=== PATIENT | female | born 1950 | race Caucasian/White ===

== ENCOUNTER → 2017-06-13 09:48 | Outpatient (CLI) | payer OTHER, SELFPAY ==
--- NOTE | 2017-06-13 10:12 | XR_ITS ---
XR foot RT min 3V HISTORY: Right foot pain ITS.REASON: R/O FOREIGN BODY ORDERING PHYSICIAN: Lucy Valero PATIENT AGE: 67 years COMPARISON: None FINDINGS: No fracture or dislocation. No lytic or blastic change. There is normal mineralization.. The joint spaces are well-preserved. No significant degenerative/arthritic changes. No erosive changes evident. There are hypertrophic changes of the distal aspect of the first metatarsal. No radio opaque foreign body apparent. IMPRESSION: No acute finding. Hypertrophic change distal aspect of first metatarsal
== END ==
PROVIDERS: PCP Nurse Practitioner Family; Visit Provider Nurse Practitioner Family
DX: M79.5 Residual foreign body in soft tissue (principal)
CPT/HCPCS: 73630

== ENCOUNTER → 2017-12-26 10:42 | Outpatient (CLI) | payer MEDICARE, OTHER, SELFPAY ==
--- NOTE | 2017-12-26 10:50 | MM_ITS ---
MM Dig screening mamm BI w/CAD CAD Screening COMPARISON: Digital mammograms with CAD 05/02/2016 and 05/01/2015 INDICATION: There is no personal or family history of breast cancer. There is been previous biopsy right breast for benign disease. TECHNIQUE: Standard CC and MLO images were obtained. R2 CAD reviewed. FINDINGS: Moderate diffuse fibroglandular densities are seen throughout both breasts. Again noted is a biopsy clip right breast. There are multiple benign-appearing macro and microcalcifications in each breast. There is no suspicious lesion and there are no suspicious microcalcifications. IMPRESSION: Stable exam no suspicious lesion seen BI-RADS Category: 2 Benign Finding(s) RECOMMENDED FOLLOW-UP: 1YR - 1 YEAR FOLLOW-UP (A letter has been sent to the patient regarding results of the study.)
== END ==
PROVIDERS: PCP Nurse Practitioner Family; Visit Provider Nurse Practitioner Family
DX: Z12.31 Encounter for screening mammogram for malignant neoplasm of breast (principal)
CPT/HCPCS: 77067

== ENCOUNTER → 2018-08-28 12:35 | Outpatient (POV) | payer MEDICARE, OTHER, SELFPAY | PROVIDERS: Visit Provider Internal Medicine | DX: Z00.00 Encounter for general adult medical examination without abnormal findings (principal) ==

== ENCOUNTER → 2018-10-19 08:36 | Outpatient (CLI) | payer MEDICARE, OTHER, SELFPAY ==
[2018-10-19 14:17] LABS: Alanine Aminotransferase 24 U/L (12-78); Albumin Level 3.6 gm/dL (3.4-5.0); Albumin/Globulin Ratio 1.1 (1.1-1.8); Alkaline Phosphatase 107 U/L (46-116); Anion Gap 13.6 mEq/L (5-15); Aspartate Amino Transferase 20 U/L (15-37); Bilirubin,Total 0.2 mg/dL (0.2-1.0); Blood Urea Nitrogen 19 mg/dL (7-18); Calcium 9.1 mg/dL (8.5-10.1); Carbamazepine (Tegretol) 8.6 ug/ml (4.0-12.0); Carbon Dioxide 29 mmol/L (21.0-32.0); Chloride 103 mmol/L (98-107); Cholesterol 161 mg/dL (140-200); Creatinine,Serum 0.87 mg/dL (0.55-1.02); Estimated Glomerular Filt Rate 65 ml/min (>60); GFR (African American) 79 ML/MIN (>60); Globulin 3.4 gm/dl (1.3-3.2); Glucose 147 mg/dL (74-106); HDL Cholesterol 53 mg/dL (29-89); LDL Cholesterol 82 mg/dL (0-130); Potassium 4.6 mmoL/L (3.5-5.1); Sodium 141 mmol/L (136-145); Triglycerides 130 mg/dL (30-200); VLDL Cholesterol 26 mg/dL (0-40)
[2018-10-19 14:47] LABS: Thyroid Stimulating Hormone 2.03 uIU/ml (0.358-3.740)
[2018-10-19 14:55] LABS: Basophils # 0.1 K/mm3 (0-0.2); Basophils % 0.7 % (0.1-2.0); Eosinophils # 0.2 K/mm3 (0.0-0.4); Eosinophils % 2.3 % (0.1-12.0); Hematocrit 37.7 % (37.0-47.0); Hemoglobin 12.5 g/dL (12.2-16.2); Lymphocytes # 2.6 K/mm3 (0.7-4.5); Lymphocytes % 35.8 % (10-50); Mean Platelet Volume 8.2 fl (7.4-10.4); Monocytes # 0.4 K/mm3 (0.1-1.0); Monocytes % 5.8 % (1.7-9.3); Neutrophils % 55.4 % (37.0-80.0); Platelet Count 302 K/mm3 (142-424); Red Blood Count 4.02 M/mm3 (4.20-5.40); Red Cell Distribution Width 12.6 % (11.5-17.5); White Blood Count 7.2 K/mm3 (4.8-10.8)
== END ==
PROVIDERS: PCP Nurse Practitioner Family; Visit Provider Psychiatry & Neurology Psychiatry
DX: F31.2 Bipolar disorder, current episode manic severe with psychotic features (principal); Z79.899 Other long term (current) drug therapy
CPT/HCPCS: 36415; 80053; 80061; 80156; 83036; 84443; 85025

== ENCOUNTER → 2019-01-11 10:38 | Outpatient (CLI) | payer MEDICARE, OTHER, SELFPAY ==
--- NOTE | 2019-01-11 10:42 | MM_ITS ---
PROCEDURE: MM DIG SCREENING MAMM BI W/CAD CLINICAL INDICATION: SCREENING There is no personal or family history of breast cancer. There has been a previous biopsy right breast for benign disease. COMPARISON: DMDBAV DIG MAMM-DX DAX W ADD VIEWS from 05/01/2015 DMS[facility] DIG MAMM-SCREEN DAX W/CAD from 05/02/2016 [facility] MM Dig screening mamm BI w/CAD from 12/26/2017 TECHNIQUE: Standard CC and MLO images were obtained. R2 CAD reviewed. FINDINGS: Scattered diffuse fibroglandular densities are seen throughout both breasts. There are scattered benign-appearing microcalcifications in each breast more numerous right than left. There is no new or suspicious lesion in either breast and no suspicious microcalcifications. IMPRESSION: Moderate diffuse breast density with no suspicious lesions seen BI-RAD Category: 2 Benign Finding(s) FOLLOW-UP: 1YR 1 Year Follow-up (A letter has been sent to the patient regarding results of the study.) Dictated by: Dr. Dario Godinez MD 01/13/2019 10:[address] Dario Godinez MD in [place] 01/13/2019 10:25
== END ==
PROVIDERS: PCP Nurse Practitioner Family; Visit Provider Nurse Practitioner Family
DX: Z12.31 Encounter for screening mammogram for malignant neoplasm of breast (principal)
CPT/HCPCS: 77067

== ENCOUNTER → 2020-01-13 10:09 | Outpatient (CLI) | payer MEDICARE, OTHER, SELFPAY ==
--- NOTE | 2020-01-13 10:46 | MM_ITS ---
PROCEDURE: MM DIG SCREENING MAMM BI W/CAD Digital Breast Tomosynthesis Included CLINICAL INDICATION: SCREENING There is no personal or family history of breast cancer. There has been a previous biopsy right breast for benign disease. COMPARISON: MG DMSB DIG MAMM-SCREEN DAX W/CAD from 05/02/2016 MG [facility] MM Dig screening mamm BI w/CAD from 12/26/2017 MG MM DIG SCREENING MAMM BI W/CAD from 01/11/2019 TECHNIQUE: Standard CC and MLO images and 3D Tomosynthesis was obtained. R2 CAD reviewed. FINDINGS: Glandular densities are seen throughout both breasts. There are multiple scattered benign-appearing micro and macrocalcifications in each breast. There is a biopsy clip right breast. However there has been interval change in the right breast with a collection of indeterminate microcalcifications and architectural distortion approximately 3.6 cm deep to the nipple. Dayne images reveal somewhat spiculated borders to the lesion. IMPRESSION: Suspicious lesion of architectural distortion and indeterminate microcalcifications BI-RAD Category: 5 Highly Suggestive Of Malignancy FOLLOW-UP: Recommend biopsy (A letter has been sent to the patient regarding results of the study.) Dictated by: Dr. Dario Godinez MD 01/19/2020 12:29 Dr. Dario Godinez MD in [place] 01/19/2020 12:29
== END ==
PROVIDERS: PCP Nurse Practitioner Family; Visit Provider Nurse Practitioner Family
DX: Z12.31 Encounter for screening mammogram for malignant neoplasm of breast (principal)
CPT/HCPCS: 77063; 77067

== ENCOUNTER → 2020-02-03 08:35 | Outpatient (CLI) | payer MEDICARE, OTHER, SELFPAY ==
[2020-02-03 13:37] LABS: Chloride 101 mmol/L (98-107); Sodium 137 mmol/L (136-145)
[2020-02-03 13:38] LABS: Potassium 5.1 mmoL/L (3.5-5.1)
[2020-02-03 13:40] LABS: Alanine Aminotransferase 17 U/L (12-78); Albumin Level 3.8 g/dl (3.5-5.0); Albumin/Globulin Ratio 1.2 (1.1-1.8); Alkaline Phosphatase 129 U/L (38-126); Anion Gap 10.1 mEq/L (5-15); Aspartate Amino Transferase 28 U/L (14-36); Basophils # 0.1 K/mm3 (0-0.2); Basophils % 1.2 % (0.1-2.0); Bilirubin,Total 0.3 mg/dl (0.2-1.3); Blood Urea Nitrogen 19 mg/dl (7-17); Carbon Dioxide 31 mmol/L (22.0-30.0); Eosinophils # 0.2 K/mm3 (0.0-0.4); Estimated Glomerular Filt Rate 62 ml/min (>60); GFR (African American) 76 ML/MIN (>60); Globulin 3.1 g/dL (1.3-3.2); Hemoglobin 12.8 g/dL (12.2-16.2); Lymphocytes # 2.5 K/mm3 (0.7-4.5); Lymphocytes % 38.9 % (10-50); Mean Corpuscular Hemoglobin 31.2 pg (27.0-31.2); Mean Corpuscular Volume 97.4 fl (81-99); Mean Platelet Volume 8.2 fl (7.4-10.4); Monocytes # 0.3 K/mm3 (0.1-1.0); Monocytes % 4.9 % (1.7-9.3); Neutrophils # 3.4 K/mm3 (1.8-7.8); Neutrophils % 52.1 % (37.0-80.0); Platelet Count 317 K/mm3 (142-424); Red Blood Count 4.11 M/mm3 (4.20-5.40); Total Protein,Serum 6.9 g/dl (6.3-8.2); White Blood Count 6.4 K/mm3 (4.8-10.8)
[2020-02-03 13:41] LABS: Calcium 9.3 mg/dl (8.4-10.2); Chol/HDL Ratio 2.7 (1-3.5); Cholesterol 166 mg/dl (140-200); Glucose 134 mg/dl (74-100); HDL Cholesterol 61 mg/dl (40-60); Triglycerides 97 mg/dl (30-150); VLDL Cholesterol 19 mg/dL (0-40)
[2020-02-03 13:52] LABS: Direct LDL Cholesterol 70.53 mg/dL (100-129)
[2020-02-03 14:11] LABS: Thyroid Stimulating Hormone 2.71 uIU/mL (0.465-4.68)
[2020-02-03 14:16] LABS: Hemoglobin A1C 6.9 % (4.0-6.0)
== END ==
PROVIDERS: Visit Provider Psychiatry & Neurology Psychiatry
DX: F31.9 Bipolar disorder, unspecified (principal); Z79.899 Other long term (current) drug therapy
CPT/HCPCS: 36415; 80053; 80061; 80156; 83036; 84443; 85025

== ENCOUNTER → 2020-02-05 08:58 | Outpatient (CLI) | payer MEDICARE, OTHER, SELFPAY ==
--- NOTE | 2020-02-05 09:05 | MM_ITS ---
PROCEDURE: MM STEREOTACTIC LOC RT CLINICAL INDICATION: UNSPECIFIED LUMP OF THE RT BREAST, UNSPECIFIED QUADRANT Calcifications right breast TECHNIQUE: Time-out procedure performed. Informed consent was also obtained. The patient was placed on the stereotactic table and the abnormality was localized in the most appropriate projection. The right breast was prepped in the routine manner, with sterile prep and the overlying skin anesthetized. A 3 to 4 mm skin incision was performed and the 9 gauge sorus vacuum-assisted core biopsy needle was advanced to the region of the calcification. Pre- and post fire images were obtained. After adequate positioning relative to the calcifications was ensured, multiple biopsies were obtained in the region of the calcifications specifically. The core biopsies obtained were sent for specimen mammography. After the calcifications were indeed identified on the specimen mammogram, the procedure was terminated. The patient tolerated the procedure well without complications. A tiny titanium nonferromagnetic MicroMark was positioned through the mammotome needle into the biopsy site. Pathology: Fat necrosis with associated microcalcifications. Negative for atypia or malignancy. IMPRESSION: 1. Successful stereotactic vacuum-assisted core biopsy of the breast calcifications. 2. Successful placement of a titanium metal MicroMark. 3. No noted complications. SPECIMEN RADIOGRAPH: The mammographically evident calcifications from the prior study are currently evident within the Lucas dish and within the specimens obtained during mammotome procedure. This is considered an adequate specimen and the procedure was terminated. IMPRESSION: Successful removal of described breast calcifications. BREAST MAMMOGRAM: Compared to the prior study, the previously noted calcification have been removed. A small MicroMark clip was inserted into the region of the calcifications. There is evidence of soft tissue changes in the region of the biopsy was soft tissue gas and edema. 4. Adequate placement of the MicroMark clip postbiopsy. 5. Postbiopsy changes within the breast. 6. Recommend six-month mammographic follow-up per routine protocol. Dictated by: Stefan Snyder MD 03/06/2020 16:00 Stefan Snyder MD in [place] 03/06/2020 16:00
== END ==
PROVIDERS: PCP Nurse Practitioner Family; Visit Provider Nurse Practitioner
DX: R92.0 Mammographic microcalcification found on diagnostic imaging of breast
CPT/HCPCS: 19081; 76098; 77065; 88305

== ENCOUNTER → 2020-08-18 13:14 | Outpatient (CLI) | payer MEDICARE, OTHER, SELFPAY ==
--- NOTE | 2020-08-18 13:18 | MM_ITS ---
PROCEDURE: MM DIG MAMM DX UNILAT RT CAD Digital Breast Tomosynthesis Included CLINICAL INDICATION: 6 mth f/u rt breast s/p bx COMPARISON: MG MM DIG SCREENING MAMM BI W/CAD from 01/13/2020 MG MM CLIP PLACEMENT RT from 02/05/2020 MG MM STEREOTACTIC LOC RT from 02/05/2020 MG MM SURGICAL SPECIMEN RT from 02/05/2020 TECHNIQUE: Standard CC and MLO images and 3D Tomosynthesis was obtained. R2 CAD reviewed. Spot compression Mag views also performed FINDINGS: Status post stereotactic biopsy of the calcifications in the retroareolar region of the right breast. A clip is present at this region similar to the previous exam. Calcifications are increasing however they do appear benign with similar morphology compared to the previous exam. These calcifications were biopsied on 02/05/2020 and demonstrated fat necrosis. The increasing calcification may be related to progression of fat necrosis. Continued six-month follow-up is suggested. Clips are also present in the upper outer right breast and lower inner right breast. IMPRESSION: S/p retroareolar biopsy with some increasing calcifications which may be related to increasing fat necrosis. Continued follow-up suggested BI-RAD Category: 3 Probably Benign Finding Short Term Follow-Up FOLLOW-UP: 6M 6 Month Follow-up (A letter has been sent to the patient regarding results of the study.) Dictated by: Stefan Snyder MD 08/27/2020 09:37 Stefan Snyder MD in [place] 08/27/2020 09:37
== END ==
PROVIDERS: PCP Nurse Practitioner Family; Visit Provider Nurse Practitioner Family
DX: R92.2 Inconclusive mammogram (principal)
CPT/HCPCS: 77061; 77065; G0279

== ENCOUNTER → 2021-02-18 13:12 | Outpatient (CLI) | payer MEDICARE, OTHER, SELFPAY ==
--- NOTE | 2021-02-18 13:16 | MM_ITS ---
PROCEDURE INFORMATION: Exam: MG Bilateral Diagnostic Mammography Exam date and time: 02/18/2021 1:16 PM Age: 70 years old Clinical indication: Status post stereotactic biopsy of right breast calcifications TECHNIQUE: Imaging protocol: Diagnostic mammography of the bilateral breasts including computer-aided detection (CAD) when performed. Bilateral exam. COMPARISON: 1. MG MM DIG MAMM DX UNILAT RT CAD 08/18/2020 1:26 PM 2. MG MM CLIP PLACEMENT RT 02/05/2020 10:58 AM FINDINGS: MAMMOGRAPHY: The breast tissue is composed of scattered areas of fibroglandular density. There is no stellate mass, architectural distortion or suspicious microcalcifications in either breast to suggest malignancy. Stable previously biopsied calcifications in the right central breast. No skin thickening or axillary adenopathy. IMPRESSION: No mammographic evidence of malignancy. Annual bilateral mammographic screening is recommended unless otherwise clinically indicated. ASSESSMENT: BI-RADS Category 2: Benign
== END ==
PROVIDERS: PCP Nurse Practitioner Family; Visit Provider Nurse Practitioner Family
DX: R92.2 Inconclusive mammogram (principal)
CPT/HCPCS: 77062; 77066; G0279

== ENCOUNTER → 2021-03-03 09:18 | Outpatient (CLI) | payer MEDICARE, OTHER, SELFPAY ==
--- NOTE | 2021-03-03 09:24 | XR_ITS ---
FINAL REPORT TECHNIQUE: Bone mineral density was calculated of the lumbar spine and hip. CLINICAL HISTORY: . FINDINGS: Using L1-4, the bone mineral density of the spine is 1.096 g/cm2, corresponding to T-score of 0.4. Using the left hip, the bone mineral density of the total femur is 0.768 g/cm2, corresponding to a T-score of -1.4. IMPRESSION: Normal bone mineral density of the lumbar spine with osteopenia of the proximal left femur. 8% risk of major osteoporotic fracture based on FRAX data. Reviewed, Interpreted and Dictated by Dirk Garcia III, MD Transcribed by Alfred Agudelo Authenticated by Dirk Garcia III, MD on 03/03/2021 10:34:39 AM [facility]
== END ==
PROVIDERS: PCP Nurse Practitioner Family; Visit Provider Nurse Practitioner Family
DX: Z13.820 Encounter for screening for osteoporosis (principal); Z78.0 Asymptomatic menopausal state
CPT/HCPCS: 77080

== ENCOUNTER → 2021-06-24 08:22 | Outpatient (CLI) | payer MEDICARE, OTHER, SELFPAY ==
[2021-06-24 14:11] LABS: Basophils # 0.1 K/mm3 (0-0.2); Basophils % 0.9 % (0.1-2.0); Eosinophils # 0.2 K/mm3 (0.0-0.4); Eosinophils % 3.8 % (0.1-12.0); Hematocrit 36.3 % (37.0-47.0); Hemoglobin 11.7 g/dL (12.2-16.2); Lymphocytes # 2.1 K/mm3 (0.7-4.5); Lymphocytes % 32.4 % (10-50); Mean Corpuscular HGB Conc 32.1 g/dL (31.8-35.4); Mean Corpuscular Hemoglobin 31.4 pg (27.0-31.2); Mean Corpuscular Volume 97.8 fl (81-99); Mean Platelet Volume 10.7 fl (7.4-10.4); Monocytes # 0.3 K/mm3 (0.1-1.0); Monocytes % 4.9 % (1.7-9.3); Neutrophils # 3.7 K/mm3 (1.8-7.8); Platelet Count 344 K/mm3 (142-424); Red Blood Count 3.71 M/mm3 (4.20-5.40); Red Cell Distribution Width 14.2 % (11.5-17.5); White Blood Count 6.4 K/mm3 (4.8-10.8)
[2021-06-24 14:20] LABS: Alanine Aminotransferase 17 U/L (12-78); Albumin Level 3.5 g/dl (3.5-5.0); Albumin/Globulin Ratio 1.3 (1.1-1.8); Alkaline Phosphatase 115 U/L (38-126); Anion Gap 9.4 mEq/L (5-15); Aspartate Amino Transferase 27 U/L (14-36); Bilirubin,Total 0.3 mg/dl (0.2-1.3); Blood Urea Nitrogen 16 mg/dl (7-17); Calcium 8.5 mg/dl (8.4-10.2); Carbamazepine (Tegretol) 7.1 ug/ml (4.0-12.0); Carbon Dioxide 31 mmol/L (22.0-30.0); Chloride 103 mmol/L (98-107); Chol/HDL Ratio 2.7 (1-3.5); Cholesterol 138 mg/dl (140-200); Estimated Glomerular Filt Rate 83 ml/min (>60); GFR (African American) 100 ML/MIN (>60); Globulin 2.8 g/dL (1.3-3.2); Glucose 112 mg/dl (74-100); HDL Cholesterol 52 mg/dl (40-60); Potassium 4.4 mmoL/L (3.5-5.1); Sodium 139 mmol/L (136-145); Total Protein,Serum 6.3 g/dl (6.3-8.2); Triglycerides 97 mg/dl (30-150); VLDL Cholesterol 19 mg/dL (0-40)
[2021-06-24 14:33] LABS: Hemoglobin A1C 6.3 % (4.0-6.0)
[2021-06-24 14:47] LABS: Thyroid Stimulating Hormone 2.03 uIU/mL (0.465-4.68)
== END ==
PROVIDERS: Visit Provider Psychiatry & Neurology Psychiatry
DX: F31.64 Bipolar disorder, current episode mixed, severe, with psychotic features (principal); Z79.899 Other long term (current) drug therapy
CPT/HCPCS: 36415; 80053; 80061; 80156; 83036; 84443; 85025

== ENCOUNTER 2021-07-15 16:06 | Emergency (ER) | payer MEDICARE, OTHER, SELFPAY ==
[2021-07-15 16:07] VITALS: BP 188/92; PULSE 75; RESP 18; TEMP 36.9; O2SAT 99; BMI 28.3
--- NOTE | 2021-07-15 16:24 | CT_ITS ---
PROCEDURE INFORMATION: Exam: CT Abdomen And Pelvis Without Contrast Exam date and time: 07/15/21 04:32 PM Age: 71 years old Clinical indication: Abdominal pain; Additional info: Right flank pain TECHNIQUE: Imaging protocol: Computed tomography of the abdomen and pelvis without contrast. Radiation optimization: All CT scans at this facility use at least one of these dose optimization techniques: automated exposure control; mA and/or kV adjustment per patient size (includes targeted exams where dose is matched to clinical indication); or iterative reconstruction. COMPARISON: No relevant prior studies available. FINDINGS: Tubes, catheters and devices: None noted. Lungs: Lung bases appear clear. Heart: No significant coronary calcifications. No cardiomegaly. No significant pericardial effusion. Liver: Normal. No mass. Gallbladder and bile ducts: Cholecystectomy. No ductal dilation. Pancreas: Normal. No ductal dilation. Spleen: Normal. No splenomegaly. Adrenal glands: Normal. No mass. Kidneys and ureters: Tiny distal right ureteral calculus 1-2 mm size. (series 3, image 100). No hydronephrosis. Stomach and bowel: Large amount of stool in the colon. Appendix: No evidence of appendicitis. Intraperitoneal space: Unremarkable. No free air. No significant fluid collection. Retroperitoneal space: No significant retroperitoneal inflammatory changes are noted. Vasculature: Unremarkable. No abdominal aortic aneurysm. Lymph nodes: Unremarkable. No enlarged lymph nodes. Urinary bladder: Unremarkable as visualized. Reproductive: Hysterectomy. Bones/joints: Disc space narrowing L2-L3. No acute fracture. Soft tissues: Unremarkable. Other findings: . No obstruction. No mucosal thickening. IMPRESSION: 1. Tiny distal right ureteral calculus 1-2 mm size without significant hydronephrosis or hydroureter. 2. Large amount of stool in the colon. 3. Hysterectomy. 4. Disc space narrowing L2-L3.
--- NOTE | 2021-07-15 16:30 | PC.NURSE ---
Mya Cobian, RN at
[2021-07-15 16:37] LABS: Microscopic, Urine URINE MICROSCOPIC (MICROSCOPIC)
--- NOTE | 2021-07-15 16:45 | HMH.EDGENADL ---
ED Disposition Clinical Impression: Ureteral calculus Disposition: Home, Self-Care Condition on Discharge: Good Instructions: DI for Kidney Stones Additional Instructions: Flomax as prescribed. [place] as needed for pain. Zofran as needed for nausea. Additional instructions for KIDNEY STONE (URETERAL CALCULUS): See your PCP as soon as possible for further evaluation. Drink plenty of fluids. Strain your urine and save any stones you catch. Return immediately if you develop a fever or have uncontrollable vomiting or uncontrollable pain. Prescriptions: Hydrocod/Acet 5/325 mg [[place] 5/325mg tablet] 1 tab PO Q6HP PRN #20 tab PRN Reason: Pain Transmission Status: Sent to [facility] Tamsulosin HCl [Flomax 0.4mg capsule] 0.4 mg PO HS #10 cap Transmission Status: Pending to [facility] Ondansetron [Zofran 4mg ODT] 4 mg PO TIDP PRN #10 tab PRN Reason: Nausea And Vomiting Transmission Status: Pending to [facility] Referrals: Tessy Goodman [Primary Care Provider] - - Critical Care Critical Care Time: No Attestation: On , the high probability of a clinically significant, sudden or life threatening deterioration of the following system(s) required my full and direct attention, intervention and personal management. The time I documented below is in addition to time spent performing reported procedures but includes the following listed in this critical care notation. Medical Decision Making - Jacoby Inquiry Pt receiving controlled substance: Yes Jacoby was queried for this patient: Yes Risks and benefits of using a controlled substance: were discussed with pt by me Vital Signs: 07/15/21 16:07 07/15/21 17:08 07/15/21 17:50 Temperature 98.5 F Temperature Source Oral Pulse Rate 77 70 Pulse Rate [Left Radial] 75 Respiratory Rate 18 Blood Pressure 167/76 H 166/89 H Blood Pressure [Right Arm] 188/92 H Blood Pressure Mean [Right Arm] 124 Blood Pressure Source Automatic Cuff Blood Pressure Source [Right Arm] Automatic Cuff Blood Pressure Position Sitting Sitting Blood Pressure Position [Right Arm] Sitting 02 Sat by Pulse Oximetry 99 96 97 Oxygen Delivery Method Room Air Room Air Room Air - Lab Data Lab Results 07/15/21 16:35: Urine Color Yellow, Urine Appearance Clear, Urine pH 6.0, Ur Specific [place] 1.020, Urine Protein Negative, Urine Glucose (UA) Negative, Urine Ketones Negative, Urine Blood Negative, Urine Nitrate Negative, Urine Bilirubin Negative, Urine Urobilinogen 0.2, Ur Leukocyte Esterase Trace 07/15/21 16:45: WBC 7.1, RBC 3.94 L, Hgb 12.3, Hct 39.1, MCV 99.3 H, MCH 31.1, MCHC 31.4 L, RDW 14.6, Plt Count 307, MPV 8.4, Neut % (Auto) 52.5, Lymph % (Auto) 36.3, [place] % (Auto) 6.4, Eos % (Auto) 2.6, Baso % (Auto) 2.2 H, Neut # (Auto) 3.7, Lymph # (Auto) 2.6, [place] # (Auto) 0.5, Eos # (Auto) 0.2, Baso # (Auto) 0.2 07/15/21 16:45: Sodium 135 L, Potassium 4.4, Chloride 98, Carbon Dioxide 30, Anion Gap 11.4, BUN 14, Creatinine 0.70, Estimated Creat Clear 69, Estimated GFR 83, Est GFR ( Amer) 100, Glucose 111 H, Calcium 9.0, Total Bilirubin < 0.1 L, AST 37 H, ALT 23, Alkaline Phosphatase 120, Total Protein 7.3, Albumin 4.0, Globulin 3.3 H, Albumin/Globulin Ratio 1.2 Result diagrams: 07/15/21 16:45 07/15/21 16:45 Orders (Tests/Meds): ED MEDICATIONS Generic Name Dose Route Start Last Admin Trade Name Freq PRN Reason Stop Dose Admin Sodium Chloride 10 ml 07/15/21 16:24 Sodium Chloride 0.9% 10ml Flush Syringe IV 08/14/21 16:23 NEEDED PRN Maintain IV Site Discontinued Medications Generic Name Dose Route Start Last Admin Trade Name Freq PRN Reason Stop Dose Admin Sodium Chloride 1,000 mls @ 999 mls/hr 07/15/21 16:30 07/15/21 16:48 Sod Chlor 0.9% 1000ml Bag IV 07/15/21 17:30 999 mls/hr .Q1H1M DONY Administration Ketorolac Tromethamine 30 mg 07/15/21 16:26 07/15/21 16:49 Ketorolac 30mg/Ml Vial IV
[2021-07-15 16:50] LABS: Appearance,Urine CLEAR (Clear); Bilirubin,Urine Negative (Negative); Blood, Urine Negative (Negative); Color,Urine YELLOW (Yellow); Glucose,Urine (UA) Negative (Negative); Ketones,Urine Negative (Negative); Leukocyte Esterase,Urine TRACE (Negative); Nitrate,Urine Negative (Negative); Protein,Urine Negative (Negative); Urobilinogen,Urine 0.2 EU/dl (0.2)
[2021-07-15 16:55] LABS: Basophils # 0.2 K/mm3 (0-0.2); Basophils % 2.2 % (0.1-2.0); Eosinophils # 0.2 K/mm3 (0.0-0.4); Eosinophils % 2.6 % (0.1-12.0); Hematocrit 39.1 % (37.0-47.0); Hemoglobin 12.3 g/dL (12.2-16.2); Lymphocytes # 2.6 K/mm3 (0.7-4.5); Lymphocytes % 36.3 % (10-50); Mean Corpuscular HGB Conc 31.4 g/dL (31.8-35.4); Mean Corpuscular Hemoglobin 31.1 pg (27.0-31.2); Mean Corpuscular Volume 99.3 fl (81-99); Mean Platelet Volume 8.4 fl (7.4-10.4); Monocytes # 0.5 K/mm3 (0.1-1.0); Monocytes % 6.4 % (1.7-9.3); Neutrophils # 3.7 K/mm3 (1.8-7.8); Neutrophils % 52.5 % (37.0-80.0); Platelet Count 307 K/mm3 (142-424); Red Blood Count 3.94 M/mm3 (4.20-5.40); Red Cell Distribution Width 14.6 % (11.5-17.5); White Blood Count 7.1 K/mm3 (4.8-10.8)
[2021-07-15 17:02] LABS: Alanine Aminotransferase 23 U/L (12-78); Albumin/Globulin Ratio 1.2 (1.1-1.8); Alkaline Phosphatase 120 U/L (38-126); Anion Gap 11.4 mEq/L (5-15); Aspartate Amino Transferase 37 U/L (14-36); Blood Urea Nitrogen 14 mg/dl (7-17); Carbon Dioxide 30 mmol/L (22.0-30.0); Chloride 98 mmol/L (98-107); Creatinine Clearance Estimated 69 mL/min (50-200); Estimated Glomerular Filt Rate 83 ml/min (>60); GFR (African American) 100 ML/MIN (>60); Globulin 3.3 g/dL (1.3-3.2); Glucose 111 mg/dl (74-100); Potassium 4.4 mmoL/L (3.5-5.1); Sodium 135 mmol/L (136-145); Total Protein,Serum 7.3 g/dl (6.3-8.2)
[2021-07-15 17:08] VITALS: BP 167/76; PULSE 77; O2SAT 96
--- NOTE | 2021-07-15 17:09 | PC.NURSE ---
patient hooked to monitor; gave her a warm blanket and call light is within reach; no other needs at this time Family at [facility]
[2021-07-15 17:18] LABS: Bilirubin,Total < 0.1 mg/dl (0.2-1.3)
[2021-07-15 17:50] VITALS: BP 166/89; PULSE 70; O2SAT 97
--- NOTE | 2021-07-15 18:03 | PC.NURSE ---
ED MD at speaking with patient regarding POC
--- NOTE | 2021-07-15 18:20 | PC.NURSE ---
patient wanting to finish fluids before being discharged
[2021-07-15 18:28] VITALS: BP 166/89; PULSE 70; RESP 20; TEMP 36.9; O2SAT 99
[2021-07-15 18:28] LABS: Bacteria,Urine 1+ /lpf
[2021-07-15 18:32] VITALS: BP 191/93; PULSE 72; O2SAT 98
== END 2021-07-15 18:42 | disposition home or self-care (01) ==
PROVIDERS: Emergency Provider Emergency Medicine; PCP Nurse Practitioner Family
DX: N13.2 Hydronephrosis with renal and ureteral calculous obstruction (principal); I31.3 Pericardial effusion (noninflammatory); M54.50 Low back pain, unspecified; Z88.0 Allergy status to penicillin; Z88.2 Allergy status to sulfonamides; Z88.5 Allergy status to narcotic agent; Z88.8 Allergy status to other drugs, medicaments and biological substances; Z91.040 Latex allergy status; Z87.891 Personal history of nicotine dependence
CPT/HCPCS: 74176; 80053; 81001; 85025; 96361; 96374; 96375; 99285; J2405

== ENCOUNTER 2021-07-17 18:00 | Emergency (ER) | payer MEDICARE, OTHER, SELFPAY ==
[2021-07-17 18:00] VITALS: BP 195/94; PULSE 77; RESP 18; TEMP 37.1; O2SAT 99; BMI 28.1
--- NOTE | 2021-07-17 18:06 | HMH.EDGENADL ---
ED Disposition Clinical Impression: Right ureteral calculus Disposition: Xfer Short-Term Hosp Condition on Discharge: Fair Referrals: Provider,Referral, [Referring] - - Critical Care Critical Care Time: No Attestation: On , the high probability of a clinically significant, sudden or life threatening deterioration of the following system(s) required my full and direct attention, intervention and personal management. The time I documented below is in addition to time spent performing reported procedures but includes the following listed in this critical care notation. Medical Decision Making - Jacoby Inquiry Pt receiving controlled substance: Yes Jacoby was queried for this patient: Yes Risks and benefits of using a controlled substance: were not discussed with pt by me Vital Signs: 07/17/21 18:00 07/17/21 18:28 07/17/21 18:30 Temperature 98.7 F Temperature Source Oral Pulse Rate 78 76 Pulse Rate [Left Radial] 77 Respiratory Rate 18 Blood Pressure 189/97 H 204/96 H Blood Pressure [Right Arm] 195/94 H Blood Pressure Mean 127 132 Blood Pressure Mean [Right Arm] 127 Blood Pressure Source Automatic Cuff Automatic Cuff Blood Pressure Position Sitting Sitting 02 Sat by Pulse Oximetry 99 95 98 Oxygen Delivery Method Room Air Room Air Room Air 07/17/21 18:31 Temperature Temperature Source Pulse Rate 81 Pulse Rate [Left Radial] Respiratory Rate Blood Pressure Blood Pressure [Right Arm] Blood Pressure Mean Blood Pressure Mean [Right Arm] Blood Pressure Source Blood Pressure Position 02 Sat by Pulse Oximetry 98 Oxygen Delivery Method - Lab Data Lab Results 07/17/21 18:23: WBC 6.9, RBC 3.64 L, Hgb 11.3 L, Hct 35.7 L, MCV 98.1, MCH 31.1, MCHC 31.7 L, RDW 14.5, Plt Count 279, MPV 7.9, Neut % (Auto) 52.8, Lymph % (Auto) 34.8, [place] % (Auto) 6.9, Eos % (Auto) 3.6, Baso % (Auto) 1.9, Neut # (Auto) 3.6, Lymph # (Auto) 2.4, [place] # (Auto) 0.5, Eos # (Auto) 0.3, Baso # (Auto) 0.1 07/17/21 18:23: Sodium 135 L, Potassium 5.2 H, Chloride 102, Carbon Dioxide 30, Anion Gap 8.2, BUN 14, Creatinine 0.70, Estimated Creat Clear 68, Estimated GFR 83, Est GFR ( Amer) 100, Glucose 81, Calcium 8.7, Total Bilirubin 0.3, AST 34, ALT 21, Alkaline Phosphatase 114, Total Protein 6.6, Albumin 3.7, Globulin 2.9, Albumin/Globulin Ratio 1.3 07/17/21 18:30: Urine Color Yellow, Urine Appearance Clear, Urine pH 6.0, Ur Specific [place] 1.010, Urine Protein Negative, Urine Glucose (UA) Negative, Urine Ketones Negative, Urine Blood Negative, Urine Nitrate Negative, Urine Bilirubin Negative, Urine Urobilinogen 0.2, Ur Leukocyte Esterase Negative, Urine RBC None, Urine WBC 3-5, Ur Squamous Epith Cells Occasional, Urine Bacteria None Result diagrams: 07/17/21 18:23 07/17/21 18:23 Orders (Tests/Meds): ED MEDICATIONS Discontinued Medications Generic Name Dose Route Start Last Admin Trade Name Freq PRN Reason Stop Dose Admin Hydromorphone HCl 1 mg 07/17/21 18:34 07/17/21 19:20 Hydromorphone 2mg/Ml Syringe IV 07/17/21 18:35 1 mg ONCE ONE Administration Ketorolac Tromethamine 15 mg 07/17/21 19:38 07/17/21 19:42 Ketorolac 30mg/Ml Vial IV 07/17/21 19:39 15 mg ONCE ONE Administration Ondansetron HCl 4 mg 07/17/21 18:35 07/17/21 19:20 Ondansetron 4mg/2ml Vial IV 07/17/21 18:36 4 mg ONCE ONE Administration ORDERS Category Date Time Status Rapid PCR Covid and Flu A/B Stat Lab 07/17/21 20:[address] result: PROCEDURE INFORMATION: Exam: CT Abdomen And Pelvis Without Contrast Exam date and time: 07/15/21 04:32 PM Age: 71 years old Clinical indication: Abdominal pain; Additional info: Right flank pain TECHNIQUE: Imaging protocol: Computed tomography of the abdomen and pelvis without contrast. Radiation optimization: All CT scans at this facility use at least one of these dose optimization techniques: automated exposure control; Loc flood
[2021-07-17 18:28] VITALS: BP 189/97; PULSE 78; O2SAT 95
[2021-07-17 18:30] VITALS: BP 204/96; PULSE 76; O2SAT 98
[2021-07-17 18:30] LABS: Basophils # 0.1 K/mm3 (0-0.2); Basophils % 1.9 % (0.1-2.0); Eosinophils # 0.3 K/mm3 (0.0-0.4); Eosinophils % 3.6 % (0.1-12.0); Hematocrit 35.7 % (37.0-47.0); Hemoglobin 11.3 g/dL (12.2-16.2); Lymphocytes # 2.4 K/mm3 (0.7-4.5); Lymphocytes % 34.8 % (10-50); Mean Corpuscular HGB Conc 31.7 g/dL (31.8-35.4); Mean Corpuscular Hemoglobin 31.1 pg (27.0-31.2); Mean Corpuscular Volume 98.1 fl (81-99); Mean Platelet Volume 7.9 fl (7.4-10.4); Monocytes # 0.5 K/mm3 (0.1-1.0); Monocytes % 6.9 % (1.7-9.3); Neutrophils # 3.6 K/mm3 (1.8-7.8); Neutrophils % 52.8 % (37.0-80.0); Platelet Count 279 K/mm3 (142-424); Red Blood Count 3.64 M/mm3 (4.20-5.40); Red Cell Distribution Width 14.5 % (11.5-17.5); White Blood Count 6.9 K/mm3 (4.8-10.8)
[2021-07-17 18:31] VITALS: PULSE 81; O2SAT 98
--- NOTE | 2021-07-17 18:31 | PC.NURSE ---
ED MD at speaking with patient
[2021-07-17 18:35] LABS: Chloride 102 mmol/L (98-107); Potassium 5.2 mmoL/L (3.5-5.1); Sodium 135 mmol/L (136-145)
[2021-07-17 18:37] LABS: Blood Urea Nitrogen 14 mg/dl (7-17); Creatinine Clearance Estimated 68 mL/min (50-200); Estimated Glomerular Filt Rate 83 ml/min (>60); GFR (African American) 100 ML/MIN (>60)
[2021-07-17 18:38] LABS: Alanine Aminotransferase 21 U/L (12-78); Albumin Level 3.7 g/dl (3.5-5.0); Albumin/Globulin Ratio 1.3 (1.1-1.8); Alkaline Phosphatase 114 U/L (38-126); Anion Gap 8.2 mEq/L (5-15); Aspartate Amino Transferase 34 U/L (14-36); Bilirubin,Total 0.3 mg/dl (0.2-1.3); Calcium 8.7 mg/dl (8.4-10.2); Carbon Dioxide 30 mmol/L (22.0-30.0); Globulin 2.9 g/dL (1.3-3.2); Glucose 81 mg/dl (74-100); Total Protein,Serum 6.6 g/dl (6.3-8.2)
[2021-07-17 18:48] LABS: Microscopic, Urine URINE MICROSCOPIC (MICROSCOPIC)
[2021-07-17 18:50] LABS: Appearance,Urine CLEAR (Clear); Bilirubin,Urine Negative (Negative); Blood, Urine Negative (Negative); Color,Urine YELLOW (Yellow); Glucose,Urine (UA) Negative (Negative); Ketones,Urine Negative (Negative); Leukocyte Esterase,Urine Negative (Negative); Nitrate,Urine Negative (Negative); Protein,Urine Negative (Negative); Urobilinogen,Urine 0.2 EU/dl (0.2)
[2021-07-17 19:13] LABS: Squamous Epithelial Cell,Urine Occasional #/hpf (0-5)
--- NOTE | 2021-07-17 19:15 | PC.NURSE ---
ED doctor on phone with Dr. Salmon
--- NOTE | 2021-07-17 19:44 | PC.NURSE ---
call to [facility] to call back
[2021-07-17 20:29] LABS: Coronavirus 19, PCR Not Detected (NotDetected); Influenza A, PCR Not Detected (NotDetected); Influenza B, PCR Not Detected (NotDetected)
--- NOTE | 2021-07-17 20:31 | PC.NURSE ---
[facility] accepted by hospitalist and urology, awaiting COVID results for room placement
[2021-07-17 21:27] VITALS: BP 182/91; PULSE 94; RESP 16; TEMP 37.1; O2SAT 97
== END 2021-07-17 22:01 | disposition short-term general hospital (02) ==
PROVIDERS: Emergency Provider Emergency Medicine; PCP Nurse Practitioner Family
DX: N20.1 Calculus of ureter (principal); I10 Essential (primary) hypertension; E11.9 Type 2 diabetes mellitus without complications; E78.5 Hyperlipidemia, unspecified; Z88.0 Allergy status to penicillin; Z79.899 Other long term (current) drug therapy
CPT/HCPCS: 80053; 81001; 85025; 96374; 96375; 99284; C9803; J2405; U0003; U0005

== ENCOUNTER 2021-07-27 11:13 | Emergency (ER) | payer MEDICARE, OTHER, SELFPAY ==
[2021-07-27 11:11] VITALS: BP 157/87; PULSE 89; RESP 18; TEMP 36.7; O2SAT 98; BMI 28.7
--- NOTE | 2021-07-27 11:17 | PC.NURSE ---
HENRIQUE ROSE at
--- NOTE | 2021-07-27 11:20 | HMH.EDGENADL ---
ED Disposition Clinical Impression: Left against medical advice, Dysuria, Urinary incontinence Disposition: Home, Self-Care Condition on Discharge: Good Instructions: DI for Urinary Tract Infection (UTI), DI for Urinary Tract Infection in Children Referrals: Tessy Goodman [Primary Care Provider] - - Critical Care Critical Care Time: No Attestation: On 07/27/21, the high probability of a clinically significant, sudden or life threatening deterioration of the following system(s) required my full and direct attention, intervention and personal management. The time I documented below is in addition to time spent performing reported procedures but includes the following listed in this critical care notation. Medical Decision Making - Medical Records Medical records reviewed: Yes: I reviewed the patient's medical records. - Jacoby Inquiry Pt receiving controlled substance: No Vital Signs: 07/27/21 11:11 07/27/21 11:29 Temperature 98.0 F 98.0 F Temperature Source Oral Pulse Rate 89 Pulse Rate [Right Radial] 89 Respiratory Rate 18 18 Blood Pressure 157/87 H Blood Pressure [Right Arm] 157/87 H Blood Pressure Mean [Right Arm] 110 Blood Pressure Source [Right Arm] Automatic Cuff Blood Pressure Position Sitting Blood Pressure Position [Right Arm] Sitting 02 Sat by Pulse Oximetry 98 Oxygen Delivery Method Room Air Room Air Orders (Tests/Meds): ORDERS Category Date Time Status Urinalysis-Acute [Urinalysis and Microscopic] Stat Lab 07/27/21 11:14 Ordered Medical Decision Narrative: pt frandy, said she was going to go to instead, did not stay for any further discussion, appeared well General Adult HPI - General Stated complaint: Uriniating too much Time Seen by Provider: 07/27/21 11:20 Source of Information: Patient Limitations: No Limitations - History of Present Illness HPI narrative: c/o urinary incontinence and dysuria,3-4 days, demanding we take her ureter stent out recent urinary stent for ureter stone Onset (ago): day(s) Radiation: non-radiation Severity: moderate Consistency: constant Relieving factors: none Exacerbating factors: none Associated symptoms: denies other symptoms - Related Data Home Medications Medication Instructions Recorded Confirmed alogliptin 25 mg tablet 25 mg PO QAM 07/24/17 08/15/17 atorvastatin 10 mg tablet 10 mg PO ONCE 07/24/17 08/15/17 carbamazepine 100 mg 200 mg PO Q12H 07/24/17 08/15/17 capsule,extended release [id number] carvedilol 12.5 mg tablet 12.5 mg PO BID 07/24/17 08/15/17 clonazepam 0.5 mg tablet 0.5 mg PO BID 07/24/17 08/15/17 ferrous sulfate 325 mg (65 mg 325 mg PO BID tab 07/24/17 08/15/17 iron) tablet gabapentin 600 mg tablet 600 mg PO BID 07/24/17 08/15/17 hydroxyzine pamoate 25 mg capsule 25 mg PO QID PRN 07/24/17 08/15/17 lisinopril 10 mg tablet 5 mg PO ONCE 07/24/17 08/15/17 montelukast 10 mg tablet 10 mg PO QPM 07/24/17 08/15/17 omeprazole 40 mg capsule,delayed 40 mg PO ONCE 07/24/17 08/15/17 release pioglitazone 30 mg tablet 30 mg PO ONCE 07/24/17 08/15/17 quetiapine 100 mg tablet 100 mg PO TID 07/24/17 08/15/17 venlafaxine 75 mg capsule,extended 75 mg PO QHS 07/24/17 08/15/17 release 24 hr [id number]/Sod Sulf,Bicarb,Cl/KCl 240 ml PO Q10M 08/11/17 08/15/17 [[id number] and Electrolytes Soln] Previous Rx's Medication Instructions Recorded Hydrocod/Acet 5/325 mg [[place] 1 tab PO Q6HP PRN #20 tab 07/15/21 5/325mg tablet] Ondansetron [Zofran 4mg ODT] 4 mg PO TIDP PRN #10 tab 07/15/21 Tamsulosin HCl [Flomax 0.4mg 0.4 mg PO HS #10 cap 07/15/21 capsule] Allergies Allergy/AdvReac Type Severity Reaction Status Date / Time latex Allergy Mild Verified 09/08/17 09:13 codeine [CODEINE] Allergy Unknown Verified 09/08/17 09:13 fexofenadine [From JANE] Allergy Unknown Verified 09/08/17 09:13 iopamidol [IOPAMIDOL] Allergy Unknown Verified 09/08/17 09:13 meperidine [MEPERIDINE] Allergy Unknown
--- NOTE | 2021-07-27 11:26 | PC.NURSE ---
pt came out of ER room at this time reporting she is leaving, states she is going to have someone take her to [place] and they will have to take this out . Pt then walked out of ER. ER MD at [facility], he heard pt state she was leaving.
[2021-07-27 11:29] VITALS: BP 157/87; PULSE 89; RESP 18; TEMP 36.7; O2SAT 98
== END 2021-07-27 11:29 | disposition home or self-care (01) ==
LOC: ER 11:14
PROVIDERS: Emergency Provider Emergency Medicine; PCP Nurse Practitioner Family
DX: Z53.21 Procedure and treatment not carried out due to patient leaving prior to being seen by health care provider (principal)

== ENCOUNTER 2021-07-28 20:00 | Emergency (ER) | payer MEDICARE, OTHER, SELFPAY ==
[2021-07-28 20:01] VITALS: RESP 0; O2SAT 0; BMI 30.7
--- NOTE | 2021-07-28 20:11 | PC.NURSE ---
Attempted to contact patient's next of kin and emergency contact with no answer. Left a message. Pt will not talk and keeps her eyes closed and arms across her chest.
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
--- NOTE | 2021-07-28 21:45 | PC.NURSE ---
pt remains laying in bed with her arms crossed and eyes closed. When I attempt to talk to her she only shakes her head no and refuses any procedures or v/s to be obtained. MD is aware this continues
--- NOTE | 2021-07-28 22:30 | PC.NURSE ---
Went in to speak with patient again, she was able to tell me her name, and where she was. She still refused at this time for me to obtain any v/s or perform any procedures/tests. Pt remained laying in bed with no other requests or needs.
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
--- NOTE | 2021-07-28 23:49 | PC.NURSE ---
Registration called and advised that daughter was outside waiting on patient. Donny and myself walked patient outside to daughter vehicle. PT got into the backseat and we had conversation with daughter about her refusing care and not allowing us to complete any testing. Daughter was understanding with us at this time.
[2021-07-28 23:50] VITALS: BP 0/0; PULSE 0; RESP 0; TEMP -17.7; TEMP 0; O2SAT 0
== END 2021-07-28 23:52 | disposition left against medical advice (07) ==
PROVIDERS: Emergency Provider Emergency Medicine
DX: R41.82 Altered mental status, unspecified (principal); F41.9 Anxiety disorder, unspecified; I10 Essential (primary) hypertension; E78.5 Hyperlipidemia, unspecified; E11.9 Type 2 diabetes mellitus without complications

== ENCOUNTER 2022-03-04 13:30 | Emergency (ER) | payer MEDICARE, OTHER, SELFPAY ==
[2022-03-04 13:35] VITALS: BP 196/95; PULSE 76; RESP 18; O2SAT 97; BMI 27.4
--- NOTE | 2022-03-04 13:35 | PC.NURSE ---
called for pt tray
--- NOTE | 2022-03-04 13:42 | HMH.EDGENADL ---
Discharge Plan Disposition Patient Disposition: Home, Self-Care Condition: Fair Prescriptions Prescriptions: No Action pioglitazone [Actos] 30 mg tablet 30 mg PO ONCE omeprazole 40 mg capsule,delayed release(DR/EC) 40 mg PO ONCE hydroxyzine pamoate [Vistaril] 25 mg capsule 25 mg PO QID PRN (Reason: Anxiety) alogliptin 25 mg tablet 25 mg PO QAM montelukast [Singulair] 10 mg tablet 10 mg PO QPM atorvastatin [Lipitor] 10 mg tablet 10 mg PO ONCE quetiapine [Seroquel] 100 mg tablet 100 mg PO TID venlafaxine [Effexor XR] 75 mg capsule,extended release 24hr 75 mg PO QHS carbamazepine 100 mg capsule, ER multiphase 12 hr 200 mg PO Q12H clonazepam [Klonopin] 0.5 mg tablet 0.5 mg PO BID gabapentin 600 mg tablet 600 mg PO BID ferrous sulfate 325 mg (65 mg iron) tablet 325 mg PO BID lisinopril 10 mg tablet 5 mg PO ONCE carvedilol 12.5 mg tablet 12.5 mg PO BID hydrocodone-acetaminophen 1 TAB tablet 1 tab PO Q6HP PRN (Reason: Pain) Qty: 20 0RF tamsulosin 0.4 MG capsule 0.4 mg PO HS Qty: 10 0RF ondansetron 4 MG tablet,disintegrating 4 mg PO TIDP PRN (Reason: Nausea And Vomiting) Qty: 10 0RF peg 3350-electrolytes 4,000 ML Soln.Recon 240 ml PO Q10M Rx Instructions: until fecal effluent is clear; do not exceed a total volume [id number] mL Activity Restrictions/Add. Instructions Additional Instructions/Restrictions: You have been diagnosed with cervical radiculopathy. I recommend following with PCP to talk about possible physical therapy. Please return with any new or worsening symptoms. Clinical Impressions Clinical Impression: Cervical radiculitis Instructions Patient Instructions: DI for Cervical Radiculopathy Discharge ED Provider: Blanco Ramsey General Adult HPI General Chief complaint: Dizziness Stated complaint: numbness Time Seen by Provider: 03/04/22 13:30 History of Present Illness HPI narrative: Patient is a 71-year-old female with a past medical history of diabetes, hypertension who presents with right arm numbness. She says that earlier today she had a fall in the bathtub. She says that she was reaching for the handle and slipped and fell. She does not know if she lost consciousness. She says that afterwards she has been having a lot of numbness all the way in her right arm. She does not take any blood thinners or antiplatelets. Denies any chest or abdominal pain. Denies any pain with deep inspiration. Denies any abdominal pain. She says that her right side of her neck also hurts as well. Related Data Home Medications Medication Instructions Recorded Confirmed alogliptin 25 mg tablet 25 mg PO QAM Diabetes 07/24/17 08/15/17 atorvastatin 10 mg tablet (Lipitor) 10 mg PO ONCE Cholesterol 07/24/17 08/15/17 carbamazepine 100 mg 200 mg PO Q12H mood 07/24/17 08/15/17 capsule,extended release [id number] carvedilol 12.5 mg tablet 12.5 mg PO BID blood pressure 07/24/17 08/15/17 clonazepam 0.5 mg tablet (Klonopin) 0.5 mg PO BID Anxiety 07/24/17 08/15/17 ferrous sulfate 325 mg (65 mg 325 mg PO BID Supplement 07/24/17 08/15/17 iron) tablet gabapentin 600 mg tablet 600 mg PO BID Pain 07/24/17 08/15/17 hydroxyzine pamoate 25 mg capsule 25 mg PO QID PRN Anxiety 07/24/17 08/15/17 (Vistaril) lisinopril 10 mg tablet 5 mg PO ONCE blood pressure 07/24/17 08/15/17 montelukast 10 mg tablet 10 mg PO QPM GERD 07/24/17 08/15/17 (Singulair) omeprazole 40 mg capsule,delayed 40 mg PO ONCE GERD 07/24/17 08/15/17 release pioglitazone 30 mg tablet (Actos) 30 mg PO ONCE Diabetes 07/24/17 08/15/17 quetiapine 100 mg tablet (Seroquel) 100 mg PO TID Depression 07/24/17 08/15/17 venlafaxine 75 mg capsule,extended 75 mg PO QHS mood 07/24/17 08/15/17 release 24 hr (Effexor XR) peg 3350-electrolytes 236 240 ml PO Q10M colon prep 08/11/17 08/15/17 gram-22.74 gram-6.74 gram-5.86 gram solution
--- NOTE | 2022-03-04 13:48 | CT_ITS ---
FINAL REPORT CLINICAL HISTORY: right arm numbness. fall FINDINGS: Axial CT images of the cervical spine were obtained without contrast. Sagittal and coronal reformatted images were also obtained. This study was performed with techniques to keep radiation doses as low as reasonably achievable (ALARA). Individualized dose reduction techniques using automated exposure control or adjustment of mA and/or kV according to the patient's size were employed. There is no evidence of fracture or dislocation. There are moderate to severe degenerative changes. There is mild anterolisthesis of C4 on 5. Multilevel neural foraminal narrowing is identified. There is mild central canal stenosis at C5-6 and C6-7. IMPRESSION: Multilevel degenerative disc disease without acute bony abnormality. Reviewed, Interpreted and Dictated by Dirk Garcia III, MD Transcribed by Kesha Jackson Authenticated and [facility]
--- NOTE | 2022-03-04 13:48 | CT_ITS ---
FINAL REPORT CLINICAL HISTORY: cerebral hemorrhage suspected. fall FINDINGS: Axial images of the head were obtained without contrast. Coronal reformatted images were also obtained. This study was performed with techniques to keep radiation doses as low as reasonably achievable (ALARA). Individualized dose reduction techniques using automated exposure control or adjustment of mA and/or kV according to the patient's size were employed. Metallic foreign bodies in the left frontal scalp causes streak artifact obscuring detail. There is generalized age appropriate atrophy. There is no evidence of intracranial hemorrhage or mass. The ventricular size is within normal limits. There is no evidence of shift of the midline structures. No skull abnormality is seen on the bone window images. IMPRESSION: No acute intracranial abnormality. Reviewed, Interpreted and Dictated by Dirk Garcia III, MD Transcribed by Kesha Jackson Authenticated and [facility]
--- NOTE | 2022-03-04 13:49 | XR_ITS ---
FINAL REPORT CLINICAL HISTORY: fall COMPARISON: 10/11/2016 FINDINGS: SINGLE-VIEW CHEST The heart size is normal. The mediastinum is normal. There are mild bibasilar opacities, favor atelectasis. There is no pneumothorax. IMPRESSION: Mild bibasilar atelectasis. Reviewed, Interpreted and Dictated by Dirk Garcia III, MD Transcribed by Kesha Jackson Authenticated and [facility]
--- NOTE | 2022-03-04 14:41 | PC.NURSE ---
Patient back from CT
--- NOTE | 2022-03-04 15:51 | PC.NURSE ---
rounded on patient she wanted saltine crackers; call light within reach
[2022-03-04 16:17] VITALS: BP 114/73; PULSE 85; RESP 19; TEMP 37; O2SAT 95
== END 2022-03-04 16:00 | disposition home or self-care (01) ==
PROVIDERS: Emergency Provider Student in an Organized Health Care Education/Training Program; PCP Nurse Practitioner Family
DX: M54.12 Radiculopathy, cervical region (principal); I10 Essential (primary) hypertension; E11.9 Type 2 diabetes mellitus without complications; W01.0XXA Fall on same level from slipping, tripping and stumbling without subsequent striking against object, initial encounter
CPT/HCPCS: 70450; 71045; 72125; 99285

== ENCOUNTER → 2022-03-23 09:55 | Outpatient (CLI) | payer MEDICARE, OTHER, SELFPAY ==
--- NOTE | 2022-03-23 10:37 | MM_ITS ---
PROCEDURE INFORMATION: Exam: MG Bilateral Screening 3D Mammography Exam date and time: 03/23/2022 10:35 AM Age: 71 years old Clinical indication: Screening mammogram TECHNIQUE: Imaging protocol: Bilateral Screening tomosynthesis and 2D mammography including computer-aided detection (CAD) when performed. COMPARISON: 1. MG MM DIG MAMM BI DX W/CAD 02/18/2021 1:17 PM 2. MG MM DIG MAMM DX UNILAT RT CAD 08/18/2020 1:26 PM 3. 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 Mass: None. Architectural distortion: No new or suspicious architectural distortion. Calcifications: Stable benign-appearing calcifications are present. No new or suspicious cluster of microcalcifications have developed. Asymmetric density: No new or suspicious asymmetric density is present Skin thickening: None. Axillary adenopathy: None. Other findings: Stable postoperative findings are present within the right breast. IMPRESSION: No mammographic evidence of malignancy. Recommend annual screening mammography unless otherwise clinically indicated. ASSESSMENT: BI-RADS category 2: Benign
== END ==
PROVIDERS: PCP Nurse Practitioner Family; Referring Provider Nurse Practitioner Family; Visit Provider Nurse Practitioner Family
DX: Z12.31 Encounter for screening mammogram for malignant neoplasm of breast (principal)
CPT/HCPCS: 77063; 77067

== ENCOUNTER 2022-04-11 10:52 | Emergency (ER) | payer MEDICARE, OTHER, SELFPAY ==
--- NOTE | 2022-04-11 10:49 | ECG_ITS ---
APPROVED REPORT Exam: Resting ECG HR:83 bpm ECG Measurements Heart Rate 83 AXES WI 152 P 68 QRSd 94 QRS 63 QT 342 T 79 QTc 382 Conclusion SINUS RHYTHM MODERATE ST DEPRESSION [0.05+ mV ST DEPRESSION] ABNORMAL ECG UNCONFIRMED REPORT Electronically signed by : Fredo Gomez MD 04/11/2022 18:51:13
--- NOTE | 2022-04-11 10:57 | XR_ITS ---
FINAL REPORT CLINICAL HISTORY: chest pain, copd COMPARISON: 03/04/2019 FINDINGS: A single portable view of the chest was obtained. The heart size and pulmonary vascularity are within normal limits. The mediastinum is within normal limits. No acute pulmonary abnormality is identified. The bony thorax is intact. IMPRESSION: No active cardiopulmonary disease. Reviewed, Interpreted and Dictated by Dirk Garcia III, MD Transcribed by Iram Moran Authenticated and [facility]
--- NOTE | 2022-04-11 10:57 | HMH.EDGENADL ---
Discharge Plan Disposition Patient Disposition: Home, Self-Care Prescriptions Prescriptions: No Action pioglitazone [Actos] 30 mg tablet 30 mg PO ONCE omeprazole 40 mg capsule,delayed release(DR/EC) 40 mg PO ONCE hydroxyzine pamoate [Vistaril] 25 mg capsule 25 mg PO QID PRN (Reason: Anxiety) alogliptin 25 mg tablet 25 mg PO QAM montelukast [Singulair] 10 mg tablet 10 mg PO QPM atorvastatin [Lipitor] 10 mg tablet 10 mg PO ONCE quetiapine [Seroquel] 100 mg tablet 100 mg PO TID venlafaxine [Effexor XR] 75 mg capsule,extended release 24hr 75 mg PO QHS carbamazepine 100 mg capsule, ER multiphase 12 hr 200 mg PO Q12H clonazepam [Klonopin] 0.5 mg tablet 0.5 mg PO BID gabapentin 600 mg tablet 600 mg PO BID ferrous sulfate 325 mg (65 mg iron) tablet 325 mg PO BID lisinopril 10 mg tablet 5 mg PO ONCE carvedilol 12.5 mg tablet 12.5 mg PO BID hydrocodone-acetaminophen 1 TAB tablet 1 tab PO Q6HP PRN (Reason: Pain) Qty: 20 0RF tamsulosin 0.4 MG capsule 0.4 mg PO HS Qty: 10 0RF ondansetron 4 MG tablet,disintegrating 4 mg PO TIDP PRN (Reason: Nausea And Vomiting) Qty: 10 0RF peg 3350-electrolytes 4,000 ML Soln.Recon 240 ml PO Q10M Rx Instructions: until fecal effluent is clear; do not exceed a total volume [id number] mL Activity Restrictions/Add. Instructions Additional Instructions/Restrictions: Follow-up with your primary care doctor this week return to the emergency department with any significant worsening chest pain or shortness of breath. Clinical Impressions Clinical Impression: Atypical chest pain Discharge ED Provider: Aime Burris Adult HPI General Chief complaint: Chest Pain Stated complaint: CHEST PAIN Time Seen by Provider: 04/11/22 10:57 History of Present Illness HPI narrative: Patient is a 71-year-old female presenting with chest pain. Patient has a history of hyperlipidemia hypertension from medication list but was unaware of what past medical problems she had. Does not have a history of acute coronary syndrome or SD has had a left heart cath but believes that was 8 to 10 years ago. Denies having had a recent stress test. Presents today with left-sided anterior chest wall pain. Denies any radiation associated with this, any dyspnea, any diaphoresis, or any exertional component. States that the symptoms are momentary at most lasting 1 to 2 minutes but are very short-lived and come and go spontaneously. She currently has no chest pain. No fevers chills cough. No extremity swelling no history of DVT or PE. She does take a daily aspirin but has not had anything today. Related Data Home Medications Medication Instructions Recorded Confirmed alogliptin 25 mg tablet 25 mg PO QAM Diabetes 07/24/17 08/15/17 atorvastatin 10 mg tablet (Lipitor) 10 mg PO ONCE Cholesterol 07/24/17 08/15/17 carbamazepine 100 mg 200 mg PO Q12H mood 07/24/17 08/15/17 capsule,extended release [id number] carvedilol 12.5 mg tablet 12.5 mg PO BID blood pressure 07/24/17 08/15/17 clonazepam 0.5 mg tablet (Klonopin) 0.5 mg PO BID Anxiety 07/24/17 08/15/17 ferrous sulfate 325 mg (65 mg 325 mg PO BID Supplement 07/24/17 08/15/17 iron) tablet gabapentin 600 mg tablet 600 mg PO BID Pain 07/24/17 08/15/17 hydroxyzine pamoate 25 mg capsule 25 mg PO QID PRN Anxiety 07/24/17 08/15/17 (Vistaril) lisinopril 10 mg tablet 5 mg PO ONCE blood pressure 07/24/17 08/15/17 montelukast 10 mg tablet 10 mg PO QPM GERD 07/24/17 08/15/17 (Singulair) omeprazole 40 mg capsule,delayed 40 mg PO ONCE GERD 07/24/17 08/15/17 release pioglitazone 30 mg tablet (Actos) 30 mg PO ONCE Diabetes 07/24/17 08/15/17 quetiapine 100 mg tablet (Seroquel) 100 mg PO TID Depression 07/24/17 08/15/17 venlafaxine 75 mg capsule,extended 75 mg PO QHS mood 07/24/17 08/15/17 release 24 hr (Effexor XR) peg 3350-electrolytes 236 240 ml PO Q10M colon
[2022-04-11 11:00] VITALS: BP 124/55; PULSE 76; RESP 18; O2SAT 98
[2022-04-11 11:10] VITALS: BP 124/55; PULSE 74; RESP 16; TEMP 37; O2SAT 96; BMI 26.9
[2022-04-11 11:28] LABS: Basophils # 0.1 K/mm3 (0-0.2); Basophils % 1.1 % (0.1-2.0); Eosinophils # 0.2 K/mm3 (0.0-0.4); Eosinophils % 3.3 % (0.1-12.0); Hematocrit 36.6 % (37.0-47.0); Hemoglobin 11.8 g/dL (12.2-16.2); Lymphocytes # 2.3 K/mm3 (0.7-4.5); Mean Corpuscular HGB Conc 32.1 g/dL (31.8-35.4); Mean Corpuscular Hemoglobin 30.3 pg (27.0-31.2); Mean Corpuscular Volume 94.3 fl (81-99); Mean Platelet Volume 8.3 fl (7.4-10.4); Monocytes # 0.4 K/mm3 (0.1-1.0); Monocytes % 5.1 % (1.7-9.3); Neutrophils # 4.1 K/mm3 (1.8-7.8); Neutrophils % 57.5 % (37.0-80.0); Platelet Count 323 K/mm3 (142-424); Red Blood Count 3.89 M/mm3 (4.20-5.40); Red Cell Distribution Width 13.2 % (11.5-17.5); White Blood Count 7.1 K/mm3 (4.8-10.8)
[2022-04-11 11:30] VITALS: BP 129/70; PULSE 76; RESP 18; O2SAT 98
[2022-04-11 11:30] LABS: Alanine Aminotransferase 24 U/L (12-78); Albumin/Globulin Ratio 1.3 (1.1-1.8); Alkaline Phosphatase 95 U/L (38-126); Anion Gap 8.9 mEq/L (5-15); Aspartate Amino Transferase 32 U/L (14-36); Bilirubin,Total 0.5 mg/dl (0.2-1.3); Blood Urea Nitrogen 21 mg/dl (7-17); Calcium 8.7 mg/dl (8.4-10.2); Carbon Dioxide 29 mmol/L (22.0-30.0); Chloride 106 mmol/L (98-107); Creatinine Clearance Estimated 65 mL/min (50-200); Estimated Glomerular Filt Rate 71 ml/min (>60); GFR (African American) 86 ML/MIN (>60); Globulin 3.2 g/dL (1.3-3.2); Glucose 182 mg/dl (74-100); Potassium 4.9 mmoL/L (3.5-5.1); Sodium 139 mmol/L (136-145); Total Protein,Serum 7.2 g/dl (6.3-8.2)
[2022-04-11 11:35] LABS: D-Dimer 0.72 ug/mL (0.0-0.5)
[2022-04-11 11:47] LABS: Troponin I < 0.01 ng/ml (0.00-0.034)
[2022-04-11 12:00] VITALS: BP 115/67; PULSE 76; RESP 18; O2SAT 97
[2022-04-11 12:30] VITALS: BP 118/64; PULSE 67; O2SAT 97
--- NOTE | 2022-04-11 12:49 | PC.NURSE ---
per MD clark, pt given at diet pop
[2022-04-11 14:30] LABS: Troponin I < 0.01 ng/ml (0.00-0.034)
[2022-04-11 15:00] VITALS: BP 125/53; PULSE 76; RESP 18; TEMP 36.8; O2SAT 99
== END 2022-04-11 15:00 | disposition home or self-care (01) ==
PROVIDERS: Emergency Provider Student in an Organized Health Care Education/Training Program; PCP Nurse Practitioner Family
DX: R07.89 Other chest pain (principal); E78.5 Hyperlipidemia, unspecified; I10 Essential (primary) hypertension
CPT/HCPCS: 36415; 71045; 80053; 84484; 85025; 85378; 93005; 99285

== ENCOUNTER 2022-11-09 14:00 | Outpatient (RCR) | payer MEDICARE, OTHER, SELFPAY | END 2022-12-20 10:22 | disposition home or self-care (01) | LOC: PT 14:00 | PROVIDERS: PCP Nurse Practitioner Family; Visit Provider Nurse Practitioner Family | DX: M54.31 Sciatica, right side (principal) | CPT/HCPCS: 97010; 97014; 97110; 97140; 97163; G0283 ==

== ENCOUNTER 2022-11-21 10:36 | Emergency (ER) | payer MEDICARE, OTHER, SELFPAY ==
[2022-11-21 10:37] VITALS: BP 142/78; PULSE 83; RESP 18; TEMP 37; O2SAT 99; BMI 27.1
--- NOTE | 2022-11-21 10:45 | PC.NURSE ---
DR KELLY AT BEDSIDE
[2022-11-21 11:00] VITALS: BP 150/78; PULSE 87; RESP 18; O2SAT 98
--- NOTE | 2022-11-21 11:02 | CA_ITS ---
FINAL REPORT TECHNIQUE: Color Doppler, duplex Doppler and compression sonography of the right lower extremity venous system was performed. CLINICAL HISTORY: RLE pain and swelling FINDINGS: There is no evidence of deep venous thrombosis from the level of the groin to the calf. The veins are patent and compressible. IMPRESSION: No evidence of deep venous thrombosis right lower extremity. Reviewed, Interpreted and Dictated by Dirk Garcia III, MD Transcribed by Kelly Hughes Authenticated and [facility]
--- NOTE | 2022-11-21 11:06 | HMH.EDGENADL ---
Discharge Plan Disposition Patient Disposition: Home, Self-Care Prescriptions Prescriptions: No Action pioglitazone [Actos] 30 mg tablet 30 mg PO ONCE omeprazole 40 mg capsule,delayed release(DR/EC) 40 mg PO ONCE hydroxyzine pamoate [Vistaril] 25 mg capsule 25 mg PO QID PRN (Reason: Anxiety) alogliptin 25 mg tablet 25 mg PO QAM montelukast [Singulair] 10 mg tablet 10 mg PO QPM atorvastatin [Lipitor] 10 mg tablet 10 mg PO ONCE quetiapine [Seroquel] 100 mg tablet 100 mg PO TID venlafaxine [Effexor XR] 75 mg capsule,extended release 24hr 75 mg PO QHS carbamazepine 100 mg capsule, ER multiphase 12 hr 200 mg PO Q12H clonazepam [Klonopin] 0.5 mg tablet 0.5 mg PO BID gabapentin 600 mg tablet 600 mg PO BID ferrous sulfate 325 mg (65 mg iron) tablet 325 mg PO BID lisinopril 10 mg tablet 5 mg PO ONCE carvedilol 12.5 mg tablet 12.5 mg PO BID hydrocodone-acetaminophen 1 TAB tablet 1 tab PO Q6HP PRN (Reason: Pain) Qty: 20 0RF tamsulosin 0.4 MG capsule 0.4 mg PO HS Qty: 10 0RF ondansetron 4 MG tablet,disintegrating 4 mg PO TIDP PRN (Reason: Nausea And Vomiting) Qty: 10 0RF peg 3350-electrolytes 4,000 ML Soln.Recon 240 ml PO Q10M Rx Instructions: until fecal effluent is clear; do not exceed a total volume [id number] mL Referrals Follow up/Referrals: Tessy Goodman [Primary Care Provider] - See instructions Activity Restrictions/Add. Instructions Additional Instructions/Restrictions: Call your family doctor to establish care for this visit to the emergency department and schedule follow-up within 48 hours to ensure improvement. If you have any worsening of your condition or any other concerning signs or symptoms, return to the emergency department or your primary care doctor for further evaluation. Take Tylenol 1000 mg every 6 hours (4 times daily) and ibuprofen 400 mg every 6 hours (4 times daily) as needed with food and water to prevent GI upset and kidney damage. Clinical Impressions Clinical Impression: Acute pain of right lower extremity Discharge ED Provider: Memo Lanier General Adult HPI General Chief complaint: Extremity Problem,Nontraumatic Stated complaint: knee pain Time Seen by Provider: 11/21/22 10:40 Mode of Arrival: EMS Source of Information: Patient and EMS Limitations: No Limitations Description of Symptoms (Recalled from ER Triage Doc. by RN): PT WITH ONGOING RIGHT KNEE AND ANKLE PAIN OVER 1 WEEK. PT HAS BEEN EVALUATED BY PCP AND [facility] WITHOUT RELIEF. NO KNOWN INJURY History of Present Illness HPI narrative: 72-year-old female history of hypertension, hyperlipidemia, bipolar disorder, sciatica presenting with right leg pain. Patient states that this started about 4 days prior to arrival. Saw family doctor, PCP at [place] ordered CT scan of right lower extremity. Pain continued to get worse, so patient came to the ER today. No numbness, weakness, or tingling.. Pain is severe, intermittent, starts anterior right knee, goes down to the top of her right foot. No calf involvement. States that she thinks it feels swollen, but does not look that way. No trauma to the area. Related Data Home Medications Medication Instructions Recorded Confirmed alogliptin 25 mg tablet 25 mg PO QAM Diabetes 07/24/17 08/15/17 atorvastatin 10 mg tablet (Lipitor) 10 mg PO ONCE Cholesterol 07/24/17 08/15/17 carbamazepine 100 mg 200 mg PO Q12H mood 07/24/17 08/15/17 capsule,extended release [id number] carvedilol 12.5 mg tablet 12.5 mg PO BID blood pressure 07/24/17 08/15/17 clonazepam 0.5 mg tablet (Klonopin) 0.5 mg PO BID Anxiety 07/24/17 08/15/17 ferrous sulfate 325 mg (65 mg 325 mg PO BID Supplement 07/24/17 08/15/17 iron) tablet gabapentin 600 mg tablet 600 mg PO BID Pain 07/24/17 08/15/17 hydroxyzine pamoate 25 mg capsule 25 mg PO QID PRN Anxiety 07/24/17 08/15/17 (Vistaril) lisinopril 10 mg t
--- NOTE | 2022-11-21 11:23 | PC.NURSE ---
[facility] AT BEDSIDE FOR LEG DOPPLER
[2022-11-21 11:31] VITALS: BP 137/81; PULSE 72; RESP 20; O2SAT 100
[2022-11-21 12:00] VITALS: BP 144/73; PULSE 71; O2SAT 98
--- NOTE | 2022-11-21 13:06 | PC.NURSE ---
PT GIVEN SANDWICH, CHIPS AND DRINK. CALL LIGHT WITHIN REACH
[2022-11-21 13:31] LABS: Basophils % 0.4 % (0.1-2.0); Eosinophils # 0.2 K/mm3 (0.0-0.4); Eosinophils % 2.6 % (0.1-12.0); Hematocrit 40.2 % (37.0-47.0); Hemoglobin 12.7 g/dL (12.2-16.2); Lymphocytes # 2.5 K/mm3 (0.7-4.5); Lymphocytes % 36.2 % (10-50); Mean Corpuscular HGB Conc 31.5 g/dL (31.8-35.4); Mean Corpuscular Hemoglobin 29.9 pg (27.0-31.2); Mean Corpuscular Volume 94.9 fl (81-99); Mean Platelet Volume 8.3 fl (7.4-10.4); Monocytes # 0.5 K/mm3 (0.1-1.0); Monocytes % 6.4 % (1.7-9.3); Neutrophils # 3.8 K/mm3 (1.8-7.8); Neutrophils % 54.4 % (37.0-80.0); Platelet Count 227 K/mm3 (142-424); Red Blood Count 4.24 M/mm3 (4.20-5.40); Red Cell Distribution Width 13.6 % (11.5-17.5); White Blood Count 6.9 K/mm3 (4.8-10.8)
[2022-11-21 13:44] LABS: Chloride 102 mmol/L (98-107); Sodium 134 mmol/L (136-145)
[2022-11-21 13:47] LABS: Alanine Aminotransferase 25 U/L (12-78); Albumin Level 3.6 g/dl (3.5-5.0); Albumin/Globulin Ratio 1.3 (1.1-1.8); Alkaline Phosphatase 100 U/L (38-126); Aspartate Amino Transferase 33 U/L (14-36); Bilirubin,Total 0.3 mg/dl (0.2-1.3); Blood Urea Nitrogen 19 mg/dl (7-17); Calcium 8.5 mg/dl (8.4-10.2); Carbon Dioxide 25 mmol/L (22.0-30.0); Creatinine Clearance Estimated 65 mL/min (50-200); Estimated Glomerular Filt Rate 71 ml/min (>60); GFR (African American) 86 ML/MIN (>60); Globulin 2.7 g/dL (1.3-3.2); Glucose 113 mg/dl (74-100); Total Protein,Serum 6.3 g/dl (6.3-8.2)
[2022-11-21 14:02] VITALS: BP 146/78; PULSE 75; RESP 18; TEMP 36.9; O2SAT 99
== END 2022-11-21 14:05 | disposition home or self-care (01) ==
PROVIDERS: Emergency Provider Emergency Medicine; PCP Nurse Practitioner Family
DX: M25.561 Pain in right knee (principal); M25.571 Pain in right ankle and joints of right foot; I10 Essential (primary) hypertension; E78.5 Hyperlipidemia, unspecified; F31.9 Bipolar disorder, unspecified; M54.30 Sciatica, unspecified side
CPT/HCPCS: 80053; 85025; 93971; 96361; 96374; 99284; J0131; J3475

== ENCOUNTER 2023-09-20 14:34 | Outpatient (CLI) | payer MEDICARE, OTHER, SELFPAY ==
--- NOTE | 2023-09-20 14:41 | XR_ITS ---
FINAL REPORT CLINICAL HISTORY: lt knee pain fall approx 1.5 weeks ago; initial xrays taken at [facility] COMPARISON: None FINDINGS: LEFT KNEE 3 views of the left knee were obtained. There is a lucency extending through the lateral patella consistent with a nondisplaced fracture. Visualized joint spaces are normally aligned. Soft tissues are unremarkable. Note is made of sharpening of the tibial spines. IMPRESSION: Lucency extending through the lateral patella consistent with a nondisplaced fracture. Reviewed, Interpreted and Dictated by Anam Hilton MD Transcribed by Deandra Borges Authenticated and . [facility]
== END 2023-09-20 23:59 | disposition home or self-care (01) ==
LOC: RAD 14:37
PROVIDERS: PCP Physician Assistant; Visit Provider Nurse Practitioner Family
DX: M25.562 Pain in left knee (principal)
CPT/HCPCS: 73562

== ENCOUNTER 2023-11-09 13:52 | Outpatient (CLI) | payer MEDICARE, OTHER, SELFPAY ==
--- NOTE | 2023-11-09 13:59 | XR_ITS ---
FINAL REPORT CLINICAL HISTORY: Left Knee Pain COMPARISON: 09/20/2023 FINDINGS: LEFT KNEE 3 views of the left knee were obtained. There is a mildly displaced fracture of the patella, with intra-articular extension to the lateral facet. This was also present on the prior exam of August. There is mild medial compartment narrowing present. Soft tissues are unremarkable. IMPRESSION: Mildly displaced fracture of the patella, stable when compared with the prior films of 09/20/2023. Mild medial compartment joint space narrowing. Reviewed, Interpreted and Dictated by Anam Hliton MD Transcribed by Deandra Borges Authenticated and [facility]
== END 2023-11-09 23:59 | disposition home or self-care (01) ==
LOC: RAD 13:54
PROVIDERS: PCP Nurse Practitioner Family; Visit Provider Orthopaedic Surgery
DX: M25.562 Pain in left knee (principal)
CPT/HCPCS: 73562

== ENCOUNTER 2024-02-25 10:29 | Emergency (ER) | payer MEDICARE, OTHER, SELFPAY ==
[2024-02-25] VITALS (8 sets, daily range): BP systolic 161–209; BP diastolic 80–96; PULSE 79–96; RESP 18; TEMP 36.7–36.8; O2SAT 96–99; BMI 25.8
--- NOTE | 2024-02-25 10:38 | HMH.EDGENADL ---
Discharge Plan Disposition Patient Disposition: Home, Self-Care Prescriptions Prescriptions: New nitrofurantoin monohyd/m-cryst [Macrobid] 100 mg capsule 100 mg PO BID 5 Days Qty: 10 0RF Rx Instructions: must administer with a meal/food No Action pioglitazone [Actos] 30 mg tablet 30 mg PO ONCE omeprazole 40 mg capsule,delayed release(DR/EC) 40 mg PO ONCE hydroxyzine pamoate [Vistaril] 25 mg capsule 25 mg PO QID PRN (Reason: Anxiety) alogliptin 25 mg tablet 25 mg PO QAM montelukast [Singulair] 10 mg tablet 10 mg PO QPM atorvastatin [Lipitor] 10 mg tablet 10 mg PO ONCE quetiapine [Seroquel] 100 mg tablet 100 mg PO TID venlafaxine [Effexor XR] 75 mg capsule,extended release 24hr 75 mg PO QHS carbamazepine 100 mg capsule, ER multiphase 12 hr 200 mg PO Q12H clonazepam [Klonopin] 0.5 mg tablet 0.5 mg PO BID gabapentin 600 mg tablet 600 mg PO BID ferrous sulfate 325 mg (65 mg iron) tablet 325 mg PO BID lisinopril 10 mg tablet 5 mg PO ONCE carvedilol 12.5 mg tablet 12.5 mg PO BID aspirin 81 mg Tablet 81 mg PO DAILY sodium,potassium,mag sulfates [Suprep Bowel Prep Kit] 17.5-3.13-1.6 gram recon soln See Rx Instructions PO .COMPLEX Qty: 354 0RF Rx Instructions: DILUTE; drink full amount early evening before AND next morning at least 2 hr before procedure; follow w 960 mL water PO hydrocodone-acetaminophen 1 TAB tablet 1 tab PO Q6HP PRN (Reason: Pain) Qty: 20 0RF tamsulosin 0.4 MG capsule 0.4 mg PO HS Qty: 10 0RF ondansetron 4 MG tablet,disintegrating 4 mg PO TIDP PRN (Reason: Nausea And Vomiting) Qty: 10 0RF peg 3350-electrolytes 4,000 ML recon soln 240 ml PO Q10M Rx Instructions: until fecal effluent is clear; do not exceed a total volume [id number] mL Referrals Follow up/Referrals: Stacey Merritt APRN [Nurse Practitioner] - See instructions Provider,Referral, [Primary Care Provider] - See instructions Magdy Mccain MD [Emergency Provider] - See instructions Activity Restrictions/Add. Instructions Additional Instructions/Restrictions: At this time it was felt you are safe to be discharged home. If new or worsening symptoms please do not hesitate to return the emergency department. Please follow-up with your family doctor in the next week as your sugar was elevated today but not dangerously high you may need medication adjustment. Please take antibiotics as prescribed. Please call and schedule appoint with Stacey Merritt for your behavioral health as soon as you are able as you will significantly benefit from this. Clinical Impressions Clinical Impression: Acute UTI, Hyperglycemia Instructions Patient Instructions: DI for Urinary Tract Infection (UTI), DI for Urinary Tract Infection in Children Print Language Print Language: [place] Zeal[place] Discharge ED Provider: Magdy Mccain General Adult HPI General Chief complaint: Urogenital-Female Stated complaint: confused Time Seen by Provider: 02/25/24 10:30 History of Present Illness HPI narrative: Patient is a 73-year-old female with multiple comorbidities who presents emergency department for evaluation of suspected urinary tract infection patient has had frequent urinary tract infections in the past over the last few days she has developed dysuria and suprapubic discomfort similar to her previous urinary tract infections. No vomiting. Normal stooling. No other acute complaints at this time. Please note that above description of symptoms, in this electronic medical record under categorization of recalled from ER triage doctor by RN are reflective of an initial nursing assessment, however, is not reflective of my full history and physical exam that was personally taken and clarified. Consequentially, this preceding description of symptoms, which may include the patient's categorized chief complaint in the EMR, do not reflect my personal clinical impression, and the ultimate description of history of present illness and patient stated complaints should be deferred to this section of the note. Unless stated otherwise or congruent with this section of the note, additional signs, symptoms, or incongruence should be interpreted as inaccurate with my clinical impression. Related Data Home Medications ?Medication ?Instructions ?Recorded ?Confirmed alogliptin 25 mg tablet 25 mg PO QAM Diabetes 07/24/17 11/09/23 atorvastatin 10 mg tablet (Lipitor) 10 mg PO ONCE Cholesterol 07/24/17 11/09/23 carbamazepine 100 mg 200 mg PO Q12H mood 07/24/17 11/09/23 capsule,extended release [id number] carvedilol 12.5 mg tablet 12.5 mg PO BID blood pressure 07/24/17 11/09/23 clonazepam 0.5 mg tablet (Klonopin) 0.5 mg PO BID Anxiety 07/24/17 11/09/23 ferrous sulfate 325 mg (65 mg 325 mg PO BID Supplement 07/24/17 11/09/23 iron) tablet gabapentin 600 mg tablet 600 mg PO BID Pain 07/24/17 11/09/23 hydroxyzine pamoate 25 mg capsule 25 mg PO QID PRN Anxiety 07/24/17 11/09/23 (Vistaril) lisinopril 10 mg tablet 5 mg PO ONCE blood pressure 07/24/17 11/09/23 montelukast 10 mg tablet 10 mg PO QPM GERD 07/24/17 11/09/23 (Singulair) omeprazole 40 mg capsule,delayed 40 mg PO ONCE GERD 07/24/17 11/09/23 release pioglitazone 30 mg tablet (Actos) 30 mg PO ONCE Diabetes 07/24/17 11/09/23 quetiapine 100 mg tablet (Seroquel) 100 mg PO TID Depression 07/24/17 11/09/23 venlafaxine 75 mg capsule,extended 75 mg PO QHS mood 07/24/17 11/09/23 release 24 hr (Effexor XR) peg 3350-electrolytes 236 240 ml PO Q10M colon prep 08/11/17 11/09/23 gram-22.74 gram-6.74 gram-5.86 gram solution aspirin 81 mg tablet 81 mg PO DAILY 12/28/23 Previous Rx's ?Medication ?Instructions ?Recorded hydrocodone 5 mg-acetaminophen 325 1 tab PO Q6HP PRN Pain #20 tabs 07/15/21 mg tablet ondansetron 4 mg disintegrating 4 mg PO TIDP PRN Nausea And 07/15/21 tablet Vomiting #10 tabs tamsulosin 0.4 mg capsule 0.4 mg PO HS #10 caps 07/15/21 sodium,potassium,mag sulfates 17.5 See Rx Instructions PO .COMPLEX 12/28/23 gram-3.13 gram-1.6 gram oral soln #354 mL (Suprep Bowel Prep Kit) nitrofurantoin 100 mg PO BID 5 days #10 caps 02/25/24 monohydrate/macrocrystals 100 mg capsule (Macrobid) Allergies Allergy/AdvReac Type Severity Reaction Status Date / Time latex Allergy Mild Verified 11/09/23 14:24 codeine (CODEINE) Allergy Unknown Verified 11/09/23 14:24 fexofenadine (From JANE) Allergy Unknown Verified 11/09/23 14:24 iopamidol (IOPAMIDOL) Allergy Unknown Verified 11/09/23 14:24 meperidine (MEPERIDINE) Allergy Unknown Verified 11/09/23 14:24 Penicillins (PENICILLINS) Allergy Unknown Verified 11/09/23 14:24 piroxicam (From FELDENE) Allergy Unknown Verified 11/09/23 14:24 sulfamethoxazole (From Allergy Unknown Verified 11/09/23 14:24 BACTRIM) trimethoprim (From BACTRIM) Allergy Unknown Verified 11/09/23 14:24 simvastatin (From Zocor) Allergy Verified 11/09/23 14:24 PFSH PFS Disclaimer: The information contained in this section may have been updated after the patient was seen, as this information can be updated by other users. Medical History (Updated 02/25/24 @ 12:41 by Magdy Mccain MD) History of hyperlipidemia History of hypertension History of depression History of diabetes mellitus History of bipolar disorder History of kidney stones Surgical History (Updated 12/28/23 @ 11:17 by Cassi Mujica RN) History of D&C History of cholecystectomy Family History (Updated 12/28/23 @ 11:17 by Cassi Mujica RN) Other No significant family history Social History (Updated 12/28/23 @ 11:19 by Cassi Mujica RN) Smoking Status: Never smoker alcohol intake: never counseling provided: none substance use type: denies use current occupational status: unemployed Travel in the last 8 weeks: None caffeine: No Have you lived/traveled outside [place] in past 30 days?: No Contact w/someone who lives/traveled outside US past 30 days?: No Exposure to someone with infectious disease in past 14 days?: No Do you have a fever (greater than 100.4 F or 38 C)?: No Have you tested positive for COVID-19: No Exposed to someone with COVID-19 in past 14 days?: No Do you have a sore throat?: No Do you have a cough?: No Do you have any weakness?: Yes Do you have any diarrhea?: No Are you experiencing any unusual bleeding?: No Do you have any muscle aches/pain?: No Do you have any abdominal pain?: No Are you experiencing loss of taste or smell?: No Other Medical History Have you received the Flu Vaccine for this season: No Have you received the Pneumonia Vaccine: Yes ROS Obtained: Yes Systems reviewed as appropriate & no additional complaints except as documented Physical Exam General General appearance: alert and in no apparent distress Head Head exam: atraumatic and normocephalic Eye Eye exam: Present PERRL ENT ENT exam: Present mucous membranes moist Neck Neck exam: Present normal inspection Chest Chest inspection: Present normal inspection and symmetric chest wall rise Respiratory Respiratory exam: Present normal lung sounds bilaterally; Absent respiratory distress Cardiovascular Cardiovascular exam: Present regular rate and normal rhythm Abdominal Exam Abdominal exam: Present soft and tenderness (Mild, suprapubic, remainder of quadrants nontender to palpation) Extremities Exam Extremities exam: Present normal inspection Neurological Exam Neurological exam: Present alert Psychiatric Psychiatric exam: Present normal affect Skin Skin exam: Present warm and dry Medical Decision Making Medical Records Screening: Per USPSTF and CDC recommendations, given the prevalence of disease in our region, it is our hospital?s policy to screen for HIV and viral Hepatitis for all patients aged 18 and over and those with ongoing risk factors. Jacoby Inquiry Pt receiving controlled substance: No Vital Signs: 02/25/24 10:30 02/25/24 10:34 02/25/24 11:00 Temperature 98.3 F Temperature Source Oral Pulse Rate 96 H 91 H Pulse Rate [Right] 90 Respiratory Rate 18 Blood Pressure 209/94 H 178/88 H Blood Pressure [Right Arm] 178/88 H Blood Pressure Mean [Right Arm] 118 02 Sat by Pulse Oximetry 98 97 96 Oxygen Delivery Method Room Air 02/25/24 11:30 02/25/24 12:00 Temperature Temperature Source Pulse Rate 87 79 Pulse Rate [Right] Respiratory Rate Blood Pressure 176/93 H 171/80 H Blood Pressure [Right Arm] Blood Pressure Mean [Right Arm] 02 Sat by Pulse Oximetry 96 98 Oxygen Delivery Method Room Air Room Air Lab Data Lab Results 02/25/24 10:35: Urine Color Yellow, Urine Appearance Clear, Urine pH 6.0, Ur Specific [place] 1.025, Urine Protein Negative, Urine Glucose (UA) 3+, Urine Ketones Negative, Urine Blood Trace-l, Urine Nitrate Negative, Urine Bilirubin Negative, Urine Urobilinogen 0.2, Ur Leukocyte Esterase 2+ A, Urine RBC Occasional, Urine WBC 10-20, Ur Squamous Epith Cells Occasional, Urine Bacteria 1+ 02/25/24 10:40: WBC 6.4, RBC 4.01 L, Hgb 12.0 L, Hct 36.2 L, MCV 90.3, MCH 29.9, MCHC 33.1, RDW 13.1, Plt Count 348, MPV 9.5, Neut % (Auto) 63.6, Lymph % (Auto) 28.3, [place] % (Auto) 5.5, Eos % (Auto) 1.4, Baso % (Auto) 0.6, Neut # (Auto) 4.1, Lymph # (Auto) 1.8, [place] # (Auto) 0.4, Eos # (Auto) 0.1, Baso # (Auto) 0.0, Sodium 138, Potassium 4.8, Chloride 102, Carbon Dioxide 24, Anion Gap 16.8 H, BUN 16, Creatinine 0.80, Estimated Creat Clear 59, Estimated GFR 71, Est GFR ( Amer) 86, Glucose 298 H, Calcium 8.8, Total Bilirubin 0.3, AST 39 H, ALT 25, Alkaline Phosphatase 139 H, Total Protein 6.9, Albumin 4.0, Globulin 2.9, Albumin/Globulin Ratio 1.4 02/25/24 10:40 02/25/24 10:40 Orders (Tests/Meds): ED MEDICATIONS Discontinued Medications Generic Name Dose Route Start Last Admin Trade Name Freq PRN Reason Stop Dose Admin Acetaminophen 1,000 mg 02/25/24 10:41 02/25/24 11:02 Acetaminophen 500mg Tab PO 02/25/24 10:42 1,000 mg ONCE ONE Administration Ketorolac Tromethamine 30 mg 02/25/24 10:41 02/25/24 11:03 Ketorolac 30mg/Ml Vial IV 02/25/24 10:42 30 mg ONCE ONE Administration ORDERS Category Date Time Status CBC w/Auto Diff [Complete Blood Count Auto Diff] Stat Lab 02/25/24 10:40 Completed CMP [Comprehensive Metabolic Panel] Stat Lab 02/25/24 10:40 Completed HIV Combo Stat Lab 02/25/24 10:40 Received Hep C Ab with Reflex to RNA Stat Lab 02/25/24 10:40 Received UA [Urinalysis and Microscopic] Stat Lab 02/25/24 10:35 Completed Urine Culture Stat Micro 02/25/24 10:35 Received Medical Decision Narrative: In summary patient is 73-year-old female past medical history described above who presents emergency department for evaluation of suprapubic discomfort and dysuria. Patient is hemodynamically stable nontoxic-appearing upon arrival, afebrile. Differential includes urinary tract infection, among others. Workup will be conducted with hematologic labs, urinalysis. Initial inventions include Toradol and Tylenol. Initial workup reviewed by me, hematologic labs are nonactionable no significant leukocytosis, no ANKIT or critical electrolyte abnormality. Patient is hyperglycemic and takes pioglitazone at home. Urinalysis interpreted by me and consistent with nitrate negative infection. There are no ketones in the urine so no concern for DKA at this time. Patient's daughter contacted nursing and states that she has psychiatric issues including estrella which is being poorly managed currently. On my evaluation patient has capacity, is alert and oriented and is not disorganized to the point where she is holdable. No acute psychiatric intervention is indicated. Patient has distractible exam with no tenderness on repeat exam alleviation and is requesting food at bedside which she was given a full meal tray and completed. Given this patient is appropriate for outpatient management and will be started on course of antibiotics which the first dose will be administered in the emergency department. Per chart review patient is allergic to penicillins and Bactrim given a urinary tract infection without proteinuria we will treat with Macrobid and patient was given return precautions. The patient will be referred to Stacey Merritt [facility] on an outpatient basis. Critical Care Critical Care Time Critical Care Time: No
[2024-02-25 10:40] LABS: Microscopic, Urine URINE MICROSCOPIC (MICROSCOPIC)
[2024-02-25 10:42] LABS: Appearance,Urine CLEAR (Clear); Bilirubin,Urine Negative (Negative); Blood, Urine TRACE-L (Negative); Color,Urine YELLOW (Yellow); Glucose,Urine (UA) 3+ (Negative); Ketones,Urine Negative (Negative); Leukocyte Esterase,Urine 2+ (Negative); Nitrate,Urine Negative (Negative); Protein,Urine Negative (Negative); Specific Gravity, Urine 1.025 (1.005-1.030); Urobilinogen,Urine 0.2 EU/dl (0.2)
[2024-02-25 10:56] LABS: Basophils % 0.6 % (0.1-2.0); Eosinophils # 0.1 K/mm3 (0.0-0.4); Eosinophils % 1.4 % (0.1-12.0); Hematocrit 36.2 % (37.0-47.0); Lymphocytes # 1.8 K/mm3 (0.7-4.5); Lymphocytes % 28.3 % (10-50); Mean Corpuscular HGB Conc 33.1 g/dL (31.8-35.4); Mean Corpuscular Hemoglobin 29.9 pg (27.0-31.2); Mean Corpuscular Volume 90.3 fl (81-99); Mean Platelet Volume 9.5 fl (7.4-10.4); Monocytes # 0.4 K/mm3 (0.1-1.0); Monocytes % 5.5 % (1.7-9.3); Neutrophils # 4.1 K/mm3 (1.8-7.8); Neutrophils % 63.6 % (37.0-80.0); Platelet Count 348 K/mm3 (142-424); Red Blood Count 4.01 M/mm3 (4.20-5.40); Red Cell Distribution Width 13.1 % (11.5-17.5); White Blood Count 6.4 K/mm3 (4.8-10.8)
[2024-02-25 11:02] LABS: Chloride 102 mmol/L (98-107)
[2024-02-25] MEDS: ACETAMINOPHEN 500MG TAB 1000 MG PO (11:02)
[2024-02-25 11:03] LABS: Potassium 4.8 mmoL/L (3.5-5.1); Sodium 138 mmol/L (136-145)
[2024-02-25] MEDS: KETOROLAC 30MG/ML VIAL 30 MG IV (11:03)
[2024-02-25 11:05] LABS: Alanine Aminotransferase 25 U/L (12-78); Anion Gap 16.8 mEq/L (5-15); Aspartate Amino Transferase 39 U/L (14-36); Blood Urea Nitrogen 16 mg/dl (7-17); Carbon Dioxide 24 mmol/L (22.0-30.0); Creatinine Clearance Estimated 59 mL/min (50-200); Estimated Glomerular Filt Rate 71 ml/min (>60); GFR (African American) 86 ML/MIN (>60)
[2024-02-25 11:06] LABS: Albumin/Globulin Ratio 1.4 (1.1-1.8); Alkaline Phosphatase 139 U/L (38-126); Bilirubin,Total 0.3 mg/dl (0.2-1.3); Calcium 8.8 mg/dl (8.4-10.2); Globulin 2.9 g/dL (1.3-3.2); Glucose 298 mg/dl (74-100); Total Protein,Serum 6.9 g/dl (6.3-8.2)
[2024-02-25 11:28] LABS: RBC,Urine Occasional #/hpf (0-3)
[2024-02-25 11:29] LABS: Bacteria,Urine 1+ /lpf; Squamous Epithelial Cell,Urine Occasional #/hpf (0-5)
--- NOTE | 2024-02-25 11:58 | PC.NURSE ---
I called dietary to request a diabetic lunch tray.
[2024-02-25 12:49] LABS: HIV Combo NEGATIVE (Negative)
[2024-02-25] MEDS: NITROFURANTOIN 100MG CAPSULE 100 MG PO (13:13)
--- NOTE | 2024-02-25 13:24 | PC.NURSE ---
I called and spoke with Dev at EMS who clarified with Dhara that we could contact [facility] to transport the pt home due to inclement weather.
[2024-02-28 05:10] LABS: HCV Ab Non Reactive (Non Reactive)
== END 2024-02-25 13:55 | disposition home or self-care (01) ==
PROVIDERS: Emergency Provider Emergency Medicine
DX: R73.9 Hyperglycemia, unspecified (principal); N39.0 Urinary tract infection, site not specified; R41.82 Altered mental status, unspecified; R30.0 Dysuria; R10.2 Pelvic and perineal pain
CPT/HCPCS: 80053; 81001; 85025; 86803; 87086; 87389; 96374; 99283; J1885

== ENCOUNTER 2024-07-04 18:55 | Emergency (ER) | payer MEDICARE, OTHER, SELFPAY ==
[2024-07-04] VITALS (7 sets, daily range): BP systolic 96–134; BP diastolic 56–70; PULSE 68–77; RESP 10–14; TEMP 36.8; O2SAT 90–99; BMI 24.5
--- NOTE | 2024-07-04 18:40 | PC.NURSE ---
Report received from Radha BARRIOS at [facility]. Pt is coming by [facility] for evaluation of after slumping over in her chair at dinner time, and was noted to be pale and diaphoretic. Per staff patient's BGL was in the 300s earlier at dinner time she received 5 units of lispro and ate dinner. BGL when this incident occurred was 89. staff is concerned that patient may have a PE due to patient having a recent knee replacement
--- NOTE | 2024-07-04 18:58 | ECG_ITS ---
APPROVED REPORT Exam: Resting ECG HR:69 bpm ECG Measurements Heart Rate 69 AXES SD 143 P 75 QRSd 89 QRS 72 QT 366 T 75 QTc 385 Conclusion SINUS RHYTHM NORMAL ECG No STEMI Electronically signed by : FREDDY JOHNSON, 07/05/2024 23:38:32
--- NOTE | 2024-07-04 19:13 | XR_ITS ---
PROCEDURE INFORMATION: Exam: XR Chest Exam date and time: 07/04/2024 7:45 PM Age: 74 years old Clinical indication: Shortness of breath; Additional info: SOA TECHNIQUE: Imaging protocol: Radiologic exam of the chest. Views: 1 view. COMPARISON: CR XR CHEST AP 04/11/2022 11:21 AM FINDINGS: Lungs: See Pleural spaces finding. Pleural spaces: Low lung volumes are present without pleural effusions or consolidations that project above the diaphragm. Heart/Mediastinum: Unremarkable. No cardiomegaly. Bones/joints: Unremarkable. IMPRESSION: No acute findings.
--- NOTE | 2024-07-04 19:22 | ED_ITS ---
<Statement entered by Stefani Baker DO - 07/05/24 00:46> I was consulted by the CLAUDIA, and we discussed the complexity of the problems being addressed. I approved the treatment and management plan for this patient's care in the emergency department, thus performing a substantive portion of the medical decision making. Urinalysis not concerning for infection, glucose stable after oral supplementation here. I feel she likely had transient alteration in mental status secondary to her hypoglycemia. CT scan demonstrates bibasilar groundglass opacities, but she has no cough, shortness of breath, increased work of breathing, or changes in vital signs. I feel she is appropriate for discharge back to half-way facility with strict return precautions Stefani Baker DO Discharge Plan Disposition Chief Complaint: Weakness Prescriptions Prescriptions: No Action pioglitazone [Actos] 30 mg tablet 30 mg PO ONCE omeprazole 40 mg capsule,delayed release(DR/EC) 40 mg PO ONCE hydroxyzine pamoate [Vistaril] 25 mg capsule 25 mg PO QID PRN (Reason: Anxiety) alogliptin 25 mg tablet 25 mg PO QAM montelukast [Singulair] 10 mg tablet 10 mg PO QPM atorvastatin [Lipitor] 10 mg tablet 10 mg PO ONCE quetiapine [Seroquel] 100 mg tablet 100 mg PO TID venlafaxine [Effexor XR] 75 mg capsule,extended release 24hr 75 mg PO QHS carbamazepine 100 mg capsule, ER multiphase 12 hr 200 mg PO Q12H clonazepam [Klonopin] 0.5 mg tablet 0.5 mg PO BID gabapentin 600 mg tablet 600 mg PO BID ferrous sulfate 325 mg (65 mg iron) tablet 325 mg PO BID lisinopril 10 mg tablet 5 mg PO ONCE carvedilol 12.5 mg tablet 12.5 mg PO BID aspirin 81 mg Tablet 81 mg PO DAILY sodium,potassium,mag sulfates [Suprep Bowel Prep Kit] 17.5-3.13-1.6 gram recon soln See Rx Instructions PO .COMPLEX Qty: 354 0RF Rx Instructions: DILUTE; drink full amount early evening before AND next morning at least 2 hr before procedure; follow w 960 mL water PO hydrocodone-acetaminophen 1 TAB tablet 1 tab PO Q6HP PRN (Reason: Pain) Qty: 20 0RF tamsulosin 0.4 MG capsule 0.4 mg PO HS Qty: 10 0RF ondansetron 4 MG tablet,disintegrating 4 mg PO TIDP PRN (Reason: Nausea And Vomiting) Qty: 10 0RF peg 3350-electrolytes 4,000 ML recon soln 240 ml PO Q10M Rx Instructions: until fecal effluent is clear; do not exceed a total volume [id number] mL nitrofurantoin monohyd/m-cryst [Macrobid] 100 mg capsule 100 mg PO BID 5 Days Qty: 10 0RF Rx Instructions: must administer with a meal/food Referrals Follow up/Referrals: Provider,Referral, MD [Primary Care Provider] - See instructions Print Language Print Language: Hungarian Discharge ED Provider: Stefani Baker General Adult HPI <HIPOLITO Brooks - Last Filed: 07/04/24 22:40> General Chief complaint: Weakness Stated complaint: hyperglycemia Time Seen by Provider: 07/04/24 19:04 Mode of Arrival: EMS Source of Information: Patient and EMS Description of Symptoms (Recalled from ER Triage Doc. by RN): pt presents from [facility] s/p right knee replacement x2 weeks with c/o generalized weakness and diaphoresis that was noticed today. EMS reports to being told that her BG was over 300 and given insulin when the symptoms started. EMS reports that patient was also complaining of being uncomfortable in her chest on the way here. BG 88 on truck. History of Present Illness HPI narrative: 74-year-old female presents the emergency department EMS from [facility] facility she is status post right knee replacement 2 weeks ago, complains of generalized weakness, episode of diaphoresis noticed by nursing staff, patient had her blood glucose checked, was currently over 300 at [facility] facility thus insulin was given, patient is a [id number] type II diabetic, blood sugar on arrival was 88 per EMS, patient at the bedside denies any real acute symptomatology except for fatigue, malaise, generalized weakness, she denies fever chest pain shortness of breath nausea vomiting constipation diarrhea, no urinary type symptomatology, patient otherwise medical history consistent with CAD, type 2 diabetes, bipolar disorder, depression hyperlipidemia. She is a former smoker, denies any alcohol or drug use initial triage vitals unremarkable. Onset (ago): hour(s) Related Data Home Medications ?Medication ?Instructions ?Recorded ?Confirmed alogliptin 25 mg tablet 25 mg PO QA Diabetes 07/24/17 11/09/23 atorvastatin 10 mg tablet (Lipitor) 10 mg PO ONCE Cholesterol 07/24/17 11/09/23 carbamazepine 100 mg 200 mg PO Q12H mood 07/24/17 11/09/23 capsule,extended release [id number] carvedilol 12.5 mg tablet 12.5 mg PO BID blood pressure 07/24/17 11/09/23 clonazepam 0.5 mg tablet (Klonopin) 0.5 mg PO BID Anxiety 07/24/17 11/09/23 ferrous sulfate 325 mg (65 mg 325 mg PO BID Supplement 07/24/17 11/09/23 iron) tablet gabapentin 600 mg tablet 600 mg PO BID Pain 07/24/17 11/09/23 hydroxyzine pamoate 25 mg capsule 25 mg PO QID PRN Anxiety 07/24/17 11/09/23 (Vistaril) lisinopril 10 mg tablet 5 mg PO ONCE blood pressure 07/24/17 11/09/23 montelukast 10 mg tablet 10 mg PO QPM GERD 07/24/17 11/09/23 (Singulair) omeprazole 40 mg capsule,delayed 40 mg PO ONCE GERD 07/24/17 11/09/23 release pioglitazone 30 mg tablet (Actos) 30 mg PO ONCE Diabetes 07/24/17 11/09/23 quetiapine 100 mg tablet (Seroquel) 100 mg PO TID Depression 07/24/17 11/09/23 venlafaxine 75 mg capsule,extended 75 mg PO QHS mood 07/24/17 11/09/23 release 24 hr (Effexor XR) peg 3350-electrolytes 236 240 ml PO Q10M colon prep 08/11/17 11/09/23 gram-22.74 gram-6.74 gram-5.86 gram solution aspirin 81 mg tablet 81 mg PO DAILY 12/28/23 Previous Rx's ?Medication ?Instructions ?Recorded hydrocodone 5 mg-acetaminophen 325 1 tab PO Q6HP PRN Pain #20 tabs 07/15/21 mg tablet ondansetron 4 mg disintegrating 4 mg PO TIDP PRN Nausea And 07/15/21 tablet Vomiting #10 tabs tamsulosin 0.4 mg capsule 0.4 mg PO HS #10 caps 07/15/21 sodium,potassium,mag sulfates 17.5 See Rx Instructions PO .COMPLEX 11/07/24 gram-3.13 gram-1.6 gram oral soln #354 mL (Suprep Bowel Prep Kit) nitrofurantoin 100 mg PO BID 5 days #10 caps 02/25/24 monohydrate/macrocrystals 100 mg capsule (Macrobid) Allergies Allergy/AdvReac Type Severity Reaction Status Date / Time latex Allergy Mild Verified 11/09/23 14:24 codeine (CODEINE) Allergy Unknown Verified 11/09/23 14:24 fexofenadine (From JANE) Allergy Unknown Verified 11/09/23 14:24 iopamidol (IOPAMIDOL) Allergy Unknown Verified 11/09/23 14:24 meperidine (MEPERIDINE) Allergy Unknown Verified 11/09/23 14:24 Penicillins (PENICILLINS) Allergy Unknown Verified 11/09/23 14:24 piroxicam (From FELDENE) Allergy Unknown Verified 11/09/23 14:24 sulfamethoxazole (From Allergy Unknown Verified 11/09/23 14:24 BACTRIM) trimethoprim (From BACTRIM) Allergy Unknown Verified 11/09/23 14:24 simvastatin (From Zocor) Allergy Verified 11/09/23 14:24 [facility] <HIPOLITO Brooks - Last Filed: 07/04/24 22:40> [facility] Disclaimer: The information contained in this section may have been updated after the patient was seen, as this information can be updated by other users. Medical History (Updated 02/25/24 @ 12:41 by Magdy Mccain MD) History of hyperlipidemia History of hypertension History of depression History of diabetes mellitus History of bipolar disorder History of kidney stones Surgical History (Updated 12/28/23 @ 11:17 by Cassi Mujica RN) History of D&C History of cholecystectomy Family History (Updated 12/28/23 @ 11:17 by Cassi Mujica RN) Other No significant family history Social History (Updated 12/28/23 @ 11:19 by Cassi Mujica RN) Smoking Status: Never smoker alcohol intake: never counseling provided: none substance use type: denies use current occupational status: unemployed Travel in the last 8 weeks?: None caffeine: No Have you lived/traveled outside [place] in past 30 days?: No Contact w/someone who lives/traveled outside US past 30 days?: No Exposure to someone with infectious disease in past 14 days?: No Do you have a fever (greater than 100.4 F or 38 C)?: No Have you tested positive for COVID-19?: No Exposed to someone with COVID-19 in past 14 days?: No Do you have a sore throat?: No Do you have a cough?: No Do you have any weakness?: No Do you have any diarrhea?: No Are you experiencing any unusual bleeding?: No Do you have any muscle aches/pain?: No Do you have any abdominal pain?: No Are you experiencing loss of taste or smell?: No Other Medical History Have you received the Flu Vaccine for this season: No Have you received the Pneumonia Vaccine: Yes <HIPOLITO Brooks - Last Filed: 07/04/24 22:40> ROS Obtained: Yes All systems reviewed & no additional complaints except as documented Physical Exam <HIPOLITO Brooks - Last Filed: 07/04/24 22:40> General General appearance: alert and in no apparent distress Comment: Awake alert GCS 15, pale appearing female Head Head exam: atraumatic and normocephalic Eye Eye exam: Present PERRL and EOMI ENT ENT exam: Present mucous membranes moist Neck Neck exam: Present normal inspection Chest Chest inspection: Present normal inspection and symmetric chest wall rise Respiratory Respiratory exam: Present normal lung sounds bilaterally; Absent respiratory distress Cardiovascular Cardiovascular exam: Present regular rate and normal rhythm Abdominal Exam Abdominal exam: Present soft and normal bowel sounds; Absent tenderness, guarding, rebound or rigidity Extremities Exam Extremities exam: Present normal inspection Neurological Exam Neurological exam: Present alert and oriented X3 Psychiatric Psychiatric exam: Present normal affect Skin Skin exam: Present warm and dry Medical Decision Making <HIPOLITO Brooks - Last Filed: 07/04/24 22:40> Medical Records Medical records reviewed: Yes I reviewed the patient's medical records. Screening: Per USPSTF and CDC recommendations, given the prevalence of disease in our region, it is our hospital?s policy to screen for HIV and viral Hepatitis for all patients aged 18 and over and those with ongoing risk factors. Jacoby Inquiry Pt receiving controlled substance: No Jacoby was queried for this patient: No Vital Signs: 07/04/24 19:00 07/04/24 19:03 07/04/24 20:41 Temperature 98.3 F Temperature Source Oral Pulse Rate 68 71 Pulse Rate [Radial] 72 Respiratory Rate 13 14 10 L Blood Pressure 134/62 112/61 Blood Pressure [Right Arm] 125/61 Blood Pressure Mean [Right Arm] 82 Blood Pressure Position [Right Arm] Sitting 02 Sat by Pulse Oximetry 98 99 95 Oxygen Delivery Method Room Air 07/04/24 21:00 07/04/24 21:11 07/04/24 21:30 Temperature Temperature Source Pulse Rate 77 70 Pulse Rate [Radial] Respiratory Rate 13 13 14 Blood Pressure 125/70 110/66 96/56 L Blood Pressure [Right Arm] Blood Pressure Mean [Right Arm] Blood Pressure Position [Right Arm] 02 Sat by Pulse Oximetry 95 96 Oxygen Delivery Method 07/04/24 22:00 Temperature Temperature Source Pulse Rate 68 Pulse Rate [Radial] Respiratory Rate 12 Blood Pressure 122/66 Blood Pressure [Right Arm] Blood Pressure Mean [Right Arm] Blood Pressure Position [Right Arm] 02 Sat by Pulse Oximetry 90 L Oxygen Delivery Method Lab Data Lab results reviewed: Yes I reviewed the patient's lab results. Lab Results 07/04/24 19:41: WBC 10.0, RBC 3.42 L, Hgb 11.2 L, Hct 34.6 L, MCV 101.2 H, MCH 32.7 H, MCHC 32.4, RDW 14.3, Plt Count 583 H, MPV 9.0, Neut % (Auto) 54.8, Lymph % (Auto) 31.6, Morrow % (Auto) 8.4, Eos % (Auto) 3.9, Baso % (Auto) 0.7, Neut # (Auto) 5.5, Lymph # (Auto) 3.1, Morrow # (Auto) 0.8, Eos # (Auto) 0.4, Baso # (Auto) 0.1, D-Dimer 7.19 H, Sodium 139, Potassium 4.8, Chloride 100, Carbon Dioxide 35 H, Anion Gap 8.8, BUN 19 H, Creatinine 0.90, Estimated Creat Clear 57, Estimated GFR 62, Est GFR ( Amer) 74, Glucose 67 L, Calcium 9.4, Magnesium 1.9, Total Bilirubin 0.3, AST 33, ALT 18, Alkaline Phosphatase 200 H, Troponin I < 0.01, NT-Pro-B Natriuret Pep 189 H, Total Protein 7.5, Albumin 4.0, Globulin 3.5 H, Albumin/Globulin Ratio 1.1, Lipase 62, TSH 2.98, Thyroxine (T4) 7.5, Acetone Level None detected 07/04/24 19:54: VBG pH 7.32, VBG pCO2 64.6 H, VBG pO2 30.7, VBG HCO3 32.8 H, VBG Total CO2 34.8 H, VBG O2 Saturation 51.5, VBG Base Excess 6.8 H, VBG Lactic Acid 2.1 H 07/04/24 19:41 07/04/24 19:41 Orders (Tests/Meds): ED MEDICATIONS Discontinued Medications Generic Name Dose Route Start Last Admin Trade Name Freq PRN Reason Stop Dose Admin Glucose 15 gm 07/04/24 20:38 Dextrose 15gm Packet PO 07/04/24 20:39 ONCE ONE Iopamidol 70 ml 07/04/24 21:46 07/04/24 21:48 Iopamidol-370 (76%);100ml Bottle IV 07/04/24 21:47 70 ml ONCE ONE Administration Sodium Chloride 50 ml 07/04/24 21:46 07/04/24 21:48 0.9 % Sodium Chloride 50 Ml Vial IV 07/04/24 21:47 50 ml ONCE ONE Administration Sodium Chloride 10 ml 07/04/24 21:46 07/04/24 21:48 Sodium Chloride 0.9% 10ml Syr (Rad Only) IV 07/04/24 21:47 10 ml ONCE ONE Administration ORDERS Category Date Time Status CT angio chest PE protocol Stat Cat Scan 07/04/24 21:31 Completed XR chest portable Stat Exams 07/04/24 19:13 Completed Acetone, Serum (Rapid) Stat Lab 07/04/24 19:41 Completed Complete Blood Count Auto Diff Stat Lab 07/04/24 19:41 Completed Comprehensive Metabolic Panel Stat Lab 07/04/24 19:41 Completed D-Dimer Stat Lab 07/04/24 19:41 Completed Lactic Acid Stat Lab 07/04/24 22:04 Received Lipase Stat Lab 07/04/24 19:41 Completed Magnesium Stat Lab 07/04/24 19:41 Completed NT Pro Brain Natriuretic Pep. Stat Lab 07/04/24 19:41 Completed T4 (Thyroxine) Stat Lab 07/04/24 19:41 Completed TSH [Thyroid Stimulating Hormone] Stat Lab 07/04/24 19:41 Completed Troponin I Q3H Lab 07/04/24 22:04 Received Troponin I Q3H Lab 07/05/24 01:15 Ordered Troponin I Stat Lab 07/04/24 19:41 Completed Urinalysis and Microscopic Stat Lab 07/04/24 19:14 Ordered VBG [Venous Blood Gas] Stat RT 07/04/24 19:54 Completed Medical Decision Narrative: 74-year-old female presents emergency department with audible symptomatology, see HPI for detail past medical history, differential diagnose include not limited to HHS, DKA, acute UTI, hypovolemia, cardiac arrhythmia, electrolyte disturbance, pneumonia, failure to thrive, noncompliance with antihyperglycemic regimen, among others. Will obtain basic laboratory studies, VBG, lipase lactate magnesium level proBNP TCH/T4, troponin, urinalysis, POC glucose, acetone level chest x-ray and EKG. pH within normal limits, pCO2 is minimally elevated at 64.6, bicarb is minimally elevated at 32.8, venous lactic acid levels minimally elevated at 2.1 otherwise unremarkable VBG Acetone level shows nondetected Will add on D-dimer since recent knee surgery, patient has data deficient history of p.o. Eliquis use, at [facility], looks like last administered 1 week ago CBC is notable for hemoglobin 11.2, medic at 34.6, MCV is elevated at 101.2 thrombocytosis at 583 otherwise unremarkable CBC CMP is notable for minimal elevated BUN at 19, hypoglycemia at 67, proBNP is minimally elevated at 189, troponin within normal limits, T4 is within normal limit I reviewed the patient's chest x-ray along with corresponding radiologic report no acute findings. Will give 15 g of oral glucose. TSH within normal limits. D-dimer is elevated at 7.19, will obtain CTA chest without contrast PE protocol. I reviewed the patient's CTA chest with without contrast PE protocol, along with corresponding radiologic report, prominent interstitial markings at lung base with scattered opacities, suggest mild pulmonary edema, enteric contents layering throughout the esophagus greatest proximally may represent reflux/regurgitation, no CT angiographic evidence of pulmonary embolism. I discussed patient case with physician Dr. Baker shift change, pending urinalysis most likely DC back to [facility] facility <Stefani Baker, DO - Last Filed: 07/04/24 19:43> Vital Signs: 07/04/24 19:00 07/04/24 19:03 07/04/24 20:41 Temperature 98.3 F Temperature Source Oral Pulse Rate 68 71 Pulse Rate [Radial] 72 Respiratory Rate 13 14 10 L Blood Pressure 134/62 112/61 Blood Pressure [Right Arm] 125/61 Blood Pressure Mean [Right Arm] 82 Blood Pressure Position [Right Arm] Sitting 02 Sat by Pulse Oximetry 98 99 95 Oxygen Delivery Method Room Air 07/04/24 21:00 07/04/24 21:11 07/04/24 21:30 Temperature Temperature Source Pulse Rate 77 70 Pulse Rate [Radial] Respiratory Rate 13 13 14 Blood Pressure 125/70 110/66 96/56 L Blood Pressure [Right Arm] Blood Pressure Mean [Right Arm] Blood Pressure Position [Right Arm] 02 Sat by Pulse Oximetry 95 96 Oxygen Delivery Method 07/04/24 22:00 Temperature Temperature Source Pulse Rate 68 Pulse Rate [Radial] Respiratory Rate 12 Blood Pressure 122/66 Blood Pressure [Right Arm] Blood Pressure Mean [Right Arm] Blood Pressure Position [Right Arm] 02 Sat by Pulse Oximetry 90 L Oxygen Delivery Method Lab Data Lab Results 07/04/24 19:41: WBC 10.0, RBC 3.42 L, Hgb 11.2 L, Hct 34.6 L, MCV 101.2 H, MCH 32.7 H, MCHC 32.4, RDW 14.3, Plt Count 583 H, MPV 9.0, Neut % (Auto) 54.8, Lymph % (Auto) 31.6, Morrow % (Auto) 8.4, Eos % (Auto) 3.9, Baso % (Auto) 0.7, Neut # (Auto) 5.5, Lymph # (Auto) 3.1, Morrow # (Auto) 0.8, Eos # (Auto) 0.4, Baso # (Auto) 0.1, D-Dimer 7.19 H, Sodium 139, Potassium 4.8, Chloride 100, Carbon Dioxide 35 H, Anion Gap 8.8, BUN 19 H, Creatinine 0.90, Estimated Creat Clear 57, Estimated GFR 62, Est GFR ( Amer) 74, Glucose 67 L, Calcium 9.4, Magnesium 1.9, Total Bilirubin 0.3, AST 33, ALT 18, Alkaline Phosphatase 200 H, Troponin I < 0.01, NT-Pro-B Natriuret Pep 189 H, Total Protein 7.5, Albumin 4.0, Globulin 3.5 H, Albumin/Globulin Ratio 1.1, Lipase 62, TSH 2.98, Thyroxine (T4) 7.5, Acetone Level None detected 07/04/24 19:54: VBG pH 7.32, VBG pCO2 64.6 H, VBG pO2 30.7, VBG HCO3 32.8 H, VBG Total CO2 34.8 H, VBG O2 Saturation 51.5, VBG Base Excess 6.8 H, VBG Lactic Acid 2.1 H Orders (Tests/Meds): ED MEDICATIONS Discontinued Medications Generic Name Dose Route Start Last Admin Trade Name Freq PRN Reason Stop Dose Admin Glucose 15 gm 07/04/24 20:38 Dextrose 15gm Packet PO 07/04/24 20:39 ONCE ONE Iopamidol 70 ml 07/04/24 21:46 07/04/24 21:48 Iopamidol-370 (76%);100ml Bottle IV 07/04/24 21:47 70 ml ONCE ONE Administration Sodium Chloride 50 ml 07/04/24 21:46 07/04/24 21:48 0.9 % Sodium Chloride 50 Ml Vial IV 07/04/24 21:47 50 ml ONCE ONE Administration Sodium Chloride 10 ml 07/04/24 21:46 07/04/24 21:48 Sodium Chloride 0.9% 10ml Syr (Rad Only) IV 07/04/24 21:47 10 ml ONCE ONE Administration ORDERS Category Date Time Status CT angio chest PE protocol Stat Cat Scan 07/04/24 21:31 Completed XR chest portable Stat Exams 07/04/24 19:13 Completed Acetone, Serum (Rapid) Stat Lab 07/04/24 19:41 Completed Complete Blood Count Auto Diff Stat Lab 07/04/24 19:41 Completed Comprehensive Metabolic Panel Stat Lab 07/04/24 19:41 Completed D-Dimer Stat Lab 07/04/24 19:41 Completed Lactic Acid Stat Lab 07/04/24 22:04 Received Lipase Stat Lab 07/04/24 19:41 Completed Magnesium Stat Lab 07/04/24 19:41 Completed NT Pro Brain Natriuretic Pep. Stat Lab 07/04/24 19:41 Completed T4 (Thyroxine) Stat Lab 07/04/24 19:41 Completed TSH [Thyroid Stimulating Hormone] Stat Lab 07/04/24 19:41 Completed Troponin I Q3H Lab 07/04/24 22:04 Received Troponin I Q3H Lab 07/05/24 01:15 Ordered Troponin I Stat Lab 07/04/24 19:41 Completed Urinalysis and Microscopic Stat Lab 07/04/24 19:14 Ordered VBG [Venous Blood Gas] Stat RT 07/04/24 19:54 Completed ECG Data Tracing #1: I reviewed this ECG and interpreted as documented below: Normal sinus rhythm with a ventricular of [address] changes concerning for ischemia. Normal intervals ECG initial impression date: 07/04/24 ECG initial impression time: 19:02 Critical Care <HIPOLITO Brooks - Last Filed: 07/04/24 22:40> Critical Care Time Critical Care Time: No
[2024-07-04 19:51] LABS: Basophils # 0.1 K/mm3 (0-0.2); Basophils % 0.7 % (0.1-2.0); Eosinophils # 0.4 Kmm3 (0.0-0.4); Eosinophils % 3.9 % (0.1-12.0); Hematocrit 34.6 % (37.0-47.0); Hemoglobin 11.2 g/dL (12.2-16.2); Immature Granulocytes # 0.06 10^3uL; Immature Granulocytes % 0.6 %; Lymphocytes # 3.1 K/mm3 (0.7-4.5); Lymphocytes % 31.6 % (10-50); Mean Corpuscular HGB Conc 32.4 g/dL (31.8-35.4); Mean Corpuscular Hemoglobin 32.7 pg (27.0-31.2); Mean Corpuscular Volume 101.2 fl (81-99); Monocytes # 0.8 K/mm3 (0.1-1.0); Monocytes % 8.4 % (1.7-9.3); Neutrophils # 5.5 K/mm3 (1.8-7.8); Neutrophils % 54.8 % (37.0-80.0); Nucleated Red Blood Cells # 0 10^3/uL; Nucleated Red Blood Cells % 0 %; Platelet Count 583 K/mm3 (142-424); Red Blood Count 3.42 M/mm3 (4.20-5.40); Red Cell Distribution Width 14.3 % (11.5-17.5)
--- NOTE | 2024-07-04 19:53 | PC.NURSE ---
Resp contacted and made aware of need for VBG
[2024-07-04 19:59] LABS: Chloride 100 mmol/L (98-107)
[2024-07-04 20:00] LABS: Potassium 4.8 mmoL/L (3.5-5.1); Sodium 139 mmol/L (136-145)
[2024-07-04 20:02] LABS: Alanine Aminotransferase 18 U/L (12-78); Albumin/Globulin Ratio 1.1 (1.1-1.8); Alkaline Phosphatase 200 U/L (38-126); Anion Gap 8.8 mEq/L (5-15); Aspartate Amino Transferase 33 U/L (14-36); Bilirubin,Total 0.3 mg/dl (0.2-1.3); Blood Urea Nitrogen 19 mg/dl (7-17); Carbon Dioxide 35 mmol/L (22.0-30.0); Creatinine Clearance Estimated 57 mL/min (50-200); Estimated Glomerular Filt Rate 62 ml/min (>60); GFR (African American) 74 ML/MIN (>60); Globulin 3.5 g/dL (1.3-3.2); Total Protein,Serum 7.5 g/dl (6.3-8.2)
[2024-07-04 20:03] LABS: VBG Base Excess 6.8 mmol/L (-2.4-2.3); VBG HCO3 32.8 mmol/L (23-30); VBG Oxygen Saturation 51.5 % (50-70); VBG PH 7.32 mmol/L (7.31-7.41); VBG PO2 30.7 mmol/L (28-40); VBG Total CO2 34.8 mmol/L (23-27)
[2024-07-04 20:03] LABS: Calcium 9.4 mg/dl (8.4-10.2); Glucose 67 mg/dl (74-100); Lipase 62 U/L (23-300); Magnesium 1.9 mg/dl (1.6-2.3)
--- NOTE | 2024-07-04 20:06 | PC.NURSE ---
reported critical vbg results to Dr Baker.
[2024-07-04 20:07] LABS: Acetone, Serum (Rapid) None Detected (None Detect)
[2024-07-04 20:07] LABS: Lactate Venous 2.1 mmol/L (0.4-2.0); VBG PCO2 64.6 mmol/L (35-51)
[2024-07-04 20:12] LABS: NT Pro Brain Natriuretic Pep. 189 pg/mL (0-125)
[2024-07-04 20:16] LABS: Troponin I < 0.01 ng/ml (0.00-0.034)
[2024-07-04 20:20] LABS: T4 (Thyroxine) 7.5 ug/dl (5.53-11.0)
[2024-07-04 20:33] LABS: Thyroid Stimulating Hormone 2.98 uIU/mL (0.465-4.68)
[2024-07-04 21:26] LABS: D-Dimer 7.19 ug/mL (0.0-0.5)
--- NOTE | 2024-07-04 21:31 | CT_ITS ---
PROCEDURE INFORMATION: Exam: CTA Chest With Contrast Exam date and time: 07/04/2024 9:43 PM Age: 74 years old Clinical indication: Shortness of breath; Additional info: Shortness of air, elevated d-dimer TECHNIQUE: Imaging protocol: Computed tomographic angiography of the chest with contrast. Exam focused on the arteries. 3D rendering (Not supervised by radiologist): MIP and/or 3D reconstructed images were created by the technologist. Radiation optimization: All CT scans at this facility use at least one of these dose optimization techniques: automated exposure control; mA and/or kV adjustment per patient size (includes targeted exams where dose is matched to clinical indication); or iterative reconstruction. Contrast material: ISO 370; Contrast volume: 70 ml; Contrast route: INTRAVENOUS (IV); COMPARISON: CR XR CHEST PORTABLE 07/04/2024 7:45 PM FINDINGS: Pulmonary arteries: No CT angiography evidence of pulmonary embolism. Aorta: Unremarkable. No aortic aneurysm. No aortic dissection. Lungs: Prominent interstitial markings of the lung bases with scattered opacities suggest mild pulmonary edema. Pleural spaces: Unremarkable. No pneumothorax. No pleural effusion. Heart: Unremarkable. No cardiomegaly. No pericardial effusion. Lymph nodes: Unremarkable. No enlarged lymph nodes. Gallbladder and biliary ducts: There are surgical clips within the gallbladder fossa. Intestine: Enteric contents layering throughout the esophagus greatest proximally may represent reflux/regurgitation. Bones/joints: Unremarkable. No acute fracture. Soft tissues: Unremarkable. IMPRESSION: 1. Prominent interstitial markings of the lung bases with scattered opacities suggest mild pulmonary edema. 2. Enteric contents layering throughout the esophagus greatest proximally may represent reflux/regurgitation. 3. No CT angiography evidence of pulmonary embolism.
[2024-07-04] MEDS: IOPAMIDOL-370 (76%);100ML BOTTLE 70 ML IV (21:48)
[2024-07-04] MEDS: 0.9 % SODIUM CHLORIDE 50 ML VIAL IV (21:48)
[2024-07-04] MEDS: SODIUM CHLORIDE 0.9% 10ML SYR (RAD ONLY) 10 ML IV (21:48)
--- NOTE | 2024-07-04 22:27 | PC.NURSE ---
pt ambulatory with slow steady gait to restroom
[2024-07-04 22:55] LABS: Lactic Acid 2.2 mmol/L (0.7-2.1); Troponin I < 0.01 ng/ml (0.00-0.034)
[2024-07-04 23:01] LABS: Microscopic, Urine URINE MICROSCOPIC (MICROSCOPIC)
[2024-07-04 23:05] LABS: Appearance,Urine CLEAR (Clear); Bilirubin,Urine Negative (Negative); Blood, Urine Negative (Negative); Color,Urine YELLOW (Yellow); Glucose,Urine (UA) Negative (Negative); Ketones,Urine Negative (Negative); Leukocyte Esterase,Urine Negative (Negative); Nitrate,Urine Negative (Negative); Protein,Urine Negative (Negative)
--- NOTE | 2024-07-04 23:14 | PC.NURSE ---
pt was given a snack @ approx 2100. glucose at approx 2200 was 125
[2024-07-04 23:28] LABS: Mucus,Urine 1+ /lpf; RBC,Urine Occasional #/hpf (0-3); WBC,Urine Occasional #/hpf (0-3)
--- NOTE | 2024-07-04 23:39 | PC.NURSE ---
Silvio Bingham contacted and spoke with Jessy, made aware of discharge.
--- NOTE | 2024-07-05 01:18 | PC.NURSE ---
depends check, clean and dry, pure wick placed while waiting for ems.
[2024-07-05 01:42] VITALS: BP 142/60; PULSE 79; RESP 18; TEMP 36.8; O2SAT 98
== END 2024-07-05 01:48 ==
PROVIDERS: Physician Assistant; Emergency Provider Emergency Medicine
DX: E11.649 Type 2 diabetes mellitus with hypoglycemia without coma (principal); R53.1 Weakness; R53.83 Other fatigue; R74.02 Elevation of levels of lactic acid dehydrogenase [LDH]; Z79.01 Long term (current) use of anticoagulants
CPT/HCPCS: 36415; 71045; 71275; 80053; 81001; 82009; 82803; 83605; 83690; 83735; 83880; 84436; 84443; 84484; 85025; 85378; 93005; 99285; Q9967

== ENCOUNTER 2024-08-15 13:00 | Outpatient (RCR) | payer MEDICARE, OTHER, SELFPAY | END 2024-08-15 23:59 | disposition home or self-care (01) | LOC: PT.CARL 13:00 | PROVIDERS: Visit Provider Orthopaedic Surgery Adult Reconstructive Orthopaedic Surgery | DX: Z47.89 Encounter for other orthopedic aftercare (principal); Z96.651 Presence of right artificial knee joint | CPT/HCPCS: 97110; 97116; 97140; 97161; 97530 ==

== ENCOUNTER 2024-09-17 13:00 | Outpatient (RCR) | payer MEDICARE, OTHER, SELFPAY | END 2024-09-17 23:59 | disposition home or self-care (01) | LOC: PT.CARL 13:00 | PROVIDERS: Visit Provider Orthopaedic Surgery Adult Reconstructive Orthopaedic Surgery | DX: Z47.89 Encounter for other orthopedic aftercare (principal); Z96.651 Presence of right artificial knee joint | CPT/HCPCS: 97110; 97140; 97530 ==

== ENCOUNTER 2024-11-07 17:55 | Outpatient (CLI) | payer MEDICARE, OTHER, SELFPAY ==
--- OUTSIDE RECORDS SUMMARY | 2024-11-07 17:58 | XMS_ITS | Clinical Summary ---
Author Organization [facility] Address [address] [place] [address] Care Team Providers Care Event Attendant Name Role Phone Tessy Goodman WAITER/WAITRESS COUNTER Primary Care Provider [phone] Allergies Active Allergy Reactions Criticality Noted Date Comments Cefdinir Unknown - Patient states they do not know rxn details Low 04/07/2016 Codeine Unknown - Patient states they do not know rxn details Low 04/07/2016 Cyclobenzaprine Unknown - Patient states they do not know rxn details Low 04/07/2016 Fexofenadine Other - please docum ent in the comment field Low 07/05/2004 Fexofenadine-Pseudoephed Er Unknown - Pa tient states they do not know rxn details Low 04/07/2016 Iopamidol Other - please docum ent in the comment field Low 10/25/2016 Latex Unknown - Patient states they do not know rxn details Low 04/07/2016 Meperidine And Related Unknown - Patient states they do not know rxn details Low 04/07/2016 Penicillins Other - please docum ent in the comment field,Unknown - Patient states they do not know rxn details Low 07/05/2004 Piroxicam Unknown - Patient states they do not know rxn details Low 07/05/2004 Simvastatin Other - please docum ent in the comment field Low 04/23/2013 Sulfamethoxazole-Trimethoprim Rash,Unkno wn - Patient states they do not know rxn details Low 07/05/2004 Trimethoprim Other - please docum ent in the comment field Low 10/25/2016 Medications montelukast (Singulair) 10 MG tablet Take by mouth. 4 Active mometasone-form oterol (Dulera) 200-5 MCG/ACT inhaler Dulera 200-5 MCG/ACT Inhalation Aerosol; Patient Sig: Dulera 200-5 MCG/ACT Inhalation Aerosol ; 0; -Jun-2014; Active 5 Active omeprazole (PriLOSEC) [address] capsule TAKE 1 CAPSULE 1 TIME EACH DAY BEFORE A MEAL 1 Active albuterol 108 (90 Base) MCG/ACT inhaler INHALE 1 OR 2 PUFFS EVERY 4 HOURS NEEDED 1 Active carvedilol (Coreg) 12.5 MG tablet TAKE 1 TABLET TWICE DAILY. 7 Active clonazePAM (KlonoPIN) 0.5 MG tablet TAKE 1/2 TABLET 2 TIMES EACH DAY 1 Active fluticasone (Flonase) 50 MCG/ACT nasal spray 9 Active gabapentin (Neurontin) 600 MG tablet Take 1 tablet (600 mg) by mouth 2 (two) times a day. 6 Active lisinopril 5 MG tablet Take 1 tablet (5 mg) by mouth 1 (one) time each day. 7 Active QUEtiapine (SEROquel) 100 MG tablet TAKE 1 TABLET 1 TIME EACH DAY AT BEDTIME 1 Active venlafaxine XR (Effoxor-XR) 75 MG 24 hr capsule TAKE 1 CAPSULE 1 TIME EACH DAY IN THE MORNING 1 Active ferrous sulfate 325 (65 Fe) MG tablet Take 1 tablet (325 mg) by mouth 1 (one) time each day. 9 Active hydrOXYzine HCl (Atarax) 25 MG tablet Take 1 tablet (25 mg) by mouth. 9 Active carBAMazepine (TEGretol) 100 MG chewable tablet CHEW AND SWALLOW 1 TABLET IN THE MORNING, AND 1 AND 1/2 TABLETS AT BEDTIME 2 Active atorvastatin (Lipitor) 80 MG tabletIndicatio ns:Type 2 diabetes mellitus with other specified complication, without long-term current use of insulin (CMS/HCC) Take 1 tablet (80 mg) by mouth 1 (one) time each day. 30 tablet 5 3 Active oxyCODONE-aceta minophen (Percocet) 5-325 MG tablet Take 1 tablet by mouth every 6 (six) hours if needed for severe pain (pian). 12 tablet 4 Active naloxone (Narcan) 4 mg/0.1 mL nasal spray 1. Give 1 spray in nostril for no/slow breathing or cannot wake after opioid use 2. Call 911 3. Repeat in other nostril if symptoms continue 1 each 4 Active traZODone (Desyrel) 50 MG tablet Take 1 tablet (50 mg) by mouth nightly. Active glipiZIDE XL (Glucotrol XL) 2.5 MG 24 hr tabletIndicatio ns:Type 2 diabetes mellitus with other specified complication, without long-term current use of insulin (CMS/HCC) Take 1 tablet (2.5 mg) by mouth daily. 1 tab by Mouth daily in am w/ food 90 tablet 3 5 05/10/19 26 Active Glucose Blood (Blood Glucose Test) stripIndication s:Type 2 diabetes mellitus with other specified complication, without long-term current use of insulin (CMS/HCC) Check blood glucose once daily 100 strip 11 5 Active Januvia 100 MG tabletIndicatio ns:Type 2 diabetes mellitus with other specified complication, without long-term current use of insulin (CMS/HCC) Take 1 tablet by mouth daily. 90 tablet 3 5 08/20/19 26 Active metFORMIN (Glucophage) 500 MG tabletIndicatio ns:Type 2 diabetes mellitus with other specified complication, without long-term current use of insulin (CMS/HCC) Take 2 tablets by mouth daily with breakfast AND 1 tablet daily before evening meal. 270 tablet 3 5 08/20/19 26 Active Blood Glucose Monitoring Suppl kitIndications: Type 2 diabetes mellitus with other specified complication, without long-term current use of insulin (CMS/HCC) Use to check blood glucose 1 times daily 1 kit 5 Active Glucose Blood (Blood Glucose Test) stripIndication s:Type 2 diabetes mellitus with other specified complication, without long-term current use of insulin (CMS/HCC) Check blood glucose 1 times daily before meals 200 strip 11 5 Active Lancets miscIndications :Type 2 diabetes mellitus with other specified complication, without long-term current use of insulin (CMS/HCC) Check blood glucose 1 times daily before meals 100 each 11 5 Active Active Problems Problem Noted Date Diagnosed Date Nephropathy 05/10/2024 Abnormal renal function 02/05/2024 Neuropathy 08/26/2020 Assessment & Plan (12/02/2020 3:10 PM EDT): With callus. Advise daily foot care. Advise continue podiatry Assessment & Plan (08/26/2020 10:32 AM EDT): No foot lesions today, continue daily foot care and podiatry Hypertension 08/26/2020 Assessment & Plan (12/02/2020 3:10 PM EDT): Controlled. bp low. Denies orthostasis. No med changes for now, advised pt to see pcp for med adjust if noticing orthostatic symptoms Assessment & Plan (08/26/2020 10:31 AM EDT): Controlled today contineu acei and coreg Hyperlipidemia 08/26/2020 Assessment & Plan (12/02/2020 3:09 PM EDT): Continue statin Assessment & Plan (08/26/2020 10:31 AM EDT): Pt to check with pharamacist to ensure she is on. Requested lipid Type 2 diabetes mellitus, wi out long-term current use of insulin 08/26/2020 Assessment & Plan (12/02/2020 3:16 PM EDT): No low bg per pt. a1c on low end but given no low bg hold med changes.--continue SIEGEL, januvia, metformin, and actos. Discussed lifestyle impact on dm. Continue daily alternating fsbg checks. Lipid and cmp utd w/ pcp, consider UMACR at f/u. rto 3- 4. Call sooner prn Assessment & Plan (08/26/2020 10:36 AM EDT): Diabetes controlled. Pt notified a1c better than goal but in shared decision makign based on bg determined no change in medication. Continue fasting and 2 hr post meal alternating bg. Advise lifestyle management. Request pcp labs Coronary artery disease invo lving [place] coronary artery of [place] heart 08/06/2020 Assessment & Plan (12/02/2020 3:09 PM EDT): Continue statin Dyspnea on exertion 08/06/2020 Preop cardiovascular exam 08/06/2020 Bipolar disorder 04/07/2016 Resolved Problems Problem Noted Date Diagnosed Date Resolved Date Class 1 obesity due to exces s calories with serious comorbidity and body mass index (BMI) of 31.0 to 31.9 in adult 08/26/2020 12/02/2020 Assessment & Plan (08/26/2020 10:34 AM EDT): Wt up due to decreased activity. Advise caloric restriction. Return to exercise when cleared per ortho s/p knee replacement. Advise considering chair exercise. Wt impacts insulin resistance. Encounters Date Type Department Care Team Description 08/19/2024 1:20 PM EDT Office Visit [facility] Endocrinology [address] [place] [phone] Elisabeth Parrish, PA Type 2 diabetes mellitus with other specified complication, without long-term current use of insulin ([facility]) (Primary Dx); Nephropathy; Hypertension, unspecified type 08/19/2024 Travel from Last 3 Months Immunizations Immunization Administration Dates Next Due Influenza, injectable, MDCK, quadrivalent 12/25/2018 Influenza, injectable, quadrivalent 11/13/2019,1 Influenza, injectable, quadr ivalent, preservative free 11/19/2021,11/10/2020 Influenza, seasonal, injectable 01/03/20 13,01/01/2010,12/08/2008,12/25 Moderna COVID-19 Vaccine (Re d Cap) 12+ years 06/11/2020 Pneumococcal Polysaccharide PPV23 05/26/2017,01/2011 Tdap 06/02/2017 Tetanus toxoid, adsorbed 01/28/2009 Family History Medical History Relation Name Comments Heart attack Mother Other cancer Mother Relation Name Status Comments Mother Social History Tobacco Use Types Packs/Day Years Used Date Smoking Tobacco: Former Cigarettes Smokeless Tobacco: Never Tobacco Cessation:Counseling Given: Not Answered Alcohol Use Standard Drinks/Week Comments No 0 (1 standard drink = 0.6 oz pur e alcohol) PHQ-2 Answer Date Recorded Patient Health Questionnaire-2 Score 0 08/19/2024 Comments Unknown Sex and Gender Information Value Date Recorded Sex Assigned at Not on file Legal Sex Female 8:49 PM EDT Gender Identity Not on file Sexual Orientation Not on file Last Filed Vital Signs Vital Sign Reading Time Taken Comments Blood Pressure 126/80 08/19/2024 1:18 PM EDT Pulse 86 08/19/2024 1:18 PM EDT Temperature 36.7 C (98 F) 08/22/2023 11:09 AM EDT Respiratory Rate 15 08/13/2023 5:39 AM EDT Oxygen Saturation 97% 08/22/2023 11: 09 AM EDT Inhaled Oxygen Concentration - - Weight 68.4 kg (150 lb 12.7 oz) 08/19/2024 1:18 PM EDT Height 170.2 cm (5' 7 ) 08/19/2024 1:18 PM EDT Body Mass Index 23.62 08/19/2024 1:18 PM EDT Plan of Treatment Upcoming Encounters Date Type Department Care Team (Late st Contact Info) Description 02/04/2025 2:20 PM EST Office Visit [facility] Endocrinology [address] [place] [phone] Elisabeth Parrish PA [address] [place] [phone] Health Maintenance Due Date Last Done Comments [facility]-Bone Density Scan 1950 [facility]-Hepatitis C Screening 1950 [facility]-Medicare Annual Wellness (AWV) 1950 [facility]-/Child/Adol SDOH Screenings 1952 Diabetes: Dental Exam 1962 [facility]- SDOH Screenings 1970 [facility]-Adult SDOH Screenings 1970 CT Colonography 1997 Colonoscopy 1997 FIT-DNA 1997 FIT 1997 FOBT 1997 Sigmoidoscopy 1997 [facility]-Colorectal Cancer Screening 1997 [facility]-Pneumococcal Vaccine: 50+ Years (2 of 2 - PCV) 05/26/2018 05/26/2017, 11/01/2010 [id number] Vaccine (3 - season) 2024 06/11/2020, 05/14/2020 [facility]-Influenza Vaccine (#1) 10/21/202411/19, 11/18/2022, 11/19/2021, Additional history exists [facility]-Diabetes: Hemoglobin A1C 02/16/2025, 05/09/2024, 02/05/2024, Additional history exists [facility]-Breast Cancer Screening 03/31/2025 03/31/2023, 0 03/31/2023 [facility]-Depression Screening 08/19/2025 08/19/2024 [facility]-DTaP,Tdap,and Td Vaccines (3 - Td or Tdap) 08/10/2032 08/10/2022, 06/02/2017 [facility]-RSV Vaccine: 60+ Years or Completed 03/28/2023 [facility]-Zoster Vaccines Completed 10/26/2023, HPV Vaccines Aged Out No longer eligi ble based on patient's age to complete this topic [facility]-HIB Vaccines Aged Out No longer e ligible based on patient's age to complete this topic [facility]-Hepatitis A Vaccines Aged Out No longer eligible based on patient's age to complete this topic [facility]-IPV Vaccines Aged Out No longer e ligible based on patient's age to complete this topic [facility]-Rotavirus Vaccines Aged Out No lo nger eligible based on patient's age to complete this topic Procedures Procedure Name Priority Date/Time Associated Diagnosis Comments POCT GLYCOSYLATED HEMOGLOBIN (HGB A1C) Routine 08/19/2024 1:32 PM EDT Type 2 diabetes mellitus with other specified complication, without long-term current use of insulin ([facility]) from Last 3 Months Results * (ABNORMAL) POCT glycosylated hemoglobin (Hb A1C) (08/19/2024 1:32 PM EDT) POCT Hemoglobin A1C 5.8 <5.7% Non-Diabet ic % [facility] Kit Lot Number [id number] [facility] Kit Expiration Date 06/16 [facility] Blood Venous blood specimen / Unknown 08/19/2024 1:32 PM EDT Elisabeth MCMILLAN POINT OF CARE TEST EN TER/EDIT ORDERABLES Final Result [facility] [address] [place] [address] from Last 3 Months Insurance [employer] [facility] MEDICAID [employer] MEDICARE Care Teams Event Attendant Relationship Specialty Start Date End Date Tessy Goodman APRN [address] [place] [address] PCP - General 07/03/20
--- OUTSIDE RECORDS SUMMARY | 2024-11-07 17:58 | XMS_ITS | Clinical Summary ---
Author Organization [facility] Address [address] [place] [address] Care Team Providers Care Target Aircraft Technician Name Role Phone Tessy Goodman APRN Primary Care Provider Allergies Active Allergy Reactions Criticality Noted Date Comments Sulfamethoxazole-Trimethoprim 2016 Cefdinir Hives Low 04/07/2016 Codeine 10/25/2016 Cyclobenzaprine Unknown - Low Severity Low 04/07/19 17 Fexofenadine 10/25/2016 Iopamidol 10/25/2016 Latex Unknown - High Severity Low 04/07/2016 Meperidine And Related 10/25/2016 Penicillins 10/25/2016 Piroxicam 10/25/2016 Simvastatin Myalgia 04/23/2013 Trimethoprim 10/25/2016 Medications atorvastatin (LIPITOR) 20 MG tablet Take 80 mg by mouth Daily. Active metFORMIN (GLUCOPHAGE) 500 MG tablet Take 500 mg by mouth 2 (Two) Times a Day With Meals. Active hydrOXYzine (ATARAX) 25 MG tablet Take 25 mg by mouth 3 (Three) Times a Day As Needed for Itching. Active venlafaxine (EFFEXOR) 75 MG tablet Take 75 mg by mouth Daily. Active carBAMazepine (TEGretol) 200 MG tablet Take 150 mg by mouth Daily. Active lisinopril (PRINIVIL,ZESTR IL) 5 MG tablet Take 5 mg by mouth Daily. Active carvedilol (COREG) 25 MG tablet Take 12.5 mg by mouth 2 (Two) Times a Day With Meals. Active clonazePAM (KlonoPIN) 0.5 MG tablet Take 0.5 mg by mouth At Night As Needed for Seizures. Active pioglitazone (ACTOS) 30 MG tablet Take 30 mg by mouth Daily. Active gabapentin (NEURONTIN) 600 MG tablet Take 600 mg by mouth 2 (Two) Times a Day. Active atorvastatin (LIPITOR) 80 MG tablet TAKE 1 TABLET 1 TIME EACH DAY AT BEDTIME 1 Active Diclofenac Sodium (VOLTAREN) 1 % gel gel APPLY 4 GRAMS TO THE AFFECTED AREA UP TO 4 TIMES A DAY. 1 Active glipizide (GLUCOTROL XL) 2.5 MG 24 hr tablet TAKE 1 TABLET 1 TIME EACH DAY IN THE MORNING WITH FOOD 1 Active metoprolol tartrate (LOPRESSOR) 50 MG tablet Take by mouth. 4 Active mometasone-form oterol (Dulera) 200-5 MCG/ACT inhaler Dulera 200-5 MCG/ACT Inhalation Aerosol; Patient Sig: Dulera 200-5 MCG/ACT Inhalation Aerosol ; 0; -Jun-2014; Active 5 Active montelukast (SINGULAIR) 10 MG tablet Take by mouth. 4 Active omeprazole (priLOSEC) 40 MG capsule Take by mouth. 4 Active QUEtiapine (SEROquel) 100 MG tablet 1 Active Januvia 100 MG tablet 1 Active ferrous sulfate 325 (65 FE) MG tablet Take 325 mg by mouth Daily With Breakfast. Active Active Problems Problem Noted Date Diagnosed Date Essential hypertension 08/06/2020 Preop cardiovascular exam 08/06/2020 Dyspnea on exertion 08/06/2020 Coronary artery disease invo lving [place] coronary artery of [place] heart 08/06/2020 Social History Tobacco Use Types Packs/Day Years Used Date Smoking Tobacco: Former Smokeless Tobacco: Never Alcohol Use Standard Drinks/Week Comments No 0 (1 standard drink = 0.6 oz pur e alcohol) Abuse Screen Answer Date Recorded Unsafe at Home or Work/School Not on file Feels Threatened by Someone? Not on file 10/2022 Does Anyone Keep You from Co ntacting Others or Doint Things Outside the Home? Not on file 11/28/2022 Physical Sign of Abuse Present Not on file 1 Housing Stability Answer Date Recorded Current Living Arrangements Not on file 10/2022 Potentially Unsafe Housing Conditions Not on citlali e 11/28/2022 Family and Community Support Answer Kareem e Recorded Help with Day-to-Day Activities Not on file 11/28/2022 Lonely or Isolated Not on file 11/28/2022 Employment Answer Date Recorded Do you want help finding or keeping work or a radha b? Not on file 11/28/2022 Disabilities Answer Date Recorded Concentrating, Remembering, or Making Decisions Difficulty Not on file 11/28/2022 Doing Errands Independently Difficulty Not on fi le 11/28/2022 Education Answer Date Recorded Help with school or training? Not on file Preferred Language Not on file 11/28/2022 Comments Unknown Sex and Gender Information Value Date Recorded Sex Assigned at Not on file Legal Sex Female 11:31 AM EDT Gender Identity Not on file Sexual Orientation Not on file Last Filed Vital Signs Vital Sign Reading Time Taken Comments Blood Pressure 120/80 09/24/2020 9:55 AM EDT Pulse 60 09/24/2020 9:55 AM EDT Temperature 36.7 C (98.1 F) 10/25/2016 7:28 AM EDT Respiratory Rate 18 10/25/2016 11:11 AM EDT Oxygen Saturation 93% 08/06/2020 1:20 PM EDT Inhaled Oxygen Concentration - - Weight 89.8 kg (198 lb) 09/24/2020 9:55 AM EDT Height 170.2 cm (5' 7 ) 09/24/2020 9:55 AM EDT Body Mass Index 31.01 09/24/2020 9:55 AM EDT Plan of Treatment Health Maintenance Due Date Last Done Comments DXA SCAN 1950 MAMMOGRAM 1992 COLOGUARD 1997 COLON CANCER SCREENING 5 YEA R SIGMOIDOSCOPY 1997 COLONOSCOPY 1997 [address] CANCER SCREENING 1997 CT COLONOGRAPHY 1997 FECAL OCCULT BLOOD TEST 1997 FIT Testing (1 year) 1997 ZOSTER VACCINE (1 of 2) 2002 ANNUAL PHYSICAL 10/25/2016 HEPATITIS C SCREENING 10/25/2016 Pneumococcal Vaccine 50+ (2 of 2 - PCV) 05/26/2018 05/26/2017, 11/01/2010 INFLUENZA VACCINE 09/20/2024 COVID-19 Vaccine (3 - 2024-2 6 season) 2024 06/11/2020, 05/14/2020 TDAP/TD VACCINES (2 - Td or Tdap) 06/03/2027 018 HEMOGLOBIN A1C Discontinued 08/19/2024, 04/21, 02/05/2024, Additional history exists Procedures Procedure Name Priority Date/Time Associated Diagnosis Comments HEMOGLOBIN A1C STAT 10/25/2016 8:14 AM EDT from Last 3 Months or Most Recently Relevant to Health Maintenance Results * (ABNORMAL) Hemoglobin A1c (10/25/2016 8:14 AM EDT) Hemoglobin A1C 7.80(H) 4.80 - 5.60 % 10/25/2016 8:38 AM EDT [facility] Blood Venipuncture / Unknown 10/25/2016 8:14 AM EDT 10/25/2016 8:23 AM EDT Narrative [facility] - 10/25/2016 8:38 AM EDT The [place] [employer] recommends maintenance of Hemoglobin A1C at 7.0% or lower. Goals for Hemoglobin A1C reduction may need to be modified if hypoglycemia is a problem. Musa Echevarria MD LAB BLOOD ORDERABLES Final Res ult [facility]
[address] [place] [address], from Last 3 Months or Most Recently Relevant to Health Maintenance Insurance AETNA [facility] [employer] MEDICARE ADVANTAGE Care Teams Target Aircraft Technician Relationship Specialty Start Date End Date Tessy Goodman APRN [address] [place] [address] PCP - General Nurse Practitioner 08/06/20
--- OUTSIDE RECORDS SUMMARY | 2024-11-07 17:58 | XMS_ITS | Clinical Summary ---
Author Organization [facility] Address [address] [place] [phone] Phone Care Team Providers Care Aerospace Medicine Physician Name Role Phone Unavailable Primary Care Provider Unavailabl e Social History Tobacco Use Types Packs/Day Years Used Date Smoking Tobacco: Never Assessed Comments Unknown Sex and Gender Information Value Date Recorded Sex Assigned at Not on file Legal Sex Female 1:52 PM EST Gender Identity Not on file Sexual Orientation Not on file Plan of Treatment Health Maintenance Due Date Last Done Comments Wellness Exam Medicare 05/25/1953 Hepatitis C Screening 1968 Cologuard 1997 Colon Cancer Screening 1997 Colonoscopy 1997 FIT 1997 Sigmoidoscopy 1997 Virtual Colonography 1997 Zoster (1 of 2) 2002 Bone Density Screening 2017 Pneumococcal Vaccine 50+ (2 of 2 - PCV) 05/26/2018 05/26/2017, 11/01/2010 COVID-19 Vaccine (3 - season) 2024 06/11/2020, 05/14/2020 Influenza Vaccine (#1) 2024 , 11/19/2021, 11/10/2020, Additional history exists Breast Cancer Screening 03/31/2025 03/31/2023 DTaP/TDaP/Td (3 - Td or Tdap) 08/10/2032 08/10/2022, 06/02/2017 Hepatitis B Vaccine Aged Out No longe r eligible based on patient's age to complete this topic Meningococcal B Vaccine Aged Out No l onger eligible based on patient's age to complete this topic Procedures Procedure Name Priority Date/Time Associated Diagnosis Comments MM MAMMO DIGITAL JULIO CÉSAR SCREEN BILAT Routine 03/31/2023 2:08 PM EST Encounter for screening mammogram for high-risk patient from Last 3 Months or Most Recently Relevant to Health Maintenance Results * MM MAMMO DIGITAL JULIO CÉSAR SCREEN BILAT (03/31/2023 2:08 PM EST) Anatomical Region Laterality Modality Breast Bilateral Mammography 04/10/2023 7:34 AM EST Impressions 04/10/2023 7:34 AM EST Benign finding ([id number]) ~ RECOMMENDATION: Routine screening mammogram in 1 year. ~ DISCLAIMER * Any patient with a palpable abnormality, unexplained by breast imaging, should be managed on clinical basis by the attending physician. * Breast imaging has a false negative rate of 15%. * The patient was notified by mail of the results of this examination. *The patient's information was entered into a reminder system with a target due date for the next mammogram, in accordance with the [employer] and the Society of Breast Imaging recommendations. Narrative 04/10/2023 7:34 AM EST Procedure:MM MAMMO DIGITAL JULIO CÉSAR SCREEN BILAT ~ Reason for exam: screening, asymptomatic. Z12.31-Encounter for screening mammogram for malignant neoplasm of [id number] ~ MM MAMMO DIGITAL JULIO CÉSAR SCREEN BILAT Bilateral CC and MLO view(s) were taken. The breast tissue is heterogeneously dense. This may lower the sensitivity of mammography. Prior study comparison: Compared with prior studies the most recent being outside mammograms , 02/18/2021, 08/18/2020, 02/05/2020, and 01/13/2020 No suspicious mass, unexplained architectural distortion, or microcalcifications. Stable benign postbiopsy architectural distortion and residual benign calcifications within the retroareolar anterior 6:00 position right breast with associated tissue marker. There is also a stable tissue marker within the inner lower quadrant right breast, middle depth. Scattered additional benign bilateral breast calcifications are redemonstrated. No mammographic evidence of malignancy. ~ Procedure Note Saji Skinner MD - 04/10/2023 Procedure:MM MAMMO DIGITAL JULIO CÉSAR SCREEN BILAT ~ Reason for exam: screening, asymptomatic. Z12.31-Encounter for screening mammogram for malignant neoplasm of [id number] ~ MM MAMMO DIGITAL JULIO CÉSAR SCREEN BILAT Bilateral CC and MLO view(s) were taken. The breast tissue is heterogeneously dense. This may lower thesensitivity of mammography. Prior study comparison: Compared with prior studies the most recentbeing outside mammograms , 02/18/2021, 08/18/2020, 02/05/2020, and 01/13/2020 No suspicious mass, unexplained architectural distortion, or microcalcifications. Stable benign postbiopsy architectural distortionand residual benign calcifications within the retroareolar anterior 6:00 position right breast with associated tissue marker. There is also astable tissue marker within the inner lower quadrant right breast, middledepth. Scattered additional benign bilateral breast calcifications are redemonstrated. No mammographic evidence of malignancy. ~ IMPRESSION: Benign finding ([id number]) ~ RECOMMENDATION: Routine screening mammogram in 1 year. ~ DISCLAIMER * Any patient with a palpable abnormality, unexplained by breast imaging, should be managed on clinical basis by the attending physician. * Breast imaging has a false negative rate of 15%. * The patient was notified by mail of the results of this examination. *The patient's information was entered into a reminder system with atarget due date for the next mammogram, in accordance with the [employer] and the Society of Breast Imaging recommendations. Tessy Goodman APRN [facility] [place] [facility] ORDERABLES Fin al Result from Last 3 Months or Most Recently Relevant to Health Maintenance [place] [address] [address] [place] [address] MEDICARE HMO MR
[2024-11-07 18:06] LABS: Microscopic, Urine URINE MICROSCOPIC (MICROSCOPIC)
[2024-11-07 18:22] LABS: Bilirubin,Urine Negative (Negative); Color,Urine YELLOW (Yellow); Glucose,Urine (UA) Negative (Negative); Ketones,Urine Negative (Negative); Leukocyte Esterase,Urine Negative (Negative); PH,Urine 7.5 (5.0-8.5); Protein,Urine Negative (Negative); Specific Gravity, Urine 1.015 (1.005-1.030); Urobilinogen,Urine 1.0 EU/dl (0.2)
[2024-11-07 18:51] LABS: Bacteria,Urine 3+ /lpf; Squamous Epithelial Cell,Urine Occasional #/hpf (0-5)
== END 2024-11-07 23:59 | disposition home or self-care (01) ==
LOC: LAB.DROPOF 17:57
PROVIDERS: PCP Family Medicine; Visit Provider Family Medicine
DX: R30.0 Dysuria (principal)
CPT/HCPCS: 81001; 87086; 87088

== ENCOUNTER 2024-11-27 06:36 | Outpatient (CLI) | payer MEDICARE, OTHER, SELFPAY ==
[2024-11-27 06:38] LABS: Microscopic, Urine URINE MICROSCOPIC (MICROSCOPIC)
--- OUTSIDE RECORDS SUMMARY | 2024-11-27 06:39 | XMS_ITS ---
Care Plan - [facility], [facility] Created on: November 27, 2024 Sofia Valero : 1950 Sex: Female Author Organization [facility] Address [address] [place] [address] Phone Care Team Providers Care Coach Driver Name Role Phone Tessy Goodman APRN Unavailable [phone] Joaquin ROSE, Luc Herrera Unavailable [phone]
--- OUTSIDE RECORDS SUMMARY | 2024-11-27 06:39 | XMS_ITS | Clinical Summary ---
Author Organization [facility] Address [address] [place] [id number] Phone Care Team Providers Care Wheelage Clerk Name Role Phone Unavailable Primary Care Provider [...] Impressions 04/10/2023 7:34 AM EST Benign finding ([id number]) ~ RECOMMENDATION: Routine screening mammogram in 1 [...] the next mammogram, in accordance with the [place] [employer] and the Society of Breast Imaging recommendations. Narrative 04/10/2023 7:34 AM EST Procedure:MM MAMMO DIGITAL JULIO CÉSAR SCREEN BILAT ~ Reason for exam: screening, asymptomatic. Z12.31-Encounter for screening mammogram for malignant neoplasm of [id number]-[id number]-CM ~ MM MAMMO DIGITAL JULIO CÉSAR SCREEN [...] for screening mammogram for malignant neoplasm of [id number]-[id number]-[id number]-CM ~ MM MAMMO DIGITAL JULIO CÉSAR SCREEN [...] evidence of malignancy. ~ IMPRESSION: Benign finding ([id number]-2) ~ RECOMMENDATION: Routine screening mammogram in 1 [...] the next mammogram, in accordance with the [place] [employer] and the Society of Breast Imaging recommendations. Tessy Goodman APRN [facility] MAMMOGRAPHY ORDERABLES Fin al Result from Last 3 Months or Most Recently Relevant to Health Maintenance [place] [address] [place] [address] MEDICARE HMO MR
--- OUTSIDE RECORDS SUMMARY | 2024-11-27 06:39 | XMS_ITS | Clinical Summary ---
Author Organization [facility] Address [address] [place] [address] Care Team Providers Care Environmental Aide Name Role Phone Tessy Goodman APRN Primary Care Provider [phone] Allergies Active Allergy Reactions Criticality Noted Date [...] exertion 08/06/2020 Coronary artery disease invo lving [place] coronary artery of [place] heart 08/06/2020 Social History Tobacco Use Types [...] - 5.60 % 10/25/2016 8:38 AM EDT [facility] Blood Venipuncture / Unknown 10/25/2016 8:14 AM EDT 10/25/2016 8:23 AM EDT Narrative [facility] - 10/25/2016 8:38 AM EDT The [place] [employer] recommends maintenance of Hemoglobin A1C at 7.0% or lower. Goals for Hemoglobin A1C reduction may need to be modified if hypoglycemia is a problem. Musa Echevarria MD LAB BLOOD ORDERABLES Final Res ult [facility]
[address] [place] [address], from Last 3 Months or Most Recently Relevant to Health Maintenance Insurance [employer] [facility] [employer] MEDICARE ADVANTAGE Care Teams Environmental Aide Relationship Specialty Start Date End Date Tessy Goodman APRN [address] [place] [address] PCP - General Nurse Practitioner 08/06/20
--- OUTSIDE RECORDS SUMMARY | 2024-11-27 06:40 | XMS_ITS ---
Author Organization [facility] Address [address] [place] [address] Phone Care Team Providers Care Field Specialist Name Role Phone Tessy Goodman APRN Unavailable [phone] Joaquin ROSE, Luc Herrera Unavailable [phone] Problems Includes: Active, inactive, and resolved Problems All Visits Onset Date Resolved Date Provider Condition S tatus Joint Pain in Both Knees 06/09/2022 Luc Nuñez MD Active Last Documented On 3 2:10PM ; [facility] Joint Stiffness of Both Knees 06/09/2022 Jasson Nuñez MD Active Last Documented On 3 2:54PM ; [facility] Plan of Treatment Instructions to patient Lose weight Last Documented On 3 2:52PM ; [facility] Assessments Includes: Assessments for all patient encounters No Assessments Recorded Instructions Includes: Instructions for all patient encounters Instructions to patient Lose weight Last Documented On 3 2:52PM ; [facility] Medical Equipment - Implanted Devices Includes: Current and historical Devices No Medical Equipment Recorded Medications Includes: Current and historical Medications Current Medications (continue as prescribed) hydrOXYzine Pamoate 25 MG Oral Capsule 06/03/2022 Pr ovider: Diagnosis: Last Documented On 3 2:54PM By Heladio Pruitt [facility] carBAMazepine 100 MG Oral Tablet Chewable 05/23/2022 Provider: Diagnosis: Last Documented On 3 2:54PM By Heladio Gudino ; [facility] glipiZIDE ER 2.5 MG Oral Tablet Extended Release 24 Ho ur 05/23/2022 Provider: Diagnosis: Last Documented On 3 2:54PM By Heladio IGNACIO [facility] Lisinopril 5 MG Oral Tablet 05/23/2022 Provider: Tessy Goodman APRN Diagnosis: Last Documented On 3 2:54PM By Heladio Gudino ; [facility] Pioglitazone HCl 30 MG Oral Tablet 05/23/2022 Provid er: Diagnosis: Last Documented On 3 2:54PM By Heladio Gudino ; [facility] Past Medications on file Meloxicam 7.5 MG Oral Tablet 06/09/2022 - 06/09/2022 Provider: Luc donaldson MD Diagnosis: once a day Last Documented On 3 5:22PM By Aracelis Gray ; [facility] Medications Administered Includes: Administered Medications in patient's chart No Administered Medications Recorded Results Includes: Results from 11/28/2023 through 11/27/2024 No Results Recorded For Specified Dates History of Present Illness History of Present Illness not supported for this document type No History of Present Illness Recorded Social History Description Last Updated No caffeine use 06/09/2022 Last Documented On 3 2:29PM ; [facility] No recent change in diet 06/09/2022 Last Documented On 3 2:29PM ; [facility] Not a current smoker. 06/09/2022 Last Documented On 3 2:29PM ; [facility] Not exercising regularly 06/09/2022 Last Documented On 3 2:29PM ; [facility] Not using alcohol 06/09/2022 Last Documented On 3 2:29PM ; [facility] Not using drugs 06/09/2022 Last Documented On 3 2:29PM ; [facility] Tobacco non-user 06/09/2022 Last Documented On 3 2:29PM ; [facility] Smoking Status Unknown Medical History Includes: Medical History in patient's chart No Medical History Recorded Family History Includes: Family History in patient's chart No Family History Recorded Review of Systems Review of Systems not supported for this document type No Review of Systems Recorded Mental Status No Mental Status Recorded Functional Status No Functional Status Recorded Physical Exam Physical Exam not supported for this document type No Physical Exam Recorded Insurance Includes: Active Insurance Policies Plan Name Member ID Group # Subscriber Relationship Effect eduar Dates 1 - [employer] [id number] Sofia Valero [facility][note 3] [facility] [id number] Sofia Valero Self Clinical Notes Includes: Signed Clinical Notes starting from 02/03/2022 No Clinical Notes Recorded
--- OUTSIDE RECORDS SUMMARY | 2024-11-27 06:40 | XMS_ITS | Referral Summary ---
Author Organization [facility] ([place], [place], [place], [place]) Address [address] [place] [address] Care Team Providers Care Lube Worker Name Role Phone Tessy Goodman APRN Primary Care Provider [phone] Allergies Active Allergy Reactions Criticality Noted Date Comments Cefdinir Hives High 04/07/2016 Other reaction(s): Unknown - Patient states they do not know rxn details Codeine Low 04/07/2016 Other reaction(s): Unknown - Patient states they do not know rxn details Cyclobenzaprine Low 04/07/2016 Other reaction(s): Unknown - Low Severity, Unknown - Patient states they do not know rxn details Fexofenadine Low 07/05/2004 Other reaction(s): Other - please document in the comment field Iodinated Contrast Media 01/20/2023 Latex Low 04/07/2016 Other reaction(s): Unknown - High Severity, Unknown - Patient states they do not know rxn details Meperidine 09/08/2017 Penicillins Low 07/05/2004 Other reaction(s): Other - please document in the comment field, Unknown - Patient states they do not know rxn details Piroxicam Low 07/05/2004 Other reaction(s): Unknown - Patient states they do not know rxn details Simvastatin Low 04/23/2013 Other reaction(s): Myalgia, Other - please document in the comment field Sulfamethoxazole 09/08/2017 Sulfamethoxazole-Trimethoprim Rash Low 2004 Other reaction(s): Unknown - Patient states they do not know rxn details Medications omeprazole (PriLOSEC) 40 MG capsule Take 1 capsule (40 mg total) by mouth daily. 10/17/2022 Active gabapentin (NEURONTIN) 300 MG capsule Take 1 capsule (300 mg total) by mouth 3 (three) times daily. 12/22/2022 Active lisinopriL (PRINIVIL,ZESTR IL) 5 MG tablet Take 1 tablet (5 mg total) by mouth daily. 11/14/2022 Active carvediloL (COREG) 12.5 MG tablet Take 1 tablet (12.5 mg total) by mouth daily. 10/17/2022 Active montelukast (SINGULAIR) 10 mg tablet Take 1 tablet (10 mg total) by mouth nightly. 12/01/2022 Active venlafaxine (EFFEXOR) 75 MG tablet Take 1 tablet (75 mg total) by mouth daily. Active QUEtiapine (SEROquel) 100 MG tablet Take 1 tablet (100 mg total) by mouth nightly. 12/12/2022 Active metFORMIN (GLUCOPHAGE) 500 MG tablet Take 2 tablets (1,000 mg total) by mouth 3 (three) times daily. 10/31/2022 Active carBAMazepine (TEGretol) 200 mg tablet Take 150 mg by mouth nightly. Active atorvastatin (LIPITOR) 80 MG tablet Take 1 tablet (80 mg total) by mouth nightly. 12/22/2022 Active hydrOXYzine (VISTARIL) 25 MG capsule Take 1 capsule (25 mg total) by mouth 2 (two) times daily. 11/28/2022 Active clonazePAM (KlonoPIN) 0.5 MG tablet Take 1 tablet (0.5 mg total) by mouth 2 (two) times daily. 01/17/2023 Active pioglitazone (ACTOS) 30 MG tablet Take 1 tablet (30 mg total) by mouth daily. 11/15/2022 Active aspirin 81 MG EC tablet Take 1 tablet (81 mg total) by mouth daily. 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 Advise daily foot care. Advise continue podiatry Coronary artery disease invo lving [place] coronary artery of [place] heart 08/06/2020 01/20/2023 Overview (01/20/2023): Last Assessment & Plan: Continue statin Bipolar disorder 04/07/2016 01/20/2023 Social History Tobacco Use Types Packs/Day Years Used Date Smoking Tobacco: Former Cigarettes Smokeless Tobacco: Never Tobacco Cessation:Counseling Given: Not Answered Alcohol Use Standard Drinks/Week Comments Never 0 (1 standard drink = 0.6 oz pur e alcohol) Food Insecurity Answer Date Recorded Food run out past 12 months Not on file 02/20 Food did not last past 12 months Not on file 03/02/2023 Employment Answer Date Recorded Help finding and keeping a job Not on file 0 03/02/2023 Family and Community Support Answer Kareem e Recorded Help with Day to Day Activities Not on file 03/02/2023 Feeling Lonely or Isolated Not on file 03/02 Educational Attainment Answer Date Mac rded Speak language other than Czech at home Not on file 03/02/2023 Want help with school or training Not on file 03/02/2023 Substance Use Answer Date Recorded Used prescription meds for non-medical reasons N ot on file 03/02/2023 Used illegal drugs past 12 months Not on file 03/02/2023 Comments No Sex and Gender Information Value Date Recorded Sex Assigned at Not on file Legal Sex Female 5:21 PM CDT Gender Identity Not on file Sexual Orientation Not on file Last Filed Vital Signs Vital Sign Reading Time Taken Comments Blood Pressure 146/65 01/23/2023 3:45 PM EST Pulse 70 01/23/2023 3:45 PM EST Temperature 36.6 C (97.9 F) 01/23/2023 3:45 PM EST Respiratory Rate 20 01/23/2023 3:45 PM EST Oxygen Saturation 91% 01/23/2023 3:45 PM EST Inhaled Oxygen Concentration - - Weight 79.8 kg (176 lb) 01/20/2023 12:06 PM EST Height 171.5 cm (5' 7.5 ) 01/20/2023 12:06 PM ES T Body Mass Index 27.16 01/20/2023 12:06 PM EST Plan of Treatment Not on file Insurance [address] [place] [address] MEDICARE PPO [employer] [facility] Care Teams Lube Worker Relationship Specialty Start Date End Date Tessy Goodman, ESL PROFESSOR [address] [place] [address] PCP - General Family Medicine 01/20/23
--- OUTSIDE RECORDS SUMMARY | 2024-11-27 06:40 | XMS_ITS | Clinical Summary ---
Author Organization [facility] Address [address] [place] [address] Phone Care Team Providers Care Manager Heavy Duty Name Role Phone Tessy Goodman APRN Unavailable [phone] Joaquin ROSE, Luc Herrera Unavailable [phone] Reason for Visit and Chief Complaint Physician Specified Problems Includes: Problems addressed during this encounter and other active Problems Current Visit Onset Date Resolved Date Provider Josiane Jorgensen Joint Pain in Both Knees 06/09/2022 Luc Nuñez MD Active Last Documented On 3 2:10PM ; [facility] Joint Stiffness of Both Knees 06/09/2022 Jasson Nuñez MD Active Last Documented On 3 2:54PM ; [facility] Plan of Treatment Fall Risk Assessment: This patient has been identified as a fall risk. Balance/gait along with postural blood pressure, vision and home fall hazards have been assessed. Medications have been reviewed, and recommendations made with regard to contributing factors for future falls. Plan of care: Consideration of vitamin D supplementation along with balance and strength training with consideration for formal physical therapy has been discussed with the patient. - Last Documented On 07/07/2022 2:29PM ; [facility] NON-SURGICAL PLAN: INJECTION: RIGHT KNEE - Last Documented On 07/07/2022 2:29PM ; [facility] 2 CC KENGALOG (80 MG), 4 CC MARCAINE, 4 CC LIDOCAINE MAINTAIN GOOD SHOES MAINTAIN HEALTHY WEIGHT POWER STEP FOR RIGHT FOOT MEDICATION: MOBIC 7.5 MG FOLLOW UP: 3 MONTHS FOR REPEAT INJECTION. PATIENT INTERESTED IN A GEL INJECTION AT THAT TIME - Last Documented On 07/07/2022 2:29PM ; [facility] Instructions to patient Lose weight Last Documented On 3 2:52PM ; [facility] Assessments Includes: Assessments from this encounter Findings RIGHT KNEE SEVERE LATERAL COMPARTMENT DJD. INJECTIONS IN PAST HAVE NOT HELPED. HAS TAKEN GLUCOSAMINE BUT NOT NSAIDs. KNEE CATCHES AND GIVES WAY AND CREATES A FALL RISK. WANTS TO REMAIN ACTIVE. - Last Documented On 07/07/2022 2:29PM ; [facility] Instructions Includes: Instructions from this encounter Instructions to patient Lose weight Last Documented On 3 2:52PM ; [facility] Medical Equipment - Implanted Devices Includes: Current Devices No Medical Equipment Recorded Medications Includes: Medications discussed during this encounter and other current Medications Discontinued / Stopped on this date Luc Nuñez MD on 06/09/2022 Meloxicam 7.5 MG Oral Tablet Provider: Luc Nuñez MD Diagnosis: Last Documented On 3 5:22PM By Aracelis Gray ; [facility] Current Medications (continue as prescribed) hydrOXYzine Pamoate 25 MG Oral Capsule 06/03/2022 Pr ovider: Diagnosis: Last Documented On 3 2:54PM By Heladio [facility] carBAMazepine 100 MG Oral Tablet Chewable 05/23/2022 Provider: Diagnosis: Last Documented On 3 2:54PM By [facility]io [facility], [facility] glipiZIDE ER 2.5 MG Oral Tablet Extended Release 24 Ho ur 05/23/2022 Provider: Diagnosis: Last Documented On 3 2:54PM By [facility]io [facility], [facility] Lisinopril 5 MG Oral Tablet 05/23/2022 Provider: Tessy Goodman APRN Diagnosis: Last Documented On 3 2:54PM By [facility] Pioglitazone HCl 30 MG Oral Tablet 05/23/2022 Provid er: Diagnosis: Last Documented On 3 2:54PM By Heladio [facility], [facility] Medications Administered Includes: Administered Medications from this encounter No Administered Medications Recorded Vital Signs Includes: Vital Signs from this encounter Vital Name 06/09/2022 02:54P Height (in) 68 Weight (lb) 215 Body Mass Index 32.7 Body Surface Area 2.1 Note: MAL Last Documented: On 06/09/2022 2:54PM ; [facility] Results Includes: Results discussed during this encounter No Results Recorded For Specified Dates History of Present Illness Includes: History of Present Illness from this encounter HPI Sofia Valero is a 72 year old female. - Allergy list reviewed - Problem list reviewed - Medication list reviewed - Previous history of new onset pain Injury is not work related or an automotive accident - Sharp pain Symptoms - Stabbing - Pain is throbbing - Pain is dull, aching - Patient pain level from 1-10: 6 Social History Description Last Updated No caffeine use 06/09/2022 Last Documented On 3 2:29PM ; [facility] No recent change in diet 06/09/2022 Last Documented On 3 2:29PM ; [facility] Not a current smoker. 06/09/2022 Last Documented On 3 2:29PM ; [facility] Not exercising regularly 06/09/2022 Last Documented On 3 2:29PM ; [facility] Not using alcohol 06/09/2022 Last Documented On 3 2:29PM ; [facility] Not using drugs 06/09/2022 Last Documented On 3 2:29PM ; [facility] Tobacco non-user 06/09/2022 Last Documented On 3 2:29PM ; [facility] Smoking Status Unknown Procedures and Surgical History Includes: Procedures from this encounter Procedures Code Diagnosis Performing Provider Service L ocation Service Date use of tobacco assessment performed 1000F Last Documented On 3 2:52PM ; [facility] patient screened for future fall risk: documentation of any fall with injury in past year 1100F Last Documented On 3 2:29PM ; [facility] Medical History Includes: Medical History addressed during this encounter No Medical History Recorded Family History Includes: Family History addressed during this encounter No Family History Recorded Review of Systems Includes: Review of Systems from this encounter Systemic: Not feeling tired, no recent weight loss, and no recent weight gain. Head: No headache and no sinus pain. Eyes: No vision problems, no Cataracts, no Glasses/Contacts, and no Glaucoma. Otolaryngeal: No hearing loss and no tinnitus. Cardiovascular: No chest pain or discomfort, no palpitations, no Hypertension, and no High Cholesterol. Pulmonary: No daytime asthma symptoms and no chronic cough. No wheezing. Gastrointestinal: No heartburn and no abdominal pain. No Indigestion, no Acid Reflux, no Peptic Ulcer, no GI Stomach Bleed, and no Ulcers. Endocrine: No hot flashes, no muscle weakness, no Diabetes, no Hypothyroid, and no Hyperthyroid. Hematologic: No easy bleeding, no tendency for easy bruising, and no Anemia. Musculoskeletal: No Arthritis and no lower back pain. No soft tissue swelling and no localized joint pain. Neurological: No dizziness, no convulsions, and no numbness. Psychological: No anxiety, no emotional lability, no depression, and no insomnia. Not crying for no reason. Skin: No dry skin. No Ulcers, no Scars, and no rash. Allergic and Immunologic: No complaint of seasonal allergic reaction. Mental Status Includes: Mental Status from this encounter Description No anxiety Functional Status Includes: Functional Status from this encounter No Functional Status Recorded Physical Exam Includes: Physical Exam from this encounter Encounters Encounter Provider Location Date Check-In Time Check-Out Time Diagnosis Physician Specified Luc Nuñez MD [facility] 06/10/19 23 1:48PM 4:13PM Insurance Includes: Active Insurance Policies Plan Name Member ID Group # Subscriber Relationship Effect eduar Dates 1 - [employer] [id number] Sofia Valero [facility] 2 - Aetna [facility] [id number] Sofia Valero Self Clinical Notes Includes: Clinical Notes from this encounter * Progress note Date Encounter Last Documented by 06/09/2022 Physician Specified Last agustinaumemary carmen dillon on 07/07/2022; 2:29 PM, Luc Nuñez MD; [facility] Active Problems & Conditions - Joint Pain in Both Knees - Joint Stiffness of Both Knees Subjective HAVE YOU EVER HAD SURGERY ON YOUR HIPS OR KNEES:DAX KNEE WHO DID YOUR SURGERY:NO WHERE IS YOUR PAIN:NO PREVIOUS INJECTIONS: NO HOW LONG DID YOUR LAST INJECTION HELP: NO MEDICATIONS TRIED FOR PAIN:NO Referred Here Referred by. History of Present Illness Sofia Valero is a 72 year old female. - Allergy list reviewed - Problem list reviewed - Medication list reviewed - Previous history of new onset pain Injury is not work related or an automotive accident - Sharp pain Symptoms - Stabbing - Pain is throbbing - Pain is dull, aching - Patient pain level from 1-10: 6 Current Medication - carBAMazepine 100 MG Oral Tablet Chewable 30 days, 0 refills - glipiZIDE ER 2.5 MG Oral Tablet Extended Release 24 Hour 90 days, 0 refills - hydrOXYzine Pamoate 25 MG Oral Capsule 90 days, 0 refills - Lisinopril 5 MG Oral Tablet 90 days, 0 refills - Pioglitazone HCl 30 MG Oral Tablet 90 days, 0 refills Social History Not a current smoker. Current diet: No recent change in diet. Caffeine use: No caffeine use. Tobacco use: Tobacco non-user. Alcohol: Not using alcohol. Drug Use: Not using drugs. Habits: Not exercising regularly. Review Of Systems Systemic: Not feeling tired, no recent weight loss, and no recent weight gain. Head: No headache and no sinus pain. Eyes: No vision problems, no Cataracts, no Glasses/Contacts, and no Glaucoma. Otolaryngeal: No hearing loss and no tinnitus. Cardiovascular: No chest pain or discomfort, no palpitations, no Hypertension, and no High Cholesterol. Pulmonary: No daytime asthma symptoms and no chronic cough. No wheezing. Gastrointestinal: No heartburn and no abdominal pain. No Indigestion, no Acid Reflux, no Peptic Ulcer, no GI Stomach Bleed, and no Ulcers. Endocrine: No hot flashes, no muscle weakness, no Diabetes, no Hypothyroid, and no Hyperthyroid. Hematologic: No easy bleeding, no tendency for easy bruising, and no Anemia. Musculoskeletal: No Arthritis and no lower back pain. No soft tissue swelling and no localized joint pain. Neurological: No dizziness, no convulsions, and no numbness. Psychological: No anxiety, no emotional lability, no depression, and no insomnia. Not crying for no reason. Skin: No dry skin. No Ulcers, no Scars, and no rash. Allergic and Immunologic: No complaint of seasonal allergic reaction. Physical Findings - Vitals taken 06/09/2022 02:54 pm MAL Height 68 in Weight 215 lbs Body Mass Index 32.7 kg/m2 Body Surface Area 2.1 m2 Standard Measurements: - Patient was overweight. PATIENT ORIENTED WITH NORMAL APPEARANCE GAIT: MODERATELY ANTALGIC RIGHT FOOT SLIGHTLY FLAT TA/GAS: 5/5 DP PULSES: PALPABLE BILATERAL HIPS: ROM: FLEXION: 130 DEGREES IR: 30 DEGREES ER: 50 DEGREES RIGHT KNEE: ROM: 5-125 DEGREES MINIMAL EFFUSION SEVERE MEDIAL JOINT LINE TENDERNESS SEVERE LATERAL JOINT LINE TENDERNESS SKIN WNL LEFT KNEE: ROM: 0-130 DEGREES SKIN WNL Tests BILATERAL KNEE XR (4 VIEWS): RIGHT KNEE BONE ON BONE LATERAL COMPARTMENT. LEFT KNEE MINIMAL JOINT SPACE NARROWING. Assessment RIGHT KNEE SEVERE LATERAL COMPARTMENT DJD. INJECTIONS IN PAST HAVE NOT HELPED. HAS TAKEN GLUCOSAMINE BUT NOT NSAIDs. KNEE CATCHES AND GIVES WAY AND CREATES A FALL RISK. WANTS TO REMAIN ACTIVE. Counseling/Education - Lose weight Plan StartCited - Other Meloxicam 7.5 MG tablet once a day, 30 days, 2 refills EndCited Fall Risk Assessment: This patient has been identified as a fall risk. Balance/gait along with postural blood pressure, vision and home fall hazards have been assessed. Medications have been reviewed, and recommendations made with regard to contributing factors for future falls. Plan of care: Consideration of vitamin D supplementation along with balance and strength training with consideration for formal physical therapy has been discussed with the patient. NON-SURGICAL PLAN: INJECTION: RIGHT KNEE 2 CC KENGALOG (80 MG), 4 CC MARCAINE, 4 CC LIDOCAINE MAINTAIN GOOD SHOES MAINTAIN HEALTHY WEIGHT POWER STEP FOR RIGHT FOOT MEDICATION: MOBIC 7.5 MG FOLLOW UP: 3 MONTHS FOR REPEAT INJECTION. PATIENT INTERESTED IN A GEL INJECTION AT THAT TIME Notes This dictation was done with voice recognition software and may contain errors and omissions. Practice Management Use of tobacco assessment performed and patient screened for future fall risk documentation of any fall with injury in past year. Care Team - Tessy Goodman APRN
--- OUTSIDE RECORDS SUMMARY | 2024-11-27 06:40 | XMS_ITS | Clinical Summary ---
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 08/06/2020 01/20/2023 Overview (01/20/2023): Last Assessment [...] Date Mac rded Speak language other than Swiss at home Not on file 03/02/2023 Want [...] 01/20/2023 12:06 PM EST Plan of Treatment Health Maintenance Due Date Last Done Comments CT Colonography 1950 Colonoscopy 1950 Colorectal Cancer Screening 1950 DXA SCAN 1950 Diabetic Kidney Health Evalu ation (KED) 1950 FOBT/FIT 1950 Fit-DNA (Cologuard) 1950 Sigmoidoscopy 1950 Diabetic Eye Exam 1962 Hepatitis C Screening 1970 Breast Cancer Screening 1992 Shingles Vaccine (Zoster) (1 of 2) 2002 Respiratory Syncytial Virus (RSV) Adult or (1 - Risk 60-74 years 1-dose series) 2012 Pneumococcal 50+ years (2 of 2 - PCV) 05/26/2018 05/26/2017, 11/01/2010 Medicare Initial AWV [id number] 10/22/2022 Hemoglobin A1C 01/20/2023 Tobacco Cessation Counseling and Screening (12+) 01/21/2024 01/20/2023 Falls Risk Screening 02/21/2024 COVID-19 VACCINE (3 - 2024-2 6 season) 2024 06/11/2020, 05/14/2020 Influenza Vaccine (#1) 2024 , 12/25/2018, 12/02/2016, Additional history exists DTAP/TDAP/TD VACCINES (3 - T d or Tdap) 08/10/2032 08/10/2022, 06/02/2017, 01/28/2009 Insurance HUMAN MEDICARE PPO [facility] Care Teams Epic Ambulatory Specialists Relationship Specialty Start Date End Date Tessy Goodman, [employer]OU[employer] MAK[employer] HELPER [address] [place] [address] PCP - General Family Medicine 01/20/23
--- OUTSIDE RECORDS SUMMARY | 2024-11-27 06:40 | XMS_ITS | Clinical Summary ---
Author Organization [facility] , [facility] Address [address] [place] [address] Phone Care Team Providers Care Center Consultant Name Role Phone Tessy Goodman APRN Unavailable [phone] Joaquin ROSE, Luc Herrera Unavailable U navailable Reason for Visit and Chief Complaint BRACE FITTING Problems Includes: Problems addressed during this encounter and other active Problems All Visits Onset Date Resolved Date Provider Condition S tatus Joint Pain in Both Knees 06/09/2022 Luc Nuñez MD Active Last Documented On 3 2:10PM ; [facility] Joint Stiffness of Both Knees 06/09/2022 Jasson Nuñez MD Active Last Documented On 3 2:54PM ; [facility], [facility] Plan of Treatment No Plan of Treatment Recorded Assessments Includes: Assessments from this encounter No Assessments Recorded Medical Equipment - Implanted Devices Includes: Current Devices No Medical Equipment Recorded Medications Includes: Medications discussed during this encounter and other current Medications Discontinued / Stopped on this date Luc Nuñez MD on 06/09/2022 Meloxicam 7.5 MG Oral Tablet Provider: Luc Nuñez MD Diagnosis: Last Documented On 3 5:22PM By Aracelis Gray ; [facility], [facility] Current Medications (continue as prescribed) hydrOXYzine Pamoate 25 MG Oral Capsule 06/03/2022 Pr ovider: Diagnosis: Last Documented On 3 2:54PM By Heladio Gudino ; [facility] carBAMazepine 100 MG Oral Tablet Chewable 05/23/2022 Provider: Diagnosis: Last Documented On 3 2:54PM By Heladio Gudino ; [facility] glipiZIDE ER 2.5 MG Oral Tablet Extended Release 24 Ho ur 05/23/2022 Provider: Diagnosis: Last Documented On 3 2:54PM By [facility] Lisinopril 5 MG Oral Tablet 05/23/2022 Provider: Tessy Goodman APRN Diagnosis: Last Documented On 3 2:54PM By [facility] Pioglitazone HCl 30 MG Oral Tablet 05/23/2022 Provid er: Diagnosis: Last Documented On 3 2:54PM By [facility] Medications Administered Includes: Administered Medications from this encounter No Administered Medications Recorded Results Includes: Results discussed during this encounter No Results Recorded For Specified Dates History of Present Illness Includes: History of Present Illness from this encounter No History of Present Illness Recorded Social History No Social History Recorded - Smoking Status Unknown Medical History Includes: Medical History addressed during this encounter No Medical History Recorded Family History Includes: Family History addressed during this encounter No Family History Recorded Review of Systems Includes: Review of Systems from this encounter No Review of Systems Recorded Mental Status Includes: Mental Status from this encounter No Mental Status Recorded Functional Status Includes: Functional Status from this encounter No Functional Status Recorded Physical Exam Includes: Physical Exam from this encounter No Physical Exam Recorded Encounters Encounter Provider Location Date Check-In Time Check-Out Time Diagnosis BRACE FITTING Luc Nuñez MD [facility] 3 2:30PM 11:59PM Insurance Includes: Active Insurance Policies Plan Name Member ID Group # Subscriber Relationship Effect eduar Dates 1 - [employer] [id number] Sofia Valero Se lf 2 - Aetna [facility] [id number] Sofia Valero Self Clinical Notes Includes: Clinical Notes from this encounter No Clinical Notes Recorded
--- OUTSIDE RECORDS SUMMARY | 2024-11-27 06:40 | XMS_ITS | Clinical Summary ---
Author Organization [facility] Address [address] [place] [address] Care Team Providers Care Faculty Neuropsychologist Name Role Phone Tessy Goodman LASTING MACHINE OPERATOR HAND METHOD Primary Care Provider [phone] Allergies Active Allergy Reactions Criticality Noted Date [...] complication, without long-term current use of insulin Take 1 tablet (80 mg) by mouth [...] complication, without long-term current use of insulin Take 1 tablet (2.5 mg) by mouth daily. 1 tab by Mouth daily in am w/ food 90 tablet 3 5 05/10/19 26 Active Glucose Blood (Blood Glucose Test) stripIndication s:Type 2 diabetes mellitus with other specified complication, without long-term current use of insulin Check blood glucose once daily 100 strip 11 5 Active Januvia 100 MG tabletIndicatio ns:Type 2 diabetes mellitus with other specified complication, without long-term current use of insulin Take 1 tablet by mouth daily. 90 tablet 3 5 08/20/19 26 Active metFORMIN (Glucophage) 500 MG tabletIndicatio ns:Type 2 diabetes mellitus with other specified complication, without long-term current use of insulin Take 2 tablets by mouth daily with breakfast AND 1 tablet daily before evening meal. 270 tablet 3 5 08/20/19 26 Active Blood Glucose Monitoring Suppl kitIndications: Type 2 diabetes mellitus with other specified complication, without long-term current use of insulin Use to check blood glucose 1 times daily 1 kit 5 Active Glucose Blood (Blood Glucose Test) stripIndication s:Type 2 diabetes mellitus with other specified complication, without long-term current use of insulin Check blood glucose 1 times daily before meals 200 strip 11 5 Active Lancets miscIndications :Type 2 diabetes mellitus with other specified complication, without long-term current use of insulin Check blood glucose 1 times daily before [...] Requested lipid Type 2 diabetes mellitus, wi thout long-term current use of insulin 08/26/2020 Assessment [...] pcp labs Coronary artery disease invo lving kake coronary artery of kake heart 08/06/2020 Assessment & Plan (12/02/2020 3:09 [...] considering chair exercise. Wt impacts insulin resistance. Immunizations Immunization Administration Dates Next Due Influenza, [...] Description 02/04/2025 2:20 PM EST Office Visit [facility] Endocrinology [address] [place] [address] Elisabeth Parrish PA [address] [place] [address] Health Maintenance Due Date Last [...] of 2 - PCV) 05/26/2018 05/26/2017, 11/01/2010 [id number] Vaccine (3 - 2024- season) 2024 06/11/2020, 05/14/2020 UKY-Influenza Vaccine (#1) [...] complication, without long-term current use of insulin ([facility]) from Last 3 Months or Most Recently Relevant to Health Maintenance Results * (ABNORMAL) POCT glycosylated hemoglobin (Hb A1C) (08/19/2024 1:32 PM EDT) POCT Hemoglobin A1C 5.8 <5.7% Non-Diabet ic % [facility] Kit Lot Number [id number] [facility] Kit Expiration Date 06/16 [facility] Blood Venous blood specimen / Unknown 08/19/2024 1:32 PM EDT Elisabeth MCMILLAN POINT OF CARE TEST EN TER/EDIT ORDERABLES Final Result [facility] [address] [place] [id number] from Last 3 Months or Most Recently Relevant to Health Maintenance Insurance [employer] [facility] MEDICAID [employer] MEDICARE Care Teams Faculty Neuropsychologist Relationship Specialty Start Date End Date Tessy Goodman APRN [address] [place] [address] PCP - General 07/03/20
[2024-11-27 07:05] LABS: Bilirubin,Urine Negative (Negative); Color,Urine YELLOW (Yellow); Glucose,Urine (UA) TRACE (Negative); Ketones,Urine Negative (Negative); Leukocyte Esterase,Urine Negative (Negative); PH,Urine 7.5 (5.0-8.5); Protein,Urine Negative (Negative); Specific Gravity, Urine 1.010 (1.005-1.030); Urobilinogen,Urine 1.0 EU/dl (0.2)
== END 2024-11-27 23:59 | disposition home or self-care (01) ==
PROVIDERS: PCP Family Medicine; Visit Provider Family Medicine
DX: Z30.09 Encounter for other general counseling and advice on contraception (principal)
CPT/HCPCS: 81001

== ENCOUNTER 2024-12-18 08:41 | Outpatient (CLI) | payer MEDICARE, OTHER, SELFPAY ==
--- OUTSIDE RECORDS SUMMARY | 2024-12-18 08:59 | XMS_ITS | Clinical Summary ---
Author Organization [facility] Address [address] [place] [address] Phone Care Team Providers Care Machine Long Goods Helper Name Role Phone Tessy Goodman APRN Unavailable [phone] Joaquin ROSE, Luc Herrera Unavailable U navailable Reason for Visit and Chief Complaint BRACE FITTING Problems Includes: Problems addressed during this encounter and other active Problems All Visits Onset Date Resolved Date Provider Condition S tatus Joint Pain in Both Knees 06/09/2022 Luc Nuñez MD Active Last Documented On 3 2:10PM ; [facility] Joint Stiffness of Both Knees 06/09/2022 Jasson Nuñez MD Active Last Documented On 3 2:54PM ; [facility] Plan of Treatment No Plan [...] On 3 5:22PM By Aracelis Gray ; [facility] Current Medications (continue as prescribed) hydrOXYzine Pamoate 25 MG Oral Capsule 06/03/2022 Pr ovider: Diagnosis: Last Documented On 3 2:54PM By Heladio Gudino ; [facility] carBAMazepine 100 MG Oral Tablet Chewable 05/23/2022 Provider: Diagnosis: Last Documented On 3 2:54PM By Heladio Gudino ; [facility] glipiZIDE ER 2.5 MG [...] On 3 2:54PM By Heladio [facility] Medications Administered Includes: Administered [...] Relationship Effect eduar Dates 1 - [employer] [id number] Sofia Valero Se lf 2 - Aetna [facility] [id number] Sofia Valero Self Clinical Notes Includes: Clinical Notes from this encounter No Clinical Notes Recorded
--- OUTSIDE RECORDS SUMMARY | 2024-12-18 08:59 | XMS_ITS ---
Care Plan - [facility] Created on: December 18, 2024 Sofia Valero : 1950 Sex: Female Author Organization [facility] Address [address] [place] [address] Phone Care Team Providers Care Home Planning Consultant Salesperson Name Role Phone Tessy Goodman APRN Unavailable [phone] Joaquin ROSE, Luc Herrera Unavailable [phone]
--- OUTSIDE RECORDS SUMMARY | 2024-12-18 08:59 | XMS_ITS | Clinical Summary ---
Author Organization [facility] Address [address] [place] [address] Care Team Providers Care Charge Account Authorizer Name Role Phone Tessy Goodman GEOLOGY TECHNICIAN Primary Care Provider [phone] Allergies Active Allergy Reactions Criticality Noted Date [...] pcp labs Coronary artery disease invo lving [place] coronary artery of [place] heart 08/06/2020 Assessment & Plan (12/02/2020 3:09 [...] Description 02/04/2025 2:20 PM EST Office Visit [facility] Endocrinology [address] [place] [address] Elisabeth Parrish PA [address] [place] [address] Health Maintenance Due Date Last Done Comments [facility]-Bone Density Scan 1952 [facility]-Hepatitis C Screening 1952 [facility]-Medicare Annual Wellness (AWV) 1952 [facility]-Infant/Child/Adol SDOH Screenings 1952 Diabetes: Dental Exam 1962 [facility]- SDOH Screenings 1970 [facility]-Adult SDOH Screenings 1970 CT Colonography 1997 Colonoscopy 1997 FIT-DNA 1997 FIT 1997 FOBT 1997 Sigmoidoscopy 1997 [facility]-Colorectal Cancer Screening 1997 [facility]-Pneumococcal Vaccine: 50+ Years (2 of 2 - PCV) 05/26/2018 05/26/2017, 11/01/2010 [id number] Vaccine (3 - 2024- season) 2024 06/11/2020, [...] complication, without long-term current use of insulin ([facility]) from Last 3 Months or Most Recently Relevant to Health Maintenance Results * (ABNORMAL) POCT glycosylated hemoglobin (Hb A1C) (08/19/2024 1:32 PM EDT) POCT Hemoglobin A1C 5.8 <5.7% Non-Diabet ic % [facility] Kit Lot Number [id number] [facility] Kit Expiration Date 06/16 [facility] Blood Venous blood specimen / Unknown 08/19/2024 1:32 PM EDT Elisabeth MCMILLAN POINT OF CARE TEST EN TER/EDIT ORDERABLES Final Result [facility] [address] [place] [id number] from Last 3 Months or Most Recently Relevant to Health Maintenance Insurance AETNA [facility] MEDICAID HUMANA MEDICARE Care Teams Charge Account Authorizer Relationship Specialty Start Date End Date Tessy Goodman APRN [address] [place] [address] PCP - General 07/03/20
--- OUTSIDE RECORDS SUMMARY | 2024-12-18 08:59 | XMS_ITS | Clinical Summary ---
Author Organization [facility] , [facility] Address [address] [facility] [place] [address] Phone Care Team Providers Care Manager Of Compensation Name Role Phone Tessy Goodman APRN Unavailable [phone] Joaquin ROSE, Luc Herrera Unavailable [phone] Reason for Visit and Chief Complaint Physician Specified Problems Includes: Problems addressed during this encounter and other active Problems Current Visit Onset Date Resolved Date Provider Josiane Jorgensen Joint Pain in Both Knees 06/09/2022 Luc Nuñez MD Active Last Documented On 3 2:10PM ; [facility] Joint Stiffness of Both Knees 06/09/2022 Jasson Nuñez MD Active Last Documented On 3 2:54PM ; [facility] Plan of Treatment Fall Risk Assessment: This [...] On 07/07/2022 2:29PM ; [facility] NON-SURGICAL PLAN: INJECTION: RIGHT KNEE - Last Documented On 07/07/2022 2:29PM ; [facility] 2 CC KENGALOG (80 MG), 4 CC MARCAINE, 4 CC LIDOCAINE MAINTAIN GOOD SHOES MAINTAIN HEALTHY WEIGHT POWER STEP FOR RIGHT FOOT MEDICATION: MOBIC 7.5 MG FOLLOW UP: 3 MONTHS FOR REPEAT INJECTION. PATIENT INTERESTED IN A GEL INJECTION AT THAT TIME - Last Documented On 07/07/2022 2:29PM ; [facility] Instructions to patient Lose weight Last Documented On 3 2:52PM ; [facility] Assessments Includes: Assessments from this encounter Findings RIGHT KNEE SEVERE LATERAL COMPARTMENT DJD. INJECTIONS IN PAST HAVE NOT HELPED. HAS TAKEN GLUCOSAMINE BUT NOT NSAIDs. KNEE CATCHES AND GIVES WAY AND CREATES A FALL RISK. WANTS TO REMAIN ACTIVE. - Last Documented On 07/07/2022 2:29PM ; [facility] Instructions Includes: Instructions from this encounter Instructions to patient Lose weight Last Documented On 3 2:52PM ; [facility] Medical Equipment - Implanted Devices Includes: Current Devices No Medical Equipment Recorded Medications Includes: Medications discussed during this encounter and other current Medications Discontinued / Stopped on this date Luc Nuñez MD on 06/09/2022 Meloxicam 7.5 MG Oral Tablet Provider: Luc Nuñez MD Diagnosis: Last Documented On 3 5:22PM By Aracelis Gray ; [facility] Current Medications (continue as prescribed) hydrOXYzine Pamoate 25 MG Oral Capsule 06/03/2022 Pr ovider: Diagnosis: Last Documented On 3 2:54PM By Heladio [facility] carBAMazepine 100 MG Oral Tablet Chewable 05/23/2022 Provider: Diagnosis: Last Documented On 3 2:54PM By Heladio [facility], [facility] glipiZIDE ER 2.5 MG Oral Tablet Extended Release 24 Ho ur 05/23/2022 Provider: Diagnosis: Last Documented On 3 2:54PM By Heladio [facility], [facility] Lisinopril 5 MG Oral Tablet 05/23/2022 Provider: Tessy Goodman APRN Diagnosis: Last Documented On 3 2:54PM By [facility] Pioglitazone HCl 30 MG Oral Tablet 05/23/2022 Provid er: Diagnosis: Last Documented On 3 2:54PM By Heladio [facility], [facility] Medications Administered Includes: Administered Medications from this encounter No Administered Medications Recorded Vital Signs Includes: Vital Signs from this encounter Vital Name 06/09/2022 02:54P Height (in) 68 Weight (lb) 215 Body Mass Index 32.7 Body Surface Area 2.1 Note: MAL Last Documented: On 06/09/2022 2:54PM ; [facility] Results Includes: Results discussed during this encounter [...] 06/09/2022 Last Documented On 3 2:29PM ; [facility] No recent change in diet 06/09/2022 Last Documented On 3 2:29PM ; [facility] Not a current smoker. 06/09/2022 Last Documented On 3 2:29PM ; [facility] Not exercising regularly 06/09/2022 Last Documented On 3 2:29PM ; [facility] Not using alcohol 06/09/2022 Last Documented On 3 2:29PM ; [facility] Not using drugs 06/09/2022 Last Documented On 3 2:29PM ; [facility] Tobacco non-user 06/09/2022 Last Documented On 3 2:29PM ; [facility] Smoking Status Unknown Procedures and Surgical History Includes: Procedures from this encounter Procedures Code Diagnosis Performing Provider Service L ocation Service Date use of tobacco assessment performed 1000F Last Documented On 3 2:52PM ; [facility] patient screened for future fall risk: documentation of any fall with injury in past year 1100F Last Documented On 3 2:29PM ; [facility] Medical History Includes: Medical History addressed during [...] Time Diagnosis Physician Specified Luc Nuñez MD [facility] 06/10/19 23 1:48PM 4:13PM Insurance Includes: Active Insurance Policies Plan Name Member ID Group # Subscriber Relationship Effect eduar Dates 1 - [employer]-MEDICARE [id number] Sofia Valero [facility] 2 - Aetna [facility] [id number] Sofia Valero Self Clinical Notes Includes: Clinical Notes from this encounter * Progress note Date Encounter Last Documented by 06/09/2022 Physician Specified Last agustinaumemary carmen dillon on 07/07/2022; 2:29 PM, Luc Nuñez MD; [facility], [facility] Active Problems & Conditions - Joint Pain [...]
--- OUTSIDE RECORDS SUMMARY | 2024-12-18 08:59 | XMS_ITS | Clinical Summary ---
Author Organization [facility] Address [address] [place] [address] Phone Care Team Providers Care Thread Grinder Tool Name Role Phone Unavailable Primary Care Provider [...] Impressions 04/10/2023 7:34 AM EST Benign finding ([id number]) ~ RECOMMENDATION: Routine screening mammogram in 1 [...] the next mammogram, in accordance with the [place] [employer] and the Society of Breast Imaging recommendations. Narrative 04/10/2023 7:34 AM EST Procedure:MM MAMMO DIGITAL JULIO CÉSAR SCREEN BILAT ~ Reason for exam: screening, asymptomatic. Z12.31-Encounter for screening mammogram for malignant neoplasm of [id number]-CM ~ MM MAMMO DIGITAL JULIO CÉSAR SCREEN [...] for screening mammogram for malignant neoplasm of [id number] ~ MM MAMMO DIGITAL JULIO CÉSAR SCREEN [...] evidence of malignancy. ~ IMPRESSION: Benign finding ([id number]) ~ RECOMMENDATION: Routine screening mammogram in 1 [...] the next mammogram, in accordance with the [employer] and the Society of Breast Imaging recommendations. Tessy Goodman APRN [facility] MAMMOGRAPHY ORDERABLES Fin al Result from Last 3 Months or Most Recently Relevant to Health Maintenance [place] [address] [address] MEDICARE HMO MR
--- OUTSIDE RECORDS SUMMARY | 2024-12-18 08:59 | XMS_ITS | Clinical Summary ---
Author Organization [facility] Address [address] [place] [address] Care Team Providers Care Security Support Analyst Name Role Phone Tessy Goodman APRN Primary Care Provider [phone] Allergies Active Allergy Reactions Criticality Noted Date [...] exertion 08/06/2020 Coronary artery disease invo lving [place] coronary artery of [place] heart 08/06/2020 Social History Tobacco Use Types [...] - 5.60 % 10/25/2016 8:38 AM EDT [facility] Blood Venipuncture / Unknown 10/25/2016 8:14 AM EDT 10/25/2016 8:23 AM EDT Narrative [facility] - 10/25/2016 8:38 AM EDT The [place] [employer] recommends maintenance of Hemoglobin A1C at 7.0% or lower. Goals for Hemoglobin A1C reduction may need to be modified if hypoglycemia is a problem. Musa Echevarria MD LAB BLOOD ORDERABLES Final Res ult [facility]
[address] [place] [address], from Last 3 Months or Most Recently Relevant to Health Maintenance Insurance AETNA [facility] AETNA [employer] MEDICARE ADVANTAGE Care Teams Security Support Analyst Relationship Specialty Start Date End Date Tessy Goodman APRN [address] [place] [address] PCP - General Nurse Practitioner 08/06/20
[2024-12-18 09:01] LABS: Hematocrit 33.6 % (37.0-47.0); Hemoglobin 10.5 g/dL (12.2-16.2); Immature Granulocytes % 0.7 %; Mean Corpuscular HGB Conc 31.3 g/dL (31.8-35.4); Mean Corpuscular Hemoglobin 30.0 pg (27.0-31.2); Mean Corpuscular Volume 96.0 fl (81-99); Nucleated Red Blood Cells % 0 %; Platelet Count 282 K/mm3 (142-424); Red Blood Count 3.50 M/mm3 (4.20-5.40); Red Cell Distribution Width-SD 46.6 fL; White Blood Count 8.7 K/mm3 (4.8-10.8)
--- OUTSIDE RECORDS SUMMARY | 2024-12-18 09:01 | XMS_ITS | Referral Summary ---
Author Organization [employer] ([place], [place], [place], [place]) Address [address] [place] [address] Care Team Providers Care Residential Concierge Name Role Phone Tessy Goodman APRN Primary Care Provider [phone] Allergies Active Allergy Reactions Criticality Noted Date [...] continue podiatry Coronary artery disease invo lving [place] coronary artery of [place] heart 08/06/2020 01/20/2023 Overview (01/20/2023): Last Assessment [...] Date Mac rded Speak language other than Bulgarian at home Not on file 03/02/2023 Want [...] Plan of Treatment Not on file Insurance AETNA [facility] Care Teams Residential Concierge Relationship Specialty Start Date End Date Tessy Goodman, TRAILER DRIVER [address] [place] [address] PCP - General Family Medicine 01/20/23
--- OUTSIDE RECORDS SUMMARY | 2024-12-18 09:01 | XMS_ITS ---
Author Organization [facility] , [facility] Address [address] [place] [address] Phone Care Team Providers Care Vp Public Relations Name Role Phone Tessy Goodman APRN Unavailable [phone] Joaquin ROSE, Luc Herrera Unavailable [phone] Problems Includes: Active, inactive, and resolved Problems All Visits Onset Date Resolved Date Provider Condition S tatus Joint Pain in Both Knees 06/09/2022 Luc Nuñez MD Active Last Documented On 3 2:10PM ; [facility], [facility] Joint Stiffness of Both Knees 06/09/2022 Jasson Nuñez MD Active Last Documented On 3 2:54PM ; [facility], [facility] Plan of Treatment Instructions to patient Lose weight Last Documented On 3 2:52PM ; [facility], [facility] Assessments Includes: Assessments for all patient encounters No Assessments Recorded Instructions Includes: Instructions for all patient encounters Instructions to patient Lose weight Last Documented On 3 2:52PM ; [facility], [facility] Medical Equipment - Implanted Devices Includes: Current and historical Devices No Medical Equipment Recorded Medications Includes: Current and historical Medications Current Medications (continue as prescribed) hydrOXYzine Pamoate 25 MG Oral Capsule 06/03/2022 Pr ovider: Diagnosis: Last Documented On 3 2:54PM By Heladio Pruitt [facility] carBAMazepine 100 MG Oral Tablet Chewable 05/23/2022 Provider: Diagnosis: Last Documented On 3 2:54PM By Heladio Gudino ; [facility] glipiZIDE ER 2.5 MG Oral Tablet Extended Release 24 Ho ur 05/23/2022 Provider: Diagnosis: Last Documented On 3 2:54PM By Heladio IGNACIO [facility], [facility] Lisinopril 5 MG Oral Tablet 05/23/2022 Provider: Tessy Goodman APRN Diagnosis: Last Documented On 3 2:54PM By Heladio Gudino ; [facility], [facility] Pioglitazone HCl 30 MG Oral Tablet 05/23/2022 Provid er: Diagnosis: Last Documented On 3 2:54PM By Heladio Gudino ; [facility] Past Medications on file Meloxicam 7.5 MG Oral Tablet 06/09/2022 - 06/09/2022 Provider: Luc donaldson MD Diagnosis: once a day Last Documented On 3 5:22PM By Aracelis Gray ; [facility], [facility] Medications Administered Includes: Administered Medications in patient's chart No Administered Medications Recorded Results Includes: Results from 12/19/2023 through 12/18/2024 No Results Recorded For Specified Dates History of Present Illness History of Present Illness not supported for this document type No History of Present Illness Recorded Social History Description Last Updated No caffeine use 06/09/2022 Last Documented On 3 2:29PM ; [facility] No recent change in diet 06/09/2022 Last Documented On 3 2:29PM ; [facility], [facility] Not a current smoker. 06/09/2022 Last Documented On 3 2:29PM ; [facility] Not exercising regularly 06/09/2022 Last Documented On 3 2:29PM ; [facility] Not using alcohol 06/09/2022 Last Documented On 3 2:29PM ; [facility], [facility] Not using drugs 06/09/2022 Last Documented On 3 2:29PM ; [facility] Tobacco non-user 06/09/2022 Last Documented On 3 2:29PM ; [facility] Smoking Status Unknown Medical History Includes: Medical [...] Relationship Effect eduar Dates 1 - [employer]ICARE [id number] Sofia Valero [facility] [id number] Sofia Valero Self Clinical Notes Includes: Signed Clinical Notes starting from 02/03/2022 No Clinical Notes Recorded
[2024-12-18 09:48] LABS: Anion Gap 8.8 mEq/L (5-15); Blood Urea Nitrogen 14 mg/dl (7-17); Calcium 8.6 mg/dl (8.4-10.2); Carbon Dioxide 26 mmol/L (22.0-30.0); Chloride 103 mmol/L (98-107); Creatinine,Serum 0.70 mg/dl (0.52-1.04); Estimated Glomerular Filt Rate 82 ml/min (>60); GFR (African American) 100 ML/MIN (>60); Glucose 161 mg/dl (74-100); Potassium 4.8 mmoL/L (3.5-5.1); Sodium 133 mmol/L (136-145)
== END 2024-12-18 23:59 | disposition home or self-care (01) ==
PROVIDERS: PCP Family Medicine; Visit Provider Family Medicine
DX: D64.9 Anemia, unspecified (principal); I10 Essential (primary) hypertension
CPT/HCPCS: 36415; 80048; 85025

== ENCOUNTER 2024-12-21 17:42 | Observation (INO) | payer MEDICARE, SELFPAY ==
[2024-12-21] VITALS (14 sets, daily range): BP systolic 162–213; BP diastolic 88–132; PULSE 64–107; RESP 15–23; TEMP 36.8–37.2; O2SAT 95–99; BMI 23.3; BMI 21.2
--- OUTSIDE RECORDS SUMMARY | 2024-12-21 17:49 | XMS_ITS | Data Portability ---
Author Organization [facility] Address [address] [facility] [address] [place] [address] Care Team Providers Care Delicate Fabrics Presser Name Role Phone TREVA MERCEDES Primary Care Provider [phone] TREVA MERCEDES Referring Provider [phone] Assessment Encounter Date Assessment Date Assessment LastModified by Organization Details LastModified Time 12/15/2022 12/15/2022 Chronic low back pain with new right lower extremity pain. She has rosales pain. She has pain from the knee down to the anterior leg to the top of the foot. She has diminished right quadricep reflex. I think this is likely an L4 radiculopathy. I think it is referable to the free fragment appearing superior herniation on the right at L4-5. The herniation has extruded superiorly and is contacting/comp ressing the L4 nerve root. She has failed conservative conservative treatment. I think she is a candidate for right L4-5 microlumbar discectI described the surgery to her and her daughter. I told her I thought there is a good chance to get help with her radicular leg pain. I may not help much with her chronic back pain. This will likely be an outpatient procedure. 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 She wants to proceed. I offered to try to schedule the surgery tomorrow has had a cancellation for tomorrow. She cannot do this. We will schedule it as soon as possible. I will schedule a right L4-5 microlumbar discectomy.They were happy with the plan. [email or web address] Not available 12/15/2022 11:01:45 02/07/2023 02/07/2023 Right L4-L5 Microlumbar Discectomy 01/23. Meseret removed. Patient tolerated well. Has follow up scheduled. [email or web address] Not available 02/07/2023 14:00:37 03/07/2023 03/07/2023 Assessment: Sofia Valero is a 72-year-old s/p L4/L5 microlumbar discectomy with Dr. Hickman presenting to the clinic today for followup. Patient is overall doing well. Patient reports full resolution of right lower extremity pain. Patient reports back stiffness, but attributes this to the cold weather. Patient's incision is well-healing with a scab only noted at the top, though no drainage has been reported since the week after surgery. Patient's physical exam was benign. Patient can follow up with our office on an as needed basis. Patient should continue to follow restrictions for the next month, but after she can resume normal activity. At the end of the month if patient feels she would like to undergo physical therapy, we can send in a referral though this is not required of her. Plan: Follow up as needed. [email or web address] Not available 03/07/2023 11:24:16 Plan of Treatment Reminders Order Date Submit Date Provider Last Modified By Organization Details Last Modified Time Details Appointments None record ed. Lab None record ed. Referral None record ed. Procedures None record ed. Surgeries None record ed. Imaging None record ed. Medication Orders None record ed. Patient TargetsNo targets recorded. Patient InstructionsNo instructions recorded. Reason for Referral None Reported. Results Created Date Observation Date Name Description Value Unit Range Abnormal Flag Note LastModifiedBy Organization Detail LastModifiedTime 12/20/1911/26/2022 MRI, lumba r spine , w/o contr ast No observ ation record ed. BARCODE Not Available 2022 09:57:21 Result Notes None recorded. Procedures Surgical History Date Name Laterality Status Provider Name and Address Organization Details Recorded Time [facility] 09:15:38 Imaging Results None recorded. Procedure Notes None recorded. Medical Equipment None Reported. Allergies Allergen ID Allergen Name Allergen Category Reaction Reaction Severity Criticality Documentation Date Start Date Code Code System Note Provider Name and Address Organization Details Recorded Time 555217 Petra medicatio n rash Not available low 12/15/2022 72918 6 [facility] 09:16:56 653389 Bactrim medicatio n rash Not available low 12/15/2022 00157 9 Rx[facility] 3 09:17:08 622056 codeine medicatio n Not available Not available Not available 12/15/2022 2670 RxNorm Kalavianca Tiwarismi [facility] 3 09:17:22 879548 Product containin g penicilli n (product) medicatio n Not available Not available Not available 12/15/2022 31745 8001 SNOMED Kalavianca Tiwarismi [facility] 3 09:17:29 900146 cyclobenz aprine hydrochlo ride medicatio n Not available Not available Not available 12/15/2022 34674 RxNorm Kalavianca Tiwarismi [facility] 3 09:18:04 337051 Demerol medicatio n Not available Not available Not available 12/15/2022 80414 1 RxNorm Kalavianca Tiwarismi [facility] 3 09:18:29 373404 acetamino phen / pamabrom medicatio n Not available Not available Not available 12/15/2022 81904 4 RxNorm On sheet - ispan idol [place] Jessica [facility] 3 09:19:48 Medications Name Sig Start Date Stop Date Status Note LastModified by Organization Details LastModified Time metformin 500 mg tablet TAKE 2 TABLETS IN THE MORNING, AND TAKE 1 TABLET IN THE EVENING. active Not Available Not Available No t Available atorvastatin 80 mg tablet TAKE 1 TABLET 1 TIME EACH DAY active Not Available Not Available No t Available venlafaxine ER 75 mg capsule,exte nded release 24 hr TAKE 1 CAPSULE 1 TIME EACH DAY IN THE MORNING active Not Available Not Available No t Available gabapentin 600 mg tablet TAKE 1 TABLET 3 TIMES EACH DAY active Not Available Not Available No t Available carvedilol 12.5 mg tablet TAKE 1 TABLET EVERY 12 HOURS WITH FOOD active Not Available Not Available No t Available tizanidine 2 mg tablet TAKE 1 TABLET EVERY 8 HOURS active Not Available Not Available No t Available azithromycin 250 mg tablet TAKE 2 TABLETS ON THE FIRST DAY, THEN TAKE 1 TABLET EACH DAY ON THE NEXT 4 DAYS. active Not Available Not Available No t Available hydrocodone 5 mg-acetamino phen 325 mg tablet TAKE 1 TABLET EVERY 8 HOURS NEEDED active Not Available Not Available No t Available clonazepam 0.5 mg tablet TAKE 1/2 TABLET 2 TIMES EACH DAY active Not Available Not Available No t Available omeprazole 40 mg capsule,cesar yed release TAKE 1 CAPSULE 1 TIME EACH DAY BEFORE A MEAL active Not Available Not Available No t Available tramadol 50 mg tablet TAKE 1 TABLET EVERY 8 HOURS NEEDED active Not Available Not Available No t Available quetiapine 100 mg tablet TAKE 1 TABLET 1 TIME EACH DAY AT BEDTIME active Not Available Not Available No t Available oxycodone-ac etaminophen 5 mg-325 mg tablet TAKE 1 TABLET EVERY 6 HOURS NEEDED active Not Available Not Available No t Available famotidine 20 mg tablet TAKE 1 TABLET EVERY 12 HOURS FOR 10 DAYS active Not Available Not Available No t Available glipizide ER 2.5 mg tablet, extended release 24 hr TAKE 1 TABLET 1 TIME EACH DAY IN THE MORNING WITH FOOD active Not Available Not Available No t Available cephalexin 500 mg capsule TAKE 1 CAPSULE EVERY 12 HOURS FOR 10 DAYS active Not Available Not Available No t Available carbamazepin e 100 mg chewable tablet CHEW AND SWALLOW 1 TABLET IN THE MORNING AND 1 AND 1/2 TABLETS AT BEDTIME active Not Available Not Available N ot Available gabapentin 300 mg capsule TAKE 1 CAPSULE 3 TIMES EACH DAY active Not Available Not Available No t Available montelukast 10 mg tablet TAKE 1 TABLET 1 TIME EACH DAY IN THE EVENING active Not Available Not Available No t Available lisinopril 5 mg tablet TAKE 1 TABLET 1 TIME EACH DAY active Not Available Not Available No t Available methylpredni solone 4 mg tablets in a dose pack TAKE ACCORDING TO PACKAGE INSTRUCTION S active Not Available Not Available No t Available pioglitazone 30 mg tablet TAKE 1 TABLET 1 TIME EACH DAY active Not Available Not Available No t Available hydroxyzine pamoate 25 mg capsule TAKE 1 CAPSULE 2 TIMES EACH DAY NEEDED active Not Available Not Available No t Available nitrofuranto in monohydrate/ macrocrystal s 100 mg capsule TAKE 1 CAPSULE EVERY 12 HOURS FOR 7 DAYS active Not Available Not Available No t Available Januvia 100 mg tablet TAKE 1 TABLET 1 TIME EACH DAY active Not Available Not Available No t Available Vitals Date Recorded Body height Body mass index (BMI) Body weight Systolic And Diastolic Provider Name and Address Organization Details Last Updated DateTime 03/07/2023 170.18 cm 20.7 kg/m2 94070.19 g 110/82 mm[Hg] [facility] 03/07/2023 10:53:13 Date Recorded Body height Body mass index (BMI) Body weight Systolic And Diastolic Provider Name and Address Organization Details Last Updated DateTime 12/15/2022 170.18 cm 20.7 kg/m2 23230.19 g 102/80 mm[Hg] [facility] 12/15/2022 09:14:44 Social History None recorded. Functional Status None recorded. Mental Status None recorded. Family History Relationship Description Onset Age of this Age Resolved Age Notes LastModified by Organization Details LastModified Time Unspecified Relation Family history of malignant neoplasm [email or web address] Not available 09:15:25 Medical History No medical history recorded. Gynecological HistoryNo gynecological history recorded. Obstetrics History GPAL:G 0 P 0 0 0 0 Past Encounters Encounter ID Performer Location Encounter Start Date Encounter Closed Date Diagnosis/Indication Diagnosis SNOMED-CT Code Diagnosis ICD10 Code Diagnosis IMO Codes Diagnosis Note [id number] DEBORAH HICKMAN MD [facility] [address] [place] [address] 12/15/2022 08:52:09 12/16/2022 04:08:40 Lumbar disc prolapse with radiculopathy 039643935 M51.16 [id number] CARSON ALFORD PA-C [facility] [address] [place] [address] 02/07/2023 13:28:12 02/08/2023 04:29:14 Postoperative visit [id number] Z09 [id number] DEBORAH HICKMAN MD SURGERY SCHEDULE [address] [place] [address] 02/15/2023 07:44:07 02/17/2023 15:23:56 [id number] LEELA SALVADOR PA-C [facility] [address] [place] [address] 03/07/2023 10:44:35 03/08/2023 04:37:01 Postoperative care [id number] Z48.89 Health Concerns Section Related Observation LastModified by Organization Detai ls LastModified Time None Recorded Concern Status LastModified by Organization Details LastModified Time None Recorded Advance Directives Directive None Recorded Payers Insurance Date Sequence Insurance Name Policy Number Policy Barth Covered Member ID Barth Member ID Guarantor Name 03/04/2023 2 AETNA [facility] (MEDICAID HMO) Sofia Valero [id number] Sofia He Anjum 02/07/2023 1 [place] Sofia Valero [id number] Sofia Valero 03/04/2023 1 [employer] (MEDICARE REPLACEMENT/ ADVANTAGE - PPO) Sofia Valero [id number] Sofia Valero Notes Date Note Type Note Provider Name and Address Organization Details Recorded Time 12/15/2022 text/html Aureliano is 72 years old. She has some chronic back pain but in the last month or 2 she has had very severe pain that is in the right rosales. The pain starts around the knee radiates down the rosales and stops at the foot. Her leg feels weak. She has some chronic low back pain. The pain does not seem to involve the thigh. Symptoms are much worse when she is upright and standing.She is done physical therapy. She is taken pain medications. She is use gabapentin and a TENS unit. She still has persistent severe pain.She came with her daughter who is a dental hygienist. DEBORAH HICKMAN MD [facility] [place], [address], [facility] 12/15/2022 11:02:08 03/07/2023 text/html ROS as noted in the HPI Sofia Valero is a 72-year-old s/p L4/L5 microlumbar discectomy with Dr. Hickman presenting to the clinic today for followup. Patient is overall doing well. Patient reports full resolution of right lower extremity pain. Patient reports back stiffness, but attributes this to the cold weather. Patient has been managing pain with an occasional Tylenol and has not required any pain medication since postop. Patient reports minimal incisional drainage within a week of surgery, but reports none since. Patient is satisfied with her progress. Patient was seen by both myself and Dr. Hickman in office today. LEELA SALVADOR PA-C [address] [place], [address], [facility] 03/07/2023 11:24:37 OBGyn Episode No OBEpisode recorded.
--- OUTSIDE RECORDS SUMMARY | 2024-12-21 17:49 | XMS_ITS | Clinical Summary ---
Author Organization [facility] , [facility] Address [address] [place] [address] Phone Care Team Providers Care Victims Advocate Clerk/Specialist Name Role Phone Tessy Goodman APRN Unavailable [phone] Joaquin ROSE, Luc Herrera Unavailable U navailable Reason for Visit and Chief Complaint BRACE FITTING Problems Includes: Problems addressed during this encounter and other active Problems All Visits Onset Date Resolved Date Provider Condition S tatus Joint Pain in Both Knees 06/09/2022 Luc Nuñez MD Active Last Documented On 3 2:10PM ; [facility], [facility] Joint Stiffness of Both Knees 06/09/2022 Jasson Nuñez MD Active Last Documented On 3 2:54PM ; [facility], [facility] Plan of Treatment No Plan of Treatment [...] On 3 5:22PM By Aracelis Gray ; [facility], [facility] Current Medications (continue as prescribed) hydrOXYzine Pamoate 25 MG Oral Capsule 06/03/2022 Pr ovider: Diagnosis: Last Documented On 3 2:54PM By Heladio Gudino ; [facility] carBAMazepine 100 MG Oral Tablet Chewable 05/23/2022 Provider: Diagnosis: Last Documented On 3 2:54PM By Heladio Gudino ; [facility], [facility] glipiZIDE ER 2.5 MG Oral [...] On 3 2:54PM By Heladio [facility], [facility] Medications Administered Includes: Administered Medications [...] Relationship Effect eduar Dates 1 - [employer]-MEDICARE [id number] Sofia Valero Se lf 2 - Aetna [facility] [id number] Sofia Valero Self Clinical Notes Includes: Clinical Notes from this encounter No Clinical Notes Recorded
--- OUTSIDE RECORDS SUMMARY | 2024-12-21 17:49 | XMS_ITS | Referral Summary ---
Author Organization [employer] ([place], [place], [place], [place], [place]) Address [address] [place] [address] Care Team Providers Care Company Laborer Name Role Phone Tessy Goodman APRN Primary Care Provider [phone] Allergies Active Allergy Reactions Criticality Noted Date [...] continue podiatry Coronary artery disease invo lving [place] coronary artery of [place] heart 08/06/2020 01/20/2023 Overview (01/20/2023): Last Assessment [...] Date Mac rded Speak language other than Tajik at home Not on file 03/02/2023 Want [...] Plan of Treatment Not [facility] file [facility] Care Teams Company Laborer Relationship Specialty Start Date End Date Tessy Goodman, WOOD CASKET MAKER [address] [place] [address] PCP - General Family Medicine 01/20/23
--- OUTSIDE RECORDS SUMMARY | 2024-12-21 17:49 | XMS_ITS ---
Care Plan - [facility], [facility] Created on: December 21, 2024 Sofia Valero : 1950 Sex: Female Author Organization [facility] , [facility] Address [address] [place] [address] Phone Care Team Providers Care Sales Effectiveness Manager Name Role Phone Tessy Goodman APRN Unavailable [phone] Joaquin ROSE, Luc Herrera Unavailable [phone]
--- OUTSIDE RECORDS SUMMARY | 2024-12-21 17:49 | XMS_ITS | Clinical Summary ---
Author Organization [facility] Address [address] [place] [address] Care Team Providers Care Training Professional Name Role Phone Tessy Goodman CLIMATOLOGY PROFESSOR Primary Care Provider [phone] Allergies Active Allergy Reactions Criticality Noted Date [...] pcp labs Coronary artery disease invo lving [place] coronary artery of [place] heart 08/06/2020 Assessment & Plan (12/02/2020 3:09 [...] Description 02/04/2025 2:20 PM EST Office Visit [facility] Endocrinology [address] [place] [address] Elisabeth Parrish PA [address] [place] [address] Health Maintenance Due Date Last [...] of 2 - PCV) 05/26/2018 05/26/2017, 11/01/2010 [id number] Vaccine (3 - 2024- season) 2024 06/11/2020, [...] complication, without long-term current use of insulin ([facility]) from Last 3 Months or Most Recently Relevant to Health Maintenance Results * (ABNORMAL) POCT glycosylated hemoglobin (Hb A1C) (08/19/2024 1:32 PM EDT) POCT Hemoglobin A1C 5.8 <5.7% Non-Diabet ic % [facility] Kit Lot Number [id number] [facility] Kit Expiration Date 06/16 [facility] Blood Venous blood specimen / Unknown 08/19/2024 1:32 PM EDT Elisabeth MCMILLAN POINT OF CARE TEST EN TER/EDIT ORDERABLES Final Result [facility] [address] [place] [id number] from Last 3 Months or Most Recently Relevant to Health Maintenance Insurance AETNA [facility] MEDICAID HUMANA MEDICARE Care Teams Training Professional Relationship Specialty Start Date End Date Tessy Goodman APRN [address] [place] [address] PCP - General 07/03/20
--- OUTSIDE RECORDS SUMMARY | 2024-12-21 17:49 | XMS_ITS | Clinical Summary ---
Author Organization [employer] ([place], [place], [place], [place], [place]) Address [address] [place] [address] Care Team Providers Care Bulbs Farmworker Name Role Phone Lionel Goodmany Jennifer LIGHT Primary Care Provider [phone] Allergies Active Allergy Reactions Criticality Noted Date [...] continue podiatry Coronary artery disease invo lving [place] coronary artery of [place] heart 08/06/2020 01/20/2023 Overview (01/20/2023): Last Assessment [...] Date Mac rded Speak language other than Guamanian at home Not on file 03/02/2023 Want [...] or Tdap) 08/10/2032 08/10/2022, 06/02/2017, 01/28/[address] [place] [address] [address] [place] [address] MEDICARE PPO [facility] Care Teams Bulbs Farmworker Relationship Specialty Start Date End Date Tessy Goodman, SITE LEADER [address] [place] [address] PCP - General Family Medicine 01/20/23
--- OUTSIDE RECORDS SUMMARY | 2024-12-21 17:49 | XMS_ITS | Clinical Summary ---
Author Organization [facility] Address [address] [place] [address] Phone Care Team Providers Care Clinical Assoc Name Role Phone Unavailable Primary Care Provider [...] Impressions 04/10/2023 7:34 AM EST Benign finding ([id number]) ~ RECOMMENDATION: Routine screening mammogram in 1 [...] the next mammogram, in accordance with the [place] [employer] and the Society of Breast Imaging recommendations. Narrative 04/10/2023 7:34 AM EST Procedure:MM MAMMO DIGITAL JULIO CÉSAR SCREEN BILAT ~ Reason for exam: screening, asymptomatic. Z12.31-Encounter for screening mammogram for malignant neoplasm of [id number] ~ MM MAMMO DIGITAL JULIO CÉSAR SCREEN [...] for screening mammogram for malignant neoplasm of [id number] ~ MM MAMMO DIGITAL JULIO CÉSAR SCREEN [...] evidence of malignancy. ~ IMPRESSION: Benign finding ([id number]) ~ RECOMMENDATION: Routine screening mammogram in 1 [...] the next mammogram, in accordance with the [place] and the Society of Breast Imaging recommendations. Tessy Goodman APRN [facility] MAMMOGRAPHY ORDERABLES Fin al Result from Last 3 Months or Most Recently Relevant to Health Maintenance [place] [address] [address] [place] [address] MEDICARE HMO MR
--- OUTSIDE RECORDS SUMMARY | 2024-12-21 17:49 | XMS_ITS | Clinical Summary ---
Author Organization [facility] Address [address] [place] [address] Care Team Providers Care Desktop Analyst Name Role Phone Tessy Goodman APRN Primary Care Provider [phone] Allergies Active Allergy Reactions Criticality Noted Date [...] exertion 08/06/2020 Coronary artery disease invo lving ione coronary artery of ione heart 08/06/2020 Social History Tobacco Use Types [...] e 11/28/2022 Family and Community Support Answer Akreem e Recorded Help with Day-to-Day Activities Not [...] - 5.60 % 10/25/2016 8:38 AM EDT [facility] Blood Venipuncture / Unknown 10/25/2016 8:14 AM EDT 10/25/2016 8:23 AM EDT Narrative [facility] - 10/25/2016 8:38 AM EDT The [place] [employer] recommends maintenance of Hemoglobin A1C at 7.0% or lower. Goals for Hemoglobin A1C reduction may need to be modified if hypoglycemia is a problem. Musa Echevarria MD LAB BLOOD ORDERABLES Final Res ult [facility]
[address] [place] [address], from Last 3 Months or Most Recently Relevant to Health Maintenance Insurance [facility]NA [facility] AETNA [employer] MEDICARE ADVANTAGE Care Teams Desktop Analyst Relationship Specialty Start Date End Date Tessy Goodman APRN [address] [place] [address] PCP - General Nurse Practitioner 08/06/20
--- OUTSIDE RECORDS SUMMARY | 2024-12-21 17:49 | XMS_ITS | Clinical Summary ---
Author Organization [facility] , [facility] Address [address] [place] [address] Phone Care Team Providers Care Elementary Secretary Name Role Phone Tessy Goodman APRN Unavailable [phone] Joaquin ROSE, Luc Herrera Unavailable + [phone] Reason for Visit and Chief Complaint Physician Specified Problems Includes: Problems addressed during this encounter and other active Problems Current Visit Onset Date Resolved Date Provider Josiane Jorgensen Joint Pain in Both Knees 06/09/2022 Luc Nuñez MD Active Last Documented On 3 2:10PM ; [facility], [facility] Joint Stiffness of Both Knees 06/09/2022 Jasson Nuñez MD Active Last Documented On 3 2:54PM ; [facility], [facility] Plan of Treatment Fall Risk Assessment: [...] - Last Documented On 07/07/2022 2:29PM ; [facility], [facility] NON-SURGICAL PLAN: INJECTION: RIGHT KNEE - Last Documented On 07/07/2022 2:29PM ; [facility], [facility] 2 CC KENGALOG (80 MG), 4 CC MARCAINE, 4 CC LIDOCAINE MAINTAIN GOOD SHOES MAINTAIN HEALTHY WEIGHT POWER STEP FOR RIGHT FOOT MEDICATION: MOBIC 7.5 MG FOLLOW UP: 3 MONTHS FOR REPEAT INJECTION. PATIENT INTERESTED IN A GEL INJECTION AT THAT TIME - Last Documented On 07/07/2022 2:29PM ; [facility], [facility] Instructions to patient Lose weight Last Documented On 3 2:52PM ; [facility], [facility] Assessments Includes: Assessments from this encounter Findings RIGHT KNEE SEVERE LATERAL COMPARTMENT DJD. INJECTIONS IN PAST HAVE NOT HELPED. HAS TAKEN GLUCOSAMINE BUT NOT NSAIDs. KNEE CATCHES AND GIVES WAY AND CREATES A FALL RISK. WANTS TO REMAIN ACTIVE. - Last Documented On 07/07/2022 2:29PM ; [facility], [facility] Instructions Includes: Instructions from this encounter Instructions to patient Lose weight Last Documented On 3 2:52PM ; [facility] Medical Equipment - Implanted Devices Includes: Current Devices No Medical Equipment Recorded Medications Includes: Medications discussed during this encounter and other current Medications Discontinued / Stopped on this date Luc Nuñez MD on 06/09/2022 Meloxicam 7.5 MG Oral Tablet Provider: Luc Nuñez MD Diagnosis: Last Documented On 3 5:22PM By Aracelis Gray ; [facility] Current Medications (continue as prescribed) hydrOXYzine Pamoate 25 MG Oral Capsule 06/03/2022 Pr ovider: Diagnosis: Last Documented On 3 2:54PM By Heladio [facility] carBAMazepine 100 MG Oral Tablet Chewable 05/23/2022 Provider: Diagnosis: Last Documented On 3 2:54PM By Heladio [facility], [facility] glipiZIDE ER 2.5 MG Oral Tablet Extended Release 24 Ho ur 05/23/2022 Provider: Diagnosis: Last Documented On 3 2:54PM By Heladio [facility], [facility] Lisinopril 5 MG Oral Tablet 05/23/2022 Provider: Tessy Goodman APRN Diagnosis: Last Documented On 3 2:54PM [facility] Pioglitazone HCl 30 MG Oral Tablet 05/23/2022 Provid er: Diagnosis: Last Documented On 3 2:54PM By Heladio [facility], [facility] Medications Administered Includes: Administered Medications from this encounter No Administered Medications Recorded Vital Signs Includes: Vital Signs from this encounter Vital Name 06/09/2022 02:54P Height (in) 68 Weight (lb) 215 Body Mass Index 32.7 Body Surface Area 2.1 Note: MAL Last Documented: On 06/09/2022 2:54PM ; [facility] Results Includes: Results discussed during this [...] 06/09/2022 Last Documented On 3 2:29PM ; [facility] No recent change in diet 06/09/2022 Last Documented On 3 2:29PM ; [facility] Not a current smoker. 06/09/2022 Last Documented On 3 2:29PM ; [facility] Not exercising regularly 06/09/2022 Last Documented On 3 2:29PM ; [facility] Not using alcohol 06/09/2022 Last Documented On 3 2:29PM ; [facility] Not using drugs 06/09/2022 Last Documented On 3 2:29PM ; [facility] Tobacco non-user 06/09/2022 Last Documented On 3 2:29PM ; [facility] Smoking Status Unknown Procedures and Surgical History Includes: Procedures from this encounter Procedures Code Diagnosis Performing Provider Service L ocation Service Date use of tobacco assessment performed 1000F Last Documented On 3 2:52PM ; [facility] patient screened for future fall risk: documentation of any fall with injury in past year 1100F Last Documented On 3 2:29PM ; [facility] Medical History Includes: Medical History addressed [...] Time Diagnosis Physician Specified Luc Nuñez MD [facility] 06/10/19 23 1:48PM 4:13PM Insurance Includes: Active Insurance Policies Plan Name Member ID Group # Subscriber Relationship Effect eduar Dates 1 - [employer] [id number] Sofia Valero [facility] 2 - [employer] [facility] [id number] Sofia Valero Self Clinical Notes Includes: Clinical Notes from this encounter * Progress note Date Encounter Last Documented by 06/09/2022 Physician Specified Last agustinaumemary carmen dillon on 07/07/2022; 2:29 PM, Luc Nuñez MD; [facility], [facility] Active Problems & Conditions - Joint [...]
--- OUTSIDE RECORDS SUMMARY | 2024-12-21 17:49 | XMS_ITS ---
Author Organization [facility] , [facility] Address [address] [place] [address] Phone Care Team Providers Care Testboard Operator Name Role Phone Tessy Goodman APRN Unavailable [phone] Joaquin ROSE, Luc Herrera Unavailable [phone] Problems Includes: Active, inactive, and resolved Problems All Visits Onset Date Resolved Date Provider Condition S tatus Joint Pain in Both Knees 06/09/2022 Luc Nuñez MD Active Last Documented On 3 2:10PM ; [facility], [facility] Joint Stiffness of Both Knees 06/09/2022 Jasson Nuñez MD Active Last Documented On 3 2:54PM ; [facility], [facility] Plan of Treatment Instructions to patient Lose weight Last Documented On 3 2:52PM ; [facility], [facility] Assessments Includes: Assessments for all patient encounters No Assessments Recorded Instructions Includes: Instructions for all patient encounters Instructions to patient Lose weight Last Documented On 3 2:52PM ; [facility], [facility] Medical Equipment - Implanted Devices Includes: Current and historical Devices No Medical Equipment Recorded Medications Includes: Current and historical Medications Current Medications (continue as prescribed) hydrOXYzine Pamoate 25 MG Oral Capsule 06/03/2022 Pr ovider: Diagnosis: Last Documented On 3 2:54PM By Heladio Pruitt [facility] carBAMazepine 100 MG Oral Tablet Chewable 05/23/2022 Provider: Diagnosis: Last Documented On 3 2:54PM By Heladio Gudino ; [facility] glipiZIDE ER 2.5 MG Oral Tablet Extended Release 24 Ho ur 05/23/2022 Provider: Diagnosis: Last Documented On 3 2:54PM By Heladio IGNACIO [facility], [facility] Lisinopril 5 MG Oral Tablet 05/23/2022 Provider: Tessy Goodman APRN Diagnosis: Last Documented On 3 2:54PM By Heladio Gudino ; [facility], [facility] Pioglitazone HCl 30 MG Oral Tablet 05/23/2022 Provid er: Diagnosis: Last Documented On 3 2:54PM By Heladio Gudino ; [facility] Past Medications on file Meloxicam 7.5 MG Oral Tablet 06/09/2022 - 06/09/2022 Provider: Luc donaldson MD Diagnosis: once a day Last Documented On 3 5:22PM By Aracelis Gray ; [facility], [facility] Medications Administered Includes: Administered Medications in patient's chart No Administered Medications Recorded Results Includes: Results from 12/22/2023 through 12/21/2024 No Results Recorded For Specified Dates History of Present Illness History of Present Illness not supported for this document type No History of Present Illness Recorded Social History Description Last Updated No caffeine use 06/09/2022 Last Documented On 3 2:29PM ; [facility], [facility] No recent change in diet 06/09/2022 Last Documented On 3 2:29PM ; [facility], [facility] Not a current smoker. 06/09/2022 Last Documented On 3 2:29PM ; [facility], [facility] Not exercising regularly 06/09/2022 Last Documented On 3 2:29PM ; [facility] Not using alcohol 06/09/2022 Last Documented On 3 2:29PM ; [facility], [facility] Not using drugs 06/09/2022 Last Documented On 3 2:29PM ; [facility], [facility] Tobacco non-user 06/09/2022 Last Documented On 3 2:29PM ; [facility], [facility] Smoking Status Unknown Medical History [...] Relationship Effect eduar Dates 1 - [employer] [id number] Sofia Valero [facility] 2 - [facility] [id number] Sofia Valero Self Clinical Notes Includes: Signed Clinical Notes starting from 02/03/2022 No Clinical Notes Recorded
--- NOTE | 2024-12-21 17:52 | XR_ITS ---
PROCEDURE INFORMATION: Exam: XR Chest Exam date and time: 12/21/2024 6:02 PM Age: 74 years old Clinical indication: Other: Low BP; Additional info: Felling unwell intermittent low BP TECHNIQUE: Imaging protocol: Radiologic exam of the chest. Views: 1 view. COMPARISON: CT ANGIO CHEST PE PROTOCOL 07/04/2024 9:43 PM FINDINGS: Lungs: See Pleural spaces finding. Pleural spaces: Low lung volumes are present without pleural effusions or consolidations that project above the diaphragm. Heart/Mediastinum: Unremarkable. No cardiomegaly. Bones/joints: Unremarkable. IMPRESSION: No acute findings.
--- NOTE | 2024-12-21 17:52 | ECG_ITS ---
APPROVED REPORT Exam: Resting ECG HR:103 bpm ECG Measurements Heart Rate 103 AXES PA 123 P 67 QRSd 75 QRS 64 QT 313 T 69 QTc 373 Conclusion SINUS TACHYCARDIA WITH OCCASIONAL VENTRICULAR PREMATURE COMPLEXES ABNORMAL RHYTHM ECG Electronically signed by : NIR MOSS, 12/21/2024 22:36:37
--- NOTE | 2024-12-21 17:53 | HMH.EDGENADL ---
Discharge Plan Disposition Patient Disposition: Admitted Condition: Good Clinical Impressions Clinical Impression: Bilateral pulmonary embolism, HTN (hypertension), UTI (urinary tract infection), Dementia Discharge ED Provider: Magdy Mccain General Adult HPI <HIPOLITO Brooks - Last Filed: 12/21/24 21:46> General Chief complaint: Weakness Stated complaint: Hypotensive & Bradycardia Time Seen by Provider: 12/21/24 17:43 Mode of Arrival: EMS Source of Information: Patient and Medical Record Limitations: No Limitations History of Present Illness HPI narrative: 74-year-old female presents emerged from via EMS for abnormal vital signs, initially called out for bradycardia , generalized weakness, from correction facility however patient is tachycardic on arrival, patient tells me that she has no acute symptomatology, denies fever chills chest pain shortness of breath nausea vomiting, no abdominal pain, does admit to some constipation, which is chronic for her, denies any urinary type symptomatology, denies any melena hematochezia hematemesis or hemoptysis, denies any cough congestion, other past medical history upon chart review is notable for former smoker, history of dementia, hyperlipidemia, hypertension, KIRT/MDD, GERD, type 2 diabetes, tardive dyskinesia, bipolar disorder. Initial triage vitals noted tachycardia otherwise unremarkable Please note that above description of symptoms, in this electronic medical record under categorization of recalled from ER triage doctor by RN are reflective of an initial nursing assessment, however, is not reflective of my full history and physical exam that was personally taken and clarified. Consequentially, this preceding description of symptoms, which may include the patient's categorized chief complaint in the EMR, do not reflect my personal clinical impression, and the ultimate description of history of present illness and patient stated complaints should be deferred to this section of the note. Unless stated otherwise or congruent with this section of the note, additional signs, symptoms, or incongruence should be interpreted as inaccurate with my clinical impression. Onset (ago): unknown Related Data Home Medications ?Medication ?Instructions ?Recorded ?Confirmed ferrous sulfate 325 mg (65 mg 325 mg PO DAILY Supplement 10/17/24 12/10/24 iron) tablet lisinopril 10 mg tablet 5 mg PO DAILY blood pressure 10/17/24 12/10/24 montelukast 10 mg tablet 10 mg PO QHS GERD 08/28/25 10/21/25 (Singulair) omeprazole 40 mg capsule,delayed 40 mg PO DAILY GERD 10/17/24 12/10/24 release quetiapine 100 mg tablet (Seroquel) 100 mg PO QHS Depression 12/10/24 12/10/24 Previous Rx's ?Medication ?Instructions ?Recorded acetaminophen 325 mg tablet 325 mg PO .q8 PRN fever or pain 10/17/24 #60 tabs albuterol 90 mcg-budesonide 80 2 inh inhalation Q4HP PRN Asthma 10/17/24 mcg/actuation HFA aerosol inhaler #10.7 grams (Airsupra) atorvastatin 80 mg tablet (Lipitor) 80 mg PO HS #30 tabs 10/17/24 fluticasone propionate 50 2 spray intranasal DAILY #16 grams 10/17/24 mcg/actuation nasal spray,suspension (Flonase Allergy Relief) folic acid 1 mg tablet 1 mg PO DAILY #30 tabs 10/17/24 insulin aspart U-100 100 unit/mL 1 sliding scale dose SQ 10/17/24 (3 mL) subcutaneous pen USEASDIRECTD #15 mL mecobalamin (vitamin B12) 1,000 1,000 mcg PO DAILY #90 tabs 10/17/24 mcg chewable tablet trazodone 50 mg tablet 50 mg PO HS #30 tabs 10/17/24 oxycodone-acetaminophen 5 mg-325 1 tab PO Q6H PRN pain #120 tabs 10/28/24 mg tablet gabapentin 300 mg capsule 300 mg PO BID #4 caps 11/07/24 lorazepam 1 mg tablet 1 mg PO HS insomnia #30 tabs 11/12/24 carvedilol 25 mg tablet 25 mg PO BID #60 tabs 11/20/24 metformin 500 mg tablet 500 mg PO BID #60 tabs 12/10/24 Allergies Allergy/AdvReac Type Severity Reaction Status Date / Time latex Allergy Mild Verified 11/09/23 14:24 codeine (CODEINE) Allergy Unknown Verified 11/09/23 14:24 fexofenadine (From JANE) Allergy Unknown Verified 11/09/23 14:24 iopamidol (IOPAMIDOL) Allergy Unknown Verified 11/09/23 14:24 meperidine (MEPERIDINE) Allergy Unknown Verified 11/09/23 14:24 Penicillins (PENICILLINS) Allergy Unknown Verified 11/09/23 14:24 piroxicam (From FELDENE) Allergy Unknown Verified 11/09/23 14:24 sulfamethoxazole (From Allergy Unknown Verified 11/09/23 14:24 BACTRIM) trimethoprim (From BACTRIM) Allergy Unknown Verified 11/09/23 14:24 cefdinir Allergy Verified 10/22/24 22:18 cyclobenzaprine Allergy Verified 10/22/24 22:18 levofloxacin Allergy Verified 10/22/24 22:18 pseudoephedrine (From Allergy Verified 10/22/24 22:18 Sudafed) simvastatin (From Zocor) Allergy Verified 11/09/23 14:24 PFS <HIPOLITO Brooks - Last Filed: 12/21/24 21:46> [facility] Disclaimer: The information contained in this section may have been updated after the patient was seen, as this information can be updated by other users. Medical History (Updated 12/21/24 @ 21:14 by HIPOLITO Brooks) Tardive dyskinesia Former smoker Bipolar disorder, unspecified Diabetes mellitus GERD (gastroesophageal reflux disease) Anxiety and depression HTN (hypertension) HLD (hyperlipidemia) Chronic pain of right knee Constipation Dementia Right ureteral calculus Left against medical advice Urinary incontinence Cervical radiculitis Left knee pain Left patella fracture Acute UTI Altered awareness, transient Surgical History History of total right knee replacement History of D&C History of cholecystectomy Family History Other No significant family history Social History Smoking Status: Never smoker alcohol intake: never counseling provided: none substance use type: denies use current occupational status: unemployed Travel in the last 8 weeks?: None housing: correction caffeine: No Have you lived/traveled outside [place] in past 30 days?: No Contact w/someone who lives/traveled outside US past 30 days?: No Exposure to someone with infectious disease in past 14 days?: No Do you have a fever (greater than 100.4 F or 38 C)?: No Have you tested positive for COVID-19?: No Exposed to someone with COVID-19 in past 14 days?: No Do you have a sore throat?: No Do you have a cough?: No Do you have any weakness?: No Do you have any diarrhea?: No Are you experiencing any unusual bleeding?: No Do you have any muscle aches/pain?: No Do you have any abdominal pain?: No Are you experiencing loss of taste or smell?: No Other Medical History Have you received the Flu Vaccine for this season: No Have you received the Pneumonia Vaccine: Yes <HIPOLITO Brooks - Last Filed: 12/21/24 21:46> ROS Obtained: Yes All systems reviewed & no additional complaints except as documented Physical Exam <HIPOLITO Brooks - Last Filed: 12/21/24 21:46> General General appearance: alert and in no apparent distress Head Head exam: atraumatic and normocephalic Eye Eye exam: Present PERRL and EOMI ENT ENT exam: Present mucous membranes moist Neck Neck exam: Present normal inspection Chest Chest inspection: Present normal inspection and symmetric chest wall rise Respiratory Respiratory exam: Present normal lung sounds bilaterally; Absent respiratory distress Cardiovascular Cardiovascular exam: Present regular rate and normal rhythm Abdominal Exam Abdominal exam: Present soft; Absent tenderness, guarding or rebound Extremities Exam Extremities exam: Present normal inspection Neurological Exam Neurological exam: Present alert, oriented X3 and other (GCS 15 no extremities to command/follows command) Psychiatric Psychiatric exam: Present normal affect Skin Skin exam: Present warm and dry Medical Decision Making <HIPOLITO Brooks - Last Filed: 12/21/24 21:46> Medical Records Medical records reviewed: Yes I reviewed the patient's medical records. Screening: Per USPSTF and CDC recommendations, given the prevalence of disease in our region, it is our hospital?s policy to screen for HIV and viral Hepatitis for all patients aged 18 and over and those with ongoing risk factors. Jacoby Inquiry Pt receiving controlled substance: No Jacoby was queried for this patient: No Vital Signs: 12/21/24 17:48 12/21/24 17:50 12/21/24 18:00 Temperature 98.7 F Temperature Source Oral Pulse Rate 104 H 70 Pulse Rate [Right] 105 H Respiratory Rate 18 15 Blood Pressure 162/132 H 207/100 H Blood Pressure [Right Arm] 162/132 H Blood Pressure Mean Blood Pressure Mean [Right Arm] 142 02 Sat by Pulse Oximetry 98 95 99 Oxygen Delivery Method Room Air Room Air Room Air 12/21/24 19:05 12/21/24 19:30 12/21/24 20:01 Temperature Temperature Source Pulse Rate 101 H 100 H 67 Pulse Rate [Right] Respiratory Rate 18 18 21 Blood Pressure 204/113 H 212/116 H 204/113 H Blood Pressure [Right Arm] Blood Pressure Mean 143 145 Blood Pressure Mean [Right Arm] 02 Sat by Pulse Oximetry 98 98 98 Oxygen Delivery Method 12/21/24 20:31 12/21/24 21:00 Temperature Temperature Source Pulse Rate 65 64 Pulse Rate [Right] Respiratory Rate 19 20 Blood Pressure 199/88 H 208/112 H Blood Pressure [Right Arm] Blood Pressure Mean Blood Pressure Mean [Right Arm] 02 Sat by Pulse Oximetry 98 98 Oxygen Delivery Method Lab Data Lab results reviewed: Yes I reviewed the patient's lab results. Lab Results 12/21/24 17:45: Urine Color Yellow, Urine Appearance Clear, Urine pH 7.0, Ur Specific Reardan 1.020, Urine Protein Negative, Urine Glucose (UA) 1+, Urine Ketones Negative, Urine Blood Negative, Urine Nitrate Negative, Urine Bilirubin Negative, Urine Urobilinogen 4.0, Ur Leukocyte Esterase 2+ A, Urine RBC None, Urine WBC 10-20, Ur Squamous Epith Cells None, Urine Bacteria 4+ 12/21/24 19:30: WBC 13.4 H, RBC 4.17 L, Hgb 12.8, Hct 38.5, MCV 92.3, MCH 30.7, MCHC 33.2, RDW 12.9, Plt Count 405 D, MPV 9.9, Neut % (Auto) 66.3, Lymph % (Auto) 24.6, Mora % (Auto) 6.9, Eos % (Auto) 0.9, Baso % (Auto) 0.7, Neut # (Auto) 8.9 H, Lymph # (Auto) 3.3, Mora # (Auto) 0.9, Eos # (Auto) 0.1, Baso # (Auto) 0.1, D-Dimer 5.32 H, Sodium 133 L, Potassium 4.7, Chloride 99, Carbon Dioxide 26, Anion Gap 12.7, BUN 18 H, Creatinine 0.80, Estimated Creat Clear 51, Estimated GFR 71, Est GFR ( Amer) 85, Glucose 226 H, Calcium 8.8, Magnesium 1.1 L, Total Bilirubin 0.5, AST 22, ALT 15, Alkaline Phosphatase 141 H, Troponin I < 0.01, NT-Pro-B Natriuret Pep 2830 H, Total Protein 6.8, Albumin 2.9 L, Globulin 3.9 H, Albumin/Globulin Ratio 0.7 L, TSH 0.86, Free T4 1.62 12/21/24 19:31: VBG pH 7.44 H, VBG pCO2 39.9, VBG pO2 55.3 H, VBG HCO3 26.7, VBG Total CO2 27.9 H, VBG O2 Saturation 88.8 H, VBG Base Excess 2.6 H, VBG Lactic Acid 1.8 12/21/24 19:30 12/21/24 19:30 Orders (Tests/Meds): ED MEDICATIONS Generic Name Dose Route Start Last Admin Trade Name Cristoferq PRN Reason Stop Dose Admin Enoxaparin Sodium 65 mg 12/21/24 21:15 12/21/24 21:21 Enoxaparin 100mg/Ml Syringe 1 mg/kg (65 mg) 01/20/25 21:14 65 mg SUBCUT Administration Q12H DONY Sodium Nitroprusside 50 mg/ 252 mls @ 5.761 mls/hr 12/21/24 21:15 Dextrose IV 01/20/25 21:14 .Q24H DONY Protocol 0.3 MCG/KG/MIN Sodium Chloride 10 ml 12/21/24 20:40 12/21/24 20:42 Sodium Chloride 0.9% 10ml Syr (Rad Only) IV 01/20/25 20:39 10 ml NEEDED PRN Administration Maintain IV Site Discontinued Medications Generic Name Dose Route Start Last Admin Trade Name Barrington PRN Reason Stop Dose Admin Carvedilol 25 mg 12/21/24 20:38 12/21/24 20:58 Carvedilol 25mg Tablet PO 12/21/24 20:39 Not Given ONCE ONE Ceftriaxone Sodium 1 gm/ 50 mls @ 100 mls/hr 12/21/24 18:57 12/21/24 20:11 Sodium Chloride IV 12/21/24 19:26 Infused ONCE ONE Infusion Iopamidol 70 ml 12/21/24 20:40 12/21/24 20:41 Iopamidol-370 (76%);100ml Bottle IV 12/21/24 20:41 70 ml ONCE ONE Administration Sodium Chloride 40 ml 12/21/24 20:40 12/21/24 20:41 0.9 % Sodium Chloride 50 Ml Vial IV 12/21/24 20:41 40 ml ONCE ONE Administration ORDERS Category Date Time Status CT angio chest PE protocol Stat Cat Scan 12/21/24 20:21 Completed CXR --portable [XR chest portable] Stat Exams 12/21/24 17:52 Completed CBC w/Auto Diff [Complete Blood Count Auto Diff] Stat Lab 12/21/24 19:30 Completed CMP [Comprehensive Metabolic Panel] Stat Lab 12/21/24 19:30 Completed D-Dimer Stat Lab 12/21/24 19:30 Completed Free T4 (Free Thyroxine) Stat Lab 12/21/24 19:30 Completed MG [Magnesium] Stat Lab 12/21/24 19:30 Completed NT Pro Brain Natriuretic Pep. Stat Lab 12/21/24 19:30 Completed TSH [Thyroid Stimulating Hormone] Stat Lab 12/21/24 19:30 Completed Trop I [Troponin I] Stat Lab 12/21/24 19:30 Completed Troponin I Q3H Lab 12/21/24 21:00 Ordered Troponin I Q3H Lab 12/22/24 00:00 Ordered UA [Urinalysis and Microscopic] Stat Lab 12/21/24 17:45 Completed Urine Culture Stat Micro 12/21/24 17:45 Received VBG [Venous Blood Gas] Stat RT 12/21/24 19:31 Completed Medical Decision Narrative: 74-year-old female presents the emergency department via EMS for vital sign normalities, differential diagnose include but not limited to, cardiac arrhythmia, electrolyte disturbance, acute UTI, hypovolemia, pneumonia, among others. I discussed this patient's case with the attending physician Dr. Mccain Will obtain basic laboratory studies, chest x-ray, D-dimer, EKG, TSH and free T4, magnesium level, UA, proBNP, VBG and troponin. UA is notable for 2+ leukocyte esterase. I reviewed the patient's chest x-ray along the corresponding radiologic report, no acute findings. Procedure: Procedure performed was ultrasound-guided IV placement. Procedure performed by Magdy Mccain. Using real-time ultrasound guidance the right basilic vein was cannulated with a long peripheral 18 gauge IV. The vessel cannulated was patent. Images were not saved to permanent archive. Patient tolerated the procedure well. There were no immediate complications. 4+ urine bacteria, 10-20 WBCs, no squamous epithelial cells. Will give the patient 1 g IV ceftriaxone for UTI. CBC is notable for leukocytosis 13.4, otherwise unremarkable D-dimer significantly elevated at 5.32, thus will obtain CTA chest with and without contrast PE protocol, CMP is notable for mild hyponatremia at 133, hyperglycemia 226, troponin within normal limits initially at 0.01 proBNP is significantly elevated at 2830, T4 within normal limits. VBG is notable pH is 7.4, pCO2 and bicarb within normal limits. Patient had an episode of hypertension over 200 systolic, will give the patient's nighttime antihypertensive medication which is 25 mg p.o. carvedilol here in the emergency department. Upon reviewing correction records, patient received her 25 mg p.o. dose of carvedilol this morning as well as p.o. 5 mg dose of lisinopril this morning. Takes the carvedilol twice daily. I along with attending physician Dr. Mccain reviewed the patient's CTA chest without contrast PE protocol, there appears to be several pulmonary embolisms, thus we will hold off on carvedilol administration at this time. I reviewed the patient's CTA chest with without contrast PE protocol along with corresponding radiologic report, filling defect involving the right upper lobe apical segment right lower lobe superior segment left lower lobe superior and posterior segmental pulmonary arteries compatible with pulmonary embolism RV/LV equals 0.7 no evidence of right heart strain. I discussed this patient's case with the on-call spring up supervisor Dr. Knight at approximately 9 PM, he recommends nitroprusside drip as well as Lovenox and admission. I discussed this patient's case with the hospitalist provider Stefani Larson APRN at approximately 9:12 PM, she is in agreement with the current admission plan/treatment plan for bilateral PEs, UTI and hypertension. I discussed need for admission with the patient the bedside patient is in agreement with current admission plan/treatment plan. TSH T4 within normal limits. <Magdy Mccain MD - Last Filed: 12/21/24 21:51> Vital Signs: 12/21/24 17:48 12/21/24 17:50 12/21/24 18:00 Temperature 98.7 F Temperature Source Oral Pulse Rate 104 H 70 Pulse Rate [Right] 105 H Respiratory Rate 18 15 Blood Pressure 162/132 H 207/100 H Blood Pressure [Right Arm] 162/132 H Blood Pressure Mean Blood Pressure Mean [Right Arm] 142 02 Sat by Pulse Oximetry 98 95 99 Oxygen Delivery Method Room Air Room Air Room Air 12/21/24 19:05 12/21/24 19:30 12/21/24 20:01 Temperature Temperature Source Pulse Rate 101 H 100 H 67 Pulse Rate [Right] Respiratory Rate 18 18 21 Blood Pressure 204/113 H 212/116 H 204/113 H Blood Pressure [Right Arm] Blood Pressure Mean 143 145 Blood Pressure Mean [Right Arm] 02 Sat by Pulse Oximetry 98 98 98 Oxygen Delivery Method 12/21/24 20:31 12/21/24 21:00 Temperature Temperature Source Pulse Rate 65 64 Pulse Rate [Right] Respiratory Rate 19 20 Blood Pressure 199/88 H 208/112 H Blood Pressure [Right Arm] Blood Pressure Mean Blood Pressure Mean [Right Arm] 02 Sat by Pulse Oximetry 98 98 Oxygen Delivery Method Lab Data Lab Results 12/21/24 17:45: Urine Color Yellow, Urine Appearance Clear, Urine pH 7.0, Ur Specific Reardan 1.020, Urine Protein Negative, Urine Glucose (UA) 1+, Urine Ketones Negative, Urine Blood Negative, Urine Nitrate Negative, Urine Bilirubin Negative, Urine Urobilinogen 4.0, Ur Leukocyte Esterase 2+ A, Urine RBC None, Urine WBC 10-20, Ur Squamous Epith Cells None, Urine Bacteria 4+ 12/21/24 19:30: WBC 13.4 H, RBC 4.17 L, Hgb 12.8, Hct 38.5, MCV 92.3, MCH 30.7, MCHC 33.2, RDW 12.9, Plt Count 405 D, MPV 9.9, Neut % (Auto) 66.3, Lymph % (Auto) 24.6, Mora % (Auto) 6.9, Eos % (Auto) 0.9, Baso % (Auto) 0.7, Neut # (Auto) 8.9 H, Lymph # (Auto) 3.3, Mora # (Auto) 0.9, Eos # (Auto) 0.1, Baso # (Auto) 0.1, D-Dimer 5.32 H, Sodium 133 L, Potassium 4.7, Chloride 99, Carbon Dioxide 26, Anion Gap 12.7, BUN 18 H, Creatinine 0.80, Estimated Creat Clear 51, Estimated GFR 71, Est GFR ( Amer) 85, Glucose 226 H, Calcium 8.8, Magnesium 1.1 L, Total Bilirubin 0.5, AST 22, ALT 15, Alkaline Phosphatase 141 H, Troponin I < 0.01, NT-Pro-B Natriuret Pep 2830 H, Total Protein 6.8, Albumin 2.9 L, Globulin 3.9 H, Albumin/Globulin Ratio 0.7 L, TSH 0.86, Free T4 1.62 12/21/24 19:31: VBG pH 7.44 H, VBG pCO2 39.9, VBG pO2 55.3 H, VBG HCO3 26.7, VBG Total CO2 27.9 H, VBG O2 Saturation 88.8 H, VBG Base Excess 2.6 H, VBG Lactic Acid 1.8 Orders (Tests/Meds): ED MEDICATIONS Generic Name Dose Route Start Last Admin Trade Name Freq PRN Reason Stop Dose Admin Enoxaparin Sodium 65 mg 12/21/24 21:15 12/21/24 21:21 Enoxaparin 100mg/Ml Syringe 1 mg/kg (65 mg) 01/20/25 21:14 65 mg SUBCUT Administration Q12H DONY Sodium Nitroprusside 50 mg/ 252 mls @ 5.761 mls/hr 12/21/24 21:15 Dextrose IV 01/20/25 21:14 .Q24H DONY Protocol 0.3 MCG/KG/MIN Sodium Chloride 10 ml 12/21/24 20:40 12/21/24 20:42 Sodium Chloride 0.9% 10ml Syr (Rad Only) IV 01/20/25 20:39 10 ml NEEDED PRN Administration Maintain IV Site Discontinued Medications Generic Name Dose Route Start Last Admin Trade Name Freq PRN Reason Stop Dose Admin Carvedilol 25 mg 12/21/24 20:38 12/21/24 20:58 Carvedilol 25mg Tablet PO 12/21/24 20:39 Not Given ONCE ONE Ceftriaxone Sodium 1 gm/ 50 mls @ 100 mls/hr 12/21/24 18:57 12/21/24 20:11 Sodium Chloride IV 12/21/24 19:26 Infused ONCE ONE Infusion Iopamidol 70 ml 12/21/24 20:40 12/21/24 20:41 Iopamidol-370 (76%);100ml Bottle IV 12/21/24 20:41 70 ml ONCE ONE Administration Sodium Chloride 40 ml 12/21/24 20:40 12/21/24 20:41 0.9 % Sodium Chloride 50 Ml Vial IV 12/21/24 20:41 40 ml ONCE ONE Administration ORDERS Category Date Time Status CT angio chest PE protocol Stat Cat Scan 12/21/24 20:21 Completed CXR --portable [XR chest portable] Stat Exams 12/21/24 17:52 Completed CBC w/Auto Diff [Complete Blood Count Auto Diff] Stat Lab 12/21/24 19:30 Completed CMP [Comprehensive Metabolic Panel] Stat Lab 12/21/24 19:30 Completed D-Dimer Stat Lab 12/21/24 19:30 Completed Free T4 (Free Thyroxine) Stat Lab 12/21/24 19:30 Completed MG [Magnesium] Stat Lab 12/21/24 19:30 Completed NT Pro Brain Natriuretic Pep. Stat Lab 12/21/24 19:30 Completed TSH [Thyroid Stimulating Hormone] Stat Lab 12/21/24 19:30 Completed Trop I [Troponin I] Stat Lab 12/21/24 19:30 Completed Troponin I Q3H Lab 12/21/24 21:00 Ordered Troponin I Q3H Lab 12/22/24 00:00 Ordered UA [Urinalysis and Microscopic] Stat Lab 12/21/24 17:45 Completed Urine Culture Stat Micro 12/21/24 17:45 Received VBG [Venous Blood Gas] Stat RT 12/21/24 19:31 Completed ECG Data Tracing #1: Independently interpreted by me rate is 103, rhythm is largely regular with intermittent PVC, sinus tachycardia, QTc 373, no ST elevation in anatomical contiguous leads. Medical Decision Narrative: 74-year-old female presents the emergency department via EMS for vital sign normalities, differential diagnose include but not limited to, cardiac arrhythmia, electrolyte disturbance, acute UTI, hypovolemia, pneumonia, among others. I discussed this patient's case with the attending physician Dr. Mccain Will obtain basic laboratory studies, chest x-ray, D-dimer, EKG, TSH and free T4, magnesium level, UA, proBNP, VBG and troponin. UA is notable for 2+ leukocyte esterase. I reviewed the patient's chest x-ray along the corresponding radiologic report, no acute findings. Procedure: Procedure performed was ultrasound-guided IV placement. Procedure performed by Magdy Mccain. Using real-time ultrasound guidance the right basilic vein was cannulated with a long peripheral 18 gauge IV. The vessel cannulated was patent. Images were not saved to permanent archive. Patient tolerated the procedure well. There were no immediate complications. 4+ urine bacteria, 10-20 WBCs, no squamous epithelial cells. Will give the patient 1 g IV ceftriaxone for UTI. CBC is notable for leukocytosis 13.4, otherwise unremarkable D-dimer significantly elevated at 5.32, thus will obtain CTA chest with and without contrast PE protocol, CMP is notable for mild hyponatremia at 133, hyperglycemia 226, troponin within normal limits initially at 0.01 proBNP is significantly elevated at 2830, T4 within normal limits. VBG is notable pH is 7.4, pCO2 and bicarb within normal limits. Patient had an episode of hypertension over 200 systolic, will give the patient's nighttime antihypertensive medication which is 25 mg p.o. carvedilol here in the emergency department. Upon reviewing correction records, patient received her 25 mg p.o. dose of carvedilol this morning as well as p.o. 5 mg dose of lisinopril this morning. Takes the carvedilol twice daily. I along with attending physician Dr. Mccain reviewed the patient's CTA chest without contrast PE protocol, there appears to be several pulmonary embolisms, thus we will hold off on carvedilol administration at this time. I reviewed the patient's CTA chest with without contrast PE protocol along with corresponding radiologic report, filling defect involving the right upper lobe apical segment right lower lobe superior segment left lower lobe superior and posterior segmental pulmonary arteries compatible with pulmonary embolism RV/LV equals 0.7 no evidence of right heart strain. I discussed this patient's case with the on-call spring up supervisor Dr. Knight at approximately 9 PM, he recommends nitroprusside drip as well as Lovenox and admission. I discussed this patient's case with the hospitalist provider Stefani Larson APRN at approximately 9:12 PM, she is in agreement with the current admission plan/treatment plan for bilateral PEs, UTI and hypertension. I discussed need for admission with the patient the bedside patient is in agreement with current admission plan/treatment plan. TSH T4 within normal limits. Magdy Mccain MD: I was consulted by the CLAUDIA, and we discussed the complexity of the problems being addressed. I approved the treatment and management plan for this patient's care in the emergency department, thus performing a substantive portion of the medical decision making. Critical Care <HIPOLITO Brooks - Last Filed: 12/21/24 21:46> Critical Care Time Critical Care Time: No (30)
[2024-12-21 18:01] LABS: Microscopic, Urine URINE MICROSCOPIC (MICROSCOPIC)
[2024-12-21 18:04] LABS: Bilirubin,Urine Negative (Negative); Color,Urine YELLOW (Yellow); Glucose,Urine (UA) 1+ (Negative); Ketones,Urine Negative (Negative); Leukocyte Esterase,Urine 2+ (Negative); PH,Urine 7.0 (5.0-8.5); Protein,Urine Negative (Negative); Specific Gravity, Urine 1.020 (1.005-1.030); Urobilinogen,Urine 4.0 EU/dl (0.2)
[2024-12-21 18:52] LABS: Bacteria,Urine 4+ /lpf
[2024-12-21 19:38] LABS: Lactate Venous 1.8 mmol/L (0.4-2.0); VBG HCO3 26.7 mmol/L (23-30); VBG PCO2 39.9 mmol/L (35-51); VBG PH 7.44 mmol/L (7.31-7.41); VBG PO2 55.3 mmol/L (28-40)
[2024-12-21 19:41] LABS: Hematocrit 38.5 % (37.0-47.0); Hemoglobin 12.8 g/dL (12.2-16.2); Immature Granulocytes % 0.6 %; Mean Corpuscular HGB Conc 33.2 g/dL (31.8-35.4); Mean Corpuscular Hemoglobin 30.7 pg (27.0-31.2); Mean Corpuscular Volume 92.3 fl (81-99); Nucleated Red Blood Cells % 0 %; Platelet Count 405 K/mm3 (142-424); Red Blood Count 4.17 M/mm3 (4.20-5.40); Red Cell Distribution Width-SD 43.8 fL; White Blood Count 13.4 K/mm3 (4.8-10.8)
[2024-12-21 19:52] LABS: Alanine Aminotransferase 15 U/L (12-78); Albumin Level 2.9 g/dl (3.5-5.0); Albumin/Globulin Ratio 0.7 (1.1-1.8); Alkaline Phosphatase 141 U/L (38-126); Anion Gap 12.7 mEq/L (5-15); Aspartate Amino Transferase 22 U/L (14-36); Bilirubin,Total 0.5 mg/dl (0.2-1.3); Blood Urea Nitrogen 18 mg/dl (7-17); Calcium 8.8 mg/dl (8.4-10.2); Carbon Dioxide 26 mmol/L (22.0-30.0); Chloride 99 mmol/L (98-107); Creatinine Clearance Estimated 51 mL/min (50-200); Creatinine,Serum 0.80 mg/dl (0.52-1.04); Estimated Glomerular Filt Rate 71 ml/min (>60); GFR (African American) 85 ML/MIN (>60); Globulin 3.9 g/dL (1.3-3.2); Glucose 226 mg/dl (74-100); Potassium 4.7 mmoL/L (3.5-5.1); Sodium 133 mmol/L (136-145); Total Protein,Serum 6.8 g/dl (6.3-8.2)
[2024-12-21 19:57] LABS: D-Dimer 5.32 ug/mL (0.0-0.5)
[2024-12-21 20:05] LABS: NT Pro Brain Natriuretic Pep. 2830 pg/mL (0-125)
[2024-12-21 20:09] LABS: Troponin I < 0.01 ng/ml (0.00-0.034)
[2024-12-21 20:13] LABS: Free T4 (Free Thyroxine) 1.62 ng/dl (0.78-2.19)
--- NOTE | 2024-12-21 20:21 | CT_ITS ---
PROCEDURE INFORMATION: Exam: CTA Chest With Contrast Exam date and time: 12/21/2024 8:43 PM Age: 74 years old Clinical indication: Abnormal findings; Abnormal diagnostic tests; Elevated d-dimer; Other: Tachycardia; Additional info: Tachycardia elevated d-dimer TECHNIQUE: Imaging protocol: Computed tomographic angiography of the chest with contrast. Exam focused on the arteries. 3D rendering (Not supervised by radiologist): MIP and/or 3D reconstructed images were created by the technologist. Radiation optimization: All CT scans at this facility use at least one of these dose optimization techniques: automated exposure control; mA and/or kV adjustment per patient size (includes targeted exams where dose is matched to clinical indication); or iterative reconstruction. Contrast material: ISOUVE 370; Contrast volume: 70 ml; Contrast route: INTRAVENOUS (IV); COMPARISON: CT ANGIO CHEST PE PROTOCOL 07/04/2024 9:43 PM FINDINGS: Pulmonary arteries: Filling defects involving the right upper lobe apical segment, right lower lobe superior segment, left lower lobe superior and posterior segmental pulmonary arteries compatible with pulmonary embolism. Aorta: There is mild calcific atherosclerotic disease of the thoracic aorta without aneurysmal dilatation. Lungs: Right upper lobe calcified nodule compatible with prior granulomatous process. Pleural spaces: Unremarkable. No pneumothorax. No pleural effusion. Heart: Unremarkable. No cardiomegaly. No pericardial effusion. Lymph nodes: Unremarkable. No enlarged lymph nodes. Gallbladder and biliary ducts: There are surgical clips within the gallbladder fossa. Bones/joints: Unremarkable. No acute fracture. Soft tissues: Unremarkable. IMPRESSION: Filling defects involving the right upper lobe apical segment, right lower lobe superior segment, left lower lobe superior and posterior segmental pulmonary arteries compatible with pulmonary embolism. RV/LV = 0.7. No evidence of right heart strain.
[2024-12-21 20:24] LABS: Thyroid Stimulating Hormone 0.86 uIU/mL (0.465-4.68)
[2024-12-21] MEDS: 0.9 % SODIUM CHLORIDE 50 ML VIAL 40 ML IV (20:41)
[2024-12-21] MEDS: IOPAMIDOL-370 (76%);100ML BOTTLE 70 ML IV (20:41)
[2024-12-21] MEDS: SODIUM CHLORIDE 0.9% 10ML SYR (RAD ONLY) 10 ML IV (20:42)
[2024-12-21 21:32] LABS: Magnesium 1.1 mg/dl (1.6-2.3)
[2024-12-21] MEDS: NITROPRUSSIDE SODIUM 50 MG in DEXTROSE 5 % IN WATER 250 ML 5.76 MG IV (21:50)
--- NOTE | 2024-12-21 22:05 | PC.NURSE ---
Tried to call report; primary RN unavailable at this time to take report.
[2024-12-21 22:37] LABS: POC Glucose,Bedside 183 gm/dL (70-110)
[2024-12-21] MEDS: humaLOG 100 UNITS/ML 10ML VIAL (SSI) SUBCUT (22:48)
[2024-12-22] VITALS (26 sets, daily range): BP systolic 90–194; BP diastolic 53–108; PULSE 46–114; RESP 13–25; TEMP 36.6–37.4; O2SAT 96–99; BMI 21.2
[2024-12-22 00:14] LABS: Troponin I < 0.01 ng/ml (0.00-0.034)
--- NOTE | 2024-12-22 01:14 | PC.NURSE ---
Pt arrived to floor at 1386 12/21
--- NOTE | 2024-12-22 02:56 | EXP.HP ---
History of Present Illness *Admission Date: 12/22/24 *Reason for visit:: Abnormal heart rate and blood pressure *History of present illness: Patient is a 74-year-old female with past medical history significant for hypertension, hyperlipidemia, DM2, GERD, anxiety and depression, dementia, bipolar disorder, urinary incontinence. Presents to [facility] from her nursing facility. It was noted the patient was sent to our facility due to concern of bradycardia and increased generalized weakness. On arrival patient was found to be tachycardic. Patient is a poor historian, history provided per chart review and staff. It was noted while in the emergency department she denied any correlating symptoms noted per the nursing facility. ED workup noted a leukocytosis of 13 and UA with 4+ bacteria, 10-20 WBCs. She was notably hypertensive while in the emergency department With systolic blood pressure in the 200 range. Elevated D-dimer of 5.32, underwent CTA chest which revealed, filling defect involving the right upper lobe apical segment right lower lobe superior segment left lower lobe superior and posterior segmental pulmonary arteries compatible with pulmonary embolism RV/LV equals 0.7 no evidence of right heart strain. ED provider discussed with Dr. Knight with cardiology, recommended nitroprusside drip along with Lovenox. Patient transferred to ICU for close monitoring. Upon assessment of patient at bedside she was without acute distress, resting in bed comfortably. Appeared confused not able to answer questions. ED workup included laboratory studies and imaging. Significant laboratory findings included WBC 13.4, D-dimer 5.32, venous blood gas 7.44, pO2 55, total CO2 27, O2 saturation 88.8, sodium 133, BUN 18, 226 glucose, BNP 2830, UA with 2+ leukocyte esterase and 4+ bacteria. Imaging study included chest x-ray which I personally reviewed and was without any acute findings. CTA chest obtained as noted above, I personally reviewed as well noting right upper lobe apical segment right lower lobe superior segment left lower lobe superior and posterior segmental pulmonary arteries compatible with pulmonary embolism RV/LV equals 0.7 no evidence of right heart strain. [facility] Disclaimer: The information contained in this section may have been updated after the patient was seen, as this information can be updated by other users. Medical History Tardive dyskinesia Former smoker Bipolar disorder, unspecified Diabetes mellitus GERD (gastroesophageal reflux disease) Anxiety and depression HTN (hypertension) HLD (hyperlipidemia) Chronic pain of right knee Constipation Dementia Right ureteral calculus Left against medical advice Urinary incontinence Cervical radiculitis Left knee pain Left patella fracture Acute UTI Altered awareness, transient Surgical History History of total right knee replacement History of D&C History of cholecystectomy Family History Other No significant family history Social History Smoking Status: Never smoker alcohol intake: never counseling provided: none substance use type: denies use current occupational status: unemployed Travel in the last 8 weeks?: None housing: halfway caffeine: No Have you lived/traveled outside [place] in past 30 days?: No Contact w/someone who lives/traveled outside [place] past 30 days?: No Exposure to someone with infectious disease in past 14 days?: No Do you have a fever (greater than 100.4 F or 38 C)?: No Have you tested positive for COVID-19?: No Exposed to someone with COVID-19 in past 14 days?: No Do you have a sore throat?: No Do you have a cough?: No Do you have any weakness?: No Do you have any diarrhea?: No Are you experiencing any unusual bleeding?: No Do you have any muscle aches/pain?: No Do you have any abdominal pain?: No Are you experiencing loss of taste or smell?: No Other Medical History Have you received the Flu Vaccine for this season: Yes Have you received the Pneumonia Vaccine: Yes Review of Systems Review of Systems Review of systems:: unable to obtain Review of systems (narrative): Patient poor historian unable to participate in interview per history/symptoms. Constitutional Constitutional: Reports as per HPI Eyes Eyes: Reports as per HPI ENT Ears, Nose, Mouth, and Throat: Reports as per HPI *Cardiovascular Cardiovascular: Reports as per HPI *Respiratory Respiratory: Reports as per HPI *Gastrointestinal Gastrointestinal: Reports as per HPI *Genitourinary Genitourinary: Reports as per HPI *Musculoskeletal Musculoskeletal: Reports as per HPI Integumentary/Breasts Skin/Breast: Reports as per HPI *Neurologic Neurologic: Reports as per HPI Psychiatric Psychiatric: Reports as per HPI Endocrine Endocrine: Reports as per HPI Hematologic/Lymphatic Hematologic/Lymphatic: Reports as per HPI Allergic/Immunologic Allergic/Immunologic: Reports as per HPI Meds Home Medications and Allergies Home Medications ?Medication ?Instructions ?Recorded ?Confirmed ?Type acetaminophen 325 mg tablet 325 mg PO .q8 PRN fever or pain 10/17/24 12/22/24 Rx #60 tabs albuterol 90 mcg-budesonide 80 2 inh inhalation Q4HP PRN Asthma 10/17/24 12/22/24 Rx mcg/actuation HFA aerosol inhaler #10.7 grams (Airsupra) atorvastatin 80 mg tablet (Lipitor) 80 mg PO HS #30 tabs 10/17/24 12/22/24 Rx ferrous sulfate 325 mg (65 mg 325 mg PO DAILY Supplement 10/17/24 12/22/24 History iron) tablet folic acid 1 mg tablet 1 mg PO DAILY #30 tabs 10/17/24 12/22/24 Rx insulin aspart U-100 100 unit/mL 1 sliding scale dose SQ 10/17/24 12/22/24 Rx (3 mL) subcutaneous pen USEASDIRECTD #15 mL lisinopril 10 mg tablet 5 mg PO DAILY blood pressure 10/17/24 12/22/24 History montelukast 10 mg tablet 10 mg PO QHS GERD 10/17/24 12/22/24 History (Singulair) omeprazole 40 mg capsule,delayed 40 mg PO DAILY GERD 10/17/24 12/22/24 History release trazodone 50 mg tablet 50 mg PO HS #30 tabs 10/17/24 12/22/24 Rx oxycodone-acetaminophen 5 mg-325 1 tab PO Q6H PRN pain #120 tabs 10/28/24 12/22/24 Rx mg tablet gabapentin 300 mg capsule 300 mg PO BID #4 caps 11/07/24 12/22/24 Rx lorazepam 1 mg tablet 1 mg PO HS insomnia #30 tabs 11/12/24 12/22/24 Rx carvedilol 25 mg tablet 25 mg PO BID #60 tabs 11/20/24 12/22/24 Rx metformin 500 mg tablet 500 mg PO BID #60 tabs 12/10/24 12/22/24 Rx quetiapine 100 mg tablet (Seroquel) 100 mg PO QHS Depression 12/10/24 12/22/24 History docusate sodium 100 mg capsule 100 mg PO BID 12/22/24 12/22/24 History mecobalamin (vitamin B12) 1,000 1,000 mcg PO DAILY 12/22/24 12/22/24 History mcg chewable tablet (B12 Active) New Prescriptions to Start Prescriptions: Allergies Allergy/AdvReac Type Severity Reaction Status Date / Time latex Allergy Mild Verified 11/09/23 14:24 codeine (CODEINE) Allergy Unknown Verified 11/09/23 14:24 fexofenadine (From JANE) Allergy Unknown Verified 11/09/23 14:24 iopamidol (IOPAMIDOL) Allergy Unknown Verified 11/09/23 14:24 meperidine (MEPERIDINE) Allergy Unknown Verified 11/09/23 14:24 Penicillins (PENICILLINS) Allergy Unknown Verified 11/09/23 14:24 piroxicam (From FELDENE) Allergy Unknown Verified 11/09/23 14:24 sulfamethoxazole (From Allergy Unknown Verified 11/09/23 14:24 BACTRIM) trimethoprim (From BACTRIM) Allergy Unknown Verified 11/09/23 14:24 cefdinir Allergy Verified 10/22/24 22:18 cyclobenzaprine Allergy Verified 10/22/24 22:18 levofloxacin Allergy Verified 10/22/24 22:18 pseudoephedrine (From Allergy Verified 10/22/24 22:18 Sudafed) simvastatin (From Zocor) Allergy Verified 11/09/23 14:24 Exam Data for Last 24 hours Vital signs and Labs for Last 24 Hours: Temp Pulse Resp BP Pulse Ox O2 Del Method 99.3 F 107 H 21 154/99 H 97 Room Air 12/22/24 00:00 12/22/24 02:00 12/22/24 02:00 12/22/24 02:00 12/22/24 02:00 12/22/24 02:00 Laboratory Results - last 24 hr 12/21/24 17:45: Urine Color Yellow, Urine Appearance Clear, Urine pH 7.0, Ur Specific [place] 1.020, Urine Protein Negative, Urine Glucose (UA) 1+, Urine Ketones Negative, Urine Blood Negative, Urine Nitrate Negative, Urine Bilirubin Negative, Urine Urobilinogen 4.0, Ur Leukocyte Esterase 2+ A, Urine RBC None, Urine WBC 10-20, Ur Squamous Epith Cells None, Urine Bacteria 4+ 12/21/24 19:30: WBC 13.4 H, RBC 4.17 L, Hgb 12.8, Hct 38.5, MCV 92.3, MCH 30.7, MCHC 33.2, RDW 12.9, Plt Count 405 D, MPV 9.9, Neut % (Auto) 66.3, Lymph % (Auto) 24.6, [place] % (Auto) 6.9, Eos % (Auto) 0.9, Baso % (Auto) 0.7, Neut # (Auto) 8.9 H, Lymph # (Auto) 3.3, [place] # (Auto) 0.9, Eos # (Auto) 0.1, Baso # (Auto) 0.1, D-Dimer 5.32 H, Sodium 133 L, Potassium 4.7, Chloride 99, Carbon Dioxide 26, Anion Gap 12.7, BUN 18 H, Creatinine 0.80, Estimated Creat Clear 51, Estimated GFR 71, Est GFR ( Amer) 85, Glucose 226 H, Calcium 8.8, Magnesium 1.1 L, Total Bilirubin 0.5, AST 22, ALT 15, Alkaline Phosphatase 141 H, Troponin I < 0.01, NT-Pro-B Natriuret Pep 2830 H, Total Protein 6.8, Albumin 2.9 L, Globulin 3.9 H, Albumin/Globulin Ratio 0.7 L, TSH 0.86, Free T4 1.62 12/21/24 19:31: VBG pH 7.44 H, VBG pCO2 39.9, VBG pO2 55.3 H, VBG HCO3 26.7, VBG Total CO2 27.9 H, VBG O2 Saturation 88.8 H, VBG Base Excess 2.6 H, VBG Lactic Acid 1.8 12/21/24 22:30: POC Glucose 183 H 12/21/24 22:55: Troponin I < 0.01 I & O for Last 24 hours: Intake & Output 12/19/24 12/20/24 12/21/24 12/22/24 23:59 23:59 23:59 22:59 Intake Total 58.544 / 58.544 9.631 / 9.631 Output Total 0 / 0 Balance 58.544 / 58.544 9.631 / 9.631 Weight 61.5 kg 61.5 kg Constitutional Constitutional: no acute distress *Routine HEENT Exam Head: Present normocephalic Eye: Present EOMI and PERRL ENT: Present mucous membranes moist *Routine Neck Exam Neck: Present supple, full ROM and trachea midline *Routine Respiratory Exam Respiratory: Present normal respiratory effort *Routine Cardiovascular Exam Cardiovascular: Present RRR, Normal S1 and Normal S2 *Routine Abdominal Exam Abdominal: Present soft and normoactive bowel sounds *Routine Rectal Exam Rectal:: deferred *Routine Genitalia Exam Genitalia:: deferred *Routine Extremities Exam Extremities: Present pulses intact and normal capillary refill Routine Back/Spine/Pelvis Exam Back/Spine: Present full ROM *Routine Skin Exam Skin: Present intact *Routine Neurological Exam Neurological: Present altered mental status Routine Psychiatric Exam Psychiatric: Present unable to assess Assessment and Plan *Assessment and plan (1) Bilateral pulmonary embolism: Status: Acute Category: Medical Code(s): I26.99 - Other pulmonary embolism without acute cor pulmonale (2) Hypertensive urgency: Status: Acute Category: Medical Code(s): I16.0 - Hypertensive urgency (3) Urinary tract infection: Status: Acute Qualifiers: Encounter type: subsequent encounter Category: Medical Code(s): N39.0 - Urinary tract infection, site not specified (4) Bipolar disorder, unspecified: Status: Acute Category: Medical Code(s): F31.9 - Bipolar disorder, unspecified (5) Diabetes mellitus: Status: Acute Category: Medical Code(s): E11.9 - Type 2 diabetes mellitus without complications (6) HLD (hyperlipidemia): Status: Acute Category: Medical Code(s): E78.5 - Hyperlipidemia, unspecified (7) Dementia: Status: Acute Qualifiers: Dementia type: unspecified type Category: Medical Code(s): F03.90 - Unspecified dementia, unspecified severity, without behavioral disturbance, psychotic disturbance, mood disturbance, and anxiety (8) Anxiety and depression: Status: Acute Category: Medical Code(s): F41.9 - Anxiety disorder, unspecified; F32.A - Depression, unspecified (9) GERD (gastroesophageal reflux disease): Status: Acute Category: Medical Code(s): K21.9 - Gastro-esophageal reflux disease without esophagitis Plan 1. Bilateral pulmonary embolism: Imaging study as noted above with evidence of bilateral pulmonary embolism, without heart strain. Therapeutic Lovenox initiated while in the emergency department, bilateral lower extremity Doppler scan requested to rule out DVT. Currently on room air with adequate saturation. 2. Hypertensive urgency: Blood pressure within the emergency department steadily increased to the systolic 200 range-ED provider discussed case with on-call cardiology who recommended nitroprusside. Chart review noted recent evaluation for provider from the nursing facility who noted blood pressure readings have mostly been controlled with occasional elevated readings, recent increase in carvedilol with note of possibly increasing home dose lisinopril. Cardiology consult placed for further evaluation and input appreciated. 3. UTI: Patient was recently treated for urinary tract infection per chart review from the halfway. UA suggestive of current urinary tract infection-IV Rocephin initiated in the emergency department, urine cultures pending. Resume IV antibiotic therapy. 4. Diabetes mellitus type 2: Hemoglobin A1c 6.6, September 2024. Regimen of metformin 500 mg daily with sliding scale 4 times daily. Noted glucose typically runs mid 100s with occasional lows in the 80s and highs 300 range. Typically controlled. Insulin sliding scale initiated with Accu-Cheks ACHS. 5. Bipolar disorder/dementia/anxiety and depression: Patient is noted to be followed by psychiatry, noted per halfway provider patient exhibits confusion and sparse verbalization. Medication includes quetiapine 100 mg hs, lorazepam 1 mg at bedtime, trazodone 50 mg at bedtime. As noted above patient presenting with similar presentation of confusion, little verbalization. Possibly baseline or could be exacerbated symptoms due to underlying urinary tract infection. 6. GERD: PPI regime includes omeprazole 40 mg daily. 7. DVT prophylaxis: Therapeutic Lovenox Full code Diabetic diet I personally discussed the management of this patient with the emergency department provider, agreed to admit evaluation treatment for bilateral pulmonary embolism, urinary tract infection and hypertensive urgency.
[2024-12-22 04:43] LABS: Troponin I < 0.01 ng/ml (0.00-0.034)
[2024-12-22] MEDS: humaLOG 100 UNITS/ML 10ML VIAL (SSI) SUBCUT ×4 (04:53→21:02)
[2024-12-22 05:00] LABS: POC Glucose,Bedside 202 gm/dL (70-110)
[2024-12-22 06:24] LABS: Hematocrit 39.5 % (37.0-47.0); Hemoglobin 13.0 g/dL (12.2-16.2); Immature Granulocytes % 0.8 %; Mean Corpuscular HGB Conc 32.9 g/dL (31.8-35.4); Mean Corpuscular Hemoglobin 30.6 pg (27.0-31.2); Mean Corpuscular Volume 92.9 fl (81-99); Nucleated Red Blood Cells % 0 %; Platelet Count 414 K/mm3 (142-424); Red Blood Count 4.25 M/mm3 (4.20-5.40); Red Cell Distribution Width-SD 43.5 fL; White Blood Count 17.9 K/mm3 (4.8-10.8)
[2024-12-22] MEDS: NITROPRUSSIDE SODIUM 50 MG in DEXTROSE 5 % IN WATER 250 ML 38.41 MG IV (06:39)
[2024-12-22 06:41] LABS: Alanine Aminotransferase 14 U/L (12-78); Albumin Level 3.2 g/dl (3.5-5.0); Albumin/Globulin Ratio 0.8 (1.1-1.8); Alkaline Phosphatase 116 U/L (38-126); Anion Gap 11.0 mEq/L (5-15); Aspartate Amino Transferase 25 U/L (14-36); Bilirubin,Total 0.5 mg/dl (0.2-1.3); Blood Urea Nitrogen 15 mg/dl (7-17); Calcium 8.7 mg/dl (8.4-10.2); Carbon Dioxide 26 mmol/L (22.0-30.0); Chloride 98 mmol/L (98-107); Creatinine Clearance Estimated 49 mL/min (50-200); Creatinine,Serum 0.60 mg/dl (0.52-1.04); Estimated Glomerular Filt Rate 98 ml/min (>60); GFR (African American) 119 ML/MIN (>60); Globulin 4.2 g/dL (1.3-3.2); Glucose 214 mg/dl (74-100); Potassium 4.0 mmoL/L (3.5-5.1); Sodium 131 mmol/L (136-145); Total Protein,Serum 7.4 g/dl (6.3-8.2)
[2024-12-22] MEDS: DOCUSATE SODIUM 100 MG CAPSULE PO (08:56)
[2024-12-22] MEDS: CARVEDILOL 25MG TABLET 25 MG PO ×2 (08:56→21:01)
[2024-12-22] MEDS: GABAPENTIN 300MG CAPSULE 300 MG PO ×2 (08:57→21:01)
[2024-12-22] MEDS: LISINOPRIL 10MG TABLET 10 MG PO (08:57)
--- NOTE | 2024-12-22 10:07 | P.CONPHA_ITS ---
Pharmacy Intervention Comments: MEDICATION RECONCILIATION COMPLETE USING MAR FROM [facility].
[2024-12-22] MEDS: MAGNESIUM SULFATE IN WATER 2 GM/50 ML PIGGYBACK IV ×3 (10:14→11:51)
[2024-12-22 11:08] LABS: POC Glucose,Bedside 254 gm/dL (70-110)
--- NOTE | 2024-12-22 14:29 | EXP.ACUTE.PN ---
Subjective *Date: 12/22/24 *Time: 16:01 Interval history: Patient made eye contact this morning on rounds but did not speak to me. Was cooperative and allowed exam however. Afebrile. Blood pressure remains elevated. On morning rounds her blood pressures were 150-160. Resumed home blood pressure regimen with some adjustments discontinued nitroprusside drip. Stable on room air. Denies any chest pain. Medical Exam Vital signs and Labs for Last 24 Hours: Vital Signs Temp Pulse Pulse Resp BP BP Pulse Ox 12/22/24 14:00 86 16 183/94 H 98 12/22/24 13:00 82 13 172/91 H 98 12/22/24 13:00 12/22/24 12:00 86 24 157/95 H 97 12/22/24 12:00 98 12/22/24 12:00 84 12/22/24 11:15 89 24 164/98 H 97 12/22/24 11:04 46 L 21 163/107 H 99 12/22/24 11:00 12/22/24 11:00 12/22/24 10:46 91 H 25 H 150/96 H 97 12/22/24 10:01 88 23 154/89 H 97 12/22/24 09:00 12/22/24 09:00 114 H 23 166/97 H 97 12/22/24 08:01 98.4 F 106 H 20 153/96 H 97 12/22/24 08:00 96 12/22/24 08:00 12/22/24 08:00 108 H 12/22/24 07:01 103 H 22 142/88 H 96 12/22/24 06:00 82 23 151/92 H 98 12/22/24 06:00 12/22/24 05:15 176/99 H 12/22/24 05:00 107 H 17 160/98 H 98 12/22/24 04:00 12/22/24 04:00 108 H 12/22/24 04:00 98.9 F 105 H 21 166/95 H 97 12/22/24 04:00 97 12/22/24 03:00 106 H 13 158/97 H 99 12/22/24 02:00 107 H 21 154/99 H 97 12/22/24 02:00 12/22/24 00:00 99.3 F 101 H 19 171/100 H 98 12/22/24 00:00 171/100 H 12/22/24 00:00 97 12/22/24 00:00 108 H 12/22/24 00:00 12/21/24 23:00 101 H 17 177/104 H 97 12/21/24 23:00 12/21/24 22:30 102 H 12/21/24 22:30 98 12/21/24 22:15 98.2 F 107 H 20 213/92 H 12/21/24 22:01 19 213/92 H 12/21/24 22:00 99 F 105 H 17 203/111 H 98 12/21/24 21:30 23 209/114 H 12/21/24 21:00 64 20 208/112 H 98 12/21/24 20:31 65 19 199/88 H 98 12/21/24 20:01 67 21 204/113 H 98 12/21/24 19:30 100 H 18 212/116 H 98 12/21/24 19:05 101 H 18 204/113 H 98 12/21/24 18:00 70 15 207/100 H 99 12/21/24 17:50 98.7 F 105 H 18 162/132 H 95 12/21/24 17:48 104 H 162/132 H 98 O2 Del Method 12/22/24 14:00 Room Air 12/22/24 13:00 Room Air 12/22/24 13:00 Room Air 12/22/24 12:00 Room Air 12/22/24 12:00 Room Air 12/22/24 12:00 12/22/24 11:15 Room Air 12/22/24 11:04 Room Air 12/22/24 11:00 Room Air 12/22/24 11:00 Room Air 12/22/24 10:46 Room Air 12/22/24 10:01 Room Air 12/22/24 09:00 Room Air 12/22/24 09:00 Room Air 12/22/24 08:01 Room Air 12/22/24 08:00 Room Air 12/22/24 08:00 Room Air 12/22/24 08:00 12/22/24 07:01 Room Air 12/22/24 06:00 Room Air 12/22/24 06:00 Room Air 12/22/24 05:15 12/22/24 05:00 Room Air 12/22/24 04:00 Room Air 12/22/24 04:00 12/22/24 04:00 Room Air 12/22/24 04:00 Room Air 12/22/24 03:00 12/22/24 02:00 Room Air 12/22/24 02:00 Room Air 12/22/24 00:00 Room Air 12/22/24 00:00 12/22/24 00:00 Room Air 12/22/24 00:00 12/22/24 00:00 Room Air 12/21/24 23:00 12/21/24 23:00 Room Air 12/21/24 22:30 12/21/24 22:30 Room Air 12/21/24 22:15 Room Air 12/21/24 22:01 12/21/24 22:00 Room Air 12/21/24 21:30 12/21/24 21:00 12/21/24 20:31 12/21/24 20:01 12/21/24 19:30 12/21/24 19:05 12/21/24 18:00 Room Air 12/21/24 17:50 Room Air 12/21/24 17:48 Room Air Intake and Output 12/21/24 12/22/24 12/22/24 23:59 06:59 15:59 Intake Total 58.544 / 58.544 231.444 / 6541.163 3996.632 / 1319.076 Output Total 500 / 900 400 / 900 Balance 58.544 / 58.544 -268.556 / 419.076 687.632 / 419.076 Intake: Intake, Oral Amount 0 / 816 816 / 816 Intake, Total IV Amount 58.544 / 58.544 231.444 / 503.076 271.632 / 503.076 Ceftriaxone Sodium 1 gm In 0.9 50 / 50 % Sodium Chloride 50 ml @ 100 mls/hr IV ONCE ONE Rx#:[id number] Magnesium Sulfate in Water 2 gm 150 / 150 In 50 ml @ 50 mls/hr IV Q1H DONY Rx#:[id number] Nitroprusside Sodium 50 mg In 8.544 / 8.544 231.444 / 353.076 121.632 / 353.076 Dextrose 5 % in Water 250 ml @ 2 MCG/KG/MIN 38.407 mls/hr IV . Q6H34M [facility] Rx#:[id number] Output: Output, Urine Amount 500 / 900 400 / 900 Other: Number of Unmeasured Voids 0 Weight 61.5 kg 61.5 kg Patient Weight 12/22/24 22:59 Weight 61.5 kg Laboratory Results - last 24 hr 12/21/24 17:45: Urine Color Yellow, Urine Appearance Clear, Urine pH 7.0, Ur Specific [place] 1.020, Urine Protein Negative, Urine Glucose (UA) 1+, Urine Ketones Negative, Urine Blood Negative, Urine Nitrate Negative, Urine Bilirubin Negative, Urine Urobilinogen 4.0, Ur Leukocyte Esterase 2+ A, Urine RBC None, Urine WBC 10-20, Ur Squamous Epith Cells None, Urine Bacteria 4+ 12/21/24 19:30: WBC 13.4 H, RBC 4.17 L, Hgb 12.8, Hct 38.5, MCV 92.3, MCH 30.7, MCHC 33.2, RDW 12.9, Plt Count 405 D, MPV 9.9, Neut % (Auto) 66.3, Lymph % (Auto) 24.6, [place] % (Auto) 6.9, Eos % (Auto) 0.9, Baso % (Auto) 0.7, Neut # (Auto) 8.9 H, Lymph # (Auto) 3.3, [place] # (Auto) 0.9, Eos # (Auto) 0.1, Baso # (Auto) 0.1, D-Dimer 5.32 H, Sodium 133 L, Potassium 4.7, Chloride 99, Carbon Dioxide 26, Anion Gap 12.7, BUN 18 H, Creatinine 0.80, Estimated Creat Clear 51, Estimated GFR 71, Est GFR ( Amer) 85, Glucose 226 H, Calcium 8.8, Magnesium 1.1 L, Total Bilirubin 0.5, AST 22, ALT 15, Alkaline Phosphatase 141 H, Troponin I < 0.01, NT-Pro-B Natriuret Pep 2830 H, Total Protein 6.8, Albumin 2.9 L, Globulin 3.9 H, Albumin/Globulin Ratio 0.7 L, TSH 0.86, Free T4 1.62 12/21/24 19:31: VBG pH 7.44 H, VBG pCO2 39.9, VBG pO2 55.3 H, VBG HCO3 26.7, VBG Total CO2 27.9 H, VBG O2 Saturation 88.8 H, VBG Base Excess 2.6 H, VBG Lactic Acid 1.8 12/21/24 22:30: POC Glucose 183 H 12/21/24 22:55: Troponin I < 0.01 12/22/24 02:15: Troponin I < 0.01 12/22/24 04:49: POC Glucose 202 H 12/22/24 05:30: WBC 17.9 H D, RBC 4.25, Hgb 13.0, Hct 39.5, MCV 92.9, MCH 30.6, MCHC 32.9, RDW 12.8, Plt Count 414, MPV 10.6 H, Neut % (Auto) 77.3, Lymph % (Auto) 15.5, [place] % (Auto) 5.3, Eos % (Auto) 0.4, Baso % (Auto) 0.7, Neut # (Auto) 13.8 H, Lymph # (Auto) 2.8, [place] # (Auto) 1.0, Eos # (Auto) 0.1, Baso # (Auto) 0.1, Sodium 131 L, Potassium 4.0, Chloride 98, Carbon Dioxide 26, Anion Gap 11.0, BUN 15, Creatinine 0.60 D, Estimated Creat Clear 49, Estimated GFR 98, Est GFR ( Amer) 119 D, Glucose 214 H, Calcium 8.7, Total Bilirubin 0.5, AST 25, ALT 14, Alkaline Phosphatase 116, Total Protein 7.4, Albumin 3.2 L D, Globulin 4.2 H, Albumin/Globulin Ratio 0.8 L 12/22/24 10:58: POC Glucose 254 H I & O for Labs for Last 24 Hours: Intake & Output 12/19/24 12/20/24 12/21/24 12/22/24 23:59 23:59 23:59 22:59 Intake Total 58.544 / 58.544 1319.076 / 1319.076 Output Total 900 / 900 Balance 58.544 / 58.544 419.076 / 419.076 Weight 61.5 kg 61.5 kg Microbiology Reports for the Last 24 Hours: Microbiology 12/21/24 17:45 Urine,Clean Catch Urine Culture - Preliminary Constitutional: Present no acute distress, chronically ill appearing and cooperative Comment:: Nonverbal on my exam Head: Present atraumatic and normocephalic Comment:: Edentulous Respiratory: Present normal respiratory effort; Absent rhonchi, wheezes or crackles Cardiac: Present Reg Rate and Rhythm GI: Present soft and normal bowel sounds; Absent distention or tenderness Extremities: Present normal inspection and full ROM Skin: Present intact; Absent erythema Neuro: Present alert, awake and moves all extremities Assessment and Plan *Assessment and plan (1) Bilateral pulmonary embolism: Status: Acute Category: Medical Code(s): I26.99 - Other pulmonary embolism without acute cor pulmonale (2) Hypertensive urgency: Status: Acute Category: Medical Code(s): I16.0 - Hypertensive urgency (3) Urinary tract infection: Status: Acute Qualifiers: Encounter type: subsequent encounter Category: Medical Code(s): N39.0 - Urinary tract infection, site not specified (4) Bipolar disorder, unspecified: Status: Acute Category: Medical Code(s): F31.9 - Bipolar disorder, unspecified (5) Diabetes mellitus: Status: Acute Category: Medical Code(s): E11.9 - Type 2 diabetes mellitus without complications (6) HLD (hyperlipidemia): Status: Acute Category: Medical Code(s): E78.5 - Hyperlipidemia, unspecified (7) Dementia: Status: Acute Qualifiers: Dementia type: unspecified type Category: Medical Code(s): F03.90 - Unspecified dementia, unspecified severity, without behavioral disturbance, psychotic disturbance, mood disturbance, and anxiety (8) Anxiety and depression: Status: Acute Category: Medical Code(s): F41.9 - Anxiety disorder, unspecified; F32.A - Depression, unspecified (9) GERD (gastroesophageal reflux disease): Status: Acute Category: Medical Code(s): K21.9 - Gastro-esophageal reflux disease without esophagitis Plan 74-year-old female who resides at a longterm locally. Presented with tachycardia. Found to have bilateral PEs, UTI, malignant hypertension. Will discontinue nitroprusside drip this morning and make adjustments to oral regimen. Goal blood pressure less than 160/100 today. Will make further adjustments over the next 24 hours for improved control. Goal less than 140/90 prior to discharge back to her facility. Continues to require patient management. Problems addressed as follows: Bilateral pulmonary embolism: Imaging study as noted above with evidence of bilateral pulmonary embolism, without heart strain. - Continue Lovenox 1 mg/kg twice daily. Bilateral lower extremity duplex ordered and pending. Remained stable on room air. Hypertensive urgency: - Showing some improvement this morning. Blood pressure less than 160. Will discontinue nitroprusside drip. Resume carvedilol 25 mg twice daily. Increase home lisinopril to 10 mg this morning. If continues to elevate, will add nifedipine 10 mg 3 times a day and transition to irbesartan 150 mg tonight. Goal blood pressure today less than 160/100. -Cardiology consulted to evaluate in the morning. UTI: Patient was recently treated for urinary tract infection per chart review from the longterm. - UA suggestive of UTI with positive leuk esterase, positive nitrite, 10-20 white cells. Urine culture still pending. Continue ceftriaxone 1 g daily IV. - White count increased to 17. Remains afebrile. Repeat CBC, CMP, magnesium ordered for the morning - Sodium 131, kidney function normal BUN 15, creatinine 0.6 Diabetes mellitus type 2: Hemoglobin A1c 6.6, September 2024. Regimen of metformin 500 mg daily with sliding scale 4 times daily. Noted glucose typically runs mid 100s with occasional lows in the 80s and highs 300 range. Typically controlled. Insulin sliding scale initiated with Accu-Cheks ACHS. Bipolar disorder/dementia/anxiety and depression: Patient is noted to be followed by psychiatry, noted per longterm provider patient exhibits confusion and sparse verbalization. Medication includes quetiapine 100 mg hs, lorazepam 1 mg at bedtime, trazodone 50 mg at bedtime. As noted above patient presenting with similar presentation of confusion, little verbalization. Possibly baseline or could be exacerbated symptoms due to underlying urinary tract infection. - Resumed home regimen. GERD: PPI regime includes omeprazole 40 mg daily. DVT prophylaxis: Therapeutic Lovenox Full code Diabetic diet
--- OUTSIDE RECORDS SUMMARY | 2024-12-22 15:17 | XMS_ITS ---
Care Plan - [facility], [facility] Created on: December 22, 2024 Sofia Valero : 1950 Sex: Female Author Organization [facility] Address [address] [place] [address] Phone Care Team Providers Care Bevel Operator Name Role Phone Tessy Goodman APRN Unavailable [phone] Joaquin ROSE, Luc Herrera Unavailable [phone]
--- OUTSIDE RECORDS SUMMARY | 2024-12-22 15:17 | XMS_ITS | Clinical Summary ---
Author Organization [facility] Address [address] [place] [id number] Phone Care Team Providers Care Health And Safety Representative Name Role Phone Unavailable Primary Care Provider [...] Impressions 04/10/2023 7:34 AM EST Benign finding ([id number]) ~ RECOMMENDATION: Routine screening mammogram in 1 [...] the next mammogram, in accordance with the [place] [employer] and the Society of Breast Imaging recommendations. Narrative 04/10/2023 7:34 AM EST Procedure:MM MAMMO DIGITAL JULIO CÉSAR SCREEN BILAT ~ Reason for exam: screening, asymptomatic. Z12.31-Encounter for screening mammogram for malignant neoplasm of [id number] ~ MM MAMMO DIGITAL JULIO CÉSAR SCREEN [...] for screening mammogram for malignant neoplasm of [id number] ~ MM MAMMO DIGITAL JULIO CÉSAR SCREEN [...] evidence of malignancy. ~ IMPRESSION: Benign finding ([id number]) ~ RECOMMENDATION: Routine screening mammogram in 1 [...] the next mammogram, in accordance with the [place] [employer] and the Society of Breast Imaging recommendations. Tessy Goodman APRN [facility] MAMMOGRAPHY ORDERABLES Fin al Result from Last 3 Months or Most Recently Relevant to Health Maintenance Insurance [address] [address] MEDICARE HMO MR
--- OUTSIDE RECORDS SUMMARY | 2024-12-22 15:17 | XMS_ITS | Clinical Summary ---
Author Organization [facility] Address [address] [place] [address] Care Team Providers Care Furniture Mover Driver Name Role Phone Tessy Goodman APRN Primary Care Provider [phone] Allergies Active Allergy Reactions Criticality Noted Date [...] exertion 08/06/2020 Coronary artery disease invo lving [place] coronary artery of [place] heart 08/06/2020 Social History Tobacco Use Types [...] - 5.60 % 10/25/2016 8:38 AM EDT [facility] Blood Venipuncture / Unknown 10/25/2016 8:14 AM EDT 10/25/2016 8:23 AM EDT Narrative [facility] - 10/25/2016 8:38 AM EDT The [place] [employer] recommends maintenance of Hemoglobin A1C at 7.0% or lower. Goals for Hemoglobin A1C reduction may need to be modified if hypoglycemia is a problem. Musa Echevarria MD LAB BLOOD ORDERABLES Final Res ult [facility]
[address] [place] [address], from Last 3 Months or Most Recently Relevant to Health Maintenance Insurance [employer] [facility] [employer] MEDICARE ADVANTAGE Care Teams Furniture Mover Driver Relationship Specialty Start Date End Date Tessy Goodman APRN [address] [place] [address] PCP - General Nurse Practitioner 08/06/20
--- OUTSIDE RECORDS SUMMARY | 2024-12-22 15:17 | XMS_ITS | Clinical Summary ---
Author Organization [facility] Address [address] [place] [address] Care Team Providers Care Marketing Senior Recruiter Name Role Phone Tessy Goodman GAS APPLIANCE REPAIRER Primary Care Provider [phone] Allergies Active Allergy Reactions Criticality Noted Date [...] pcp labs Coronary artery disease invo lving [place] coronary artery of [place] heart 08/06/2020 Assessment & Plan (12/02/2020 3:09 [...] Description 02/04/2025 2:20 PM EST Office Visit [facility] Endocrinology [address] [place] [address] Elisabeth Parrish PA [address] [place] [address] Health Maintenance Due Date Last [...] of 2 - PCV) 05/26/2018 05/26/2017, 11/01/2010 [id number] Vaccine (3 - 2024- season) 2024 06/11/2020, [...] complication, without long-term current use of insulin ([facility]) from Last 3 Months or Most Recently Relevant to Health Maintenance Results * (ABNORMAL) POCT glycosylated hemoglobin (Hb A1C) (08/19/2024 1:32 PM EDT) POCT Hemoglobin A1C 5.8 <5.7% Non-Diabet ic % [facility] Kit Lot Number [id number] COUNT INCLUDES THE [facility] Kit Expiration Date 06/16 [facility] Blood Venous blood specimen / Unknown 08/19/2024 1:32 PM EDT Elisabeth MCMILLAN POINT OF CARE TEST EN TER/EDIT ORDERABLES Final Result [facility] [address] [place] [id number] from Last 3 Months or Most Recently Relevant to Health Maintenance Insurance AETNA [facility] MEDICAID [employer] MEDICARE Care Teams Marketing Senior Recruiter Relationship Specialty Start Date End Date Tessy Goodman APRN [address] [place] [address] PCP - General 07/03/20
--- OUTSIDE RECORDS SUMMARY | 2024-12-22 15:17 | XMS_ITS | Clinical Summary ---
Author Organization [facility] , [facility] Address [address] [facility] [place] [address] Phone Care Team Providers Care Tobacco Stripping Machine Operator Name Role Phone Tessy Goodman APRN Unavailable [phone] Joaquin ROSE, Luc Herrera Unavailable [phone] Reason for Visit and Chief Complaint Physician Specified Problems Includes: Problems addressed during this encounter and other active Problems Current Visit Onset Date Resolved Date Provider Josiane Jorgensen Joint Pain in Both Knees 06/09/2022 Luc Nuñez MD Active Last Documented On 3 2:10PM ; [facility], [facility] Joint Stiffness of Both Knees 06/09/2022 Jasson Nuñez MD Active Last Documented On 3 2:54PM ; [facility], [facility] Plan of Treatment Fall Risk Assessment: [...] - Last Documented On 07/07/2022 2:29PM ; [facility], [facility] NON-SURGICAL PLAN: INJECTION: RIGHT KNEE - Last Documented On 07/07/2022 2:29PM ; [facility], [facility] 2 CC KENGALOG (80 MG), 4 CC MARCAINE, 4 CC LIDOCAINE MAINTAIN GOOD SHOES MAINTAIN HEALTHY WEIGHT POWER STEP FOR RIGHT FOOT MEDICATION: MOBIC 7.5 MG FOLLOW UP: 3 MONTHS FOR REPEAT INJECTION. PATIENT INTERESTED IN A GEL INJECTION AT THAT TIME - Last Documented On 07/07/2022 2:29PM ; [facility], [facility] Instructions to patient Lose weight Last Documented On 3 2:52PM ; [facility], [facility] Assessments Includes: Assessments from this encounter Findings RIGHT KNEE SEVERE LATERAL COMPARTMENT DJD. INJECTIONS IN PAST HAVE NOT HELPED. HAS TAKEN GLUCOSAMINE BUT NOT NSAIDs. KNEE CATCHES AND GIVES WAY AND CREATES A FALL RISK. WANTS TO REMAIN ACTIVE. - Last Documented On 07/07/2022 2:29PM ; [facility], [facility] Instructions Includes: Instructions from this encounter Instructions to patient Lose weight Last Documented On 3 2:52PM ; [facility] Medical Equipment - Implanted Devices Includes: Current Devices No Medical Equipment Recorded Medications Includes: Medications discussed during this encounter and other current Medications Discontinued / Stopped on this date Luc Nuñez MD on 06/09/2022 Meloxicam 7.5 MG Oral Tablet Provider: Luc Nuñez MD Diagnosis: Last Documented On 3 5:22PM By Aracelis Gray ; [facility] Current Medications (continue as prescribed) hydrOXYzine Pamoate 25 MG Oral Capsule 06/03/2022 Pr ovider: Diagnosis: Last Documented On 3 2:54PM By Heladio [facility]ANTO [facility] carBAMazepine 100 MG Oral Tablet Chewable 05/23/2022 Provider: Diagnosis: Last Documented On 3 2:54PM By Heladio [facility], [facility] glipiZIDE ER 2.5 MG Oral Tablet Extended Release 24 Ho ur 05/23/2022 Provider: Diagnosis: Last Documented On 3 2:54PM By Heladio [facility], [facility] Lisinopril 5 MG Oral Tablet 05/23/2022 Provider: Tessy Goodman APRN Diagnosis: Last Documented On 3 2:54PM By Hel[facility] Pioglitazone HCl 30 MG Oral Tablet 05/23/2022 Provid er: Diagnosis: Last Documented On 3 2:54PM By Heladio [facility]ANT[facility], [facility] Medications Administered Includes: Administered Medications from this encounter No Administered Medications Recorded Vital Signs Includes: Vital Signs from this encounter Vital Name 06/09/2022 02:54P Height (in) 68 Weight (lb) 215 Body Mass Index 32.7 Body Surface Area 2.1 Note: MAL Last Documented: On 06/09/2022 2:54PM ; [facility] Results Includes: Results discussed during this [...] 06/09/2022 Last Documented On 3 2:29PM ; [facility] No recent change in diet 06/09/2022 Last Documented On 3 2:29PM ; [facility] Not a current smoker. 06/09/2022 Last Documented On 3 2:29PM ; [facility] Not exercising regularly 06/09/2022 Last Documented On 3 2:29PM ; [facility] Not using alcohol 06/09/2022 Last Documented On 3 2:29PM ; [facility] Not using drugs 06/09/2022 Last Documented On 3 2:29PM ; [facility] Tobacco non-user 06/09/2022 Last Documented On 3 2:29PM ; [facility] Smoking Status Unknown Procedures and Surgical History Includes: Procedures from this encounter Procedures Code Diagnosis Performing Provider Service L ocation Service Date use of tobacco assessment performed 1000F Last Documented On 3 2:52PM ; [facility] patient screened for future fall risk: documentation of any fall with injury in past year 1100F Last Documented On 3 2:29PM ; [facility] Medical History Includes: Medical History addressed [...] Physician Specified Luc Nuñez MD [facility] 06/10/19 23 1:48PM 4:13PM Insurance Includes: Active Insurance Policies Plan Name Member ID Group # Subscriber Relationship Effect eduar Dates 1 - [employer] [id number] Sofia Valero [facility] 2 - [employer] [facility] [id number] Sofia Valero Self Clinical Notes Includes: Clinical Notes from this encounter * Progress note Date Encounter Last Documented by 06/09/2022 Physician Specified Last agustinaumemary carmen dillon on 07/07/2022; 2:29 PM, Luc Nuñez MD; [facility], [facility] Active Problems & Conditions - Joint [...]
--- OUTSIDE RECORDS SUMMARY | 2024-12-22 15:18 | XMS_ITS ---
Author Organization [facility] , [facility] Address [address] [place] [address] Phone Care Team Providers Care Wood Craftsman Name Role Phone Tessy Goodman APRN Unavailable [phone] Joaquin ROSE, Luc Herrera Unavailable [phone] Problems Includes: Active, inactive, and resolved Problems All Visits Onset Date Resolved Date Provider Condition S tatus Joint Pain in Both Knees 06/09/2022 Luc Nuñez MD Active Last Documented On 3 2:10PM ; [facility], [facility] Joint Stiffness of Both Knees 06/09/2022 Jasson Nuñez MD Active Last Documented On 3 2:54PM ; [facility], [facility] Plan of Treatment Instructions to patient Lose weight Last Documented On 3 2:52PM ; [facility], [facility] Assessments Includes: Assessments for all patient encounters No Assessments Recorded Instructions Includes: Instructions for all patient encounters Instructions to patient Lose weight Last Documented On 3 2:52PM ; [facility], [facility] Medical Equipment - Implanted Devices Includes: Current and historical Devices No Medical Equipment Recorded Medications Includes: Current and historical Medications Current Medications (continue as prescribed) hydrOXYzine Pamoate 25 MG Oral Capsule 06/03/2022 Pr ovider: Diagnosis: Last Documented On 3 2:54PM By Heladio Pruitt [facility]CO[facility], [facility] carBAMazepine 100 MG Oral Tablet Chewable 05/23/2022 Provider: Diagnosis: Last Documented On 3 2:54PM By Heladio Gudino ; [facility], [facility] glipiZIDE ER 2.5 MG Oral Tablet Extended Release 24 Ho ur 05/23/2022 Provider: Diagnosis: Last Documented On 3 2:54PM By Heladio IGNACIO [facility], [facility] Lisinopril 5 MG Oral Tablet 05/23/2022 Provider: Tessy Goodman APRN Diagnosis: Last Documented On 3 2:54PM By Heladio Gudino ; [facility], [facility] Pioglitazone HCl 30 MG Oral Tablet 05/23/2022 Provid er: Diagnosis: Last Documented On 3 2:54PM By Heladio Gudino ; [facility] Past Medications on file Meloxicam 7.5 MG Oral Tablet 06/09/2022 - 06/09/2022 Provider: Luc donaldson MD Diagnosis: once a day Last Documented On 3 5:22PM By Aracelis Gray ; [facility], [facility] Medications Administered Includes: Administered Medications in patient's chart No Administered Medications Recorded Results Includes: Results from 12/23/2023 through 12/22/2024 No Results Recorded For Specified Dates History of Present Illness History of Present Illness not supported for this document type No History of Present Illness Recorded Social History Description Last Updated No caffeine use 06/09/2022 Last Documented On 3 2:29PM ; [facility], [facility] No recent change in diet 06/09/2022 Last Documented On 3 2:29PM ; [facility], [facility] Not a current smoker. 06/09/2022 Last Documented On 3 2:29PM ; [facility], [facility] Not exercising regularly 06/09/2022 Last Documented On 3 2:29PM ; [facility] Not using alcohol 06/09/2022 Last Documented On 3 2:29PM ; [facility], [facility] Not using drugs 06/09/2022 Last Documented On 3 2:29PM ; [facility], [facility] Tobacco non-user 06/09/2022 Last Documented On 3 2:29PM ; [facility] Smoking Status Unknown Medical History Includes: Medical [...] Relationship Effect eduar Dates 1 - [employer] [id number] Sofia Valero [facility] 2 - [facility] [phone] Sofia Valero Self Clinical Notes Includes: Signed Clinical Notes starting from 02/03/2022 No Clinical Notes Recorded
--- OUTSIDE RECORDS SUMMARY | 2024-12-22 15:18 | XMS_ITS | Clinical Summary ---
Author Organization [facility] , [facility] Address [address] [place] [address] Phone Care Team Providers Care Process Excellence Manager Name Role Phone Tessy Goodman APRN Unavailable [phone] Joaquin ROSE, Luc Herrera Unavailable U navailable Reason for Visit and Chief Complaint BRACE FITTING Problems Includes: Problems addressed during this encounter and other active Problems All Visits Onset Date Resolved Date Provider Condition S tatus Joint Pain in Both Knees 06/09/2022 Luc Nuñez MD Active Last Documented On 3 2:10PM ; [facility], [facility] Joint Stiffness of Both Knees 06/09/2022 Jasson Nuñez MD Active Last Documented On 3 2:54PM ; [facility], [facility] Plan of Treatment No Plan of [...] On 3 5:22PM By Aracelis Gray ; [facility], [facility] Current Medications (continue as prescribed) hydrOXYzine Pamoate 25 MG Oral Capsule 06/03/2022 Pr ovider: Diagnosis: Last Documented On 3 2:54PM By Heladio Gudino ; [facility] carBAMazepine 100 MG Oral Tablet Chewable 05/23/2022 Provider: Diagnosis: Last Documented On 3 2:54PM By Heladio Gudino ; [facility] glipiZIDE ER 2.5 MG Oral [...] On 3 2:54PM By Heladio [facility] Medications Administered Includes: Administered Medications from [...] Relationship Effect eduar Dates 1 - [employer] [id number] Sofia Valero [facility] 2 - [employer] [facility] [phone] Sofia Valero Self Clinical Notes Includes: Clinical Notes from this encounter No Clinical Notes Recorded
[2024-12-22 16:24] LABS: POC Glucose,Bedside 161 gm/dL (70-110)
--- NOTE | 2024-12-22 18:00 | PC.NURSE ---
Daughter does not want the CRE swab to be done
--- NOTE | 2024-12-22 18:01 | PC.NURSE ---
Staff from [facility] called to get an update on patient. Patients daughter was in the room and gave verbal permission to give anyone at [facility] an update
[2024-12-22] MEDS: CEFTRIAXONE 1 GM 1 GM in 0.9 % SODIUM CHLORIDE 50 ML IV (18:12)
[2024-12-22 19:43] LABS: POC Glucose,Bedside 196 gm/dL (70-110)
[2024-12-22] MEDS: TRAZODONE 50MG TABLET 50 MG PO (21:01)
[2024-12-22] MEDS: IRBESARTAN 150MG TAB 150 MG PO (21:01)
[2024-12-22] MEDS: ATORVASTATIN 40MG TABLET 80 MG PO (21:01)
[2024-12-22] MEDS: QUETIAPINE 100MG TABLET 100 MG PO (21:01)
[2024-12-23] VITALS (14 sets, daily range): BP systolic 103–167; BP diastolic 58–99; PULSE 70–93; RESP 14–21; TEMP 36.8–37; O2SAT 96–99; BMI 21.4
--- NOTE | 2024-12-23 02:31 | CA_ITS ---
FINAL REPORT CLINICAL HISTORY: bilateral PE's , dementia, bipolar, bradycardia/tachycardia COMPARISON: None FINDINGS: DUPLEX VENOUS SONOGRAPHY OF THE BILATERAL LOWER EXTREMITIES Multiple transverse and longitudinal scans were performed of the femoropopliteal deep venous systems, with augmentation and compression maneuvers. HISTORY: Pain FINDINGS: Normal phasic flow was noted in the visualized deep venous systems. No intraluminal increased echogenicity is noted to suggest thrombus. There is normal compression and augmentation of the venous structures. No abnormal venous collaterals are seen. IMPRESSION: No evidence of deep venous thrombosis of the bilateral lower extremities. Reviewed, Interpreted and Dictated by Neetu Patino MD Transcribed by Deandra Borges Authenticated and [facility]
[2024-12-23] MEDS: humaLOG 100 UNITS/ML 10ML VIAL (SSI) SUBCUT ×3 (06:15→16:36)
[2024-12-23 06:19] LABS: POC Glucose,Bedside 154 gm/dL (70-110)
[2024-12-23 06:38] LABS: Albumin Level 4.5 g/dl (3.5-5.0); Chloride 91 mmol/L (98-107); Sodium 125 mmol/L (136-145)
[2024-12-23 06:39] LABS: Potassium 4.5 mmoL/L (3.5-5.1)
[2024-12-23 06:40] LABS: Hematocrit 40.8 % (37.0-47.0); Hemoglobin 13.4 g/dL (12.2-16.2); Immature Granulocytes % 0.4 %; Mean Corpuscular HGB Conc 32.8 g/dL (31.8-35.4); Mean Corpuscular Hemoglobin 30.0 pg (27.0-31.2); Mean Corpuscular Volume 91.5 fl (81-99); Nucleated Red Blood Cells % 0 %; Platelet Count 343 K/mm3 (142-424); Red Blood Count 4.46 M/mm3 (4.20-5.40); Red Cell Distribution Width-SD 42.4 fL; White Blood Count 12.7 K/mm3 (4.8-10.8)
[2024-12-23 06:41] LABS: Alanine Aminotransferase 14 U/L (12-78); Albumin/Globulin Ratio 1.6 (1.1-1.8); Alkaline Phosphatase 113 U/L (38-126); Anion Gap 13.5 mEq/L (5-15); Aspartate Amino Transferase 64 U/L (14-36); Bilirubin,Total 1.0 mg/dl (0.2-1.3); Carbon Dioxide 25 mmol/L (22.0-30.0); Globulin 2.8 g/dL (1.3-3.2); Total Protein,Serum 7.3 g/dl (6.3-8.2)
[2024-12-23 06:42] LABS: Calcium 8.3 mg/dl (8.4-10.2); Glucose 160 mg/dl (74-100); Magnesium 2.0 mg/dl (1.6-2.3)
[2024-12-23 06:47] LABS: Blood Urea Nitrogen 15 mg/dl (7-17); Creatinine Clearance Estimated 50 mL/min (50-200); Creatinine,Serum 0.70 mg/dl (0.52-1.04); Estimated Glomerular Filt Rate 82 ml/min (>60); GFR (African American) 100 ML/MIN (>60)
--- NOTE | 2024-12-23 08:02 | SW/DCPLANNER ---
Addendum entered by Bernadette Felix 12/23/24 11:19: I have updated Stefani baig/ Arpan that patient may return today [facility] level of care. Original Note: Patient currently resides at [facility] level of care. Updated patient information will be faxed this AM. Discharge date is unknown. CM will continue to follow up.
[2024-12-23] MEDS: GABAPENTIN 300MG CAPSULE 300 MG PO (08:23)
[2024-12-23] MEDS: DOCUSATE SODIUM 100 MG CAPSULE PO (08:23)
[2024-12-23] MEDS: CARVEDILOL 25MG TABLET 25 MG PO (08:23)
--- NOTE | 2024-12-23 10:34 | HMH.OTEV ---
OT Evaluation Rehab OT IP Evaluation Start: 12/21/24 23:47 Freq: ONCE Status: Active Protocol: Document 12/23/24 10:23 HERB (Rec: 12/23/24 10:34 HERB [id number]) Rehab OT IP Assessment Subjective History Patient is a 74-year-old female with past medical history significant for hypertension, hyperlipidemia, DM2, GERD, anxiety and depression, dementia, bipolar disorder, urinary incontinence. Presents to [facility] from her nursing facility. It was noted the patient was sent to our facility due to concern of bradycardia and increased generalized weakness. On arrival patient was found to be tachycardic. Patient is a poor historian, history provided per chart review and staff. It was noted while in the emergency department she denied any correlating symptoms noted per the nursing facility. ED workup noted a leukocytosis of 13 and UA with 4+ bacteria, 10-20 WBCs. She was notably hypertensive while in the emergency department With systolic blood pressure in the 200 range. Elevated D-dimer of 5.32, underwent CTA chest which revealed, filling defect involving the right upper lobe apical segment right lower lobe superior segment left lower lobe superior and posterior segmental pulmonary arteries compatible with pulmonary embolism RV/LV equals 0.7 no evidence of right heart strain. ED provider discussed with Dr. Knight with cardiology, recommended nitroprusside drip along with Lovenox. Patient transferred to ICU for close monitoring. Upon assessment of patient at bedside she was without acute distress, resting in bed comfortably. Appeared confused not able to answer questions. ED workup included laboratory studies and imaging. Significant laboratory findings included WBC 13.4, D- dimer 5.32, venous blood gas 7.44, pO2 55, total CO2 27 , O2 saturation 88.8, sodium 133, BUN 18, 226 glucose, BNP 2830, UA with 2+ leukocyte esterase and 4+ bacteria . Imaging study included chest x-ray which I personally reviewed and was without any acute findings. CTA chest obtained as noted above, I personally reviewed as well noting right upper lobe apical segment right lower lobe superior segment left lower lobe superior and posterior segmental pulmonary arteries compatible with pulmonary embolism RV/LV equals 0.7 no evidence of right heart strain. Patient is a resident at [facility] . Patient is independent with w/c mobility. SBA for transfers with usage of RW. Patient requires 1 assist to ambulate with RW. 1 assist for all ADLs except for self feeding. Subjective I can sit up. Instructed Patient on safety awareness to complete bed mobility from supine->sit @ EOB->stand with usage of RW requiring Mod A. Patient stood ~:30 secs with needing support to prevent fall risk. Assisted patient back in bed with Min A. Max A for LB drsg. Objective Patient Orientation Person,Place,Name,Birthday Right Upper WFL Extremity Gross ROM Left Upper Extremity WFL Gross ROM Bed Mobility bed mobility - supine/sit Assist Level Moderate x 1 (50% assist) Transfer Training Sit/Stand/Step Transfer Assist Level Moderate x 1 (50% assist) Rehab OT IP prob,goals,plan Problems Date of Evaluation: 12/23/24 OT IP Problems Bed Mobility,Transfers,Balance,Self care,Safety Rehab Potential Rehab Potential Good Equipment Needs Assistive Devices Rolling / Wheeled Walker Plan OT intervention Plan Bed Mobility,Transfers,Balance,Self care,Safety, Therapeutic Exercise OT Plan Frequency Daily Duration LOS Discharge Goals Bed Mobility Ability Assistance x1 Sit to Stand Chair Minimal x 2 (25% assist) Transfer Ability Chair Transfer Minimal x 2 (25% assist) Ability Chair Transfer Sit to/from Ambulatory Technique Discharge Plan OT Discharge Plan Patient to continue skilled OT services while here at [facility] to improve safety awareness with ADLs and fx'l mobility. Recommend [facility] after medical d/c. Eval Complexity Eval Charge Codes 30197 - Low Complexity PHYSICIAN CERTIFICATION: I certify the specified therapy services for Sofia Valero are required, authorized, and reviewed every 30 days.
[2024-12-23 11:13] LABS: POC Glucose,Bedside 237 gm/dL (70-110)
--- NOTE | 2024-12-23 12:02 | EXP.DC.SUM ---
General Admission date:: 12/21/24 Discharge date: 12/23/24 HPI HPI HPI: Patient is a 74-year-old female with past medical history significant for hypertension, hyperlipidemia, DM2, GERD, anxiety and depression, dementia, bipolar disorder, urinary incontinence. Presents to [facility] from her nursing facility. It was noted the patient was sent to our facility due to concern of bradycardia and increased generalized weakness. On arrival patient was found to be tachycardic. Patient is a poor historian, history provided per chart review and staff. It was noted while in the emergency department she denied any correlating symptoms noted per the nursing facility. ED workup noted a leukocytosis of 13 and UA with 4+ bacteria, 10-20 WBCs. She was notably hypertensive while in the emergency department With systolic blood pressure in the 200 range. Elevated D-dimer of 5.32, underwent CTA chest which revealed, filling defect involving the right upper lobe apical segment right lower lobe superior segment left lower lobe superior and posterior segmental pulmonary arteries compatible with pulmonary embolism RV/LV equals 0.7 no evidence of right heart strain. ED provider discussed with Dr. Knight with cardiology, recommended nitroprusside drip along with Lovenox. Patient transferred to ICU for close monitoring. Upon assessment of patient at bedside she was without acute distress, resting in bed comfortably. Appeared confused not able to answer questions. ED workup included laboratory studies and imaging. Significant laboratory findings included WBC 13.4, D-dimer 5.32, venous blood gas 7.44, pO2 55, total CO2 27, O2 saturation 88.8, sodium 133, BUN 18, 226 glucose, BNP 2830, UA with 2+ leukocyte esterase and 4+ bacteria. Imaging study included chest x-ray which I personally reviewed and was without any acute findings. CTA chest obtained as noted above, I personally reviewed as well noting right upper lobe apical segment right lower lobe superior segment left lower lobe superior and posterior segmental pulmonary arteries compatible with pulmonary embolism RV/LV equals 0.7 no evidence of right heart strain. Hospital Course Hospital Course Hospital Course: 74-year-old female who resides at a custodial locally. Presented with tachycardia. Found to have bilateral PEs, UTI, malignant hypertension. Initially did on nitroprusside drip due to malignant hypertension. Showed improvement. Able to transition to oral blood pressure meds with gradual normalization of her blood pressure. Will transition to oral anticoagulation as well for bilateral PEs. Decision made to not proceed with thrombectomy due to stable echo with no right heart strain. Stable discharge back to her nursing facility for treatment of PEs, hypertension, UTI. Problems addressed as follows: Bilateral pulmonary embolism: CTA of the chest on admission noted with evidence of bilateral PEs. RV to LV ratio was 0.7. Initially started on Lovenox 1 mg/kg twice daily. Bilateral lower extremity duplex was ordered which showed no lower extremity DVT. Echo obtained showing normal LV and RV size and function with no right heart strain. Decision made not to proceed with thrombectomy. Will transition to Eliquis 10 mg twice a day for 7 days followed by 5 mg twice a day thereafter. Will need at least 3 months of therapy. Follow-up with cardiology as an outpatient for further evaluation and management of anticoagulation. Remained stable on room air and hemodynamically stable throughout admission. Hypertensive urgency: -Initially hypertensive with systolics well above 200. Started on nitroprusside drip. Showed improvement. Able to transition off nitroprusside drip and onto oral regimen including carvedilol, irbesartan, nifedipine. Given her improvement we will continue carvedilol 25 mg twice daily, irbesartan 150 mg nightly. Goal blood pressure less than 130/80. Denies chest pain. UTI: Patient was recently treated for urinary tract infection per chart review from the custodial. UA suggestive of UTI with positive leuk esterase, positive nitrite, 10-20 white cells. Urine culture growing greater than 100,000 CFU's of gram-negative rods. Previous culture positive for Klebsiella. Treated with ceftriaxone 1 g daily during admission. Complete 7 day course with ceftriaxone 1gm IM daily for 4 more days. Diabetes mellitus type 2: Hemoglobin A1c 6.6, September 2024. Regimen of metformin 500 mg daily with sliding scale 4 times daily. Noted glucose typically runs mid 100s with occasional lows in the 80s and highs 300 range. Typically controlled. Insulin sliding scale initiated with Accu-Cheks ACHS. Resume home regimen at discharge. Bipolar disorder/dementia/anxiety and depression: Patient is noted to be followed by psychiatry, noted per custodial provider patient exhibits confusion and sparse verbalization. Medication includes quetiapine 100 mg hs, lorazepam 1 mg at bedtime, trazodone 50 mg at bedtime. As noted above patient presenting with similar presentation of confusion, little verbalization. Answering questions appropriately with improved conversation by day of discharge. Patient does appear to have flat affect with some mild TD given movements/tremors in her arms and mouth movement. GERD: PPI regime includes omeprazole 40 mg daily. Total time spent on discharge 32 minutes in counseling, documentation, chart review, and direct care with patient. Exam Data for Last 24 hours Vital signs and Labs for Last 24 Hours: Temp Pulse Resp BP Pulse Ox O2 Del Method O2 Flow Rate 98.3 F 89 17 152/99 H 98 Room Air 3 12/23/24 08:01 12/23/24 08:01 12/23/24 08:01 12/23/24 08:01 12/23/24 08:01 12/23/24 09:00 12/23/24 01:00 Laboratory Results - last 24 hr 12/21/24 17:45: Urine Color Yellow, Urine Appearance Clear, Urine pH 7.0, Ur Specific [place] 1.020, Urine Protein Negative, Urine Glucose (UA) 1+, Urine Ketones Negative, Urine Blood Negative, Urine Nitrate Negative, Urine Bilirubin Negative, Urine Urobilinogen 4.0, Ur Leukocyte Esterase 2+ A, Urine RBC None, Urine WBC 10-20, Ur Squamous Epith Cells None, Urine Bacteria 4+ 12/22/24 16:11: POC Glucose 161 H 12/22/24 19:33: POC Glucose 196 H 12/23/24 06:10: WBC 12.7 H D, RBC 4.46, Hgb 13.4, Hct 40.8, MCV 91.5, MCH 30.0, MCHC 32.8, RDW 12.7, Plt Count 343, MPV 10.4, Neut % (Auto) 64.4, Lymph % (Auto) 27.0, [place] % (Auto) 6.4, Eos % (Auto) 1.0, Baso % (Auto) 0.8, Neut # (Auto) 8.2 H, Lymph # (Auto) 3.4, [place] # (Auto) 0.8, Eos # (Auto) 0.1, Baso # (Auto) 0.1, Sodium 125 L, Potassium 4.5, Chloride 91 L, Carbon Dioxide 25, Anion Gap 13.5, BUN 15, Creatinine 0.70, Estimated Creat Clear 50, Estimated GFR 82, Est GFR ( Amer) 100, Glucose 160 H, Calcium 8.3 L, Magnesium 2.0 D, Total Bilirubin 1.0, AST 64 H D, ALT 14, Alkaline Phosphatase 113, Total Protein 7.3, Albumin 4.5 D, Globulin 2.8, Albumin/Globulin Ratio 1.6 12/23/24 06:13: POC Glucose 154 H 12/23/24 11:07: POC Glucose 237 H I & O for Last 24 hours: Intake & Output 12/20/24 12/21/24 12/22/24 12/23/24 23:59 23:59 22:59 23:59 Intake Total 58.544 / 58.544 1649.076 / 1649.076 676 / 676 Output Total 2100 / 2100 400 / 400 Balance 58.544 / 58.544 -450.924 / -450.924 276 / 276 Weight 61.5 kg 61.5 kg 62.1 kg Microbiology Reports for the Last 24 Hours: Microbiology 12/21/24 17:45 Urine,Clean Catch Urine Culture - Preliminary Gram Negative Rods Constitutional Constitutional: no acute distress, thin, chronically ill appearing and cooperative *Routine HEENT Exam Head: Present normocephalic Eye: Present EOMI and PERRL ENT: Present mucous membranes moist *Routine Neck Exam Neck: Present supple; Absent lymphadenopathy *Routine Respiratory Exam Respiratory: Present CTA bilaterally; Absent rhonchi, wheezes or crackles *Routine Cardiovascular Exam Cardiovascular: Present RRR *Routine Abdominal Exam Abdominal: Present soft and normoactive bowel sounds; Absent tenderness *Routine Rectal Exam Patient deferred: visual exam *Routine Exam Patient deferred: external exam *Routine Extremities Exam Extremities: Absent cyanosis, clubbing or edema *Routine Skin Exam Skin: Present intact and warm; Absent rash *Routine Neurological Exam Neurological: Present alert, moving all extremities and tremors; Absent altered mental status Comments: Speaking today. Results Data Completed and Pending Labs on day of discharge: Labs from last 24 hours 12/23/24 12/23/24 12/23/24 11:07 06:13 06:10 WBC 12.7 H D RBC 4.46 Hgb 13.4 Hct 40.8 MCV 91.5 MCH 30.0 MCHC 32.8 RDW 12.7 Plt Count 343 MPV 10.4 Neut % (Auto) 64.4 Lymph % (Auto) 27.0 [place] % (Auto) 6.4 Eos % (Auto) 1.0 Baso % (Auto) 0.8 Neut # (Auto) 8.2 H Lymph # (Auto) 3.4 [place] # (Auto) 0.8 Eos # (Auto) 0.1 Baso # (Auto) 0.1 Sodium 125 L Potassium 4.5 Chloride 91 L Carbon Dioxide 25 Anion Gap 13.5 BUN 15 Creatinine 0.70 Estimated Creat Clear 50 Estimated GFR 82 Est GFR ( Amer) 100 Glucose 160 H POC Glucose 237 H 154 H Calcium 8.3 L Magnesium 2.0 D Total Bilirubin 1.0 AST 64 H D ALT 14 Alkaline Phosphatase 113 Total Protein 7.3 Albumin 4.5 D Globulin 2.8 Albumin/Globulin Ratio 1.6 Urine Color Urine Appearance Urine pH Ur Specific [place] Urine Protein Urine Glucose (UA) Urine Ketones Urine Blood Urine Nitrate Urine Bilirubin Urine Urobilinogen Ur Leukocyte Esterase Urine RBC Urine WBC Ur Squamous Epith Cells Urine Bacteria 12/22/24 12/22/24 12/21/24 19:33 16:11 17:45 WBC RBC Hgb Hct MCV MCH MCHC RDW Plt Count MPV Neut % (Auto) Lymph % (Auto) [place] % (Auto) Eos % (Auto) Baso % (Auto) Neut # (Auto) Lymph # (Auto) [place] # (Auto) Eos # (Auto) Baso # (Auto) Sodium Potassium Chloride Carbon Dioxide Anion Gap BUN Creatinine Estimated Creat Clear Estimated GFR Est GFR ( Amer) Glucose POC Glucose 196 H 161 H Calcium Magnesium Total Bilirubin AST ALT Alkaline Phosphatase Total Protein Albumin Globulin Albumin/Globulin Ratio Urine Color Yellow Urine Appearance Clear Urine pH 7.0 Ur Specific [place] 1.020 Urine Protein Negative Urine Glucose (UA) 1+ Urine Ketones Negative Urine Blood Negative Urine Nitrate Negative Urine Bilirubin Negative Urine Urobilinogen 4.0 Ur Leukocyte Esterase 2+ A Urine RBC None Urine WBC 10-20 Ur Squamous Epith Cells None Urine Bacteria 4+ Preliminary micro results at discharge 12/21/24 17:45 Urine Culture - Preliminary Urine,Clean Catch Gram Negative Rods DS: Diagnosis Discharge Diagnosis (1) Bilateral pulmonary embolism: Status: Acute Code(s): I26.99 - Other pulmonary embolism without acute cor pulmonale (2) Hypertensive urgency: Status: Acute Code(s): I16.0 - Hypertensive urgency (3) Urinary tract infection: Status: Acute Code(s): N39.0 - Urinary tract infection, site not specified Qualifiers: Encounter type: subsequent encounter (4) Bipolar disorder, unspecified: Status: Acute Code(s): F31.9 - Bipolar disorder, unspecified (5) Diabetes mellitus: Status: Acute Code(s): E11.9 - Type 2 diabetes mellitus without complications (6) HLD (hyperlipidemia): Status: Acute Code(s): E78.5 - Hyperlipidemia, unspecified (7) Dementia: Status: Acute Code(s): F03.90 - Unspecified dementia, unspecified severity, without behavioral disturbance, psychotic disturbance, mood disturbance, and anxiety Qualifiers: Dementia type: unspecified type (8) Anxiety and depression: Status: Acute Code(s): F41.9 - Anxiety disorder, unspecified; F32.A - Depression, unspecified (9) GERD (gastroesophageal reflux disease): Status: Acute Code(s): K21.9 - Gastro-esophageal reflux disease without esophagitis Meds Home Medications and Allergies Home Medications ?Medication ?Instructions ?Recorded ?Confirmed ?Type albuterol 90 mcg-budesonide 80 2 inh inhalation Q4HP PRN Asthma 10/17/24 12/22/24 Rx mcg/actuation HFA aerosol inhaler #10.7 grams (Airsupra) atorvastatin 80 mg tablet (Lipitor) 80 mg PO HS #30 tabs 10/17/24 12/22/24 Rx ferrous sulfate 325 mg (65 mg 325 mg PO DAILY 10/17/24 12/22/24 History iron) tablet folic acid 1 mg tablet 1 mg PO DAILY #30 tabs 10/17/24 12/22/24 Rx montelukast 10 mg tablet 10 mg PO HS GERD 10/17/24 12/22/24 History (Singulair) omeprazole 40 mg capsule,delayed 40 mg PO DAILY GERD 10/17/24 12/22/24 History release trazodone 50 mg tablet 50 mg PO HS #30 tabs 10/17/24 12/22/24 Rx gabapentin 300 mg capsule 300 mg PO BID #4 caps 11/07/24 12/22/24 Rx lorazepam 1 mg tablet 1 mg PO HS insomnia #30 tabs 11/12/24 12/22/24 Rx carvedilol 25 mg tablet 25 mg PO BID #60 tabs 11/20/24 12/22/24 Rx metformin 500 mg tablet 500 mg PO BID #60 tabs 12/10/24 12/22/24 Rx quetiapine 100 mg tablet (Seroquel) 100 mg PO HS 12/10/24 12/22/24 History acetaminophen 325 mg tablet 325 mg PO Q8HP PRN Mild Pain 12/22/24 12/22/24 History (Scale Score 1-4) diclofenac sodium 1 % topical gel 4 g topical BID 12/22/24 12/22/24 History docusate sodium 100 mg capsule 100 mg PO BID 12/22/24 12/22/24 History insulin aspart U-100 100 unit/mL 0 sliding scale dose SQ ACHS 12/22/24 12/22/24 History (3 mL) subcutaneous pen (Novolog FlexPen U-100 Insulin aspart) mecobalamin (vitamin B12) 1,000 1,000 mcg PO DAILY 12/22/24 12/22/24 History mcg chewable tablet (B12 Active) oxycodone-acetaminophen 5 mg-325 1 tab PO Q6HP PRN Severe Pain 12/22/24 12/22/24 History mg tablet (Scale Score 7-10) polyethylene glycol 3350 17 gram 17 g PO BID 12/22/24 12/22/24 History oral powder packet apixaban 5 mg (74 tabs) tablets in 5 mg PO BID #74 tabs 12/23/24 Rx a dose pack (Eliquis DVT-PE Treat 30D Start) ceftriaxone 1 gram solution for 1 g IM DAILY 4 days #4 ea 12/23/24 Rx injection irbesartan 150 mg tablet 150 mg PO HS 30 days #30 tabs 12/23/24 Rx New Prescriptions to Start Prescriptions: apixaban [Eliquis DVT-PE Treat 30D Start] Elias Sparks ceftriaxone Elias Sparks irbesartan Elias Sparks Allergies Allergy/AdvReac Type Severity Reaction Status Date / Time latex Allergy Mild Verified 11/09/23 14:24 codeine (CODEINE) Allergy Unknown Verified 11/09/23 14:24 fexofenadine (From JANE) Allergy Unknown Verified 11/09/23 14:24 iopamidol (IOPAMIDOL) Allergy Unknown Verified 11/09/23 14:24 meperidine (MEPERIDINE) Allergy Unknown Verified 11/09/23 14:24 Penicillins (PENICILLINS) Allergy Unknown Verified 11/09/23 14:24 piroxicam (From FELDENE) Allergy Unknown Verified 11/09/23 14:24 sulfamethoxazole (From Allergy Unknown Verified 11/09/23 14:24 BACTRIM) trimethoprim (From BACTRIM) Allergy Unknown Verified 11/09/23 14:24 cefdinir Allergy Verified 10/22/24 22:18 cyclobenzaprine Allergy Verified 10/22/24 22:18 levofloxacin Allergy Verified 10/22/24 22:18 pseudoephedrine (From Allergy Verified 10/22/24 22:18 Sudafed) simvastatin (From Zocor) Allergy Verified 11/09/23 14:24 Discharge Plan Disposition Patient Disposition: Xfer Intermediate Care Fac Condition: Good Discharge Order Discharge Orders: Discharge Order (Routine); Ordered 12/23/24 Ordered By: Elias Sparks Follow up Plan Follow up with: Casey Espinoza PA [Physician [employer], Cardiology] - 12/31/24 2:15 pm Prescriptions/Medication Reconciliation: New irbesartan 150 mg Tablet 150 mg PO HS 30 Days Qty: 30 0RF Eliquis DVT-PE Treat 30D Start 5 mg (74 tabs) tablets,dose pack 5 mg PO BID Qty: 74 0RF Rx Instructions: 2 tabs BID for 7 days, then 1 tab BID thereafter ceftriaxone 1 gram recon soln 1 g IM DAILY 4 Days Qty: 4 0RF Rx Instructions: first dose due 12/24/24 Continued quetiapine [Seroquel] 100 mg tablet 100 mg PO HS carvedilol 25 mg tablet 25 mg PO BID Qty: 60 2RF Rx Instructions: must administer with a meal/food, HOLD FOR SBP<100, DBP>60 OR HR <60 ferrous sulfate 325 mg (65 mg iron) tablet 325 mg PO DAILY montelukast [Singulair] 10 mg tablet 10 mg PO HS omeprazole 40 mg capsule,delayed release(DR/EC) 40 mg PO DAILY atorvastatin [Lipitor] 80 mg tablet 80 mg PO HS Qty: 30 2RF trazodone 50 mg tablet 50 mg PO HS Qty: 30 0RF folic acid 1 mg tablet 1 mg PO DAILY Qty: 30 2RF Airsupra 90-80 mcg/actuation HFA aerosol inhaler 2 inh inhalation Q4HP PRN (Reason: Asthma) Qty: 10.7 0RF gabapentin 300 mg capsule 300 mg PO BID Qty: 4 2RF lorazepam 1 mg tablet 1 mg PO HS Qty: 30 2RF metformin 500 mg tablet 500 mg PO BID Qty: 60 2RF mecobalamin (vitamin B12) [B12 Active] 1,000 mcg Tablet,Chewable 1,000 mcg PO DAILY docusate sodium 100 mg Capsule 100 mg PO BID acetaminophen 325 mg tablet 325 mg PO Q8HP PRN (Reason: Mild Pain (Scale Score 1-4)) polyethylene glycol 3350 17 gram Powder In Packet 17 g PO BID insulin aspart U-100 [Novolog FlexPen U-100 Insulin] 100 unit/mL (3 mL) Insulin Pen 0 sliding scale dose SQ ACHS Protocol: Insulin Corrective High-Dose Regimen Condition: Fingerstick Blood Glucose Dose/Route: Insulin Units Condition: 151-200 mg/dl Dose/Route: 4 units/SQ Condition: 201-250 mg/dl Dose/Route: 6 units/SQ Condition: 251-300 mg/dl Dose/Route: 8 units/SQ Condition: 301-350 mg/dl Dose/Route: 10 units/SQ Condition: 351-400 mg/dl Dose/Route: 12 units/SQ Condition: > 400 mg/dl Dose/Route: 14 units/SQ and CALL MD Protocol Text: High Intensity Sliding Scale Insulin diclofenac sodium 1 % Gel 4 g TOPICAL BID Rx Instructions: apply to both knees oxycodone-acetaminophen 5-325 mg tablet 1 tab PO Q6HP PRN (Reason: Severe Pain (Scale Score 7-10)) Discontinued lisinopril 5 mg Tablet 5 mg PO DAILY Problem Reconciliation Problems Reviewed?: Yes Patient Discharge Instructions ACTIVITY: Continue current activity DIET: continue same diet Patient Instructions: DI for Pulmonary Embolism, DI for High Blood Pressure, DI for Urinary Tract Infection (UTI) Print Language: Mohawk Providers Primary Care Provider: Tessy Goodman Admit Provider: Elias Sparks Attending Provider: Elias Sparks
--- NOTE | 2024-12-23 14:11 | PC.NURSE ---
report called to neha matias
--- NOTE | 2024-12-23 14:45 | EXP.CARD.CON ---
History of Present Illness History of Present Illness Consult date: 12/23/24 Requesting physician: Elias Sparks Consult reason: chest pain and shortness of breath Chief complaint: SOA, bilateral PE Additional Medical History:: 1. Hypertension 2. Hyperlipidemia 3. Diabetes mellitus type 2 4. GERD 5. History of anxiety depression/dementia/bipolar disorder 6. Bilateral pulmonary emboli, 12/2024 A. Begin Eliquis therapy History of present illness: Patient is a 74-year-old female with past medical history significant for hypertension, hyperlipidemia, DM2, GERD, anxiety and depression, dementia, bipolar disorder, urinary incontinence. Presents to [facility] from her nursing facility. It was noted the patient was sent to our facility due to concern of bradycardia and increased generalized weakness. On arrival patient was found to be tachycardic. Patient is a poor historian, history provided per chart review and staff. It was noted while in the emergency department she denied any correlating symptoms noted per the nursing facility. ED workup noted a leukocytosis of 13 and UA with 4+ bacteria, 10-20 WBCs. She was notably hypertensive while in the emergency department With systolic blood pressure in the 200 range. Elevated D-dimer of 5.32, underwent CTA chest which revealed, filling defect involving the right upper lobe apical segment right lower lobe superior segment left lower lobe superior and posterior segmental pulmonary arteries compatible with pulmonary embolism RV/LV equals 0.7 no evidence of right heart strain. ED provider discussed with Dr. Knight with cardiology, recommended nitroprusside drip along with Lovenox. Patient transferred to ICU for close monitoring. Upon assessment of patient at bedside she was without acute distress, resting in bed comfortably. Appeared confused not able to answer questions. ED workup included laboratory studies and imaging. Significant laboratory findings included WBC 13.4, D-dimer 5.32, venous blood gas 7.44, pO2 55, total CO2 27, O2 saturation 88.8, sodium 133, BUN 18, 226 glucose, BNP 2830, UA with 2+ leukocyte esterase and 4+ bacteria. Imaging study included chest x-ray which I personally reviewed and was without any acute findings. CTA chest obtained as noted above, I personally reviewed as well noting right upper lobe apical segment right lower lobe superior segment left lower lobe superior and posterior segmental pulmonary arteries compatible with pulmonary embolism RV/LV equals 0.7 no evidence of right heart strain. The above per Dr. Sparks Above evidence reviewed with patient and she confirms. Patient is not overly talkative but does answer questions simply. She is comfortable on room air with oxygen saturations at 98%. CTA of the chest showed RV/LV ratio of 0.7. Echocardiogram today shows normal LV size and function, normal RV size and function with no significant valve disease. [facility] Disclaimer: The information contained in this section may have been updated after the patient was seen, as this information can be updated by other users. Medical History Tardive dyskinesia Former smoker Bipolar disorder, unspecified Diabetes mellitus GERD (gastroesophageal reflux disease) Anxiety and depression HTN (hypertension) HLD (hyperlipidemia) Chronic pain of right knee Constipation Dementia Right ureteral calculus Left against medical advice Urinary incontinence Cervical radiculitis Left knee pain Left patella fracture Acute UTI Altered awareness, transient Surgical History History of total right knee replacement History of D&C History of cholecystectomy Family History Other No significant family history Social History Smoking Status: Never smoker alcohol intake: never counseling provided: none substance use type: denies use current occupational status: unemployed Travel in the last 8 weeks?: None housing: custodial caffeine: No Review of Systems Review of Systems Review of systems:: pertinent systems reviewed and negative unless documented below *Cardiovascular Cardiovascular: Reports chest pain and Reports dyspnea *Respiratory Respiratory: Reports dyspnea and Denies wheezing *Neurologic Neurologic: Reports as per HPI Allergic/Immunologic Allergic/Immunologic: Denies wheezing Exam Data for Last 24 hours Vital signs and Labs for Last 24 Hours: Temp Pulse Resp BP Pulse Ox O2 Del Method O2 Flow Rate 98.3 F 83 14 103/58 L 97 Room Air 3 12/23/24 08:01 12/23/24 12:57 12/23/24 12:01 12/23/24 12:57 12/23/24 12:57 12/23/24 13:00 12/23/24 01:00 Laboratory Results - last 24 hr 12/21/24 17:45: Urine Color Yellow, Urine Appearance Clear, Urine pH 7.0, Ur Specific Artemas 1.020, Urine Protein Negative, Urine Glucose (UA) 1+, Urine Ketones Negative, Urine Blood Negative, Urine Nitrate Negative, Urine Bilirubin Negative, Urine Urobilinogen 4.0, Ur Leukocyte Esterase 2+ A, Urine RBC None, Urine WBC 10-20, Ur Squamous Epith Cells None, Urine Bacteria 4+ 12/22/24 16:11: POC Glucose 161 H 12/22/24 19:33: POC Glucose 196 H 12/23/24 06:10: WBC 12.7 H D, RBC 4.46, Hgb 13.4, Hct 40.8, MCV 91.5, MCH 30.0, MCHC 32.8, RDW 12.7, Plt Count 343, MPV 10.4, Neut % (Auto) 64.4, Lymph % (Auto) 27.0, Amelia % (Auto) 6.4, Eos % (Auto) 1.0, Baso % (Auto) 0.8, Neut # (Auto) 8.2 H, Lymph # (Auto) 3.4, Amelia # (Auto) 0.8, Eos # (Auto) 0.1, Baso # (Auto) 0.1, Sodium 125 L, Potassium 4.5, Chloride 91 L, Carbon Dioxide 25, Anion Gap 13.5, BUN 15, Creatinine 0.70, Estimated Creat Clear 50, Estimated GFR 82, Est GFR ( Amer) 100, Glucose 160 H, Calcium 8.3 L, Magnesium 2.0 D, Total Bilirubin 1.0, AST 64 H D, ALT 14, Alkaline Phosphatase 113, Total Protein 7.3, Albumin 4.5 D, Globulin 2.8, Albumin/Globulin Ratio 1.6 12/23/24 06:13: POC Glucose 154 H 12/23/24 11:07: POC Glucose 237 H I & O for Last 24 hours: Intake & Output 12/21/24 12/22/24 12/23/24 12/24/24 11:59 10:59 11:59 11:59 Intake Total 987.620 / 4098.910 7117 / 1396 125 / 125 Output Total 850 / 900 1650 / 1650 Balance 137.620 / 307.620 -254 / -254 125 / 125 Weight 135 lb 9.349 oz 136 lb 14.513 oz Microbiology Reports for the Last 24 Hours: Microbiology 12/21/24 17:45 Urine,Clean Catch Urine Culture - Preliminary Gram Negative Rods Constitutional Constitutional: no acute distress *Routine Respiratory Exam Respiratory: Present decreased breath sounds; Absent rales or wheezes *Routine Cardiovascular Exam Cardiovascular: Present RRR; Absent murmur, gallop or rubs *Routine Extremities Exam Extremities: Absent edema *Routine Neurological Exam Neurological: Present alert, oriented X3 and CN II-XII intact Meds Home Medications and Allergies Home Medications ?Medication ?Instructions ?Recorded ?Confirmed ?Type albuterol 90 mcg-budesonide 80 2 inh inhalation Q4HP PRN Asthma 10/17/24 12/22/24 Rx mcg/actuation HFA aerosol inhaler #10.7 grams (Airsupra) atorvastatin 80 mg tablet (Lipitor) 80 mg PO HS #30 tabs 10/17/24 12/22/24 Rx ferrous sulfate 325 mg (65 mg 325 mg PO DAILY 10/17/24 12/22/24 History iron) tablet folic acid 1 mg tablet 1 mg PO DAILY #30 tabs 10/17/24 12/22/24 Rx montelukast 10 mg tablet 10 mg PO HS GERD 10/17/24 12/22/24 History (Singulair) omeprazole 40 mg capsule,delayed 40 mg PO DAILY GERD 10/17/24 12/22/24 History release trazodone 50 mg tablet 50 mg PO HS #30 tabs 10/17/24 12/22/24 Rx gabapentin 300 mg capsule 300 mg PO BID #4 caps 11/07/24 12/22/24 Rx lorazepam 1 mg tablet 1 mg PO HS insomnia #30 tabs 11/12/24 12/22/24 Rx carvedilol 25 mg tablet 25 mg PO BID #60 tabs 11/20/24 12/22/24 Rx metformin 500 mg tablet 500 mg PO BID #60 tabs 12/10/24 12/22/24 Rx quetiapine 100 mg tablet (Seroquel) 100 mg PO HS 12/10/24 12/22/24 History acetaminophen 325 mg tablet 325 mg PO Q8HP PRN Mild Pain 12/22/24 12/22/24 History (Scale Score 1-4) diclofenac sodium 1 % topical gel 4 g topical BID 12/22/24 12/22/24 History docusate sodium 100 mg capsule 100 mg PO BID 12/22/24 12/22/24 History insulin aspart U-100 100 unit/mL 0 sliding scale dose SQ ACHS 12/22/24 12/22/24 History (3 mL) subcutaneous pen (Novolog FlexPen U-100 Insulin aspart) mecobalamin (vitamin B12) 1,000 1,000 mcg PO DAILY 12/22/24 12/22/24 History mcg chewable tablet (B12 Active) oxycodone-acetaminophen 5 mg-325 1 tab PO Q6HP PRN Severe Pain 12/22/24 12/22/24 History mg tablet (Scale Score 7-10) polyethylene glycol 3350 17 gram 17 g PO BID 12/22/24 12/22/24 History oral powder packet apixaban 5 mg (74 tabs) tablets in 5 mg PO BID #74 tabs 12/23/24 Rx a dose pack (Eliquis DVT-PE Treat 30D Start) irbesartan 150 mg tablet 150 mg PO HS 30 days #30 tabs 12/23/24 Rx levofloxacin 750 mg tablet 750 mg PO DAILY #4 tabs 12/23/24 Rx New Prescriptions to Start Prescriptions: apixaban [Eliquis DVT-PE Treat 30D Start] Elias Sparks irbesartan Elias Sparks levofloxacin Elias Sparks Allergies Allergy/AdvReac Type Severity Reaction Status Date / Time latex Allergy Mild Verified 11/09/23 14:24 codeine (CODEINE) Allergy Unknown Verified 11/09/23 14:24 fexofenadine (From JANE) Allergy Unknown Verified 11/09/23 14:24 iopamidol (IOPAMIDOL) Allergy Unknown Verified 11/09/23 14:24 meperidine (MEPERIDINE) Allergy Unknown Verified 11/09/23 14:24 Penicillins (PENICILLINS) Allergy Unknown Verified 11/09/23 14:24 piroxicam (From FELDENE) Allergy Unknown Verified 11/09/23 14:24 sulfamethoxazole (From Allergy Unknown Verified 11/09/23 14:24 BACTRIM) trimethoprim (From BACTRIM) Allergy Unknown Verified 11/09/23 14:24 cefdinir Allergy Verified 10/22/24 22:18 cyclobenzaprine Allergy Verified 10/22/24 22:18 levofloxacin Allergy Verified 10/22/24 22:18 pseudoephedrine (From Allergy Verified 10/22/24 22:18 Sudafed) simvastatin (From Zocor) Allergy Verified 11/09/23 14:24 Assessment and Plan *Assessment and plan (1) Bilateral pulmonary embolism: Status: Acute Category: Medical Code(s): I26.99 - Other pulmonary embolism without acute cor pulmonale (2) Hypertensive urgency: Status: Acute Category: Medical Code(s): I16.0 - Hypertensive urgency (3) UTI (urinary tract infection): Status: Acute Qualifiers: Urinary tract infection type: site unspecified Hematuria presence: without hematuria Qualified Code(s): N39.0 - Urinary tract infection, site not specified Category: Medical Code(s): N39.0 - Urinary tract infection, site not specified (4) Dementia: Status: Acute Qualifiers: Dementia type: unspecified type Dementia severity: unspecified severity Dementia behavioral or psychological symptom: unspecified whether behavioral, psychotic, or mood disturbance or anxiety Qualified Code(s): F03.90 - Unspecified dementia, unspecified severity, without behavioral disturbance, psychotic disturbance, mood disturbance, and anxiety Category: Medical Code(s): F03.90 - Unspecified dementia, unspecified severity, without behavioral disturbance, psychotic disturbance, mood disturbance, and anxiety (5) HTN (hypertension): Status: Acute Qualifiers: Hypertension type: primary hypertension Qualified Code(s): I10 - Essential (primary) hypertension Category: Medical Code(s): I10 - Essential (primary) hypertension (6) HLD (hyperlipidemia): Status: Acute Qualifiers: Hyperlipidemia type: mixed hyperlipidemia Qualified Code(s): E78.2 - Mixed hyperlipidemia Category: Medical Code(s): E78.5 - Hyperlipidemia, unspecified (7) Anxiety and depression: Status: Acute Category: Medical Code(s): F41.9 - Anxiety disorder, unspecified; F32.A - Depression, unspecified (8) Bipolar disorder, unspecified: Status: Acute Qualifiers: Active/Remission status: remission status unspecified Qualified Code(s): F31.9 - Bipolar disorder, unspecified Category: Medical Code(s): F31.9 - Bipolar disorder, unspecified (9) Diabetes mellitus: Status: Acute Qualifiers: Diabetes mellitus type: type 2 Diabetes mellitus long term care phlebotomist insulin use: without long term care phlebotomist use Diabetes mellitus complication status: with circulatory complication Diabetes mellitus complication detail: with other circulatory complications Qualified Code(s): E11.59 - Type 2 diabetes mellitus with other circulatory complications Category: Medical Code(s): E11.9 - Type 2 diabetes mellitus without complications (10) GERD (gastroesophageal reflux disease): Status: Acute Qualifiers: Esophagitis presence: esophagitis presence not specified Qualified Code(s): K21.9 - Gastro-esophageal reflux disease without esophagitis Category: Medical Code(s): K21.9 - Gastro-esophageal reflux disease without esophagitis Plan 1. Bilateral pulmonary emboli without RV strain, D-dimer 5.32 with CTA evidence of bilateral PE -CTA of the chest RV/LV ratio 0.7 -Room air sats in the upper 90% -Patient has been on Lovenox which will be converted to Eliquis 2. Hypertensive urgency requiring night pride -Well-controlled on oral medications of carvedilol, irbesartan, nifedipine 3. UTI -On ceftriaxone 4. History of dementia/anxiety/depression/bipolar disorder -On Seroquel and trazodone 5. Hyperlipidemia -On atorvastatin 6. Diabetes mellitus -Home medication of metformin currently on as needed insulin 7. History of GERD -On PPI therapy Echocardiogram today shows normal LV and RV size and function with no significant valve disease. No plan for pulmonary thrombectomy. Okay to switch to Eliquis 10 mg twice daily for 7 days then 5 mg twice daily thereafter Stable from cardiac standpoint for discharge back to the custodial. Medication recommendations: Eliquis 10 mg twice daily for 7 days then 5 mg twice daily thereafter Carvedilol 25 mg twice daily Avapro 150 mg daily nifedipine 10 mg 3 times daily Atorvastatin 80 mg daily Follow-up in the office in 2 to 3 weeks
[2024-12-23] MEDS: CEFTRIAXONE 1 GM 1 GM in 0.9 % SODIUM CHLORIDE 50 ML IV (16:28)
--- NOTE | 2024-12-23 16:31 | PC.NURSE ---
report called to [facility]
--- NOTE | 2024-12-23 17:04 | PC.NURSE ---
[facility] CALLED AND NOTIFIED OF NEED FOR TRANSPORT. 2 CALLS AHEAD OF THIS PATIENT.
[2024-12-23 17:12] LABS: POC Glucose,Bedside 299 gm/dL (70-110)
[2024-12-23 17:12] LABS: POC Glucose,Bedside 302 gm/dL (70-110)
--- NOTE | 2024-12-23 18:59 | CA_ITS ---
APPROVED REPORT EXAM: Comprehensive 2D, Doppler, and color-flow Echocardiogram Manager Wholesale: Sadia Harp, RT(R) Ht: 5 ft 6 in Wt: 135lbs BSA: 1.69 BP: 154/99 mmHg Indications: bradycardia/tachycardia, bilateral PE. 2D Dimensions LVEF (Mcclellan's) 61.00 % F: 54 - 74 LV Volume 62.50 mL F: 46 - 106 LV Volume Index 37.0 mL/m2 F: 29 - 61 LA Volume 11.60 mL LA Volume Index 6.86 mL/m2 (M/F) 16-34 EF AP4 61.30 % EF AP2 59.5 % EF BP 61.0 % GL Strain -19.6 % M-Mode Dimensions RVDd 2.33 cm (0.9-2.6) LA Diam 2.58 cm (1.9-4.0) LVDd 2.94 cm (3.5-5.7) LVDs 2.18 cm (3.5-5.7) IVSd 0.90 cm (0.6-1.1) PWd 1.00 cm (0.6-1.1) EF (Teich) 52.60% FS 25.90% EDV (Teich) 33.30 mL ESV (Teich) 15.80 mL LV Diastology E Decel Time 207 (160-240 msec) E/A Ratio 0.8 Mitral Valve MV E Max Vaibhav. 59.0 (40-130 cm/s) MV A Velocity 72.0 (40-130 cm/s) E/A Ratio 0.82 MV PHT 61.0 ms Left Ventricle The left ventricle is normal size. Left ventricular systolic function is normal. The left ventricular ejection fraction is within the normal range. There is increased left ventricular wall thickness. There is normal LV segmental wall motion. Transmitral Doppler flow pattern suggests impaired LV relaxation. LVEF is 55% Right Ventricle The right ventricle is normal size. The right ventricular systolic function is normal. Atria The left atrium size is normal. The right atrium size is normal. There is no color Doppler evidence of interatrial shunt. Aortic Valve The aortic valve opens well. There is no hemodynamically significant aortic valvular stenosis. No aortic regurgitation is present. Mitral Valve The mitral valve is normal in structure. No evidence of mitral valve stenosis. Trace mitral regurgitation is present. Tricuspid Valve The tricuspid valve leaflets are thin and pliable. Trace tricuspid regurgitation. There is insufficient TR jet to estimate RVSP. Pulmonic Valve The pulmonary valve is grossly normal in structure. Trace pulmonic valve regurgitation is present. Great Vessels The aortic root is normal in size. IVC is normal in size and collapses >50% with inspiration. Pericardium There is no pericardial effusion. Other Information Study Quality: Fair Conclusion Normal LV systolic function. Normal RV size and function. No significant valvular stenosis or regurgitation. Electronically signed by : Whitney Pierre MD 12/23/2024 12:47:49
--- NOTE | 2024-12-25 05:42 | PC.NURSE ---
Pt was admitted to ICU. Urine cx positive. Results forwarded to hospitalist.
== END 2024-12-23 18:00 ==
LOC: ER 21:14 → ICU 12-22 06:04
PROVIDERS: Nurse Practitioner Acute Care; Physician Assistant; Admitting Provider Internal Medicine Adolescent Medicine; Emergency Provider Emergency Medicine; PCP Nurse Practitioner Family; Visit Provider Internal Medicine Adolescent Medicine
DX: I26.99 Other pulmonary embolism without acute cor pulmonale (principal); I16.0 Hypertensive urgency; N39.0 Urinary tract infection, site not specified; F31.9 Bipolar disorder, unspecified; E11.9 Type 2 diabetes mellitus without complications; E78.5 Hyperlipidemia, unspecified; F03.90 Unspecified dementia, unspecified severity, without behavioral disturbance, psychotic disturbance, mood disturbance, and anxiety; K21.9 Gastro-esophageal reflux disease without esophagitis; I10 Essential (primary) hypertension; E78.2 Mixed hyperlipidemia; F41.8 Other specified anxiety disorders; R00.0 Tachycardia, unspecified; Z87.891 Personal history of nicotine dependence; Z91.040 Latex allergy status; Z88.5 Allergy status to narcotic agent; Z88.8 Allergy status to other drugs, medicaments and biological substances; Z91.041 Radiographic dye allergy status; Z88.0 Allergy status to penicillin; Z88.6 Allergy status to analgesic agent; Z88.2 Allergy status to sulfonamides; Z88.1 Allergy status to other antibiotic agents; Z79.4 Long term (current) use of insulin; Z79.84 Long term (current) use of oral hypoglycemic drugs; Z79.899 Other long term (current) drug therapy
CPT/HCPCS: 36415; 71045; 71275; 80053; 81001; 82803; 82962; 83735; 83880; 84439; 84443; 84484; 85025; 85378; 87086; 87088; 87186; 93005; 93306; 93970; 96365; 96366; 96367; 96372; 96375; 96376; 97162; 97165; 97530; 99285; G0378; J0696; J1650; J3475; J7060; Q9967

== ENCOUNTER 2024-12-30 08:18 | Outpatient (CLI) | payer MEDICARE, SELFPAY ==
--- OUTSIDE RECORDS SUMMARY | 2024-12-30 08:23 | XMS_ITS | Clinical Summary ---
Author Organization [facility] Address [address] [place] [address] Care Team Providers Care Antique Jewelry Repairer Name Role Phone Tessy Goodman APRN Primary Care Provider [phone] Allergies Active Allergy Reactions Criticality Noted Date [...] exertion 08/06/2020 Coronary artery disease invo lving hoh coronary artery of hoh heart 08/06/2020 Social History Tobacco Use Types [...] help finding or keeping work or a radah b? Not on file 11/28/2022 Disabilities Answer [...] - 5.60 % 10/25/2016 8:38 AM EDT [facility] Blood Venipuncture / Unknown 10/25/2016 8:14 AM EDT 10/25/2016 8:23 AM EDT Narrative [facility] - 10/25/2016 8:38 AM EDT The [place] [employer] recommends maintenance of Hemoglobin A1C at 7.0% or lower. Goals for Hemoglobin A1C reduction may need to be modified if hypoglycemia is a problem. Musa Echevarria MD LAB BLOOD ORDERABLES Final Res ult [facility]
[address] [place] [address], from Last 3 Months or Most Recently Relevant to Health Maintenance Insurance [employer] [facility] [employer] MEDICARE ADVANTAGE Care Teams Antique Jewelry Repairer Relationship Specialty Start Date End Date Tessy Goodman APRN [address] [place] [address] PCP - General Nurse Practitioner 08/06/20
--- OUTSIDE RECORDS SUMMARY | 2024-12-30 08:23 | XMS_ITS | Clinical Summary ---
Author Organization [facility] Address [address] [place] [address] Care Team Providers Care Historiography Professor Name Role Phone Tessy Goodman VIROLOGY TEACHER Primary Care Provider [phone] Allergies Active Allergy Reactions Criticality Noted Date [...] pcp labs Coronary artery disease invo lving [place] coronary artery of [place] heart 08/06/2020 Assessment & Plan (12/02/2020 3:09 [...] Description 02/04/2025 2:20 PM EST Office Visit [facility] Endocrinology [address] [place] [address] Elisabeth Parrish PA [address] [place] [address] Health Maintenance Due Date Last [...] of 2 - PCV) 05/26/2018 05/26/2017, 11/01/2010 [id number] Vaccine (3 - 2024- season) 2024 06/11/2020, [...] complication, without long-term current use of insulin ([facility]) from Last 3 Months or Most Recently Relevant to Health Maintenance Results * (ABNORMAL) POCT glycosylated hemoglobin (Hb A1C) (08/19/2024 1:32 PM EDT) POCT Hemoglobin A1C 5.8 <5.7% Non-Diabet ic % [facility] Kit Lot Number [id number] [facility] Highlighter LAB Kit Expiration Date 06/16 [facility] Blood Venous blood specimen / Unknown 08/19/2024 1:32 PM EDT Elisabeth MCMILLAN POINT OF CARE TEST EN TER/EDIT ORDERABLES Final Result [facility] [address] [place] [phone] from Last 3 Months or Most Recently Relevant to Health Maintenance Insurance [facility] [facility] MEDICAID [employer] MEDICARE Care Teams Historiography Professor Relationship Specialty Start Date End Date Tessy Goodman APRN [address] [place] [address] PCP - General 07/03/20
--- OUTSIDE RECORDS SUMMARY | 2024-12-30 08:23 | XMS_ITS | Clinical Summary ---
Author Organization [facility] Address [address] [place] [phone] Phone Care Team Providers Care Hand Touch Up Painter Name Role Phone Unavailable Primary Care Provider [...] Impressions 04/10/2023 7:34 AM EST Benign finding ([id number]) ~ RECOMMENDATION: Routine screening mammogram in 1 [...] the next mammogram, in accordance with the [place] [employer] and the Society of Breast Imaging recommendations. Narrative 04/10/2023 7:34 AM EST Procedure:MM MAMMO DIGITAL JULIO CÉSAR SCREEN BILAT ~ Reason for exam: screening, asymptomatic. Z12.31-Encounter for screening mammogram for malignant neoplasm of [id number] ~ MM MAMMO DIGITAL JULIO CÉSAR SCREEN [...] for screening mammogram for malignant neoplasm of [id number] ~ MM MAMMO DIGITAL JULIO CÉSAR SCREEN [...] evidence of malignancy. ~ IMPRESSION: Benign finding ([id number]) ~ RECOMMENDATION: Routine screening mammogram in 1 [...] the next mammogram, in accordance with the [place] [employer] and the Society of Breast Imaging recommendations. Tessy Goodman APRN [facility] ORDERABLES Fin al Result from Last 3 Months or Most Recently Relevant to Health Maintenance [place] [address] [place] [id number] MEDICARE HMO MR
--- OUTSIDE RECORDS SUMMARY | 2024-12-30 08:23 | XMS_ITS | Clinical Summary ---
Author Organization [facility] ([place], [place], [place], [place], [place]) Address [address] [place] [address] Care Team Providers Care Underground Distribution Engineer Name Role Phone Tessy Goodman APRN Primary Care Provider [phone] Allergies Active Allergy Reactions Criticality Noted Date [...] continue podiatry Coronary artery disease invo lving tribe coronary artery of tribe heart 08/06/2020 01/20/2023 Overview (01/20/2023): Last Assessment [...] Date Mac rded Speak language other than Persian at home Not on file 03/02/2023 Want [...] or Tdap) 08/10/2032 08/10/2022, 06/02/2017, 01/28/[address] [place] [address] [place] [address] [facility] Care Teams Underground Distribution Engineer Relationship Specialty Start Date End Date Tessy Goodman, GUEST RELATION OFFICER [address] [place] [address] PCP - General Family Medicine 01/20/23
--- OUTSIDE RECORDS SUMMARY | 2024-12-30 08:23 | XMS_ITS | Referral Summary ---
Author Organization [facility] ([place], [place], [place], [place], [place]) Address [address] [place] [address] Care Team Providers Care Stained Glass Window Designer Name Role Phone Tessy Goodman APRN Primary Care Provider [phone] Allergies Active Allergy Reactions Criticality Noted Date [...] continue podiatry Coronary artery disease invo lving [place] coronary artery of [place] heart 08/06/2020 01/20/2023 Overview (01/20/2023): Last Assessment [...] Date Mac rded Speak language other than Colombian at home Not on file 03/02/2023 Want [...] Plan of Treatment Not on file Insurance [facility] Care Teams Stained Glass Window Designer Relationship Specialty Start Date End Date Tessy Goodman, ELECTROPHONIC ENGINEER [address] [place] [address] PCP - General Family Medicine 01/20/23
== END 2024-12-30 23:59 | disposition home or self-care (01) ==
PROVIDERS: PCP Family Medicine; Visit Provider Family Medicine
DX: I26.99 Other pulmonary embolism without acute cor pulmonale (principal); I10 Essential (primary) hypertension
CPT/HCPCS: 87086

== ENCOUNTER 2025-01-01 08:23 | Outpatient (CLI) | payer MEDICARE, SELFPAY ==
[2025-01-01 08:24] LABS: Microscopic, Urine URINE MICROSCOPIC (MICROSCOPIC)
[2025-01-01 08:30] LABS: Hematocrit 37.2 % (37.0-47.0); Hemoglobin 12.1 g/dL (12.2-16.2); Immature Granulocytes % 0.5 %; Mean Corpuscular HGB Conc 32.5 g/dL (31.8-35.4); Mean Corpuscular Hemoglobin 29.8 pg (27.0-31.2); Mean Corpuscular Volume 91.6 fl (81-99); Nucleated Red Blood Cells % 0 %; Platelet Count 459 K/mm3 (142-424); Red Blood Count 4.06 M/mm3 (4.20-5.40); Red Cell Distribution Width-SD 43.2 fL; White Blood Count 7.9 K/mm3 (4.8-10.8)
--- OUTSIDE RECORDS SUMMARY | 2025-01-01 08:30 | XMS_ITS | Data Portability ---
Author Organization [facility] Address [address] [facility] [address] [place] [address] Care Team Providers Care Nurse School Name Role Phone TREVA MERCEDES Primary Care Provider [phone] TREVA MERCEDES Referring Provider Assessment Encounter Date Assessment Date Assessment LastModified [...] Organization Details Recorded Time [facility] 09[facility]15[facility]38 Imaging Results None recorded. Procedure Notes None recorded. Medical Equipment None Reported. Allergies Allergen ID Allergen Name Allergen Category Reaction Reaction Severity Criticality Documentation Date Start Date Code Code System Note Provider Name and Address Organization Details Recorded Time 857138 Petra medicatio n rash Not available low 12/15/2022 42963 6 [facility] 09:16:56 874826 Bactrim medicatio n rash Not available low 12/15/2022 01983 9 [facility] 09:17:08 622913 codeine medicatio n Not available Not available Not available 12/15/2022 2670 RxNorm Kalavianca Tiwarismi [facility] 3 09:17:22 839476 Product containin g penicilli n (product) medicatio n Not available Not available Not available 12/15/2022 25943 8001 SNOMED Kalavianca Tiwarismi [facility] 3 09:17:29 905941 cyclobenz aprine hydrochlo ride medicatio n Not available Not available Not available 12/15/2022 44758 RxNorm Kalavianca Tiwarismi [facility] 3 09:18:04 749503 Demerol medicatio n Not available Not available Not available 12/15/2022 03588 1 RxNorm Kalavianca Tiwarismi [facility] 3 09:18:29 671404 acetamino phen / pamabrom medicatio n Not available Not available Not available 12/15/2022 45471 4 RxNorm On sheet - ispan idol [place] Jessica [facility] 3 09:19:48 Medications Name Sig Start Date [...] Updated DateTime 03/07/2023 170.18 cm 20.7 kg/m2 23425.19 g 110/82 mm[Hg] [facility] 03/07/2023 10:53:13 Date Recorded Body height Body mass index (BMI) Body weight Systolic And Diastolic Provider Name and Address Organization Details Last Updated DateTime 12/15/2022 170.18 cm 20.7 kg/m2 38748.19 g 102/80 mm[Hg] [facility] 12/15/2022 09:14:44 Social History None recorded. Functional [...] ICD10 Code Diagnosis IMO Codes Diagnosis Note [id number] DEBORAH HICKMAN MD [facility] [address] [place] [address] 12/15/2022 08:52:09 12/16/2022 04:08:40 Lumbar disc prolapse with radiculopathy 557383560 M51.16 [id number] CARSON ALFORD PA-C [facility] [address] [place] [address] 02/07/2023 13:28:12 02/08/2023 04:29:14 Postoperative visit [id number] Z09 [id number] DEBORAH HICKMAN MD SURGERY SCHEDULE [address] [place] [address] 02/15/2023 07:44:07 02/17/2023 15:23:56 [id number] LEELA SALVADOR PA-C [facility] [address] [place] [address] 03/07/2023 10:44:35 03/08/2023 04:37:01 Postoperative care [id number] Z48.89 Health Concerns Section Related Observation LastModified by Organization Detai ls LastModified Time None Recorded Concern Status LastModified by Organization Details LastModified Time None Recorded Advance Directives Directive None Recorded Payers Insurance Date Sequence Insurance Name Policy Number Policy Barth Covered Member ID Barth Member ID Guarantor Name 03/04/2023 2 AETNA [facility] (MEDICAID HMO) Sofia Valero [id number] Sofia He Anjum 02/07/2023 1 [place] Sofia Valero [id number] Sofia Valero 03/04/2023 1 [employer] (MEDICARE REPLACEMENT/ ADVANTAGE - PPO) Sofia Valero [id number] Sofia Valero Notes Date Note Type [...] is a dental hygienist. DEBORAH HICKMAN MD [facility] [place], [address], [facility] 12/15/2022 11:02:08 03/07/2023 text/html ROS as [...] in office today. LEELA SALVADOR PA-C [address] [place], [address], [facility] 03/07/2023 11:24:37 OBGyn Episode No OBEpisode recorded.
--- OUTSIDE RECORDS SUMMARY | 2025-01-01 08:30 | XMS_ITS | Referral Summary ---
Author Organization [employer] ([place], [place], [place], [place], [place]) Address [address] [place] [address] Care Team Providers Care Numerical Analysis Group Manager Name Role Phone Tessy Goodman APRN Primary Care Provider [phone] Allergies Active Allergy Reactions Criticality Noted Date [...] continue podiatry Coronary artery disease invo lving [place] coronary artery of [place] heart 08/06/2020 01/20/2023 Overview (01/20/2023): Last Assessment [...] Date Mac rded Speak language other than Portuguese at home Not on file 03/02/2023 Want [...] Plan of Treatment Not on [facility] Care Teams Numerical Analysis Group Manager Relationship Specialty Start Date End Date Tessy Goodman, BOMB TECHNICIAN [address] [place] [address] PCP - General Family Medicine 01/20/23
--- OUTSIDE RECORDS SUMMARY | 2025-01-01 08:30 | XMS_ITS | Clinical Summary ---
Author Organization [facility] Address [address] [place] [phone] Phone Care Team Providers Care Marketing Program Manager Name Role Phone Unavailable Primary Care Provider [...] Impressions 04/10/2023 7:34 AM EST Benign finding ([id number]) ~ RECOMMENDATION: Routine screening mammogram in 1 [...] the next mammogram, in accordance with the [place] [employer] and the Society of Breast Imaging recommendations. Narrative 04/10/2023 7:34 AM EST Procedure:MM MAMMO DIGITAL JULIO CÉSAR SCREEN BILAT ~ Reason for exam: screening, asymptomatic. Z12.31-Encounter for screening mammogram for malignant neoplasm of hhmeol-PJG-37-CM ~ MM MAMMO DIGITAL JULIO CÉSAR SCREEN [...] for screening mammogram for malignant neoplasm of chvdle-BIP-76-CM ~ MM MAMMO DIGITAL JULIO CÉSAR SCREEN [...] evidence of malignancy. ~ IMPRESSION: Benign finding (ZBD-[id number]-2) ~ RECOMMENDATION: Routine screening mammogram in 1 [...] the next mammogram, in accordance with the [place] [employer] and the Society of Breast Imaging recommendations. Tessy Goodman APRN [facility] MAMMOGRAPHY ORDERABLES Fin al Result from Last 3 Months or Most Recently Relevant to Health Maintenance [place] [address] [address] [place] [address] MEDICARE HMO MR
--- OUTSIDE RECORDS SUMMARY | 2025-01-01 08:30 | XMS_ITS | Clinical Summary ---
Author Organization [facility] Address [address] [place] [address] Care Team Providers Care Bone Crusher Name Role Phone Tessy Goodman APRN Primary Care Provider [phone] Allergies Active Allergy Reactions Criticality Noted Date [...] exertion 08/06/2020 Coronary artery disease invo lving [place] coronary artery of [place]ib[place] heart 08/06/2020 Social History Tobacco Use Types [...] % 10/25/2016 8:38 AM EDT [facility] Blood Venipuncture / Unknown 10/25/2016 8:14 AM EDT 10/25/2016 8:23 AM EDT Narrative [facility] - 10/25/2016 8:38 AM EDT The [place] [employer] recommends maintenance of Hemoglobin A1C at 7.0% or lower. Goals for Hemoglobin A1C reduction may need to be modified if hypoglycemia is a problem. Musa Echevarria MD LAB BLOOD ORDERABLES Final Res ult [facility]
[address] [place] [address], from Last 3 Months or Most Recently Relevant to Health Maintenance Insurance AETNA [facility] A[employer]NA [employer] MEDICARE ADVANTAGE Care Teams Bone Crusher Relationship Specialty Start Date End Date Tessy Goodman APRN [address] [place] [address] PCP - General Nurse Practitioner 08/06/20
--- OUTSIDE RECORDS SUMMARY | 2025-01-01 08:30 | XMS_ITS | Clinical Summary ---
Author Organization [facility] Address [address] [place] [address] Care Team Providers Care Rural Carrier Name Role Phone Tessy Goodman PHOTO TUBE ASSEMBLER Primary Care Provider [phone] Allergies Active Allergy Reactions Criticality Noted Date [...] pcp labs Coronary artery disease invo lving [place] coronary artery of [place] heart 08/06/2020 Assessment & Plan (12/02/2020 3:09 [...] Description 02/04/2025 2:20 PM EST Office Visit [facility] Endocrinology [address] [place] [address] Elisabeth Parrish PA [address] [place] [address] Health Maintenance Due Date Last [...] of 2 - PCV) 05/26/2018 05/26/2017, 11/01/2010 [id number] Vaccine (3 - 2024- season) 2024 06/11/2020, [...] complication, without long-term current use of insulin ([facility]) from Last 3 Months or Most Recently Relevant to Health Maintenance Results * (ABNORMAL) POCT glycosylated hemoglobin (Hb A1C) (08/19/2024 1:32 PM EDT) POCT Hemoglobin A1C 5.8 <5.7% Non-Diabet ic % [facility] Kit Lot Number [id number] [facility] Kit Expiration Date 06/16 [facility] Blood Venous blood specimen / Unknown 08/19/2024 1:32 PM EDT Elisabeth MCMILLAN POINT OF CARE TEST EN TER/EDIT ORDERABLES Final Result [facility] [address] [place] [phone] from Last 3 Months or Most Recently Relevant to Health Maintenance Insurance AETNA [facility] MEDICAID [employer] MEDICARE Care Teams Rural Carrier Relationship Specialty Start Date End Date Tessy Goodman APRN [address] [place] [address] PCP - General 07/03/20
--- OUTSIDE RECORDS SUMMARY | 2025-01-01 08:30 | XMS_ITS | Clinical Summary ---
Author Organization [employer] ([place], [place], [place], [place], [place]) Address [address] [place] [address] Care Team Providers Care Social Media Sr Strategy Manager Name Role Phone Lionel Goodmany Jennifer LIGHT Primary Care Provider [phone] Allergies Active Allergy Reactions Criticality Noted Date [...] continue podiatry Coronary artery disease invo lving [place] coronary artery of [place] heart 08/06/2020 01/20/2023 Overview (01/20/2023): Last Assessment [...] Date Mac rded Speak language other than Slovenian at home Not on file 03/02/2023 Want [...] or Tdap) 08/10/2032 08/10/2022, 06/02/2017, 01/28/[address] [place] [address] MEDICARE PPO [facility] Care Teams Social Media Sr Strategy Manager Relationship Specialty Start Date End Date Tessy Goodman, TRACTOR ENGINE MECHANIC [address] [place] [address] PCP - General Family Medicine 01/20/23
[2025-01-01 08:31] LABS: Bilirubin,Urine Negative (Negative); Color,Urine YELLOW (Yellow); Glucose,Urine (UA) Negative (Negative); Ketones,Urine Negative (Negative); Leukocyte Esterase,Urine Negative (Negative); PH,Urine 6.5 (5.0-8.5); Protein,Urine Negative (Negative); Specific Gravity, Urine <= 1.005 (1.005-1.030); Urobilinogen,Urine 0.2 EU/dl (0.2)
[2025-01-01 08:46] LABS: Alanine Aminotransferase 18 U/L (12-78); Albumin Level 3.4 g/dl (3.5-5.0); Albumin/Globulin Ratio 1.3 (1.1-1.8); Alkaline Phosphatase 117 U/L (38-126); Anion Gap 8.3 mEq/L (5-15); Aspartate Amino Transferase 25 U/L (14-36); Bilirubin,Total 0.5 mg/dl (0.2-1.3); Blood Urea Nitrogen 8 mg/dl (7-17); Calcium 9.4 mg/dl (8.4-10.2); Carbon Dioxide 29 mmol/L (22.0-30.0); Chloride 99 mmol/L (98-107); Creatinine,Serum 0.70 mg/dl (0.52-1.04); Estimated Glomerular Filt Rate 82 ml/min (>60); GFR (African American) 100 ML/MIN (>60); Globulin 2.7 g/dL (1.3-3.2); Glucose 176 mg/dl (74-100); Potassium 4.3 mmoL/L (3.5-5.1); Sodium 132 mmol/L (136-145); Total Protein,Serum 6.1 g/dl (6.3-8.2)
[2025-01-01 09:17] LABS: RBC,Urine Occasional #/hpf (0-3)
== END 2025-01-01 23:59 | disposition home or self-care (01) ==
LOC: LAB.DROPOF 08:23
PROVIDERS: PCP Family Medicine; Visit Provider Family Medicine
DX: I26.99 Other pulmonary embolism without acute cor pulmonale (principal); I10 Essential (primary) hypertension
CPT/HCPCS: 36415; 80053; 81001; 85025

== ENCOUNTER 2025-01-03 10:37 | Observation (INO) | payer MEDICARE, SELFPAY ==
[2025-01-03] VITALS (41 sets, daily range): BP systolic 116–218; BP diastolic 67–127; PULSE 59–121; RESP 10–25; TEMP 36.4–37.2; O2SAT 74–100; BMI 22.3; BMI 21.8
--- NOTE | 2025-01-03 10:42 | PC.NURSE ---
Patients FSBS is 204
--- NOTE | 2025-01-03 10:43 | CT_ITS ---
FINAL REPORT CLINICAL HISTORY: AMS, aphasia FINDINGS: CT NECK ANGIO, WITHOUT AND WITH CONTRAST TECHNIQUE: Thin section axial CT with contrast with multiplanar 3D MIP reconstruction. NASCET criteria and technique was utilized during interpretation. There is severe motion artifact at the level of the carotid bifurcations. Aortic arch: Arch shows no significant narrowing. Great vessel origins are widely patent. Bovine branching pattern is noted. Right carotid: Motion artifact is noted. There is no gross stenosis. Left carotid: Motion artifact noted. There is no gross stenosis. Vertebrals: Right vertebral artery is dominant. No significant stenosis is present. IMPRESSION: No significant stenosis of the cervical carotid arteries This study was performed using automated techniques to achieve radiation exposure as low as reasonably Reviewed, Interpreted and Dictated by Rosa Butler MD Transcribed by Kesha Jackson Authenticated and [facility]
--- NOTE | 2025-01-03 10:43 | CT_ITS ---
FINAL REPORT TECHNIQUE: Axial images of the head was performed by computed tomography. This study was performed with techniques to keep radiation doses as low as reasonably achievable, (ALARA). Individualized dose reduction techniques using automated exposure control or adjustment of mA and/or kV according to the patient''s size were employed. CLINICAL HISTORY: AMS, aphasia FINDINGS: There is mild age-appropriate atrophy. No cortical edema is present. There is no mass or hemorrhage. Ventricles are normal. Bone windows show no skull fracture or obvious obstructive lesion. IMPRESSION: 1. No acute intracranial abnormality or obvious mass. Reviewed, Interpreted and Dictated by Rosa Butler MD Transcribed by Kesha Jackson Authenticated and [facility]
--- NOTE | 2025-01-03 10:43 | XR_ITS ---
FINAL REPORT TECHNIQUE: Single view chest CLINICAL HISTORY: AMS COMPARISON: 12/21/2024 FINDINGS: A single view of the chest was obtained. The heart and mediastinum are within normal limits. The lungs are clear. There is no pneumothorax. IMPRESSION: No acute cardiopulmonary process. Reviewed, Interpreted and Dictated by Rosa Butler MD Transcribed by Aydee Keith Authenticated and [facility]
--- NOTE | 2025-01-03 10:43 | CT_ITS ---
FINAL REPORT CLINICAL HISTORY: AMS, aphasia FINDINGS: CTA HEAD TECHNIQUE: Thin section axial CT with contrast with 3D MIP reconstruction No aneurysm is seen. Major intracranial vessels are patent without significant stenosis. There are persistent origins of the bilateral committee member as a normal variant. IMPRESSION: Unremarkable This study was performed using automated techniques to achieve radiation exposure as low as reasonably achievable Reviewed, Interpreted and Dictated by Rosa Butler MD Transcribed by Kesha Jackson Authenticated and [facility]
--- NOTE | 2025-01-03 10:43 | ECG_ITS ---
APPROVED REPORT Exam: Resting ECG HR:108 bpm ECG Measurements Heart Rate 108 AXES AZ 130 P 67 QRSd 74 QRS 67 QT 308 T 92 QTc 371 Conclusion SINUS TACHYCARDIA NONSPECIFIC ST & T-WAVE ABNORMALITY ABNORMAL RHYTHM ECG UNCONFIRMED REPORT Sinus tachycardia. No ST elevation or depression. QTc of 371 Electronically signed by : FRANCESCA SCHROEDER, 01/03/2025 15:25:17
--- NOTE | 2025-01-03 10:48 | CT_ITS ---
FINAL REPORT TECHNIQUE: IV contrast enhanced exam This study was performed with techniques to keep radiation doses as low as reasonably achievable, (ALARA). Individualized dose reduction techniques using automated exposure control or adjustment of mA and/or kV according to the patient''s size were employed. CLINICAL HISTORY: AMS COMPARISON: 07/15/2021 FINDINGS: Abdomen: Lung bases are clear. The gallbladder is surgically absent. Pneumobilia is again noted without evidence of biliary ductal dilatation. The spleen, pancreas and adrenal glands are unremarkable. Mild bilateral renal scarring is present, greater on the left than on the right. No bowel obstruction or fluid collection is seen. Pelvis: The appendix is not visualized. Pelvic bowel loops are unremarkable. No fluid collection or adenopathy is seen. Severe distention of the bladder is present. IMPRESSION: No acute CT findings are identified in the abdomen or pelvis. Reviewed, Interpreted and Dictated by Rosa Butler MD Transcribed by Deandra Borges Authenticated and [facility]
--- NOTE | 2025-01-03 10:48 | CT_ITS ---
FINAL REPORT TECHNIQUE: Thin section axial CT with contrast with multiplanar reconstruction This study was performed with techniques to keep radiation doses as low as reasonably achievable, (ALARA). Individualized dose reduction techniques using automated exposure control or adjustment of mA and/or kV according to the patient''s size were employed. CLINICAL HISTORY: AMS, recent PE COMPARISON: 12/22/2024 FINDINGS: Pulmonary vessels enhance in normal fashion without evidence of embolism. The previously noted bilateral pulmonary emboli have resolved since the prior exam of 12/22/2024. There is no evidence of right heart strain. Thoracic aorta shows no dissection or aneurysm. No pulmonary mass or infiltrate is present. There is no significant pleural effusion. There is no significant pericardial effusion. No mediastinal or hilar adenopathy is present. IMPRESSION: 1. No evidence of pulmonary embolism. Previously noted bilateral pulmonary emboli have resolved since the prior exam. Reviewed, Interpreted and Dictated by Rosa Butler MD Transcribed by Deandra Borges Authenticated and [facility]
--- NOTE | 2025-01-03 10:50 | [facility].EDGENADL ---
Discharge Plan Disposition Patient Disposition: Admitted Prescriptions Prescriptions: No Action quetiapine [Seroquel] 100 mg tablet 100 mg PO HS carvedilol 25 mg tablet 25 mg PO BID Qty: 60 2RF Rx Instructions: must administer with a meal/food, HOLD FOR SBP<100, DBP>60 OR HR <60 ferrous sulfate 325 mg (65 mg iron) tablet 325 mg PO DAILY montelukast [Singulair] 10 mg tablet 10 mg PO HS omeprazole 40 mg capsule,delayed release(DR/EC) 40 mg PO DAILY atorvastatin [Lipitor] 80 mg tablet 80 mg PO HS Qty: 30 2RF trazodone 50 mg tablet 50 mg PO HS Qty: 30 0RF folic acid 1 mg tablet 1 mg PO DAILY Qty: 30 2RF Airsupra 90-80 mcg/actuation HFA aerosol inhaler 2 inh inhalation Q4HP PRN (Reason: Asthma) Qty: 10.7 0RF gabapentin 300 mg capsule 300 mg PO BID Qty: 4 2RF lorazepam 1 mg tablet 1 mg PO HS Qty: 30 2RF metformin 500 mg tablet 500 mg PO BID Qty: 60 2RF lorazepam 0.5 mg tablet 0.5 mg PO QAM Qty: 30 5RF mecobalamin (vitamin B12) [B12 Active] 1,000 mcg Tablet,Chewable 1,000 mcg PO DAILY docusate sodium 100 mg Capsule 100 mg PO BID acetaminophen 325 mg tablet 325 mg PO Q8HP PRN (Reason: Mild Pain (Scale Score 1-4)) polyethylene glycol 3350 17 gram Powder In Packet 17 g PO BID insulin aspart U-100 [Novolog FlexPen U-100 Insulin] 100 unit/mL (3 mL) Insulin Pen 0 sliding scale dose SQ ACHS Protocol: Insulin Corrective High-Dose Regimen Condition: Fingerstick Blood Glucose Dose/Route: Insulin Units Condition: 151-200 mg/dl Dose/Route: 4 units/SQ Condition: 201-250 mg/dl Dose/Route: 6 units/SQ Condition: 251-300 mg/dl Dose/Route: 8 units/SQ Condition: 301-350 mg/dl Dose/Route: 10 units/SQ Condition: 351-400 mg/dl Dose/Route: 12 units/SQ Condition: > 400 mg/dl Dose/Route: 14 units/SQ and CALL MD Protocol Text: High Intensity Sliding Scale Insulin diclofenac sodium 1 % Gel 4 g TOPICAL BID Rx Instructions: apply to both knees oxycodone-acetaminophen 5-325 mg tablet 1 tab PO Q6HP PRN (Reason: Severe Pain (Scale Score 7-10)) irbesartan 150 mg Tablet 150 mg PO HS 30 Days Qty: 30 0RF Eliquis DVT-PE Treat 30D Start 5 mg (74 tabs) tablets,dose pack 5 mg PO BID Qty: 74 0RF Rx Instructions: 2 tabs BID for 7 days, then 1 tab BID thereafter ceftriaxone 1 gram recon soln 1 g IM DAILY 4 Days Qty: 4 0RF Rx Instructions: first dose due 12/24/24 Referrals Follow up/Referrals: Fredo Amaro MD [Primary Care Provider, Family Practice] - See instructions Clinical Impressions Clinical Impression: Encephalopathy acute, Hypertension, Hypomagnesemia Instructions Patient Instructions: DI for Altered Mental Status Print Language Print Language: [place] Discharge ED Provider: Casey Rose General Adult HPI General Chief complaint: Altered Mental Status Stated complaint: AMS Time Seen by Provider: 01/03/25 10:43 Mode of Arrival: EMS Source of Information: EMS History of Present Illness HPI narrative: Sofia Valero is a 74y female with a history of former smoker, history of dementia, hyperlipidemia, hypertension, KIRT/MDD, GERD, type 2 diabetes, tardive dyskinesia, bipolar disorder who presents to the emergency department via EMS from nursing facility for concern for altered mental status. Per EMS, they state that patient refused her regular medications yesterday and today stating that 2 days ago she claimed that she was given the wrong medications. The nurse that normally takes care of her came back to work today and between 7 and 8:00 said that she seemed altered and would not answer questions. Patient's glucose on arrival is 204. Patient was noted to be hypertensive. Related Data Home Medications ?Medication ?Instructions ?Recorded ?Confirmed ferrous sulfate 325 mg (65 mg 325 mg PO DAILY 10/17/24 12/26/24 iron) tablet montelukast 10 mg tablet 10 mg PO HS GERD 10/17/24 12/26/24 (Singulair) omeprazole 40 mg capsule,delayed 40 mg PO DAILY GERD 10/17/24 12/26/24 release quetiapine 100 mg tablet (Seroquel) 100 mg PO HS 12/10/24 12/26/24 acetaminophen 325 mg tablet 325 mg PO Q8HP PRN Mild Pain 12/22/24 12/26/24 (Scale Score 1-4) diclofenac sodium 1 % topical gel 4 g topical BID 12/22/24 12/26/24 docusate sodium 100 mg capsule 100 mg PO BID 12/22/24 12/26/24 insulin aspart U-100 100 unit/mL 0 sliding scale dose SQ ACHS 12/22/24 12/26/24 (3 mL) subcutaneous pen (Novolog FlexPen U-100 Insulin aspart) mecobalamin (vitamin B12) 1,000 1,000 mcg PO DAILY 12/22/24 12/26/24 mcg chewable tablet (B12 Active) oxycodone-acetaminophen 5 mg-325 1 tab PO Q6HP PRN Severe Pain 12/22/24 12/26/24 mg tablet (Scale Score 7-10) polyethylene glycol 3350 17 gram 17 g PO BID 12/22/24 12/26/24 oral powder packet Previous Rx's ?Medication ?Instructions ?Recorded albuterol 90 mcg-budesonide 80 2 inh inhalation Q4HP PRN Asthma 10/17/24 mcg/actuation HFA aerosol inhaler #10.7 grams (Airsupra) atorvastatin 80 mg tablet (Lipitor) 80 mg PO HS #30 tabs 10/17/24 folic acid 1 mg tablet 1 mg PO DAILY #30 tabs 10/17/24 trazodone 50 mg tablet 50 mg PO HS #30 tabs 10/17/24 gabapentin 300 mg capsule 300 mg PO BID #4 caps 11/07/24 lorazepam 1 mg tablet 1 mg PO HS insomnia #30 tabs 11/12/24 carvedilol 25 mg tablet 25 mg PO BID #60 tabs 11/20/24 metformin 500 mg tablet 500 mg PO BID #60 tabs 12/10/24 apixaban 5 mg (74 tabs) tablets in 5 mg PO BID #74 tabs 12/23/24 a dose pack (Eliquis DVT-PE Treat 30D Start) ceftriaxone 1 gram solution for 1 g IM DAILY 4 days #4 ea 12/23/24 injection irbesartan 150 mg tablet 150 mg PO HS 30 days #30 tabs 12/23/24 lorazepam 0.5 mg tablet 0.5 mg PO QAM #30 tabs 12/26/24 Allergies Allergy/AdvReac Type Severity Reaction Status Date / Time latex Allergy Mild Verified 12/26/24 11:18 codeine (CODEINE) Allergy Unknown Verified 12/26/24 11:18 fexofenadine (From JANE) Allergy Unknown Verified 12/26/24 11:18 iopamidol (IOPAMIDOL) Allergy Unknown Verified 12/26/24 11:18 meperidine (MEPERIDINE) Allergy Unknown Verified 12/26/24 11:18 Penicillins (PENICILLINS) Allergy Unknown Verified 12/26/24 11:18 piroxicam (From FELDENE) Allergy Unknown Verified 12/26/24 11:18 sulfamethoxazole (From Allergy Unknown Verified 12/26/24 11:18 BACTRIM) trimethoprim (From BACTRIM) Allergy Unknown Verified 12/26/24 11:18 cefdinir Allergy Verified 12/26/24 11:18 cyclobenzaprine Allergy Verified 12/26/24 11:18 levofloxacin Allergy Verified 12/26/24 11:18 pseudoephedrine (From Allergy Verified 12/26/24 11:18 Sudafed) simvastatin (From Zocor) Allergy Verified 12/26/24 11:18 PFSH PFS Disclaimer: The information contained in this section may have been updated after the patient was seen, as this information can be updated by other users. Medical History (Updated 01/03/25 @ 13:26 by Casey Rose MD) Urinary tract infection UTI (urinary tract infection) Tardive dyskinesia Former smoker Bipolar disorder, unspecified Diabetes mellitus GERD (gastroesophageal reflux disease) Anxiety and depression HTN (hypertension) HLD (hyperlipidemia) Chronic pain of right knee Constipation Dementia Right ureteral calculus Left against medical advice Urinary incontinence Cervical radiculitis Left knee pain Left patella fracture Acute UTI Altered awareness, transient Surgical History (Updated 12/27/24 @ 00:00 by Florence Winter) History of total right knee replacement History of D&C History of cholecystectomy Family History Other No significant family history Social History Smoking Status: Unknown if ever smoked alcohol intake: never counseling provided: none substance use type: denies use current occupational status: unemployed Travel in the last 8 weeks?: None housing: shelter caffeine: No Have you lived/traveled outside [place] in past 30 days?: No Contact w/someone who lives/traveled outside US past 30 days?: No Exposure to someone with infectious disease in past 14 days?: No Do you have a fever (greater than 100.4 F or 38 C)?: No Have you tested positive for COVID-19?: No Exposed to someone with COVID-19 in past 14 days?: No Do you have a sore throat?: No Do you have a cough?: No Do you have any weakness?: No Do you have any diarrhea?: No Are you experiencing any unusual bleeding?: No Do you have any muscle aches/pain?: No Do you have any abdominal pain?: No Are you experiencing loss of taste or smell?: No Other Medical History Have you received the Flu Vaccine for this season: No Have you received the Pneumonia Vaccine: Yes ROS Obtained: Yes unobtainable due to mental status Physical Exam General General appearance: alert and in no apparent distress Comment: alert, in no distress Head Head exam: atraumatic Eye Eye exam: Present normal appearance, PERRL (4mm and reactive) and EOMI ENT ENT exam: Present normal external ear exam Neck Neck exam: Present full ROM Chest Chest inspection: Present symmetric chest wall rise Respiratory Respiratory exam: Present normal lung sounds bilaterally; Absent respiratory distress, wheezes or stridor Cardiovascular Cardiovascular exam: Present normal rhythm and tachycardia Abdominal Exam Abdominal exam: Present soft; Absent tenderness or guarding Extremities Exam Extremities exam: Present normal inspection Back Exam Back exam: Present normal inspection Neurological Exam Neurological exam: Present alert and other (Will intermittently follow commands, has resting tremor in bilateral upper extremities. Only 1-2 beats of clonus but no sustained clonus. Moving all extremities. No facial drooping.) Skin Skin exam: Present warm and dry Medical Decision Making Medical Records Screening: Per USPSTF and CDC recommendations, given the prevalence of disease in our region, it is our hospital?s policy to screen for HIV and viral Hepatitis for all patients aged 18 and over and those with ongoing risk factors. Jacoby Inquiry Pt receiving controlled substance: No Vital Signs: 01/03/25 10:47 01/03/25 10:49 01/03/25 12:00 Temperature 97.6 F Temperature Source Oral Pulse Rate 110 H 59 L Pulse Rate [Radial] 117 H Respiratory Rate 20 16 Blood Pressure 183/123 H 216/122 H Blood Pressure [Right Arm] 218/115 H Blood Pressure Mean [Right Arm] 149 Blood Pressure Source [Right Arm] Manual Cuff/ Doppler Blood Pressure Position [Right Arm] Supine 02 Sat by Pulse Oximetry 97 99 74 L Oxygen Delivery Method Room Air Room Air 01/03/25 12:30 01/03/25 12:45 01/03/25 13:00 Temperature Temperature Source Pulse Rate 87 94 H Pulse Rate [Radial] Respiratory Rate 18 13 10 L Blood Pressure 202/114 H 209/115 H 199/110 H Blood Pressure [Right Arm] Blood Pressure Mean [Right Arm] Blood Pressure Source [Right Arm] Blood Pressure Position [Right Arm] 02 Sat by Pulse Oximetry 98 Oxygen Delivery Method Room Air 01/03/25 13:15 01/03/25 13:30 01/03/25 13:47 Temperature Temperature Source Pulse Rate 98 H 100 H 99 H Pulse Rate [Radial] Respiratory Rate 18 13 11 L Blood Pressure 205/113 H 188/114 H 212/113 H Blood Pressure [Right Arm] Blood Pressure Mean [Right Arm] Blood Pressure Source [Right Arm] Blood Pressure Position [Right Arm] 02 Sat by Pulse Oximetry 98 99 98 Oxygen Delivery Method Room Air Room Air Room Air 01/03/25 14:00 01/03/25 14:15 01/03/25 14:30 Temperature Temperature Source Pulse Rate 106 H 106 H 113 H Pulse Rate [Radial] Respiratory Rate 17 17 13 Blood Pressure 201/121 H 185/120 H 173/104 H Blood Pressure [Right Arm] Blood Pressure Mean [Right Arm] Blood Pressure Source [Right Arm] Blood Pressure Position [Right Arm] 02 Sat by Pulse Oximetry 98 98 98 Oxygen Delivery Method Room Air Room Air Room Air 01/03/25 14:45 Temperature Temperature Source Pulse Rate 117 H Pulse Rate [Radial] Respiratory Rate 17 Blood Pressure 190/110 H Blood Pressure [Right Arm] Blood Pressure Mean [Right Arm] Blood Pressure Source [Right Arm] Blood Pressure Position [Right Arm] 02 Sat by Pulse Oximetry 98 Oxygen Delivery Method Room Air Lab Data Lab Results 01/03/25 10:48: WBC 11.2 H D, RBC 4.44, Hgb 13.8, Hct 40.9, MCV 92.1, MCH 31.1, MCHC 33.7, RDW 13.1, Plt Count 479 H, MPV 9.7, Neut % (Auto) 71.8, Lymph % (Auto) 21.9, [place] % (Auto) 5.3, Eos % (Auto) 0.2, Baso % (Auto) 0.5, Neut # (Auto) 8.1 H, Lymph # (Auto) 2.5, [place]ink # (Auto) 0.6, Eos # (Auto) 0.0, Baso # (Auto) 0.1, VBG pH 7.46 H, VBG pCO2 33.8 L, VBG pO2 74.9 H, VBG HCO3 23.2, VBG Total CO2 24.3, VBG O2 Saturation 96.3 H, VBG Base Excess -0.7, VBG Lactic Acid 2.2 H, Sodium 135 L, Potassium 4.4, Chloride 100, Carbon Dioxide 26, Anion Gap 13.4, BUN 18 H D, Creatinine 0.70, Estimated Creat Clear 49, Estimated GFR 82, Est GFR ( Amer) 100, Glucose 204 H, Calcium 9.8, Magnesium 1.1 L, Total Bilirubin 0.8, AST 34 D, ALT 24 D, Alkaline Phosphatase 102, Troponin I < 0.01, C-Reactive Protein 7.4 H, NT-Pro-B Natriuret Pep 1590 H, Total Protein 8.3 H D, Albumin 4.5, Globulin 3.8 H, Albumin/Globulin Ratio 1.2, Lipase 99 01/03/25 11:03: SARS-CoV-2 (PCR) Not detected, Influenza A Untype (PCR) Not detected, Influenza Type B (PCR) Not detected 01/03/25 11:43: Ammonia < 9 L 01/03/25 11:55: Urine Color Yellow, Urine Appearance Clear, Urine pH 6.0, Ur Specific [place] 1.015, Urine Protein 1+ A, Urine Glucose (UA) 1+, Urine Ketones 2+, Urine Blood Negative, Urine Nitrate Negative, Urine Bilirubin Negative, Urine Urobilinogen 0.2, Ur Leukocyte Esterase Negative, Urine RBC Occasional, Urine WBC Occasional, Ur Squamous Epith Cells Occasional, Urine Bacteria None, Urine Opiates Screen Negative, Urine Methadone Screen Negative, Ur Barbituates Screen Negative, Ur Phencyclidine Scrn Negative, Ur Amphetamines Screen Negative, U Benzodiazepines Scrn Negative, Urine Cocaine Screen Negative, U Marijuana (THC) Screen Negative 01/03/25 13:48: Troponin I 0.01 01/03/25 10:48 01/03/25 10:48 Orders (Tests/Meds): ED MEDICATIONS Generic Name Dose Route Start Last Admin Trade Name Freq PRN Reason Stop Dose Admin Sodium Nitroprusside 50 mg/ 252 mls @ 5.514 mls/hr 01/03/25 13:15 01/03/25 14:48 Dextrose IV 02/02/25 13:14 1.3 mcg/kg/min .Q24H DONY 23.89 mls/hr Protocol Titration 0.3 MCG/KG/MIN Lactated Ringer's 1,000 mls @ 999 mls/hr 01/03/25 14:39 01/03/25 14:45 Lactated Ringer's 1000 Ml Bag IV 01/03/25 15:39 999 mls/hr .Q1H1M ONE Administration Discontinued Medications Generic Name Dose Route Start Last Admin Trade Name Freq PRN Reason Stop Dose Admin Magnesium Sulfate 2 gm in 50 mls @ 50 mls/hr 01/03/25 11:26 01/03/25 13:03 Magnesium Sulfate 2gm/50ml Premix IV 01/03/25 12:25 Infused ONCE ONE Infusion Iopamidol 160 ml 01/03/25 11:39 01/03/25 11:41 Iopamidol-370 (76%);100ml Bottle IV 01/03/25 11:40 160 ml ONCE ONE Administration Metoprolol Tartrate 5 mg 01/03/25 12:02 01/03/25 12:22 Metoprolol Tartrate 5mg/5ml Vial IV 01/03/25 12:03 5 mg ONCE ONE Administration Midazolam HCl 1 mg 01/03/25 11:00 01/03/25 11:09 Midazolam 2mg/2ml Vial IV 01/03/25 11:01 1 mg ONCE ONE Administration Sodium Chloride 10 ml 01/03/25 11:39 01/03/25 11:41 0.9 % Sodium Chloride 50 Ml Vial IV 01/03/25 11:40 10 ml ONCE ONE Administration ORDERS Category Date Time Status CT abdomen pelvis w con Stat Cat Scan 01/03/25 10:[address] angio chest PE protocol Stat Cat Scan 01/03/25 10:[address] angio head Stat Cat Scan 01/03/25 10:[address] angio neck Stat Cat Scan 01/03/25 10:[address] head/brain wo con Stat Cat Scan 01/03/25 10:43 Completed CXR --portable [XR chest portable] Stat Exams 01/03/25 10:43 Completed Ammonia Stat Lab 01/03/25 11:43 Completed BNP [NT Pro Brain Natriuretic Pep.] Stat Lab 01/03/25 10:48 Completed CBC w/Auto Diff [Complete Blood Count Auto Diff] Stat Lab 01/03/25 10:48 Completed CMP [Comprehensive Metabolic Panel] Stat Lab 01/03/25 10:48 Completed CRP [C-Reactive Protein] Stat Lab 01/03/25 10:48 Completed Lipase Stat Lab 01/03/25 10:48 Completed Magnesium Stat Lab 01/03/25 10:48 Completed Rapid PCR Covid and Flu A/B Stat Lab 01/03/25 11:03 Completed Troponin I Q3H Lab 01/03/25 13:48 Completed Troponin I Q3H Lab 01/03/25 16:45 Ordered Troponin I Stat Lab 01/03/25 10:48 Completed UA [Urinalysis and Microscopic] Stat Lab 01/03/25 11:55 Completed UDS [Drug Screen,Urine] Stat Lab 01/03/25 11:55 Completed Blood Culture Stat Micro 01/03/25 11:13 Received VBG [Venous Blood Gas] Stat RT 01/03/25 10:48 Completed ECG Data Tracing #1: I reviewed this ECG and interpreted as documented below: Sinus tachycardia. No ST elevation or depression. QTc of 371 Medical Decision Narrative: Sofia Valero is a 74y female with a history of former smoker, history of dementia, hyperlipidemia, hypertension, KIRT/MDD, GERD, type 2 diabetes, tardive dyskinesia, bipolar disorder who presents to the emergency department via EMS from nursing facility for concern for altered mental status. Per EMS, they state that patient refused her regular medications yesterday and today stating that 2 days ago she claimed that she was given the wrong medications. The nurse that normally takes care of her came back to work today and between 7 and 8:00 said that she seemed altered and would not answer questions. Patient's glucose on arrival is 204. Patient was noted to be hypertensive. Patient's home medications noted to be 1, quetiapine, oxycodone, metformin, lorazepam, insulin and metformin, carvedilol, Eliquis. On arrival, patient noted to be hypertensive and tachycardic. Afebrile. Oxygen saturation 97% on room air. On arrival, patient is sitting upright in her stretcher, in no acute distress. She is alert but not answering questions. She will intermittently follow commands and move all extremities. She does have a tremor in her bilateral upper extremities. She has only 1-2 beats of clonus but no sustained clonus in the lower extremities. Sensation grossly intact. No facial drooping or other focal neurological deficits. Pupils equal round reactive to light at 4 mm. Extraocular movements intact. Differential diagnosis includes, but is not limited to: Stroke, hypertensive encephalopathy, benzodiazepine withdrawal, antipsychotic withdrawal, electrolyte derangement, hypertensive encephalopathy, ACS, sepsis, pneumonia, UTI, metabolic derangement, among others. The most morbid conditions were considered and workup was based on these. Workup in the emergency department included: CT head without contrast, CTA head and neck, CT angio pulmonary embolus protocol, CT abdomen pelvis with contrast, CBC with differential, VBG with lactate, chest x-ray, troponin, BNP, CMP, ammonia, UA, UDS, lipase, CRP, magnesium level. Patient was given 1 mg of IV Versed for possible benzodiazepine withdrawal. She appears to take 1 mg of lorazepam at bedtime for insomnia but reportedly has not been taking her medications for the past couple of days. EKG without ischemic changes. See interpretation above. Patient is a mild leukocytosis of 11.2 without neutrophilia. Hemoglobin normal. Elevated platelets at 479, however this appears chronic. VBG shows mild respiratory alkalosis with pH of 7.46, pCO2 of 33.8. Bicarb normal 24.3. Lactate very mildly elevated 2.2. Mild hyponatremia 135 but electrolytes otherwise within normal limits. BUN very mildly elevated 18 but no ANKIT with creatinine of 0.7. Magnesium low at 1.1, will replace with 2 g of IV magnesium sulfate. Liver enzymes bilirubin normal limits. Ammonia less than 9. Initial troponin less than 0.01 and repeat troponin of 0.01. BNP elevated at 1590, which appears to be at her baseline. Urinalysis with 1+ protein but no evidence of infection. UDS negative. COVID and flu testing negative. Chest x-ray interpreted by me personally. No focal consolidation, no pneumothorax, no widened mediastinum, no enlargement of the cardiac silhouette. Unremarkable chest x-ray. See radiology report for details. CT head and CTAs of the head and neck were interpreted by me personally. No intracranial hemorrhage, mass or midline shift, no large vessel occlusion. See final radiology report for details. No acute findings within abdomen or pelvis and no acute findings within the chest with resolution of previously identified pulmonary emboli. See radiology reports for details. Patient did receive 5 mg IV metoprolol with temporarily temporary mild improvement in heart rate and blood pressure, however repeat pressures are still 200s over 110s with borderline tachycardia. I do believe patient's symptomatology could be secondary to hypertensive encephalopathy given she has not been on her medications over the last few days and remains hypertensive. I discussed patient's case with Dr. Knight with cardiology team who agreed with plan to place patient on Nipride drip. Will also give 1 L fluid for continued tachycardia that could be secondary to dehydration given she has not eaten over the past couple days as well per shelter report and could be dehydrated. I did discuss patient's case with Dr. Sparks with the hospital medicine service at approximately 1500 for admission for likely hypertensive encephalopathy he agreed to admit the patient for further management. Patient will be admitted to the ICU at this time. Critical Care Critical Care Time Critical Care Time: Yes Attestation: On 01/03/25, the high probability of a clinically significant, sudden or life threatening deterioration of the following system(s) required my full and direct attention, intervention and personal management. The time I documented below is in addition to time spent performing reported procedures but includes the following listed in this critical care notation. Total Time Total Critical Care Time: 35
[2025-01-03 10:58] LABS: Hematocrit 40.9 % (37.0-47.0); Hemoglobin 13.8 g/dL (12.2-16.2); Immature Granulocytes % 0.3 %; Mean Corpuscular HGB Conc 33.7 g/dL (31.8-35.4); Mean Corpuscular Hemoglobin 31.1 pg (27.0-31.2); Mean Corpuscular Volume 92.1 fl (81-99); Nucleated Red Blood Cells % 0 %; Platelet Count 479 K/mm3 (142-424); Red Blood Count 4.44 M/mm3 (4.20-5.40); Red Cell Distribution Width-SD 44.0 fL; White Blood Count 11.2 K/mm3 (4.8-10.8)
[2025-01-03 11:03] LABS: VBG HCO3 23.2 mmol/L (23-30); VBG PCO2 33.8 mmol/L (35-51); VBG PH 7.46 mmol/L (7.31-7.41); VBG PO2 74.9 mmol/L (28-40)
[2025-01-03 11:05] LABS: Lactate Venous 2.2 mmol/L (0.4-2.0)
[2025-01-03 11:08] LABS: Coronavirus 19, PCR Not Detected (NotDetected); Influenza A, PCR Not Detected (NotDetected); Influenza B, PCR Not Detected (NotDetected)
[2025-01-03] MEDS: MIDAZOLAM 2MG/2ML VIAL 1 MG IV (11:09)
[2025-01-03 11:11] LABS: Alanine Aminotransferase 24 U/L (12-78); Albumin Level 4.5 g/dl (3.5-5.0); Albumin/Globulin Ratio 1.2 (1.1-1.8); Alkaline Phosphatase 102 U/L (38-126); Anion Gap 13.4 mEq/L (5-15); Aspartate Amino Transferase 34 U/L (14-36); Bilirubin,Total 0.8 mg/dl (0.2-1.3); Blood Urea Nitrogen 18 mg/dl (7-17); Calcium 9.8 mg/dl (8.4-10.2); Carbon Dioxide 26 mmol/L (22.0-30.0); Chloride 100 mmol/L (98-107); Creatinine Clearance Estimated 49 mL/min (50-200); Creatinine,Serum 0.70 mg/dl (0.52-1.04); Estimated Glomerular Filt Rate 82 ml/min (>60); GFR (African American) 100 ML/MIN (>60); Globulin 3.8 g/dL (1.3-3.2); Glucose 204 mg/dl (74-100); Lipase 99 U/L (23-300); Magnesium 1.1 mg/dl (1.6-2.3); Potassium 4.4 mmoL/L (3.5-5.1); Sodium 135 mmol/L (136-145); Total Protein,Serum 8.3 g/dl (6.3-8.2)
[2025-01-03 11:16] LABS: C-Reactive Protein 7.4 mg/L (0-4)
[2025-01-03 11:25] LABS: NT Pro Brain Natriuretic Pep. 1590 pg/mL (0-125); Troponin I < 0.01 ng/ml (0.00-0.034)
--- NOTE | 2025-01-03 11:37 | PC.NURSE ---
PT RETURNED FROM CT
[2025-01-03] MEDS: IOPAMIDOL-370 (76%);100ML BOTTLE 160 ML IV (11:41)
[2025-01-03] MEDS: 0.9 % SODIUM CHLORIDE 50 ML VIAL 10 ML IV (11:41)
[2025-01-03] MEDS: MAGNESIUM SULFATE IN WATER 2 GM/50 ML PIGGYBACK IV (11:49)
[2025-01-03 11:58] LABS: Ammonia < 9 umol/L (9-30)
[2025-01-03 12:00] LABS: Microscopic, Urine URINE MICROSCOPIC (MICROSCOPIC)
[2025-01-03 12:02] LABS: Bilirubin,Urine Negative (Negative); Color,Urine YELLOW (Yellow); Glucose,Urine (UA) 1+ (Negative); Ketones,Urine 2+ (Negative); Leukocyte Esterase,Urine Negative (Negative); PH,Urine 6.0 (5.0-8.5); Protein,Urine 1+ (Negative); Specific Gravity, Urine 1.015 (1.005-1.030); Urobilinogen,Urine 0.2 EU/dl (0.2)
[2025-01-03 12:13] LABS: RBC,Urine Occasional #/hpf (0-3); Squamous Epithelial Cell,Urine Occasional #/hpf (0-5); WBC,Urine Occasional #/hpf (0-3)
[2025-01-03 12:16] LABS: Amphetamine/Metha Screen,Urine Negative ng/ml (<1000)
[2025-01-03 12:17] LABS: Barbiturates Screen,Urine Negative ng/ml (<200)
[2025-01-03 12:18] LABS: Benzodiazepines Screen,Urine Negative ng/ml (<200)
[2025-01-03 12:19] LABS: Methadone Screen,Urine Negative ng/ml (<300)
[2025-01-03 12:20] LABS: Phencyclidine Screen,Urine Negative ng/ml (<25)
[2025-01-03 12:21] LABS: Opiate Screen,Urine Negative ng/ml (<300)
[2025-01-03] MEDS: METOPROLOL TARTRATE 5MG/5ML VIAL 5 MG IV (12:22)
[2025-01-03] MEDS: NITROPRUSSIDE SODIUM 50 MG in DEXTROSE 5 % IN WATER 250 ML 5.51 MG IV (13:28)
[2025-01-03 14:17] LABS: Troponin I 0.01 ng/ml (0.00-0.034)
--- NOTE | 2025-01-03 14:17 | PC.NURSE ---
pt to ct by via wheelchair
[2025-01-03] MEDS: LACTATED RINGERS 1000ML 1,000 ML 999 ML IV (14:45)
--- NOTE | 2025-01-03 15:02 | PC.NURSE ---
BLADDER CHANGER NOTIFIED OF ADMISSION
[2025-01-03 15:05] LABS: Reflex Lactic Add Lactic Reflex
--- NOTE | 2025-01-03 15:05 | EXP.HP ---
History of Present Illness *Admission Date: 01/03/25 *Reason for visit:: Confused, not taking meds, elevated blood pressure *History of present illness: Ms. Valero is a 74-year-old female with past medical history significant for hypertension, hyperlipidemia, diabetes, GERD, anxiety and depression with bipolar, dementia, urinary incontinence. Presented from her nursing facility due to concern for worsening confusion and increased blood pressure. Patient has not taken her pills consistently in the past few days. She was recently admitted a week and a half ago for similar presentation but at that time also found to have bilateral PEs. Workup initiated and patient's RV to LV ratio was less than 1. No intervention performed. Started on anticoagulation. On presentation today to the ER, patient is frankly hypertensive with blood pressure 180-200 systolic. Concern for hypertensive emergency given worsening mentation suspicious for encephalopathy. Initiated on nitroprusside drip and medicine consulted for admission and further management. BNP is elevated at 1500, troponin less than 0.02. She is stable on room air at this time. Intermittently makes eye contact, no significant verbal response on my interview. GCS appears to be at 13 or 14. Opens eyes spontaneously, localizes to pain, does not obey commands, unable to obtain any significant verbal response, concern for confusion. [facility] Disclaimer: The information contained in this section may have been updated after the patient was seen, as this information can be updated by other users. Medical History (Updated 01/03/25 @ 17:34 by Elias Sparks MD) Urinary tract infection UTI (urinary tract infection) Tardive dyskinesia Former smoker Bipolar disorder, unspecified Diabetes mellitus GERD (gastroesophageal reflux disease) Anxiety and depression HTN (hypertension) HLD (hyperlipidemia) Chronic pain of right knee Constipation Dementia Right ureteral calculus Left against medical advice Urinary incontinence Cervical radiculitis Left knee pain Left patella fracture Acute UTI Altered awareness, transient Surgical History History of total right knee replacement History of D&C History of cholecystectomy Family History Other No significant family history Social History Smoking Status: Unknown if ever smoked alcohol intake: never counseling provided: none substance use type: denies use current occupational status: unemployed Travel in the last 8 weeks?: None housing: custodial caffeine: No Have you lived/traveled outside [place] in past 30 days?: No Contact w/someone who lives/traveled outside [place] past 30 days?: No Exposure to someone with infectious disease in past 14 days?: No Do you have a fever (greater than 100.4 F or 38 C)?: No Have you tested positive for COVID-19?: No Exposed to someone with COVID-19 in past 14 days?: No Do you have a sore throat?: No Do you have a cough?: No Do you have any weakness?: No Do you have any diarrhea?: No Are you experiencing any unusual bleeding?: No Do you have any muscle aches/pain?: No Do you have any abdominal pain?: No Are you experiencing loss of taste or smell?: No Other Medical History Have you received the Flu Vaccine for this season: No Have you received the Pneumonia Vaccine: Yes Review of Systems Review of Systems Review of systems:: unable to obtain (Patient cooperation her confusion) Meds Home Medications and Allergies Home Medications ?Medication ?Instructions ?Recorded ?Confirmed ?Type albuterol 90 mcg-budesonide 80 2 inh inhalation Q4HP PRN Asthma 10/17/24 01/03/25 Rx mcg/actuation HFA aerosol inhaler #10.7 grams (Airsupra) atorvastatin 80 mg tablet (Lipitor) 80 mg PO HS #30 tabs 10/17/24 01/03/25 Rx ferrous sulfate 325 mg (65 mg 325 mg PO DAILY 10/17/24 01/03/25 History iron) tablet folic acid 1 mg tablet 1 mg PO DAILY #30 tabs 10/17/24 01/03/25 Rx montelukast 10 mg tablet 10 mg PO HS GERD 10/17/24 01/03/25 History (Singulair) omeprazole 40 mg capsule,delayed 40 mg PO DAILY GERD 10/17/24 01/03/25 History release trazodone 50 mg tablet 50 mg PO HS #30 tabs 10/17/24 01/03/25 Rx gabapentin 300 mg capsule 300 mg PO BID #4 caps 11/07/24 01/03/25 Rx carvedilol 25 mg tablet 25 mg PO BID #60 tabs 11/20/24 01/03/25 Rx metformin 500 mg tablet 500 mg PO BID #60 tabs 12/10/24 01/03/25 Rx quetiapine 100 mg tablet (Seroquel) 100 mg PO HS 12/10/24 01/03/25 History acetaminophen 325 mg tablet 325 mg PO Q8HP PRN Mild Pain 12/22/24 01/03/25 History (Scale Score 1-4) diclofenac sodium 1 % topical gel 4 g topical BID 12/22/24 01/03/25 History docusate sodium 100 mg capsule 100 mg PO BID 12/22/24 01/03/25 History insulin aspart U-100 100 unit/mL 0 sliding scale dose SQ ACHS 12/22/24 01/03/25 History (3 mL) subcutaneous pen (Novolog FlexPen U-100 Insulin aspart) mecobalamin (vitamin B12) 1,000 1,000 mcg PO DAILY 12/22/24 01/03/25 History mcg chewable tablet (B12 Active) oxycodone-acetaminophen 5 mg-325 1 tab PO Q6HP PRN Severe Pain 12/22/24 01/03/25 History mg tablet (Scale Score 7-10) polyethylene glycol 3350 17 gram 17 g PO BID 12/22/24 01/03/25 History oral powder packet apixaban 5 mg (74 tabs) tablets in 5 mg PO BID #74 tabs 12/23/24 01/03/25 Rx a dose pack ([facility] DVT-PE Treat 30D Start) irbesartan 150 mg tablet 150 mg PO HS 30 days #30 tabs 12/23/24 01/03/25 Rx lorazepam 0.5 mg tablet 0.5 mg PO QAM #30 tabs 12/26/24 01/03/25 Rx lorazepam 1 mg tablet 1 mg PO HS insomnia 01/03/25 01/03/25 History New Prescriptions to Start Prescriptions: Allergies Allergy/AdvReac Type Severity Reaction Status Date / Time latex Allergy Mild Redness of Verified 01/03/25 16:43 Skin cefdinir Allergy Unknown Unknown Verified 01/03/25 16:43 allergy reaction codeine (CODEINE) Allergy Unknown Unknown Verified 01/03/25 16:43 allergy reaction cyclobenzaprine Allergy Unknown Unknown Verified 01/03/25 16:43 allergy reaction fexofenadine (From JANE) Allergy Unknown unknown Verified 01/03/25 16:43 iopamidol (IOPAMIDOL) Allergy Unknown Unknown Verified 01/03/25 16:43 allergy reaction levofloxacin Allergy Unknown Unknown Verified 01/03/25 16:43 allergy reaction meperidine (MEPERIDINE) Allergy Unknown Unknown Verified 01/03/25 16:43 allergy reaction Penicillins (PENICILLINS) Allergy Unknown Unknown Verified 01/03/25 16:43 allergy reaction piroxicam (From FELDENE) Allergy Unknown Unknown Verified 01/03/25 16:43 allergy reaction pseudoephedrine (From Allergy Unknown Unknown Verified 01/03/25 16:43 Sudafed) allergy reaction simvastatin (From Zocor) Allergy Unknown Unknown Verified 01/03/25 16:43 allergy reaction sulfamethoxazole (From Allergy Unknown Unknown Verified 01/03/25 16:43 BACTRIM) allergy reaction trimethoprim (From BACTRIM) Allergy Unknown Unknown Verified 01/03/25 16:43 allergy reaction Exam Data for Last 24 hours Vital signs and Labs for Last 24 Hours: Temp Pulse Resp BP Pulse Ox O2 Del Method 97.6 F 117 H 17 190/110 H 98 Room Air 01/03/25 10:47 01/03/25 14:45 01/03/25 14:45 01/03/25 14:45 01/03/25 14:45 01/03/25 14:45 Laboratory Results - last 24 hr 01/03/25 10:48: WBC 11.2 H D, RBC 4.44, Hgb 13.8, Hct 40.9, MCV 92.1, MCH 31.1, MCHC 33.7, RDW 13.1, Plt Count 479 H, MPV 9.7, Neut % (Auto) 71.8, Lymph % (Auto) 21.9, Kane % (Auto) 5.3, Eos % (Auto) 0.2, Baso % (Auto) 0.5, Neut # (Auto) 8.1 H, Lymph # (Auto) 2.5, Kane # (Auto) 0.6, Eos # (Auto) 0.0, Baso # (Auto) 0.1, VBG pH 7.46 H, VBG pCO2 33.8 L, VBG pO2 74.9 H, VBG HCO3 23.2, VBG Total CO2 24.3, VBG O2 Saturation 96.3 H, VBG Base Excess -0.7, VBG Lactic Acid 2.2 H, Sodium 135 L, Potassium 4.4, Chloride 100, Carbon Dioxide 26, Anion Gap 13.4, BUN 18 H D, Creatinine 0.70, Estimated Creat Clear 49, Estimated GFR 82, Est GFR ( Amer) 100, Glucose 204 H, Calcium 9.8, Magnesium 1.1 L, Total Bilirubin 0.8, AST 34 D, ALT 24 D, Alkaline Phosphatase 102, Troponin I < 0.01, C-Reactive Protein 7.4 H, NT-Pro-B Natriuret Pep 1590 H, Total Protein 8.3 H D, Albumin 4.5, Globulin 3.8 H, Albumin/Globulin Ratio 1.2, Lipase 99 01/03/25 11:03: SARS-CoV-2 (PCR) Not detected, Influenza A Untype (PCR) Not detected, Influenza Type B (PCR) Not detected 01/03/25 11:43: Ammonia < 9 L 01/03/25 11:55: Urine Color Yellow, Urine Appearance Clear, Urine pH 6.0, Ur Specific [place] 1.015, Urine Protein 1+ A, Urine Glucose (UA) 1+, Urine Ketones 2+, Urine Blood Negative, Urine Nitrate Negative, Urine Bilirubin Negative, Urine Urobilinogen 0.2, Ur Leukocyte Esterase Negative, Urine RBC Occasional, Urine WBC Occasional, Ur Squamous Epith Cells Occasional, Urine Bacteria None, Urine Opiates Screen Negative, Urine Methadone Screen Negative, Ur Barbituates Screen Negative, Ur Phencyclidine Scrn Negative, Ur Amphetamines Screen Negative, U Benzodiazepines Scrn Negative, Urine Cocaine Screen Negative, U Marijuana (THC) Screen Negative 01/03/25 13:48: Troponin I 0.01 I & O for Last 24 hours: Intake & Output 12/31/24 01/01/25 01/02/25 01/03/25 23:59 23:59 23:59 23:59 Intake Total 59.185 / 59.185 Balance 59.185 / 59.185 Weight 60.781 kg Constitutional Constitutional: mild distress, thin and chronically ill appearing *Routine HEENT Exam Head: Present normocephalic Eye: Present EOMI and PERRL ENT: Present mucous membranes moist Comments: Edentulous *Routine Neck Exam Neck: Present supple, full ROM and trachea midline *Routine Respiratory Exam Respiratory: Present normal respiratory effort; Absent rhonchi, wheezes or crackles *Routine Cardiovascular Exam Cardiovascular: Present Normal S1, Normal S2 and tachycardia *Routine Abdominal Exam Abdominal: Present soft and normoactive bowel sounds *Routine Rectal Exam Rectal:: deferred *Routine Genitalia Exam Genitalia:: deferred *Routine Extremities Exam Extremities: Present pulses intact and normal capillary refill; Absent edema Routine Back/Spine/Pelvis Exam Back/Spine: Present full ROM *Routine Skin Exam Skin: Present intact *Routine Neurological Exam Neurological: Present alert, altered mental status and moving all extremities Routine Psychiatric Exam Psychiatric: Present unable to assess Assessment and Plan *Assessment and plan (1) Hypertensive emergency: Status: Acute Category: Medical Code(s): I16.1 - Hypertensive emergency (2) Encephalopathy acute: Status: Acute Category: Medical Code(s): G93.40 - Encephalopathy, unspecified (3) Bilateral pulmonary embolism: Status: Acute Category: Medical Code(s): I26.99 - Other pulmonary embolism without acute cor pulmonale (4) Dementia: Status: Acute Qualifiers: Dementia behavioral or psychological symptom: unspecified whether behavioral, psychotic, or mood disturbance or anxiety Dementia severity: unspecified severity Dementia type: unspecified type Qualified Code(s): F03.90 - Unspecified dementia, unspecified severity, without behavioral disturbance, psychotic disturbance, mood disturbance, and anxiety Category: Medical Code(s): F03.90 - Unspecified dementia, unspecified severity, without behavioral disturbance, psychotic disturbance, mood disturbance, and anxiety (5) HTN (hypertension): Status: Acute Qualifiers: Hypertension type: primary hypertension Qualified Code(s): I10 - Essential (primary) hypertension Category: Medical Code(s): I10 - Essential (primary) hypertension (6) HLD (hyperlipidemia): Status: Acute Qualifiers: Hyperlipidemia type: mixed hyperlipidemia Qualified Code(s): E78.2 - Mixed hyperlipidemia Category: Medical Code(s): E78.5 - Hyperlipidemia, unspecified (7) Anxiety and depression: Status: Acute Category: Medical Code(s): F41.9 - Anxiety disorder, unspecified; F32.A - Depression, unspecified (8) Bipolar disorder, unspecified: Status: Acute Qualifiers: Active/Remission status: remission status unspecified Qualified Code(s): F31.9 - Bipolar disorder, unspecified Category: Medical Code(s): F31.9 - Bipolar disorder, unspecified (9) Diabetes mellitus: Status: Acute Qualifiers: Diabetes mellitus complication detail: with other circulatory complications Diabetes mellitus complication status: with circulatory complication Diabetes mellitus exterminator helper insulin use: without mcfp use Diabetes mellitus type: type 2 Qualified Code(s): E11.59 - Type 2 diabetes mellitus with other circulatory complications Category: Medical Code(s): E11.9 - Type 2 diabetes mellitus without complications (10) GERD (gastroesophageal reflux disease): Status: Acute Qualifiers: Esophagitis presence: esophagitis presence not specified Qualified Code(s): K21.9 - Gastro-esophageal reflux disease without esophagitis Category: Medical Code(s): K21.9 - Gastro-esophageal reflux disease without esophagitis Plan 74-year-old female who resides at a custodial locally. Presented with concern for confusion, not taking her meds, hypertension. Blood pressure systolic greater than 180, in the setting of altered mental status, concern for hypertensive emergency with encephalopathy. Patient has not taken her meds past several days. Similar presentation a week and a half ago, found to have PEs at that time. Discussed case with ER physician, request admission for further management with nitroprusside drip and medical treatment. I decided to admit to the ICU for further care. Initiated on nitroprusside drip. Will initiate therapeutic Lovenox for anticoagulation given the known PEs diagnosed a week and a half ago on chest CTA 12/21/2024 even in light of negative CTA today. Patient high risk for decompensation. Problems addressed as follows: Hypertensive emergency: Encephalopathy: -Hypertensive with systolics above 180 showing some confusion. Concern for endorgan damage with encephalopathy. Initiated on nitroprusside drip. Goal blood pressure less than 160 systolic. Will resume home regimen if patient will take her pills including carvedilol 25 mg twice daily. irbesartan 150 mg nightly. - White count 11.2, hemoglobin 13.8, platelets 479. No signs of bleeding. Kidney function at baseline with BUN 18, creatinine 0.7. Glucose 204 on admission. Magnesium low at 1.1. Will replace per protocol. Urine obtained, unremarkable with negative nitrate, leuk esterase, bacteria - CT head relatively unremarkable per my review with no acute findings. Do not appreciate new hemorrhage or mass Bilateral pulmonary embolism: - Imaging with CTA of chest on 12/21 showing bilateral PEs. Was started on Eliquis at that time. Did not have right heart strain. Repeat CTA today per my review with no free she will PEs. Given the known PEs less than 2 weeks ago, patient needs to continue anticoagulation for at least 3 months. Will resume anticoagulation with Lovenox 1 mg/kg twice daily. If starts taking oral medications, will transition back to her Eliquis 5 mg twice daily. Bilateral lower extremity duplex reviewed from visit earlier this month Showing no evidence of DVT in bilateral lower extremities - Stable on room air Diabetes mellitus type 2: Hemoglobin A1c 6.6, September 2024. Regimen of metformin 500 mg daily with sliding scale 4 times daily. Noted glucose typically runs mid 100s with occasional lows in the 80s and highs 300 range. Typically controlled. - Will continue sliding scale insulin and fingersticks ACHS for now. - Glucose 204 on admission - Repeat CBC, CMP, magnesium ordered for the morning. Bipolar disorder/dementia/anxiety and depression: Patient is noted to be followed by psychiatry, generally quite talkative but can be confused. Minimal verbalization over the past day or 2. No verbalization on my interview today. - Resume home medications, encourage patient to take them as prescribed including the following: quetiapine 100 mg hs, lorazepam 1 mg at bedtime, trazodone 50 mg at bedtime. GERD: Pantoprazole 40 mg IV nightly DVT prophylaxis: Therapeutic Lovenox Full code Diabetic diet
--- NOTE | 2025-01-03 16:00 | PC.NURSE ---
patient arrived to ICU via stretcher @1600 with SOPHIE
[2025-01-03 17:24] LABS: Lactic Acid Follow Up (RFLX 1) 1.7 mmol/L (0.7-2.1)
[2025-01-03 17:37] LABS: Troponin I 0.02 ng/ml (0.00-0.034)
[2025-01-03] MEDS: ATORVASTATIN 40MG TABLET 80 MG PO (20:25)
[2025-01-03] MEDS: TRAZODONE 50MG TABLET 50 MG PO (20:25)
[2025-01-03] MEDS: GABAPENTIN 300MG CAPSULE 300 MG PO (20:25)
[2025-01-03] MEDS: PANTOPRAZOLE 40MG VIAL 40 MG IV (20:25)
[2025-01-03] MEDS: IRBESARTAN 150MG TAB 150 MG PO (20:26)
[2025-01-03] MEDS: DOCUSATE SODIUM 100 MG CAPSULE PO (20:26)
[2025-01-03] MEDS: QUETIAPINE 100MG TABLET 100 MG PO (20:33)
[2025-01-03] MEDS: POLYETHYLENE GLYCOL 3350 17 GM PACKET PO (20:33)
[2025-01-03] MEDS: CARVEDILOL 25MG TABLET 25 MG PO (20:35)
[2025-01-03 20:49] LABS: POC Glucose,Bedside 189 gm/dL (70-110)
[2025-01-03] MEDS: humaLOG 100 UNITS/ML 10ML VIAL (SSI) SUBCUT (21:09)
[2025-01-03] MEDS: ACETAMINOPHEN 325MG TAB 325 MG PO (22:57)
[2025-01-04] VITALS (18 sets, daily range): BP systolic 93–189; BP diastolic 48–109; PULSE 79–108; RESP 10–22; TEMP 36.4–37.3; O2SAT 84–100; BMI 21.1
--- NOTE | 2025-01-04 00:35 | PC.NURSE ---
Per Dr. Sparks's note, pt is to be on a diabetic diet. Order changed from regular diet to diabetic diet.
[2025-01-04 04:00] LABS: POC Glucose,Bedside 241 gm/dL (70-110)
[2025-01-04] MEDS: humaLOG 100 UNITS/ML 10ML VIAL (SSI) SUBCUT ×2 (05:55→11:39)
[2025-01-04 05:58] LABS: POC Glucose,Bedside 219 gm/dL (70-110)
[2025-01-04] MEDS: CARVEDILOL 25MG TABLET 25 MG PO (06:33)
[2025-01-04 07:37] LABS: Hematocrit 38.3 % (37.0-47.0); Immature Granulocytes % 0.3 %; Mean Corpuscular HGB Conc 32.1 g/dL (31.8-35.4); Mean Corpuscular Hemoglobin 29.9 pg (27.0-31.2); Mean Corpuscular Volume 93.0 fl (81-99); Nucleated Red Blood Cells % 0 %; Platelet Count 406 K/mm3 (142-424); Red Blood Count 4.12 M/mm3 (4.20-5.40); Red Cell Distribution Width-SD 45.0 fL; White Blood Count 8.8 K/mm3 (4.8-10.8)
[2025-01-04 07:51] LABS: Alanine Aminotransferase 23 U/L (12-78); Albumin Level 4.6 g/dl (3.5-5.0); Albumin/Globulin Ratio 1.5 (1.1-1.8); Alkaline Phosphatase 90 U/L (38-126); Anion Gap 10.6 mEq/L (5-15); Aspartate Amino Transferase 32 U/L (14-36); Bilirubin,Total 0.5 mg/dl (0.2-1.3); Blood Urea Nitrogen 17 mg/dl (7-17); Calcium 9.7 mg/dl (8.4-10.2); Carbon Dioxide 27 mmol/L (22.0-30.0); Chloride 96 mmol/L (98-107); Creatinine Clearance Estimated 46 mL/min (50-200); Creatinine,Serum 0.70 mg/dl (0.52-1.04); Estimated Glomerular Filt Rate 82 ml/min (>60); GFR (African American) 100 ML/MIN (>60); Globulin 3.1 g/dL (1.3-3.2); Glucose 178 mg/dl (74-100); Hemoglobin 12.3 g/dL (12.2-16.2); Magnesium 1.4 mg/dl (1.6-2.3); Potassium 3.6 mmoL/L (3.5-5.1); Sodium 130 mmol/L (136-145); Total Protein,Serum 7.7 g/dl (6.3-8.2)
--- NOTE | 2025-01-04 08:20 | PC.NURSE ---
notified of patients blood pressure of 160/89. New orders received. Refer to MAR. Continuation of care plan.
[2025-01-04] MEDS: GABAPENTIN 300MG CAPSULE 300 MG PO (09:06)
[2025-01-04] MEDS: POLYETHYLENE GLYCOL 3350 17 GM PACKET PO (09:06)
[2025-01-04] MEDS: DOCUSATE SODIUM 100 MG CAPSULE PO (09:06)
[2025-01-04] MEDS: FOLIC ACID 1MG TABLET 1 MG PO (09:06)
[2025-01-04] MEDS: MAGNESIUM SULFATE IN WATER 2 GM/50 ML PIGGYBACK IV ×3 (10:35→12:40)
[2025-01-04 10:54] LABS: POC Glucose,Bedside 222 gm/dL (70-110)
--- NOTE | 2025-01-04 11:56 | EXP.DC.SUM ---
General Admission date:: 01/03/25 Discharge date: 01/04/25 HPI HPI HPI: Ms. Valero is a 74-year-old female with past medical history significant for hypertension, hyperlipidemia, diabetes, GERD, anxiety and depression with bipolar, dementia, urinary incontinence. Presented from her nursing facility due to concern for worsening confusion and increased blood pressure. Patient has not taken her pills consistently in the past few days. She was recently admitted a week and a half ago for similar presentation but at that time also found to have bilateral PEs. Workup initiated and patient's RV to LV ratio was less than 1. No intervention performed. Started on anticoagulation. On presentation today to the ER, patient is frankly hypertensive with blood pressure 180-200 systolic. Concern for hypertensive emergency given worsening mentation suspicious for encephalopathy. Initiated on nitroprusside drip and medicine consulted for admission and further management. BNP is elevated at 1500, troponin less than 0.02. She is stable on room air at this time. Intermittently makes eye contact, no significant verbal response on my interview. GCS appears to be at 13 or 14. Opens eyes spontaneously, localizes to pain, does not obey commands, unable to obtain any significant verbal response, concern for confusion. Hospital Course Hospital Course Hospital Course: 74-year-old female who resides at a retirement locally. Presented with concern for confusion, not taking her meds, hypertension. Blood pressure systolic greater than 180, in the setting of altered mental status, concern for hypertensive emergency with encephalopathy. Patient has not taken her meds past several days. Similar presentation a week and a half ago, found to have PEs at that time. Discussed case with ER physician, request admission for further management with nitroprusside drip and medical treatment. I decided to admit to the ICU for further care. Initiated on nitroprusside drip. Will initiate therapeutic Lovenox for anticoagulation given the known PEs diagnosed a week and a half ago on chest CTA 12/21/2024 even in light of negative CTA today. Patient did well. Back to normal by morning. Blood pressure controlled on oral regimen. Presentation most consistent with refusal of medication leading to hypertension and leading to her admission. Strongly encourage facility to encourage patient to take her medications daily. At least her blood pressure meds if nothing else. Stable for discharge back to rehab facility. Problems addressed as follows: Hypertensive emergency: Encephalopathy: -Hypertensive with systolics above 180 showing some confusion. Concern for endorgan damage with encephalopathy. Initiated on nitroprusside drip. Goal blood pressure less than 160 systolic. Off nitroprusside by morning. Was able to take her evening medications without difficulty. Resumed morning carvedilol. Received nighttime irbesartan. Initiated nifedipine extended release 30 mg in the morning. Blood pressure did leave at her. Improved to 135/71. Continue oral regimen per med rec. Kidney function and electrolytes remained stable. No other concerns on labs today. Imaging was unremarkable of her head. No concern for any acute stroke. Back to baseline mentation by morning. Strongly encouraged adherence to blood pressure regimen in the outpatient setting to prevent readmission or representation to the ER for malignant hypertension Bilateral pulmonary embolism: - Imaging with CTA of chest on 12/21 showing bilateral PEs. Was started on Eliquis at that time. Did not have right heart strain. Repeat CTA today per my review with no free she will PEs. Given the known PEs less than 2 weeks ago, patient needs to continue anticoagulation for at least 3 months. Initiated on Lovenox until tolerating p.o. meds. Recommend completing 3-month course of anticoagulation. Sent new prescription for Eliquis 5 mg twice daily. Review of chart from previous visit in the past 2 weeks, bilateral lower extremity duplex reviewed from visit earlier this month Showing no evidence of DVT in bilateral lower extremities - Stable on room air throughout course of admission Diabetes mellitus type 2: Hemoglobin A1c 6.6, September 2024. Regimen of metformin 500 mg daily with sliding scale 4 times daily. Noted glucose typically runs mid 100s with occasional lows in the 80s and highs 300 range. Typically controlled. - Will continue sliding scale insulin and fingersticks ACHS for now. - Glucose 204 on admission. White count normal by morning at 8.8. Kidney function stable BUN 17, creatinine 0.7. Morning glucose 178. Bipolar disorder/dementia/anxiety and depression: Patient is noted to be followed by psychiatry, generally quite talkative but can be confused. Minimal verbalization over the past day or 2. No verbalization on my interview added in. By morning, patient is conversational. Asking to go to the bathroom. Answering questions appropriately. Appears at her baseline mentation. Responding to staff and following directions. - Resume home medications, encourage patient to take them as prescribed including the following: quetiapine 100 mg hs, lorazepam 1 mg at bedtime, trazodone 50 mg at bedtime. GERD: Pantoprazole 40 mg IV nightly Total time spent on discharge 32 minutes in counseling, documentation, chart review, and direct care with patient. Exam Data for Last 24 hours Vital signs and Labs for Last 24 Hours: Temp Pulse Resp BP Pulse Ox O2 Del Method 98.7 F 90 18 135/71 98 Room Air 01/04/25 08:01 01/04/25 11:28 01/04/25 11:28 01/04/25 11:28 01/04/25 11:28 01/04/25 11:28 Laboratory Results - last 24 hr 01/03/25 11:43: Ammonia < 9 L 01/03/25 11:55: Urine Color Yellow, Urine Appearance Clear, Urine pH 6.0, Ur Specific [place] 1.015, Urine Protein 1+ A, Urine Glucose (UA) 1+, Urine Ketones 2+, Urine Blood Negative, Urine Nitrate Negative, Urine Bilirubin Negative, Urine Urobilinogen 0.2, Ur Leukocyte Esterase Negative, Urine RBC Occasional, Urine WBC Occasional, Ur Squamous Epith Cells Occasional, Urine Bacteria None, Urine Opiates Screen Negative, Urine Methadone Screen Negative, Ur Barbituates Screen Negative, Ur Phencyclidine Scrn Negative, Ur Amphetamines Screen Negative, U Benzodiazepines Scrn Negative, Urine Cocaine Screen Negative, U Marijuana (THC) Screen Negative 01/03/25 13:48: Troponin I 0.01 01/03/25 16:58: Lactate 1.7, Troponin I 0.02 01/03/25 20:41: POC Glucose 189 H 01/04/25 03:52: POC Glucose 241 H 01/04/25 05:51: POC Glucose 219 H 01/04/25 07:10: WBC 8.8, RBC 4.12 L, Hgb 12.3 D, Hct 38.3, MCV 93.0, MCH 29.9, MCHC 32.1, RDW 13.2, Plt Count 406, MPV 9.8, Neut % (Auto) 58.1, Lymph % (Auto) 30.9, [place] % (Auto) 8.4, Eos % (Auto) 1.4, Baso % (Auto) 0.9, Neut # (Auto) 5.1, Lymph # (Auto) 2.7, [place] # (Auto) 0.7, Eos # (Auto) 0.1, Baso # (Auto) 0.1, Sodium 130 L, Potassium 3.6, Chloride 96 L, Carbon Dioxide 27, Anion Gap 10.6, BUN 17, Creatinine 0.70, Estimated Creat Clear 46, Estimated GFR 82, Est GFR ( Amer) 100, Glucose 178 H, Calcium 9.7, Magnesium 1.4 L D, Total Bilirubin 0.5, AST 32, ALT 23, Alkaline Phosphatase 90, Total Protein 7.7, Albumin 4.6, Globulin 3.1, Albumin/Globulin Ratio 1.5 01/04/25 10:43: POC Glucose 222 H I & O for Last 24 hours: Intake & Output 01/01/25 01/02/25 01/03/25 01/04/25 23:59 23:59 23:59 23:59 Intake Total 1302.000 / 1782.000 770 / 770 Balance 1302.000 / 1782.000 770 / 770 Weight 59.5 kg 57.6 kg Microbiology Reports for the Last 24 Hours: Microbiology 01/03/25 11:13 Blood Blood Culture - Preliminary NO GROWTH AFTER 24 HOURS 01/03/25 11:03 Blood Blood Culture - Preliminary NO GROWTH AFTER 24 HOURS Constitutional Constitutional: no acute distress, thin, chronically ill appearing and cooperative *Routine HEENT Exam Head: Present normocephalic Eye: Present EOMI and PERRL ENT: Present mucous membranes moist *Routine Neck Exam Neck: Present supple; Absent lymphadenopathy *Routine Respiratory Exam Respiratory: Present CTA bilaterally; Absent rhonchi, wheezes or crackles *Routine Cardiovascular Exam Cardiovascular: Present RRR *Routine Abdominal Exam Abdominal: Present soft and normoactive bowel sounds; Absent tenderness *Routine Rectal Exam Patient deferred: visual exam *Routine Exam Patient deferred: external exam *Routine Extremities Exam Extremities: Absent cyanosis, clubbing or edema *Routine Skin Exam Skin: Present intact and warm; Absent rash *Routine Neurological Exam Neurological: Present alert, moving all extremities and tremors; Absent altered mental status Comments: Speaking today. Oriented to self. Speaking in complete sentences but uses some words appropriately. Appears to be at baseline mentation with her dementia Results Data Completed and Pending Labs on day of discharge: Labs from last 24 hours 01/04/25 01/04/25 01/04/25 10:43 07:10 05:51 WBC 8.8 RBC 4.12 L Hgb 12.3 D Hct 38.3 MCV 93.0 MCH 29.9 MCHC 32.1 RDW 13.2 Plt Count 406 MPV 9.8 Neut % (Auto) 58.1 Lymph % (Auto) 30.9 [place] % (Auto) 8.4 Eos % (Auto) 1.4 Baso % (Auto) 0.9 Neut # (Auto) 5.1 Lymph # (Auto) 2.7 [place] # (Auto) 0.7 Eos # (Auto) 0.1 Baso # (Auto) 0.1 Sodium 130 L Potassium 3.6 Chloride 96 L Carbon Dioxide 27 Anion Gap 10.6 BUN 17 Creatinine 0.70 Estimated Creat Clear 46 Estimated GFR 82 Est GFR ( Amer) 100 Glucose 178 H POC Glucose 222 H 219 H Lactate Calcium 9.7 Magnesium 1.4 L D Total Bilirubin 0.5 AST 32 ALT 23 Alkaline Phosphatase 90 Ammonia Troponin I Total Protein 7.7 Albumin 4.6 Globulin 3.1 Albumin/Globulin Ratio 1.5 Urine Color Urine Appearance Urine pH Ur Specific [place] Urine Protein Urine Glucose (UA) Urine Ketones Urine Blood Urine Nitrate Urine Bilirubin Urine Urobilinogen Ur Leukocyte Esterase Urine RBC Urine WBC Ur Squamous Epith Cells Urine Bacteria Urine Opiates Screen Urine Methadone Screen Ur Barbituates Screen Ur Phencyclidine Scrn Ur Amphetamines Screen U Benzodiazepines Scrn Urine Cocaine Screen U Marijuana (THC) Screen 01/04/25 01/03/25 01/03/25 03:52 20:41 16:58 WBC RBC Hgb Hct MCV MCH MCHC RDW Plt Count MPV Neut % (Auto) Lymph % (Auto) [place] % (Auto) Eos % (Auto) Baso % (Auto) Neut # (Auto) Lymph # (Auto) [place] # (Auto) Eos # (Auto) Baso # (Auto) Sodium Potassium Chloride Carbon Dioxide Anion Gap BUN Creatinine Estimated Creat Clear Estimated GFR Est GFR ( Amer) Glucose POC Glucose 241 H 189 H Lactate 1.7 Calcium Magnesium Total Bilirubin AST ALT Alkaline Phosphatase Ammonia Troponin I 0.02 Total Protein Albumin Globulin Albumin/Globulin Ratio Urine Color Urine Appearance Urine pH Ur Specific [place] Urine Protein Urine Glucose (UA) Urine Ketones Urine Blood Urine Nitrate Urine Bilirubin Urine Urobilinogen Ur Leukocyte Esterase Urine RBC Urine WBC Ur Squamous Epith Cells Urine Bacteria Urine Opiates Screen Urine Methadone Screen Ur Barbituates Screen Ur Phencyclidine Scrn Ur Amphetamines Screen U Benzodiazepines Scrn Urine Cocaine Screen U Marijuana (THC) Screen 01/03/25 01/03/25 01/03/25 13:48 11:55 11:43 WBC RBC Hgb Hct MCV MCH MCHC RDW Plt Count MPV Neut % (Auto) Lymph % (Auto) [place] % (Auto) Eos % (Auto) Baso % (Auto) Neut # (Auto) Lymph # (Auto) [place] # (Auto) Eos # (Auto) Baso # (Auto) Sodium Potassium Chloride Carbon Dioxide Anion Gap BUN Creatinine Estimated Creat Clear Estimated GFR Est GFR ( Amer) Glucose POC Glucose Lactate Calcium Magnesium Total Bilirubin AST ALT Alkaline Phosphatase Ammonia < 9 L Troponin I 0.01 Total Protein Albumin Globulin Albumin/Globulin Ratio Urine Color Yellow Urine Appearance Clear Urine pH 6.0 Ur Specific [place] 1.015 Urine Protein 1+ A Urine Glucose (UA) 1+ Urine Ketones 2+ Urine Blood Negative Urine Nitrate Negative Urine Bilirubin Negative Urine Urobilinogen 0.2 Ur Leukocyte Esterase Negative Urine RBC Occasional Urine WBC Occasional Ur Squamous Epith Cells Occasional Urine Bacteria None Urine Opiates Screen Negative Urine Methadone Screen Negative Ur Barbituates Screen Negative Ur Phencyclidine Scrn Negative Ur Amphetamines Screen Negative U Benzodiazepines Scrn Negative Urine Cocaine Screen Negative U Marijuana (THC) Screen Negative Preliminary micro results at discharge 01/03/25 11:13 Blood Culture - Preliminary Blood NO GROWTH AFTER 24 HOURS 01/03/25 11:03 Blood Culture - Preliminary Blood NO GROWTH AFTER 24 HOURS DS: Diagnosis Discharge Diagnosis (1) Hypertensive emergency: Status: Resolved Code(s): I16.1 - Hypertensive emergency (2) Encephalopathy acute: Status: Acute Code(s): G93.40 - Encephalopathy, unspecified (3) Bilateral pulmonary embolism: Status: Acute Code(s): I26.99 - Other pulmonary embolism without acute cor pulmonale (4) Dementia: Status: Acute Code(s): F03.90 - Unspecified dementia, unspecified severity, without behavioral disturbance, psychotic disturbance, mood disturbance, and anxiety Qualifiers: Dementia behavioral or psychological symptom: unspecified whether behavioral, psychotic, or mood disturbance or anxiety Dementia severity: unspecified severity Dementia type: unspecified type Qualified Code(s): F03.90 - Unspecified dementia, unspecified severity, without behavioral disturbance, psychotic disturbance, mood disturbance, and anxiety (5) HTN (hypertension): Status: Acute Code(s): I10 - Essential (primary) hypertension Qualifiers: Hypertension type: primary hypertension Qualified Code(s): I10 - Essential (primary) hypertension (6) HLD (hyperlipidemia): Status: Acute Code(s): E78.5 - Hyperlipidemia, unspecified Qualifiers: Hyperlipidemia type: mixed hyperlipidemia Qualified Code(s): E78.2 - Mixed hyperlipidemia (7) Anxiety and depression: Status: Acute Code(s): F41.9 - Anxiety disorder, unspecified; F32.A - Depression, unspecified (8) Bipolar disorder, unspecified: Status: Acute Code(s): F31.9 - Bipolar disorder, unspecified Qualifiers: Active/Remission status: remission status unspecified Qualified Code(s): F31.9 - Bipolar disorder, unspecified (9) Diabetes mellitus: Status: Acute Code(s): E11.9 - Type 2 diabetes mellitus without complications Qualifiers: Diabetes mellitus type: type 2 Diabetes mellitus long term acute care registered nurse insulin use: without snf use Diabetes mellitus complication status: with circulatory complication Diabetes mellitus complication detail: with other circulatory complications Qualified Code(s): E11.59 - Type 2 diabetes mellitus with other circulatory complications (10) GERD (gastroesophageal reflux disease): Status: Acute Code(s): K21.9 - Gastro-esophageal reflux disease without esophagitis Qualifiers: Esophagitis presence: esophagitis presence not specified Qualified Code(s): K21.9 - Gastro-esophageal reflux disease without esophagitis Meds Home Medications and Allergies Home Medications ?Medication ?Instructions ?Recorded ?Confirmed ?Type albuterol 90 mcg-budesonide 80 2 inh inhalation Q4HP PRN Asthma 10/17/24 01/03/25 Rx mcg/actuation HFA aerosol inhaler #10.7 grams (Airsupra) atorvastatin 80 mg tablet (Lipitor) 80 mg PO HS #30 tabs 10/17/24 01/03/25 Rx ferrous sulfate 325 mg (65 mg 325 mg PO DAILY 10/17/24 01/03/25 History iron) tablet folic acid 1 mg tablet 1 mg PO DAILY #30 tabs 10/17/24 01/03/25 Rx montelukast 10 mg tablet 10 mg PO HS GERD 10/17/24 01/03/25 History (Singulair) omeprazole 40 mg capsule,delayed 40 mg PO DAILY GERD 10/17/24 01/03/25 History release trazodone 50 mg tablet 50 mg PO HS #30 tabs 10/17/24 01/03/25 Rx gabapentin 300 mg capsule 300 mg PO BID #4 caps 11/07/24 01/03/25 Rx carvedilol 25 mg tablet 25 mg PO BID #60 tabs 11/20/24 01/03/25 Rx metformin 500 mg tablet 500 mg PO BID #60 tabs 12/10/24 01/03/25 Rx quetiapine 100 mg tablet (Seroquel) 100 mg PO HS 12/10/24 01/03/25 History acetaminophen 325 mg tablet 325 mg PO Q8HP PRN Mild Pain 12/22/24 01/03/25 History (Scale Score 1-4) diclofenac sodium 1 % topical gel 4 g topical BID 12/22/24 01/03/25 History docusate sodium 100 mg capsule 100 mg PO BID 12/22/24 01/03/25 History insulin aspart U-100 100 unit/mL 0 sliding scale dose SQ ACHS 12/22/24 01/03/25 History (3 mL) subcutaneous pen (Novolog FlexPen U-100 Insulin aspart) mecobalamin (vitamin B12) 1,000 1,000 mcg PO DAILY 12/22/24 01/03/25 History mcg chewable tablet (B12 Active) oxycodone-acetaminophen 5 mg-325 1 tab PO Q6HP PRN Severe Pain 12/22/24 01/03/25 History mg tablet (Scale Score 7-10) polyethylene glycol 3350 17 gram 17 g PO BID 12/22/24 01/03/25 History oral powder packet irbesartan 150 mg tablet 150 mg PO HS 30 days #30 tabs 12/23/24 01/03/25 Rx lorazepam 0.5 mg tablet 0.5 mg PO QAM #30 tabs 12/26/24 01/03/25 Rx apixaban 5 mg tablet (Eliquis) 5 mg PO BID #60 tabs 01/04/25 Rx nifedipine 30 mg tablet,extended 30 mg PO DAILY 30 days #30 tabs 01/04/25 Rx release 24 hr New Prescriptions to Start Prescriptions: apixaban [Eliquis] Elias Sparks nifedipine Elias Sparks Allergies Allergy/AdvReac Type Severity Reaction Status Date / Time latex Allergy Mild Redness of Verified 01/03/25 16:43 Skin cefdinir Allergy Unknown Unknown Verified 01/03/25 16:43 allergy reaction codeine (CODEINE) Allergy Unknown Unknown Verified 01/03/25 16:43 allergy reaction cyclobenzaprine Allergy Unknown Unknown Verified 01/03/25 16:43 allergy reaction fexofenadine (From JANE) Allergy Unknown unknown Verified 01/03/25 16:43 iopamidol (IOPAMIDOL) Allergy Unknown Unknown Verified 01/03/25 16:43 allergy reaction levofloxacin Allergy Unknown Unknown Verified 01/03/25 16:43 allergy reaction meperidine (MEPERIDINE) Allergy Unknown Unknown Verified 01/03/25 16:43 allergy reaction Penicillins (PENICILLINS) Allergy Unknown Unknown Verified 01/03/25 16:43 allergy reaction piroxicam (From FELDENE) Allergy Unknown Unknown Verified 01/03/25 16:43 allergy reaction pseudoephedrine (From Allergy Unknown Unknown Verified 01/03/25 16:43 Sudafed) allergy reaction simvastatin (From Zocor) Allergy Unknown Unknown Verified 01/03/25 16:43 allergy reaction sulfamethoxazole (From Allergy Unknown Unknown Verified 01/03/25 16:43 BACTRIM) allergy reaction trimethoprim (From BACTRIM) Allergy Unknown Unknown Verified 01/03/25 16:43 allergy reaction Discharge Plan Disposition Patient Disposition: er Intermediate Care Fac Condition: Fair Discharge Order Discharge Orders: Discharge Order (Routine); Ordered 01/04/25 Ordered By: Elias Sparks Follow up Plan Prescriptions/Medication Reconciliation: New Eliquis 5 mg tablet 5 mg PO BID Qty: 60 0RF nifedipine 30 mg Tablet Extended Release 24hr 30 mg PO DAILY 30 Days Qty: 30 0RF Continued quetiapine [Seroquel] 100 mg tablet 100 mg PO HS carvedilol 25 mg tablet 25 mg PO BID Qty: 60 2RF Rx Instructions: must administer with a meal/food, HOLD FOR SBP<100, DBP>60 OR HR <60 ferrous sulfate 325 mg (65 mg iron) tablet 325 mg PO DAILY montelukast [Singulair] 10 mg tablet 10 mg PO HS omeprazole 40 mg capsule,delayed release(DR/EC) 40 mg PO DAILY atorvastatin [Lipitor] 80 mg tablet 80 mg PO HS Qty: 30 2RF trazodone 50 mg tablet 50 mg PO HS Qty: 30 0RF folic acid 1 mg tablet 1 mg PO DAILY Qty: 30 2RF Airsupra 90-80 mcg/actuation HFA aerosol inhaler 2 inh inhalation Q4HP PRN (Reason: Asthma) Qty: 10.7 0RF gabapentin 300 mg capsule 300 mg PO BID Qty: 4 2RF metformin 500 mg tablet 500 mg PO BID Qty: 60 2RF lorazepam 0.5 mg tablet 0.5 mg PO QAM Qty: 30 5RF mecobalamin (vitamin B12) [B12 Active] 1,000 mcg Tablet,Chewable 1,000 mcg PO DAILY docusate sodium 100 mg Capsule 100 mg PO BID acetaminophen 325 mg tablet 325 mg PO Q8HP PRN (Reason: Mild Pain (Scale Score 1-4)) polyethylene glycol 3350 17 gram Powder In Packet 17 g PO BID insulin aspart U-100 [Novolog FlexPen U-100 Insulin] 100 unit/mL (3 mL) Insulin Pen 0 sliding scale dose SQ ACHS Protocol: Insulin Corrective High-Dose Regimen Condition: Fingerstick Blood Glucose Dose/Route: Insulin Units Condition: 151-200 mg/dl Dose/Route: 4 units/SQ Condition: 201-250 mg/dl Dose/Route: 6 units/SQ Condition: 251-300 mg/dl Dose/Route: 8 units/SQ Condition: 301-350 mg/dl Dose/Route: 10 units/SQ Condition: 351-400 mg/dl Dose/Route: 12 units/SQ Condition: > 400 mg/dl Dose/Route: 14 units/SQ and CALL MD Protocol Text: High Intensity Sliding Scale Insulin diclofenac sodium 1 % Gel 4 g TOPICAL BID Rx Instructions: apply to both knees oxycodone-acetaminophen 5-325 mg tablet 1 tab PO Q6HP PRN (Reason: Severe Pain (Scale Score 7-10)) irbesartan 150 mg Tablet 150 mg PO HS 30 Days Qty: 30 0RF Discontinued Eliquis DVT-PE Treat 30D Start 5 mg (74 tabs) tablets,dose pack 5 mg PO BID Qty: 74 0RF Rx Instructions: 2 tabs BID for 7 days, then 1 tab BID thereafter Problem Reconciliation Problems Reviewed?: Yes Patient Discharge Instructions ACTIVITY: Continue current activity DIET: continue same diet Print Language: Argentine Providers Primary Care Provider: Fredo Amaro Admit Provider: Elias Sparks Attending Provider: Elias Sparks
--- NOTE | 2025-01-04 14:20 | PC.NURSE ---
Patient discharge information reviewed with Shayy at [facility]. Continuation of care plan.
--- NOTE | 2025-01-04 14:38 | PC.NURSE ---
Primary RN spoke with Shayla Caban (Patients next of Kin) at this time. Patients next of kin educated on discharge education. Next of kin verbalizes understanding. Continuation of care plan.
--- NOTE | 2025-01-04 14:45 | PC.NURSE ---
EMS at bedside @2144 to transport patient back to [facility].
--- NOTE | 2025-01-04 14:50 | PC.NURSE ---
patient left ICU to go back to [facility] via EMS stretcher @2571
[2025-01-07 16:15] LABS: POC Glucose,Bedside 217 gm/dL (70-110)
== END 2025-01-04 14:50 ==
LOC: ER 15:03 → ICU 15:23
PROVIDERS: Admitting Provider Internal Medicine Adolescent Medicine; Emergency Provider Student in an Organized Health Care Education/Training Program; PCP Family Medicine; Visit Provider Internal Medicine Adolescent Medicine
DX: G93.40 Encephalopathy, unspecified (principal); F31.9 Bipolar disorder, unspecified; M25.561 Pain in right knee; G89.29 Other chronic pain; I10 Essential (primary) hypertension; I26.99 Other pulmonary embolism without acute cor pulmonale; Z90.49 Acquired absence of other specified parts of digestive tract; Z96.651 Presence of right artificial knee joint; Z56.0 Unemployment, unspecified; Z88.5 Allergy status to narcotic agent; Z91.040 Latex allergy status; Z88.1 Allergy status to other antibiotic agents; Z88.8 Allergy status to other drugs, medicaments and biological substances; Z88.0 Allergy status to penicillin; Z91.041 Radiographic dye allergy status; Z88.2 Allergy status to sulfonamides; Z79.899 Other long term (current) drug therapy; Z79.84 Long term (current) use of oral hypoglycemic drugs; Z79.4 Long term (current) use of insulin; F03.90 Unspecified dementia, unspecified severity, without behavioral disturbance, psychotic disturbance, mood disturbance, and anxiety; E78.2 Mixed hyperlipidemia; F41.9 Anxiety disorder, unspecified; E11.59 Type 2 diabetes mellitus with other circulatory complications; K21.9 Gastro-esophageal reflux disease without esophagitis; Z79.01 Long term (current) use of anticoagulants; R00.0 Tachycardia, unspecified
CPT/HCPCS: 36415; 70450; 70496; 70498; 71045; 71275; 74177; 80053; 80307; 81001; 82140; 82803; 82962; 83605; 83690; 83735; 83880; 84484; 85025; 86140; 87040; 87081; 87636; 93005; 99285; G0378; J1650; J2250; J2470; J3475; J7060; J7120; Q9967

== ENCOUNTER 2025-01-13 08:52 | Outpatient (CLI) | payer MEDICARE, SELFPAY ==
--- OUTSIDE RECORDS SUMMARY | 2025-01-13 08:54 | XMS_ITS | Clinical Summary ---
Author Organization [facility] Address [address] [place] [address] Care Team Providers Care Student Assistance Counselor Name Role Phone Tessy Goodman APRN Primary Care Provider [phone] Allergies Active Allergy Reactions Criticality Noted Date [...] exertion 08/06/2020 Coronary artery disease invo lving [place] coronary artery of [place] heart 08/06/2020 Social History Tobacco Use Types [...] - 5.60 % 10/25/2016 8:38 AM EDT [facility] Blood Venipuncture / Unknown 10/25/2016 8:14 AM EDT 10/25/2016 8:23 AM EDT Narrative [facility] - 10/25/2016 8:38 AM EDT The [place] [employer] recommends maintenance of Hemoglobin A1C at 7.0% or lower. Goals for Hemoglobin A1C reduction may need to be modified if hypoglycemia is a problem. Musa Echevarria MD LAB BLOOD ORDERABLES Final Res ult [facility]
[address] [place] [address], from Last 3 Months or Most Recently Relevant to Health Maintenance Insurance [employer] [facility] [employer]AGE Care Teams Student Assistance Counselor Relationship Specialty Start Date End Date Tessy Goodman APRN [address] [place] [address] PCP - General Nurse Practitioner 08/06/20
--- OUTSIDE RECORDS SUMMARY | 2025-01-13 08:54 | XMS_ITS | Clinical Summary ---
Author Organization [facility] ([place], [place], [place], [place], [place]) Address [address] [place] [address] Care Team Providers Care Sample Hand Name Role Phone GoodmanLionely Jennifer LIGHT Primary Care Provider [phone] Allergies Active Allergy Reactions Criticality Noted Date [...] continue podiatry Coronary artery disease invo lving [place] coronary artery of [place] heart 08/06/2020 01/20/2023 Overview (01/20/2023): Last Assessment [...] Date Mac rded Speak language other than Macedonian at home Not on file 03/02/2023 Want [...] or Tdap) 08/10/2032 08/10/2022, 06/02/2017, 01/28/[address] [place] [address] MEDICARE PPO [facility] Care Teams Sample Hand Relationship Specialty Start Date End Date Tessy Goodman, CORE LOADER [address] [place] [address] PCP - General Family Medicine 01/20/23
--- OUTSIDE RECORDS SUMMARY | 2025-01-13 08:54 | XMS_ITS | Clinical Summary ---
Author Organization [facility] Address [address] [place] [address] Phone Care Team Providers Care Refrigerated Company Driver Name Role Phone Unavailable Primary Care Provider [...] Impressions 04/10/2023 7:34 AM EST Benign finding (DCZ-Dquhdryj-1) ~ RECOMMENDATION: Routine screening mammogram in 1 [...] next mammogram, in accordance with the [place] [employer] and the Society of Breast Imaging recommendations. Narrative 04/10/2023 7:34 AM EST Procedure:MM MAMMO DIGITAL JULIO CÉSAR SCREEN BILAT ~ Reason for exam: screening, asymptomatic. Z12.31-Encounter for screening mammogram for malignant neoplasm of bnjzzu-YCH-72-CM ~ MM MAMMO DIGITAL JULIO CÉSAR SCREEN [...] for screening mammogram for malignant neoplasm of uwbpsr-KMO-77-CM ~ MM MAMMO DIGITAL JULIO CÉSAR SCREEN [...] evidence of malignancy. ~ IMPRESSION: Benign finding (FCD-Htbqjygm-9) ~ RECOMMENDATION: Routine screening mammogram in 1 [...] next mammogram, in accordance with the [place] [employer] and the Society of Breast Imaging recommendations. Tessy Goodman APRN [facility] MAMMOGRAPHY ORDERABLES Fin al Result from Last 3 Months or Most Recently Relevant to Health Maintenance Insurance [address] [address] MEDICARE HMO MR
--- OUTSIDE RECORDS SUMMARY | 2025-01-13 08:54 | XMS_ITS | Referral Summary ---
Author Organization [employer] ([place], [place], [place], [place], [place]) Address [address] [place] [address] Care Team Providers Care Insurance Agents Supervisor Name Role Phone Tessy Goodman APRN Primary Care Provider [phone] Allergies Active Allergy Reactions Criticality Noted Date [...] continue podiatry Coronary artery disease invo lving [place] coronary artery of [place] heart 08/06/2020 01/20/2023 Overview (01/20/2023): Last Assessment [...] Date Mac rded Speak language other than Russian at home Not on file 03/02/2023 Want [...] Plan of Treatment [facility] Care Teams Insurance Agents Supervisor Relationship Specialty Start Date End Date Tessy Goodman, JEWELRY TECHNICIAN [address] [place] [address] PCP - General Family Medicine 01/20/23
--- OUTSIDE RECORDS SUMMARY | 2025-01-13 08:54 | XMS_ITS | Clinical Summary ---
Author Organization [facility] Address [address] [place] [address] Care Team Providers Care Behavioral Assistant Name Role Phone Tessy Goodman DESSERT CUP MACHINE FEEDER Primary Care Provider [phone] Allergies Active Allergy Reactions Criticality Noted Date [...] pcp labs Coronary artery disease invo lving [place] coronary artery of [place] heart 08/06/2020 Assessment & Plan (12/02/2020 3:09 [...] Description 02/04/2025 2:20 PM EST Office Visit [facility] [address] [place] [address] Elisabeth Parrish PA [address] [place] [address] Health Maintenance Due Date Last [...] of 2 - PCV) 05/26/2018 05/26/2017, 11/01/2010 [id number] Vaccine (3 - 2024- season) 2024 06/11/2020, [...] of insulin ([facility]) from Last 3 Months or Most Recently Relevant to Health Maintenance Results * (ABNORMAL) POCT glycosylated hemoglobin (Hb A1C) (08/19/2024 1:32 PM EDT) POCT Hemoglobin A1C 5.8 <5.7% Non-Diabet ic % [facility] Kit Lot Number [id number] [facility] [employer] [facility] Kit Expiration Date 06/16 [facility] Blood Venous blood specimen / Unknown 08/19/2024 1:32 PM EDT Elisabeth MCMILLAN POINT OF CARE TEST EN TER/EDIT ORDERABLES Final Result [facility] [address] [place] [address] from Last 3 Months or Most Recently Relevant to Health Maintenance Insurance AETNA [facility] MEDICAID [employer] MEDICARE Care Teams Behavioral Assistant Relationship Specialty Start Date End Date Tessy Goodman APRN [address] [place] [address] PCP - General 07/03/20
[2025-01-13 09:40] LABS: Free T4 (Free Thyroxine) 1.56 ng/dl (0.78-2.19)
[2025-01-13 10:31] LABS: Thyroid Stimulating Hormone 1.10 uIU/mL (0.465-4.68)
== END 2025-01-13 23:59 | disposition home or self-care (01) ==
LOC: LAB.DROPOF 08:52
PROVIDERS: PCP Family Medicine; Visit Provider Family Medicine
DX: E03.9 Hypothyroidism, unspecified (principal)
CPT/HCPCS: 36415; 84439; 84443

== ENCOUNTER 2025-01-24 08:39 | Outpatient (CLI) | payer MEDICARE, SELFPAY ==
[2025-01-24 08:42] LABS: Microscopic, Urine URINE MICROSCOPIC (MICROSCOPIC)
[2025-01-24 08:49] LABS: Bilirubin,Urine Negative (Negative); Color,Urine YELLOW (Yellow); Glucose,Urine (UA) 2+ (Negative); Ketones,Urine Negative (Negative); Leukocyte Esterase,Urine Negative (Negative); PH,Urine 6.0 (5.0-8.5); Protein,Urine Negative (Negative); Specific Gravity, Urine 1.010 (1.005-1.030); Urobilinogen,Urine 0.2 EU/dl (0.2)
== END 2025-01-24 23:59 | disposition home or self-care (01) ==
LOC: LAB.DROPOF 08:39
PROVIDERS: PCP Family Medicine; Visit Provider Family Medicine
DX: R30.0 Dysuria (principal)
CPT/HCPCS: 81001

== ENCOUNTER 2025-02-05 08:40 | Outpatient (CLI) | payer MEDICARE, SELFPAY ==
--- OUTSIDE RECORDS SUMMARY | 2025-02-05 08:53 | XMS_ITS | Clinical Summary ---
Author Organization [facility]UAN [facility]INTER[facility] Address [address] [place] [address] Phone Care Team Providers Care Greek Professor Name Role Phone Unavailable Primary Care Provider [...] Impressions 04/10/2023 7:34 AM EST Benign finding (VWA-Hhpgzkcn-3) ~ RECOMMENDATION: Routine screening mammogram in 1 [...] the next mammogram, in accordance with the [place] [employer] and the Society of Breast Imaging recommendations. Narrative 04/10/2023 7:34 AM EST Procedure:MM MAMMO DIGITAL JULIO CÉSAR SCREEN BILAT ~ Reason for exam: screening, asymptomatic. Z12.31-Encounter for screening mammogram for malignant neoplasm of bwhmdh-KTV-29-CM ~ MM MAMMO DIGITAL JULIO CÉSAR SCREEN [...] for screening mammogram for malignant neoplasm of ogczwq-GUE-51-CM ~ MM MAMMO DIGITAL JULIO CÉSAR SCREEN [...] evidence of malignancy. ~ IMPRESSION: Benign finding (TDC-Wjqdayxc-8) ~ RECOMMENDATION: Routine screening mammogram in 1 [...] the next mammogram, in accordance with the [place] [employer] and the Society of Breast Imaging recommendations. Tessy Goodman APRN [facility] MAMMOGRAPHY ORDERABLES Fin al Result from Last 3 Months or Most Recently Relevant to Health Maintenance [place] [address] [place] [address] MEDICARE HMO MR
--- OUTSIDE RECORDS SUMMARY | 2025-02-05 08:53 | XMS_ITS | Clinical Summary ---
Author Organization [facility] Address [address] [place] [address] Care Team Providers Care Reticle Printer Name Role Phone Tessy Goodman POLY PACKER AND HEAT SEALER Primary Care Provider [phone] Allergies Active Allergy Reactions Criticality Noted Date [...] pcp labs Coronary artery disease invo lving [place] coronary artery of [place] heart 08/06/2020 Assessment & Plan (12/02/2020 3:09 [...] 08/19/2024 1:18 PM EDT Plan of Treatment Health Maintenance Due Date Last Done Comments [facility]-Bone Density Scan 1950 [facility]-Hepatitis C Screening 1950 [facility]-Medicare Annual Wellness (AWV) 1952 [facility]-/Child/Adol SDOH Screenings 1952 Diabetes: Dental Exam 1962 [facility]- SDOH Screenings 1970 [facility]-Adult SDOH Screenings 1970 CT Colonography 1997 Colonoscopy 1997 FIT-DNA 1997 FIT 1997 FOBT 1997 Sigmoidoscopy 1997 [facility]-Colorectal Cancer Screening 1997 [facility]-Pneumococcal Vaccine: 50+ Years (2 of 2 - PCV) 05/26/2018 05/26/2017, 11/01/2010 [id number] Vaccine (3 - 2024- season) 2024 06/11/2020, 05/14/2020 [facility]-Influenza Vaccine (#1) 10/21/202411/19, 11/18/2022, 11/19/2021, Additional history exists [facility]-Diabetes: Hemoglobin A1C 02/16/2025, 05/09/2024, 02/05/2024, Additional history exists [facility]-Breast Cancer Screening 03/31/2025 03/31/2023, 0 03/31/2023 [facility]-Depression Screening 08/19/2025 08/19/2024 [facility]-DTaP,Tdap,and Td Vaccines (3 - Td or Tdap) 08/10/2032 08/10/2022, 06/02/2017 [facility]-RSV Vaccine: 60+ Years or Completed 03/28/2023 [facility]-Zoster Vaccines Completed 10/26/2023, HPV Vaccines (No Doses Required) Completed [facility]-HIB Vaccines Aged Out No longer e [...] complication, without long-term current use of insulin ([facility]) from Last 3 Months or Most Recently Relevant to Health Maintenance Results * (ABNORMAL) POCT glycosylated hemoglobin (Hb A1C) (08/19/2024 1:32 PM EDT) POCT Hemoglobin A1C 5.8 <5.7% Non-Diabet ic % [facility] Kit Lot Number [id number] [facility] [employer] Kit Expiration Date 06/16 [facility] Blood Venous blood specimen / Unknown 08/19/2024 1:32 PM EDT Elisabeth MCMILLAN POINT OF CARE TEST EN TER/EDIT ORDERABLES Final Result Performing Organization Address City/State/[facility] Co de Phone Number [facility] [address] [place] [phone] from Last 3 Months or Most Recently Relevant to Health Maintenance Insurance [facility] MEDICARE Care Teams Reticle Printer Relationship Specialty Start Date End Date Tessy Goodman APRN [address] [place] [address] PCP - General 07/03/20
--- OUTSIDE RECORDS SUMMARY | 2025-02-05 08:53 | XMS_ITS | Clinical Summary ---
Author Organization [employer] ([place], [place], [place], [place], [place]) Address [address] [place] [address] Care Team Providers Care Armored Service Technician Name Role Phone Lionel Goodmany Jennifer LIGHT Primary Care Provider [phone] Allergies Active Allergy Reactions Criticality Noted Date [...] continue podiatry Coronary artery disease invo lving [place] coronary artery of [place] heart 08/06/2020 01/20/2023 Overview (01/20/2023): Last Assessment [...] Date Mac rded Speak language other than Azeri at home Not on file 03/02/2023 Want [...] or Tdap) 08/10/2032 08/10/2022, 06/02/2017, 01/28/[address] [place] [address] [place] [address] [facility] Care Teams Armored Service Technician Relationship Specialty Start Date End Date Tessy Goodman, MANAGER WOMEN [address] [place] [address] PCP - General Family Medicine 01/20/23
--- OUTSIDE RECORDS SUMMARY | 2025-02-05 08:53 | XMS_ITS | Clinical Summary ---
Author Organization [facility] Address [address] [place] [address] Care Team Providers Care Coconut Candy Maker Name Role Phone Tessy Goodman APRN Primary Care Provider [phone] Allergies Active Allergy Reactions Criticality Noted Date [...] exertion 08/06/2020 Coronary artery disease invo lving [place] coronary artery of [place] heart 08/06/2020 Social History Tobacco Use Types [...] - 5.60 % 10/25/2016 8:38 AM EDT [facility] Blood Venipuncture / Unknown 10/25/2016 8:14 AM EDT 10/25/2016 8:23 AM EDT Narrative [facility] - 10/25/2016 8:38 AM EDT The [place] Diabetes Association recommends maintenance of Hemoglobin A1C at 7.0% or lower. Goals for Hemoglobin A1C reduction may need to be modified if hypoglycemia is a problem. Musa Echevarria MD LAB BLOOD ORDERABLES Final Res ult [facility]
[address] [place] [address], from Last 3 Months or Most Recently Relevant to Health Maintenance Insurance AETNA [facility] AETNA [employer] MEDICARE ADVANTAGE Care Teams Coconut Candy Maker Relationship Specialty Start Date End Date Tessy Goodman APRN [address] [place] [address] PCP - General Nurse Practitioner 08/06/20
--- OUTSIDE RECORDS SUMMARY | 2025-02-05 08:53 | XMS_ITS | Data Portability ---
Author Organization [facility] Address [address] [facility] [address] [place] [address] Care Team Providers Care Plasterer Maintenance Name Role Phone TREVA MERCEDES Primary Care Provider TREVA MERCEDES Referring Provider [phone] Assessment Encounter Date Assessment Date Assessment LastModified [...] Details Recorded Time [facility]15[facility]38 Imaging Results None recorded. Procedure Notes None recorded. Medical Equipment None Reported. Allergies Allergen ID Allergen Name Allergen Category Reaction Reaction Severity Criticality Documentation Date Start Date Code Code System Note Provider Name and Address Organization Details Recorded Time 952718 Petra medicatio n rash Not available low 12/15/2022 39010 6 [facility] 09:16:56 387939 Bactrim medicatio n rash Not available low 12/15/2022 15049 9 Rx[facility] 3 09:17:08 928444 codeine medicatio n Not available Not available Not available 12/15/2022 2670 RxNorm Kalavianca Tiwarismi [facility] 3 09:17:22 341389 Product containin g penicilli n (product) medicatio n Not available Not available Not available 12/15/2022 16166 8001 SNOMED Kalavianca Tiwarismi [facility] 3 09:17:29 016084 cyclobenz aprine hydrochlo ride medicatio n Not available Not available Not available 12/15/2022 09929 RxNorm Kalavianca Tiwarismi [facility] 3 09:18:04 366387 Demerol medicatio n Not available Not available Not available 12/15/2022 04307 1 RxNorm Kalavianca Tiwarismi [facility] 3 09:18:29 958047 acetamino phen / pamabrom medicatio n Not available Not available Not available 12/15/2022 90822 4 RxNorm On sheet - ispan idol [place] Jessica [facility] 3 09:19:48 Medications Name Sig Start Date [...] Updated DateTime 03/07/2023 170.18 cm 20.7 kg/m2 32926.19 g 110/82 mm[Hg] [facility] 03/07/2023 10:53:13 Date Recorded Body height Body mass index (BMI) Body weight Systolic And Diastolic Provider Name and Address Organization Details Last Updated DateTime 12/15/2022 170.18 cm 20.7 kg/m2 11680.19 g 102/80 mm[Hg] [facility] 12/15/2022 09:14:44 Social History None recorded. [...] ICD10 Code Diagnosis IMO Codes Diagnosis Note [id number] DEBORAH HICKMAN MD [facility] [address] [place] [address] 12/15/2022 08:52:09 12/16/2022 04:08:40 Lumbar disc prolapse with radiculopathy 733334954 M51.16 [id number] CARSON ALFORD PA-C [facility] [address] [place] [address] 02/07/2023 13:28:12 02/08/2023 04:29:14 Postoperative visit [id number] Z09 [id number] DEBORAH HICKMAN MD SURGERY SCHEDULE [address] [place] [address] 02/15/2023 07:44:07 02/17/2023 15:23:56 [id number] LEELA SALVADOR PA-C [facility] [address] [place] [address] 03/07/2023 10:44:35 03/08/2023 04:37:01 Postoperative care [id number] Z48.89 Health Concerns Section Related Observation LastModified by Organization Detai ls LastModified Time None Recorded Concern Status LastModified by Organization Details LastModified Time None Recorded Advance Directives Directive None Recorded Payers Insurance Date Sequence Insurance Name Policy Number Policy Barth Covered Member ID Barth Member ID Guarantor Name 03/04/2023 2 AETNA [facility] (MEDICAID HMO) Sofia Valero [id number] Sofia He Anjum 02/07/2023 1 [place] Sofia Valero [id number] Sofia Valero 03/04/2023 1 [employer] (MEDICARE REPLACEMENT/ ADVANTAGE - PPO) Sofia Valero [id number] Sofia Valero Notes Date Note Type [...] is a dental hygienist. DEBORAH HICKMAN MD [facility] [place], [address], [facility] 12/15/2022 11:02:08 03/07/2023 text/html ROS as noted [...] in office today. LEELA SALVADOR PA-C [address] [place], [address], [facility] 03/07/2023 11:24:37 OBGyn Episode No OBEpisode recorded.
--- OUTSIDE RECORDS SUMMARY | 2025-02-05 08:53 | XMS_ITS | Referral Summary ---
Author Organization [employer] ([place], [place], [place], [place], [place]) Address [address] [place] [address] Care Team Providers Care President And Chief Operating Officer Name Role Phone Lionel Goodmany Jennifer LIGHT Primary Care Provider [phone] Allergies Active Allergy Reactions Criticality Noted Date [...] continue podiatry Coronary artery disease invo lving [place] coronary artery of [place] heart 08/06/2020 01/20/2023 Overview (01/20/2023): Last Assessment [...] Date Mac rded Speak language other than Eritrean at home Not on file 03/02/2023 Want [...] Plan of Treatment Not [facility] Care Teams President And Chief Operating Officer Relationship Specialty Start Date End Date Tessy Goodman, PERINATAL DIRECTOR [address] [place] [address] PCP - General Family Medicine 01/20/23
[2025-02-05 08:58] LABS: Microscopic, Urine URINE MICROSCOPIC (MICROSCOPIC)
[2025-02-05 09:27] LABS: Bilirubin,Urine Negative (Negative); Color,Urine YELLOW (Yellow); Glucose,Urine (UA) TRACE (Negative); Ketones,Urine Negative (Negative); Leukocyte Esterase,Urine Negative (Negative); PH,Urine 7.0 (5.0-8.5); Protein,Urine Negative (Negative); Specific Gravity, Urine 1.010 (1.005-1.030); Urobilinogen,Urine 0.2 EU/dl (0.2)
[2025-02-05 10:16] LABS: Bacteria,Urine 1+ /lpf; WBC,Urine Occasional #/hpf (0-3)
== END 2025-02-05 23:59 | disposition home or self-care (01) ==
LOC: LAB.DROPOF 08:40
PROVIDERS: PCP Family Medicine; Visit Provider Family Medicine
DX: R30.0 Dysuria (principal)
CPT/HCPCS: 81001

== ENCOUNTER 2025-02-14 09:39 | Outpatient (CLI) | payer MEDICARE, SELFPAY ==
--- OUTSIDE RECORDS SUMMARY | 2025-02-14 09:41 | XMS_ITS | Clinical Summary ---
Author Organization [facility] Address [address] [place] [address] Care Team Providers Care Security Alarm Technician Name Role Phone Tessy Goodman BOBBIN CLEANER HAND Primary Care Provider [phone] Allergies Active Allergy Reactions Criticality Noted Date [...] (six) hours if needed for severe pain (ni). 12 tablet 4 Active naloxone (Narcan) 4 [...] pcp labs Coronary artery disease invo lving [place] coronary artery of [place] heart 08/06/2020 Assessment & Plan (12/02/2020 3:09 [...] Screening 1950 [facility]-Medicare Annual Wellness (AWV) 1950 [facility]-Infant/Child/Adol SDOH Screenings 1952 Diabetes: Dental Exam 1962 [facility]- SDOH Screenings 1970 [facility]-Adult SDOH Screenings 1970 CT Colonography 1997 Colonoscopy 1997 FIT-DNA 1997 FIT 1997 FOBT 1997 Sigmoidoscopy 1997 [facility]-Colorectal Cancer Screening 1997 [facility]-Pneumococcal Vaccine: 50+ Years (2 of 2 - PCV) 05/26/2018 05/26/2017, 11/01/2010 [id number] Vaccine (3 - 2024- season) 2024 06/11/2020, [...] complication, without long-term current use of insulin ([facility]) from Last 3 Months or Most Recently Relevant to Health Maintenance Results * (ABNORMAL) POCT glycosylated hemoglobin (Hb A1C) (08/19/2024 1:32 PM EDT) POCT Hemoglobin A1C 5.8 <5.7% Non-Diabet ic % [facility] Kit Lot Number [id number] [facility] Kit Expiration Date 06/16 [facility] Blood Venous blood specimen / Unknown 08/19/2024 1:32 PM EDT Elisabeth MCMILLAN POINT OF CARE TEST EN TER/EDIT ORDERABLES Final Result Performing Organization Address City/State/[facility] Co de Phone Number [facility] [address] [place] [address] from Last 3 Months or Most Recently Relevant to Health Maintenance Insurance [place] [address] MEDICARE Care Teams Security Alarm Technician Relationship Specialty Start Date End Date Tessy Goodman APRN [phone] PCP - General 07/03/20
--- OUTSIDE RECORDS SUMMARY | 2025-02-14 09:41 | XMS_ITS | Clinical Summary ---
Author Organization [facility] Address [address] [place] [address] Care Team Providers Care Prescription Clerk Name Role Phone Tessy Goodman APRN Primary Care Provider [phone] Allergies Active Allergy Reactions Criticality Noted Date [...] exertion 08/06/2020 Coronary artery disease invo lving [place] coronary artery of [place] heart 08/06/2020 Social History Tobacco Use Types [...] 5.60 % 10/25/2016 8:38 AM EDT [facility] Blood Venipuncture / Unknown 10/25/2016 8:14 AM EDT 10/25/2016 8:23 AM EDT Narrative [facility] - 10/25/2016 8:38 AM EDT The [place] Diabetes Association recommends maintenance of Hemoglobin A1C at 7.0% or lower. Goals for Hemoglobin A1C reduction may need to be modified if hypoglycemia is a problem. Musa Echevarria MD LAB BLOOD ORDERABLES Final Res ult [facility]
[address] [place] [address], from Last 3 Months or Most Recently Relevant to Health Maintenance Insurance [facility]NA [facility] AETNA [employer] MEDICARE ADVANTAGE Care Teams Prescription Clerk Relationship Specialty Start Date End Date Tessy Goodman APRN [address] [place] [address] PCP - General Nurse Practitioner 08/06/20
--- OUTSIDE RECORDS SUMMARY | 2025-02-14 09:41 | XMS_ITS | Clinical Summary ---
Author Organization [facility] Address [address] [place] [address] Phone Care Team Providers Care Dermatologist Name Role Phone Unavailable Primary Care Provider [...] Impressions 04/10/2023 7:34 AM EST Benign finding (IVR-Rdybbttm-5) ~ RECOMMENDATION: Routine screening mammogram in 1 [...] the next mammogram, in accordance with the [place] [employer] and the Society of Breast Imaging recommendations. Narrative 04/10/2023 7:34 AM EST Procedure:MM MAMMO DIGITAL JULIO CÉSAR SCREEN BILAT ~ Reason for exam: screening, asymptomatic. Z12.31-Encounter for screening mammogram for malignant neoplasm of yipbxn-MOL-90-CM ~ MM MAMMO DIGITAL JULIO CÉSAR SCREEN [...] MD - 04/10/2023 Procedure:MM MAMMO DIGITAL JULIO ÉCSAR SCREEN BILAT ~ Reason for exam: screening, asymptomatic. Z12.31-Encounter for screening mammogram for malignant neoplasm of nehfzg-FVI-16-CM ~ MM MAMMO DIGITAL JULIO CÉSAR SCREEN [...] evidence of malignancy. ~ IMPRESSION: Benign finding (VTM-Qzjngunx-4) ~ RECOMMENDATION: Routine screening mammogram in 1 [...] the next mammogram, in accordance with the [place] [employer] and the Society of Breast Imaging recommendations. Tessy Goodman APRN [facility] MAMMOGRAPHY ORDERABLES Fin al Result from Last 3 Months or Most Recently Relevant to Health Maintenance [place] [address] [place] [address] MEDICARE HMO MR
--- OUTSIDE RECORDS SUMMARY | 2025-02-14 09:41 | XMS_ITS | Data Portability ---
Author Organization [facility] Address [address] [place] [address] Care Team Providers Care Toddler Caregiver Name Role Phone TREVA MERCEDES Primary Care Provider TREVA MERCEDES Referring Provider [phone] Assessment Encounter Date Assessment Date Assessment LastModified [...] Organization Details Recorded Time [facility]15[facility]38 Imaging Results None recorded. Procedure Notes None recorded. Medical Equipment None Reported. Allergies Allergen ID Allergen Name Allergen Category Reaction Reaction Severity Criticality Documentation Date Start Date Code Code System Note Provider Name and Address Organization Details Recorded Time 589861 Petra medicatio n rash Not available low 12/15/2022 05531 6 [facility] 09:16:56 737701 Bactrim medicatio n rash Not available low 12/15/2022 07104 9 [facility] 09:17:08 211235 codeine medicatio n Not available Not available Not available 12/15/2022 2670 RxNorm Kalavianca Tiwarismi [facility] [place] 3 09:17:22 703596 Product containin g penicilli n (product) medicatio n Not available Not available Not available 12/15/2022 27601 8001 SNOMED Kalavianca Tiwarismi [facility] [place] 3 09:17:29 563505 cyclobenz aprine hydrochlo ride medicatio n Not available Not available Not available 12/15/2022 63404 RxNorm Kalavianca Tiwarismi [facility] [place] 3 09:18:04 086136 Demerol medicatio n Not available Not available Not available 12/15/2022 76296 1 RxNorm Kalavianca Tiwarismi [facility] [place] 3 09:18:29 312860 acetamino phen / pamabrom medicatio n Not available Not available Not available 12/15/2022 61854 4 RxNorm On sheet - ispan idol [place] [facility] [place] 3 09:19:48 Medications Name Sig Start Date [...] Updated DateTime 03/07/2023 170.18 cm 20.7 kg/m2 69724.19 g 110/82 mm[Hg] [facility] 03/07/2023 10:53:13 Date Recorded Body height Body mass index (BMI) Body weight Systolic And Diastolic Provider Name and Address Organization Details Last Updated DateTime 12/15/2022 170.18 cm 20.7 kg/m2 68935.19 g 102/80 mm[Hg] [facility] 12/15/2022 09:14:44 Social History None recorded. Functional [...] ICD10 Code Diagnosis IMO Codes Diagnosis Note [id number] DEBORAH HICKMAN MD [facility] [address] [place] [address] 12/15/2022 08:52:09 12/16/2022 04:08:40 Lumbar disc prolapse with radiculopathy 675537316 M51.16 [id number] CARSON ALFORD PA-C [facility] [address] [place] [address] 02/07/2023 13:28:12 02/08/2023 04:29:14 Postoperative visit [id number] Z09 [id number] DEBORAH HICKMAN MD SURGERY SCHEDULE [address] [place] [address] 02/15/2023 07:44:07 02/17/2023 15:23:56 [id number] LEELA SALVADOR PA-C [facility] [address] [place] [address] 03/07/2023 10:44:35 03/08/2023 04:37:01 Postoperative care [id number] Z48.89 Health Concerns Section Related Observation LastModified by Organization Detai ls LastModified Time None Recorded Concern Status LastModified by Organization Details LastModified Time None Recorded Advance Directives Directive None Recorded Payers Insurance Date Sequence Insurance Name Policy Number Policy Barth Covered Member ID Barth Member ID Guarantor Name 03/04/2023 2 [employer] [facility] (MEDICAID HMO) Sofia Valero [id number] Sofia He Anjum 02/07/2023 1 [place] Sofia Valero [id number] Sofia Valero 03/04/2023 1 [employer] (MEDICARE REPLACEMENT/ ADVANTAGE - PPO) Sofia Valero [id number] Sofia Valero Notes Date Note Type [...] is a dental hygienist. DEBORAH HICKMAN MD [facility] [place], [address], [facility] 12/15/2022 11:02:08 03/07/2023 text/html ROS [...] in office today. LEELA SALVADOR PA-C [address] [place], [address], [facility] 03/07/2023 11:24:37 OBGyn Episode No OBEpisode recorded.
--- OUTSIDE RECORDS SUMMARY | 2025-02-14 09:41 | XMS_ITS | Referral Summary ---
Author Organization [employer] ([place], [place], [place], [place], [place]) Address [address] [place] [address] Care Team Providers Care Siderographer Name Role Phone Lionel Goodmany Jennifer LIGHT Primary Care Provider [phone] Allergies Active Allergy Reactions Criticality Noted Date [...] continue podiatry Coronary artery disease invo lving [place] coronary artery of [place] heart 08/06/2020 01/20/2023 Overview (01/20/2023): Last Assessment [...] Date Mac rded Speak language other than [place] at home Not on file 03/02/2023 Want [...] Plan of Treatment Not on file [facility] Care Teams Siderographer Relationship Specialty Start Date End Date Tessy Goodman, VP [employer] [address] [place] [address] PCP - General Family Medicine 01/20/23
--- OUTSIDE RECORDS SUMMARY | 2025-02-14 09:41 | XMS_ITS | Clinical Summary ---
Author Organization [employer] ([place], [place], [place], [place], [place]) Address [address] [place] [address] Care Team Providers Care Skate Hop Name Role Phone GoodmanLionely Jennifer LIGHT Primary Care Provider [phone] Allergies Active Allergy Reactions Criticality Noted Date [...] continue podiatry Coronary artery disease invo lving [place] coronary artery of [place] heart 08/06/2020 01/20/2023 Overview (01/20/2023): Last Assessment [...] Date Mac rded Speak language other than Pashto at home Not on file 03/02/2023 Want [...] or Tdap) 08/10/2032 08/10/2022, 06/02/2017, 01/28/[address] [place] [address] MEDICARE PPO [facility] Care Teams Skate Hop Relationship Specialty Start Date End Date Tessy Goodman, WARES SORTER [address] [place] [address] PCP - General Family Medicine 01/20/23
[2025-02-14 10:10] LABS: Albumin Level 3.8 g/dl (3.5-5.0); Chloride 102 mmol/L (98-107); Potassium 4.2 mmoL/L (3.5-5.1); Sodium 134 mmol/L (136-145)
[2025-02-14 10:13] LABS: Alanine Aminotransferase 13 U/L (12-78); Albumin/Globulin Ratio 1.5 (1.1-1.8); Alkaline Phosphatase 102 U/L (38-126); Anion Gap 12.2 mEq/L (5-15); Aspartate Amino Transferase 22 U/L (14-36); Bilirubin,Total 0.6 mg/dl (0.2-1.3); Blood Urea Nitrogen 19 mg/dl (7-17); Calcium 9.2 mg/dl (8.4-10.2); Carbon Dioxide 24 mmol/L (22.0-30.0); Creatinine,Serum 0.80 mg/dl (0.52-1.04); Estimated Glomerular Filt Rate 71 ml/min (>60); GFR (African American) 85 ML/MIN (>60); Globulin 2.5 g/dL (1.3-3.2); Glucose 177 mg/dl (74-100); Total Protein,Serum 6.3 g/dl (6.3-8.2)
[2025-02-14 11:01] LABS: Magnesium 1.0 mg/dl (1.6-2.3)
[2025-02-14 11:17] LABS: Hemoglobin A1C 7.4 % (4.0-6.0)
== END 2025-02-14 23:59 | disposition home or self-care (01) ==
LOC: LAB.DROPOF 09:39
PROVIDERS: PCP Family Medicine; Visit Provider Family Medicine
DX: E11.40 Type 2 diabetes mellitus with diabetic neuropathy, unspecified (principal); I26.99 Other pulmonary embolism without acute cor pulmonale
CPT/HCPCS: 36415; 80053; 83036; 83735